=== PATIENT | male | born 1945 | race African-American/Black ===

== ENCOUNTER 2017-10-29 17:54 | Emergency (ER) | payer MEDICARE, OTHER, SELFPAY ==
[2017-10-29 18:04] VITALS: BP 147/81; PULSE 61; RESP 20; TEMP 36.9; O2SAT 100; BMI 32.7
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
--- NOTE | 2017-10-29 18:13 | PC.NURSE ---
Pt off backboard at 181
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
[2017-10-29 18:30] VITALS: BP 127/68; PULSE 73; RESP 14; O2SAT 99
--- NOTE | 2017-10-29 18:40 | PC.NURSE ---
PER PROVIDER KARISSA TORADOL GIVEN IM INJECTION. VERBAL ORDER FROM PROVIDER FOR BLOOD DRAW NOT IV.
[2017-10-29] MEDS: KETOROLAC 60 MG/2 ML VIAL 30 MG IM (18:46)
[2017-10-29 19:12] LABS: Add Manual Diff / Slide Review NO; Basophils Percent Auto 0.6 % (0-2); Eosinophils Percent Auto 3.2 % (2-4); Hemoglobin 11.5 g/dL (13.5-17.5); Mean Corpuscular HGB Conc 32.9 % (30-36); Mean Corpuscular Hemoglobin 31.2 PG (26-34); Mean Corpuscular Volume 94.6 fL (80-100); Neutrophils Absolute Auto 2500 /uL (3000-5900); Neutrophils Percent Auto 54.2 % (50-75); Platelet Count 124 X10^3/uL (150-400); Red Cell Distribution Width 14.2 % (11.6-14.8); White Blood Cell Count 4.6 X10^3/uL (4.5-11.0)
[2017-10-29 19:19] LABS: INR 1.3 (0.9-1.3); Prothrombin Time 14.5 SECONDS (10.1-12.7)
[2017-10-29 19:22] LABS: PTT Partial Thromboplastin Tim 28 SECONDS (26.4-36.2)
[2017-10-29 19:27] LABS: Alanine Aminotransferase 38 IU/L (21-72); Albumin 4.1 g/dL (3.5-5.0); Albumin Globulin Ratio 1.5 (1.0-2.8); Alkaline Phosphatase 42 U/L (38-126); Aspartate Aminotransferase 41 IU/L (17-59); BUN Creatinine Ratio 17.7 (6-22); Bilirubin Total 0.6 mg/dL (0.2-1.3); Calcium 9.4 mg/dL (8.4-10.2); Creatine Kinase 354 U/L (55-170); Ethanol (ETOH) < 10 mg/dL; Globulin 2.7 g/dL (1.7-4.1); Glucose 100 mg/dL (80-110); HEMOLYSIS < 15 (0-50); Lipase 104 U/L (23-300); Potassium 4.2 mmol/L (3.4-5.1); Sodium 140 mmol/L (137-145); Total Protein 6.8 g/dL (6.3-8.2)
[2017-10-29 19:30] VITALS: BP 158/81; PULSE 72; RESP 14; O2SAT 99
--- NOTE | 2017-10-29 19:30 | PC.NURSE ---
patient refused IV
[2017-10-29 19:42] LABS: CKMB % Relative Index 0.7 % (1.5-5.0); Creatine Kinase MB 2.36 ng/mL (<2.37)
[2017-10-29 19:43] LABS: Troponin I < 0.012 ng/mL (0.01-0.034)
== END 2017-10-29 19:50 | disposition home or self-care (01) ==
PROVIDERS: Emergency Provider Emergency Medicine; Family Provider Internal Medicine; PCP Internal Medicine
DX: S13.4XXA Sprain of ligaments of cervical spine, initial encounter (principal); V49.9XXA Car occupant (driver) (passenger) injured in unspecified traffic accident, initial encounter
CPT/HCPCS: 36415; 71046; 80053; 80320; 82550; 82553; 83690; 84484; 85025; 85610; 85730; 93005; 96372; 99283; 99285; J1885

== ENCOUNTER 2018-02-10 10:27 | Emergency (ER) | payer MEDICARE, OTHER, SELFPAY ==
[2018-02-10 10:37] VITALS: BP 123/78; PULSE 70; RESP 18; TEMP 37.4; O2SAT 98
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
[2018-02-10 11:26] LABS: Add Manual Diff / Slide Review NO; Basophils Percent Auto 0.5 % (0-2); Eosinophils Percent Auto 3.7 % (2-4); Hematocrit 33.3 % (41-53); Hemoglobin 11.1 g/dL (13.5-17.5); Lymphocytes Percent Auto 16.9 % (25-40); Mean Corpuscular HGB Conc 33.3 % (30-36); Mean Corpuscular Hemoglobin 31.3 PG (26-34); Mean Corpuscular Volume 93.9 fL (80-100); Monocytes Percent Auto 10.7 % (3-14); Neutrophils Absolute Auto 4000 /uL (3000-5900); Neutrophils Percent Auto 68.2 % (50-75); Platelet Count 157 X10^3/uL (150-400); Red Blood Cell Count 3.54 X10^6/uL (4.5-5.9); Red Cell Distribution Width 14.4 % (11.6-14.8); White Blood Cell Count 5.8 X10^3/uL (4.5-11.0)
[2018-02-10 11:33] LABS: Alanine Aminotransferase 32 IU/L (21-72); Albumin 3.9 g/dL (3.5-5.0); Albumin Globulin Ratio 1.5 (1.0-2.8); Alkaline Phosphatase 53 U/L (38-126); Aspartate Aminotransferase 54 IU/L (17-59); BUN Creatinine Ratio 14.2 (6-22); Bilirubin Total 0.4 mg/dL (0.2-1.3); Blood Urea Nitrogen 17 mg/dL (9-20); Calcium 8.9 mg/dL (8.4-10.2); Carbon Dioxide 34 mmol/L (22-32); Chloride 104 mmol/L (98-107); Creatine Kinase 127 U/L (55-170); Estimated Glomerular Filt Rate 59.2 mL/min (>60); Globulin 2.6 g/dL (1.7-4.1); Glucose 106 mg/dL (80-110); Potassium 4.1 mmol/L (3.4-5.1); Sodium 144 mmol/L (137-145); Total Protein 6.5 g/dL (6.3-8.2)
[2018-02-10 11:47] LABS: Troponin I < 0.012 ng/mL (0.01-0.034)
[2018-02-10 11:49] LABS: CKMB % Relative Index 0.6 % (1.5-5.0); Creatine Kinase MB 0.77 ng/mL (<2.37); HEMOLYSIS 21 (0-50)
[2018-02-10 12:02] VITALS: BP 143/74; PULSE 62; RESP 16; O2SAT 100
[2018-02-10 13:23] VITALS: BP 129/76; PULSE 59; RESP 18; TEMP 37.1; O2SAT 98
== END 2018-02-10 13:24 | disposition home or self-care (01) ==
PROVIDERS: Emergency Provider Emergency Medicine; PCP Internal Medicine
DX: B34.9 Viral infection, unspecified (principal); R53.1 Weakness
CPT/HCPCS: 36591; 71045; 80053; 82550; 82553; 84484; 85025; 93005; 93010; 99282; 99285

== ENCOUNTER 2018-02-22 11:55 | Emergency (ER) | payer MEDICARE, OTHER, SELFPAY ==
[2018-02-22 12:01] VITALS: BP 151/79; PULSE 65; RESP 14; TEMP 37.2; O2SAT 98; BMI 31.1
--- NOTE | 2018-02-22 12:12 | DI.RAD.S_ITS ---
PROCEDURE: XR CHEST 1V INDICATIONS: chest pain TECHNIQUE: One view of the chest was acquired. COMPARISON: [facility], CR, XR CHEST 1V, 02/10/2018, 11:26. [facility], CR, XR CHEST 2V, 10/29/2017, 17:53. [facility], CR, CHEST 1 VIEW, 08/10/2017, 10:09. FINDINGS: Surgical changes and devices: Pacemaking device and dual chamber leads stable over time Lungs and pleura: No pleural effusions or pneumothorax. Lungs are clear. Mediastinum: Mediastinal contours appear normal. Heart size is normal. Bones and chest wall: No suspicious bony lesions. Overlying soft tissues appear unremarkable. IMPRESSION: Pacemaker appears normal, source of new chest is not found. Dictated by: Carlos Kay M.D. on 02/22/2018 at 12:51 Approved by: Carlos Kay M.D. on 02/22/2018 at 12:51
--- NOTE | 2018-02-22 12:26 | ED.WEAKNESS ---
HPI - Weakness <Sarah Holly, ACCOUNTANT MANAGER-BC - Last Filed: 02/22/18 15:15> General Chief complaint: Weakness Stated complaint: headaches, states pain everywhere Time Seen by Provider: 02/22/18 12:26 Source: patient, RN notes reviewed and old records reviewed Mode of arrival: ambulatory Limitations: no limitations History of Present Illness HPI Narrative: Patient presents with chief complaint of illness for 3 weeks. States he has been seen in this emergency department once as well as his primary care. He was seen by his primary care physician on 02/17/2018. He has seen in the emergency department 02/02/2018. He complains of various symptoms including headache, sore and inflamed abdomen. He denies any sore throat, ear pain, objective fevers but does complain of slight chills. He states he has had diarrhea on and off since this started including prior to when he saw his primary care provider. He is frustrated that he is not improving at a quick enough rate. He states he feels weak, denies dizziness and lightheadedness. He states he used to have some cough and congestion, but those have improved. He states he occasionally coughs up mucus. Today he states that he has headache, and then belly aches but neither at the same time. He is requesting testing for hepatitis as he is concerned about that. Related Data Home Medications Medication Instructions Recorded Confirmed CA PANTOTHENATE/FOLIC ACID/VIT 1 tab PO QDAY #0 02/13/12 02/17/18 (MULTIVITAMIN) ASPIRIN (#ASPIRIN) 81 mg PO Q DAY #0 07/23/12 02/17/18 colchicine [Mitigare] 1 cap PO BID #0 02/23/16 02/17/18 gabapentin [Neurontin] 300 mg PO BID #0 02/23/16 02/17/18 nabumetone 500 mg PO QDAY #0 tab 02/23/16 02/17/18 alprazolam 0.25 mg PO TIDP PRN #0 11/22/16 02/17/18 diclofenac sodium [Voltaren] 1 john TOPICAL QID #0 11/22/16 02/17/18 fluticasone [Flonase Allergy 1 spray INTRANASAL QDAY #0 11/22/16 02/17/18 Relief] amitriptyline 25 mg PO HS #0 08/10/17 02/17/18 tramadol 50 mg PO QDAY #0 08/10/17 02/17/18 Previous Rx's Medication Instructions Recorded sertraline 50 mg PO QDAY #30 tab 12/16/16 sucralfate 1 gm PO ACHS #360 tab 02/24/17 diclofenac sodium 75 mg PO BIDP PRN #60 ect 03/14/17 tamsulosin [Flomax] 0.4 mg PO QDAY #30 cap 03/14/17 sertraline 50 mg PO QDAY #90 tab 04/07/17 levothyroxine [Synthroid] 50 mcg PO QDAY #90 tab 08/12/17 lisinopril 5 mg PO Q DAY #90 tab 08/12/17 tadalafil [Cialis] 20 mg PO QDAY #30 tab 08/19/17 sildenafil [Viagra] 100 mg PO PRN PRN #30 tab 10/23/17 oxycodone 5 mg tablet 5 mg PO Q4-6H PRN #20 tab 11/13/17 pantoprazole 40 mg PO BID #180 tab 12/09/17 clorazepate dipotassium 3.75 mg 3.75 mg PO BID #180 tab 02/03/18 tablet ibuprofen 600 mg PO QID PRN #20 tab 02/22/18 Allergies Allergy/AdvReac Type Severity Reaction Status Date / Time codeine Allergy Mild HIVES Verified 02/22/18 12:04 Review of Systems <JOO Serna - Last Filed: 02/22/18 15:15> Review of Systems GENERAL: See HPI HEENT: Denies sinus pain, ear pain, sore throat, difficulty swallowing, dizziness. RESPIRATORY: See HPI CARDIOVASCULAR: See HPI GASTROINTESTINAL: See HPI : Denies dysuria, frequency, incontinence, hematuria, urinary retention. MUSCULOSKELETAL: denies weakness, joint pain, or bony pain SKIN: Denies rash, skin lesions, or other NEUROLOGIC: Denies weakness, headache, numbness, change in speech, confusion, seizures, incoordination. PSYCHIATRIC: No concerning psychosocial issues. 12 point review of systems is negative except for those stated above Exam <JOO Serna - Last Filed: 02/22/18 15:15> Narrative Exam Narrative: GENERAL: Obese male lying on stretcher. Patient is eyes closed respirations even and appears to be sleep when I began my evaluation. HEAD: Atraumatic. Normocephalic. No temporal or scalp tenderness. EYES: Pupils equal round and reactive. Extraocular motions intact. No scleral icterus. No injection or drainage. ENT: Nose without bleeding, purulent drainage or septal hematoma. Throat without erythema, tonsillar hypertrophy or exudate. Uvula midline. Airway patent. TMs pearly prieto bilaterally with no swelling or erythema in the canal spinning. NECK: Trachea midline. No JVD or anterior or posterior lymphadenopathy. Supple, nontender, no meningeal signs. Full range of motion neck. CARDIOVASCULAR: Regular rate and rhythm without murmurs, gallops, or rubs. RESPIRATORY: Clear to auscultation. Breath sounds equal bilaterally. No wheezes, rales, or rhonchi. No cough on exam. GASTROINTESTINAL: Abdomen soft, non-tender, nondistended. No hepato-splenomegaly, or palpable masses. No guarding. Active bowel sounds all 4 quadrants. No pulsatile mass. No pain at McBurney's point. Negative Loera sign. EXTREMITIES: No clubbing, cyanosis, or edema. No joint tenderness, effusion, or edema noted. BACK: Nontender without deformity or crepitance. No flank tenderness. NEURO: AOx3. SKIN: No rash or erythema. Initial Vital Signs Initial Vital Signs: Vital Signs Temperature 98.9 F 02/22/18 12:01 Pulse Rate 65 02/22/18 12:01 Respiratory Rate 14 02/22/18 12:01 Blood Pressure 151/79 H 02/22/18 12:01 Pulse Oximetry 98 02/22/18 12:01 <Seamus Gant DO - Last Filed: 02/22/18 16:10> Initial Vital Signs Initial Vital Signs: Vital Signs Temperature 98.9 F 02/22/18 12:01 Pulse Rate 65 02/22/18 12:01 Respiratory Rate 14 02/22/18 12:01 Blood Pressure 151/79 H 02/22/18 12:01 Pulse Oximetry 98 02/22/18 12:01 Course <STACY Serna-BC - Last Filed: 02/22/18 15:15> Course Narrative: I spoke with the patient several times had a stay regarding his test results coming back, x-ray results etc. Orders Ordered: ED Orders 02/22/18 12:12 XR chest 1V Stat EKG-12 Lead Stat 02/22/18 13:30 Amylase Stat Complete Blood Count AUTO DIFF Stat Comprehensive Metabolic Panel Stat Lipase Stat Partial Thromboplastin Time Stat Prothrombin Time INR Stat Troponin & CK Cardiac Panel Stat Discontinued Medications Ibuprofen (Advil) 800 mg PO NOW ONE Stop: 02/22/18 14:39 Last Admin: 02/22/18 14:45 Dose: 800 mg Vital Signs - 8 hr 02/22/18 12:01 02/22/18 13:15 02/22/18 14:50 Temperature 98.9 F Pulse Rate 65 64 56 L Respiratory Rate 14 17 14 Blood Pressure 151/79 H Blood Pressure [Left Arm] 134/71 156/89 H Pulse Oximetry 98 95 98 <Seamus Gant DO - Last Filed: 02/22/18 16:10> Orders Ordered: ED Orders 02/22/18 12:12 XR chest 1V Stat EKG-12 Lead Stat 02/22/18 13:30 Amylase Stat Complete Blood Count AUTO DIFF Stat Comprehensive Metabolic Panel Stat Lipase Stat Partial Thromboplastin Time Stat Prothrombin Time INR Stat Troponin & CK Cardiac Panel Stat Discontinued Medications Ibuprofen (Advil) 800 mg PO NOW ONE Stop: 02/22/18 14:39 Last Admin: 02/22/18 14:45 Dose: 800 mg Vital Signs - 8 hr 02/22/18 12:01 02/22/18 13:15 02/22/18 14:50 Temperature 98.9 F Pulse Rate 65 64 56 L Respiratory Rate 14 17 14 Blood Pressure 151/79 H Blood Pressure [Left Arm] 134/71 156/89 H Pulse Oximetry 98 95 98 MDM - Weakness <KARISSA Serna - Last Filed: 02/22/18 15:15> Lab Data Result diagrams: 02/22/18 13:30 02/22/18 13:30 Lab Results 02/22/18 02/22/18 02/22/18 Range/Units 13:30 13:30 13:30 WBC 5.2 (4.5-11.0) X10^3/uL RBC 3.51 L (4.5-5.9) X10^6/uL Hgb 11.0 L (13.5-17.5) g/dL Hct 33.1 L (41-53) % MCV 94.4 (80-100) fL MCH 31.2 (26-34) PG MCHC 33.1 (30-36) % RDW 13.9 (11.6-14.8) % Plt Count 274 (150-400) X10^3/uL Neut % (Auto) 62.9 (50-75) % Lymph % (Auto) 27.6 (25-40) % [place] % (Auto) 6.7 (3-14) % Eos % (Auto) 1.7 L (2-4) % Baso % (Auto) 1.1 (0-2) % Neut # (Auto) 3300 (9064-6158) /uL PT 17.7 H (10.1-12.7) SECONDS INR 1.6 H (0.9-1.3) APTT 27 (26.4-36.2) SECONDS Sodium 143 (137-145) mmol/L Potassium 4.2 (3.4-5.1) mmol/L Chloride 101 (98-107) mmol/L Carbon Dioxide 37 H (22-32) mmol/L BUN 15 (9-20) mg/dL Creatinine 1.10 (0.66-1.25) mg/dL Estimated GFR > 60.0 (>60) mL/min BUN/Creatinine Ratio 13.6 (6-22) Glucose 98 (80-110) mg/dL Calcium 9.5 (8.4-10.2) mg/dL Total Bilirubin 0.5 (0.2-1.3) mg/dL AST 31 (17-59) IU/L ALT 28 (21-72) IU/L Alkaline Phosphatase 55 (38-126) U/L Total Creatine Kinase 181 H (55-170) U/L CK-MB (CK-2) 0.55 (<2.37) ng/mL CK-MB (CK-2) Rel Index 0.3 L (1.5-5.0) % Troponin I < 0.012 (0.01-0.034) ng/mL Total Protein 7.3 (6.3-8.2) g/dL Albumin 4.1 (3.5-5.0) g/dL Globulin 3.2 (1.7-4.1) g/dL Albumin/Globulin Ratio 1.3 (1.0-2.8) Amylase 82 (30-110) U/L Lipase 51 (23-300) U/L Urine Dip Bedside Urine Glucose Negative Bedside Urine Bilirubin - Negative Bedside Urine Ketone - Negative Urine Specific Ernest 1.015 Bedside Urine Occult Blood - Negative Bedside Urine pH 6.0 Bedside Urine Protein - Negative Bedside Urine Urobilinogen - Negative Bedside Urine Nitrite - Negative Bedside Urine Leukocytes - Negative Esterase Imaging Data Chest x-ray: Radiologist's impression: [address] [address] XRay Report Signed Patient: Jorje Garay MR#: [id number] : 1945 Acct:[id number] Age/Sex: 72 / M Date of Service: 02/22/18 Loc: ED Accession Number: [id number] Procedure: XR chest 1V Ordering Provider: Sarah Holly-JAROD PROCEDURE: XR CHEST 1V INDICATIONS: chest pain TECHNIQUE: One view of the chest was acquired. COMPARISON: [facility], CR, XR CHEST 1V, 02/10/2018, 11:26. [facility], CR, XR CHEST 2V, 10/29/2017, 17:53. [facility], CR, CHEST 1 VIEW, 08/10/2017, 10:09. FINDINGS: Surgical changes and devices: Pacemaking device and dual chamber leads stable over time Lungs and pleura: No pleural effusions or pneumothorax. Lungs are clear. Mediastinum: Mediastinal contours appear normal. Heart size is normal. Bones and chest wall: No suspicious bony lesions. Overlying soft tissues appear unremarkable. IMPRESSION: Pacemaker appears normal, source of new chest is not found. Dictated by: Carlos Kay M.D. on 02/22/2018 at 12:51 Approved by: Carlos Kay M.D. on 02/22/2018 at 12:51 ECG Data Attestation: I personally reviewed and interpreted this ECG as follows: Interpretation: Sinus arrhythmia. Ventricular rate 65. No ST elevation or depression.FL 225 MDM Narrative Medical decision making narrative: Patient presented with chief complaint of fatigue and weakness. He states this has been going on since his previous emergency department visit at the end of January. He saw his primary care 5 days ago. He presents requesting testing for ?all the other viruses including hepatitis, HIV, etc. Given his history, we did an EKG, CMP, CBC lipase amylase as well as a troponin level. All of his lab work came back grossly normal for the patient, with his hemoglobin hematocrit at his own baseline. A chest x-ray was obtained per nursing protocol. I did give him a prescription of ibuprofen upon discharge per his request with instructions to not take with other NSAIDs. The patient has no questions or concerns upon discharge in state to follow up with primary care provider tomorrow. I discussed return precautions to the emergency department including chest pain, stroke symptoms, etc. <Seamus Gant DO - Last Filed: 02/22/18 16:10> Lab Data Lab Results 02/22/18 02/22/18 02/22/18 Range/Units 13:30 13:30 13:30 WBC 5.2 (4.5-11.0) X10^3/uL RBC 3.51 L (4.5-5.9) X10^6/uL Hgb 11.0 L (13.5-17.5) g/dL Hct 33.1 L (41-53) % MCV 94.4 (80-100) fL MCH 31.2 (26-34) PG MCHC 33.1 (30-36) % RDW 13.9 (11.6-14.8) % Plt Count 274 (150-400) X10^3/uL Neut % (Auto) 62.9 (50-75) % Lymph % (Auto) 27.6 (25-40) % Prairie % (Auto) 6.7 (3-14) % Eos % (Auto) 1.7 L (2-4) % Baso % (Auto) 1.1 (0-2) % Neut # (Auto) 3300 (4737-9779) /uL PT 17.7 H (10.1-12.7) SECONDS INR 1.6 H (0.9-1.3) APTT 27 (26.4-36.2) SECONDS Sodium 143 (137-145) mmol/L Potassium 4.2 (3.4-5.1) mmol/L Chloride 101 (98-107) mmol/L Carbon Dioxide 37 H (22-32) mmol/L BUN 15 (9-20) mg/dL Creatinine 1.10 (0.66-1.25) mg/dL Estimated GFR > 60.0 (>60) mL/min BUN/Creatinine Ratio 13.6 (6-22) Glucose 98 (80-110) mg/dL Calcium 9.5 (8.4-10.2) mg/dL Total Bilirubin 0.5 (0.2-1.3) mg/dL AST 31 (17-59) IU/L ALT 28 (21-72) IU/L Alkaline Phosphatase 55 (38-126) U/L Total Creatine Kinase 181 H (55-170) U/L CK-MB (CK-2) 0.55 (<2.37) ng/mL CK-MB (CK-2) Rel Index 0.3 L (1.5-5.0) % Troponin I < 0.012 (0.01-0.034) ng/mL Total Protein 7.3 (6.3-8.2) g/dL Albumin 4.1 (3.5-5.0) g/dL Globulin 3.2 (1.7-4.1) g/dL Albumin/Globulin Ratio 1.3 (1.0-2.8) Amylase 82 (30-110) U/L Lipase 51 (23-300) U/L Urine Dip Bedside Urine Glucose Negative Bedside Urine Bilirubin - Negative Bedside Urine Ketone - Negative Urine Specific Ernest 1.015 Bedside Urine Occult Blood - Negative Bedside Urine pH 6.0 Bedside Urine Protein - Negative Bedside Urine Urobilinogen - Negative Bedside Urine Nitrite - Negative Bedside Urine Leukocytes - Negative Esterase Discharge Plan Departure Patient Disposition: Home Clinical Impression: Fatigue, Weakness Discharge Date/Time: 02/22/18 15:25 Interventions: ED Discharge Assessment Last Done: 02/22/18 15:15 Instructions: DI for Fatigue Activity Restrictions/Additional Instructions: Today we did an EKG, chest x-ray, and a bunch of lab work. Everything came back in her normal range from her previous lab work. Your x-ray shows no signs of pneumonia. Your vital signs have been stable throughout your stay. Please follow-up with your primary care provider regarding the other testing he requested for hepatitis, etc Prescriptions: New ibuprofen 600 mg tablet 600 mg PO QID PRN (Reason: pain) Qty: 20 RF: 0 No Action CA PANTOTHENATE/FOLIC ACID/VIT (MULTIVITAMIN) 1 tab PO QDAY Qty: 0 RF: 0 ASPIRIN (#ASPIRIN) 81 mg PO Q DAY Qty: 0 RF: 0 gabapentin [Neurontin] 300 MG capsule 300 mg PO BID Qty: 0 RF: 0 nabumetone 500 MG tablet 500 mg PO QDAY Qty: 0 RF: 0 colchicine [Mitigare] 0.6 MG capsule 1 cap PO BID Qty: 0 RF: 0 alprazolam 0.25 MG tablet 0.25 mg PO TIDP PRNQty: 0 RF: 0 diclofenac sodium [Voltaren] 1 % gel 1 john Topical QID Qty: 0 RF: 0 fluticasone [Flonase Allergy Relief] 9.9 ML spray,suspension 1 spray Intranasal QDAY Qty: 0 RF: 0 sertraline 50 MG tablet 50 mg PO QDAY Qty: 30 RF: 3 sucralfate 1 GM tablet 1 gm PO ACHS Qty: 360 RF: 3 tamsulosin [Flomax] 0.4 MG capsule,extended release 24hr 0.4 mg PO QDAY Qty: 30 RF: 0 diclofenac sodium 75 MG tablet,delayed release (DR/EC) 75 mg PO BIDP PRNQty: 60 RF: 6 sertraline 50 MG tablet 50 mg PO QDAY Qty: 90 RF: 3 tramadol 50 MG tablet 50 mg PO QDAY Qty: 0 RF: 0 amitriptyline 25 MG tablet 25 mg PO HS Qty: 0 RF: 0 levothyroxine [Synthroid] 50 MCG tablet 50 mcg PO QDAY Qty: 90 RF: 2 lisinopril 5 MG tablet 5 mg PO Q DAY Qty: 90 RF: 2 tadalafil [Cialis] 20 MG tablet 20 mg PO QDAY Qty: 30 RF: 10 sildenafil [Viagra] 100 mg tablet 100 mg PO PRN PRNQty: 30 RF: 10 pantoprazole 40 mg tablet,delayed release (DR/EC) 40 mg PO BID Qty: 180 RF: 3 clorazepate dipotassium 3.75 mg tablet 3.75 mg PO BID Qty: 180 RF: 1 oxycodone 5 mg tablet 5 mg PO Q4-6H PRN (Reason: pain in chest) Qty: 20 RF: 0 Referrals: Brayan Blackwell MD [Primary Care Provider] - <Seamus Gant DO - Last Filed: 02/22/18 16:10> Cosign ED Attending Cosignature Attestation: I was available for consultation during this patient's emergency department encounter
[2018-02-22 13:15] VITALS: BP 134/71; PULSE 64; RESP 17; O2SAT 95
--- NOTE | 2018-02-22 13:34 | ED_ITS ---
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 States he has been seen in this emergency department once as well as his primary care. He was seen by his primary care physician on 02/17/2018. He has seen in the emergency department 02/02/2018. He complains of various symptoms including headache, sore and inflamed abdomen. He denies any sore throat, ear pain, objective fevers but does complain of slight chills. He states he has had diarrhea on and off since this started including prior to when he saw his primary care provider. He is frustrated that he is not improving at a quick enough rate. He states he feels weak, denies dizziness and lightheadedness. He states he used to have some cough and congestion, but those have improved. He states he occasionally coughs up mucus. Today he states that he has headache , and then belly aches but neither at the same time. He is requesting testing for hepatitis as he is concerned about that. Related Data Home Medications Medication Instructions Recorded Confirmed CA PANTOTHENATE/FOLIC ACID/VIT 1 tab PO QDAY #0 02/13/12 02/17/18 (MULTIVITAMIN) ASPIRIN (#ASPIRIN) 81 mg PO Q DAY #0 07/23/12 02/17/18 colchicine [Mitigare] 1 cap PO BID #0 02/23/16 02/17/18 gabapentin [Neurontin] 300 mg PO BID #0 02/23/16 02/17/18 nabumetone 500 mg PO QDAY #0 tab 02/23/16 02/17/18 alprazolam 0.25 mg PO TIDP PRN #0 11/22/16 02/17/18 diclofenac sodium [Voltaren] 1 john TOPICAL QID #0 11/22/16 02/17/18 fluticasone [Flonase Allergy 1 spray INTRANASAL QDAY #0 11/22/16 02/17/18 Relief] amitriptyline 25 mg PO HS #0 08/10/17 02/17/18 tramadol 50 mg PO QDAY #0 08/10/17 02/17/18 Previous Rx's Medication Instructions Recorded sertraline 50 mg PO QDAY #30 tab 12/16/16 sucralfate 1 gm PO ACHS #360 tab 02/24/17 diclofenac sodium 75 mg PO BIDP PRN #60 ect 03/14/17 tamsulosin [Flomax] 0.4 mg PO QDAY #30 cap 03/14/17 sertraline 50 mg PO QDAY #90 tab 04/07/17 levothyroxine [Synthroid] 50 mcg PO QDAY #90 tab 08/12/17 lisinopril 5 mg PO Q DAY #90 tab 08/12/17 tadalafil [Cialis] 20 mg PO QDAY #30 tab 08/19/17 sildenafil [Viagra] 100 mg PO PRN PRN #30 tab 10/23/17 oxycodone 5 mg tablet 5 mg PO Q4-6H PRN #20 tab 11/13/17 pantoprazole 40 mg PO BID #180 tab 12/09/17 clorazepate dipotassium 3.75 mg 3.75 mg PO BID #180 tab 02/03/18 tablet ibuprofen 600 mg PO QID PRN #20 tab 02/22/18 Allergies Allergy/AdvReac Type Severity Reaction Status Date / Time codeine Allergy Mild HIVES Verified 02/22/18 12:04 Review of Systems <JOO Serna - Last Filed: 02/22/18 15:15> Review of Systems GENERAL: See HPI HEENT: Denies sinus pain, ear pain, sore throat, difficulty swallowing, dizziness. RESPIRATORY: See HPI CARDIOVASCULAR: See HPI GASTROINTESTINAL: See HPI : Denies dysuria, frequency, incontinence, hematuria, urinary retention. MUSCULOSKELETAL: denies weakness, joint pain, or bony pain SKIN: Denies rash, skin lesions, or other NEUROLOGIC: Denies weakness, headache, numbness, change in speech, confusion, seizures, incoordination. PSYCHIATRIC: No concerning psychosocial issues. 12 point review of systems is negative except for those stated above Exam <JOO Serna - Last Filed: 02/22/18 15:15> Narrative Exam Narrative: GENERAL: Obese male lying on stretcher. Patient is eyes closed respirations even and appears to be sleep when I began my evaluation. HEAD: Atraumatic. Normocephalic. No temporal or scalp tenderness. EYES: Pupils equal round and reactive. Extraocular motions intact. No scleral icterus. No injection or drainage. ENT: Nose without bleeding, purulent drainage or septal hematoma. Throat without erythema, tonsillar hypertrophy or exudate. Uvula midline. Airway patent. TMs pearly prieto bilaterally with no swelling or erythema in the canal spinning. NECK: Trachea midline. No JVD or anterior or posterior lymphadenopathy. Supple, nontender, no meningeal signs. Full range of motion neck. CARDIOVASCULAR: Regular rate and rhythm without murmurs, gallops, or rubs. RESPIRATORY: Clear to auscultation. Breath sounds equal bilaterally. No wheezes , rales, or rhonchi. No cough on exam. GASTROINTESTINAL: Abdomen soft, non-tender, nondistended. No hepato-splenomegaly , or palpable masses. No guarding. Active bowel sounds all 4 quadrants. No pulsatile mass. No pain at McBurney's point. Negative Loera sign. EXTREMITIES: No clubbing, cyanosis, or edema. No joint tenderness, effusion, or edema noted. BACK: Nontender without deformity or crepitance. No flank tenderness. NEURO: AOx3. SKIN: No rash or erythema. Initial Vital Signs Initial Vital Signs: Vital Signs Temperature 98.9 F 02/22/18 12:01 Pulse Rate 65 02/22/18 12:01 Respiratory Rate 14 02/22/18 12:01 Blood Pressure 151/79 H 02/22/18 12:01 Pulse Oximetry 98 02/22/18 12:01 <Seamus Gant DO - Last Filed: 02/22/18 16:10> Initial Vital Signs Initial Vital Signs: Vital Signs Temperature 98.9 F 02/22/18 12:01 Pulse Rate 65 02/22/18 12:01 Respiratory Rate 14 02/22/18 12:01 Blood Pressure 151/79 H 02/22/18 12:01 Pulse Oximetry 98 02/22/18 12:01 Course <STACY Serna-BC - Last Filed: 02/22/18 15:15> Course Narrative: I spoke with the patient several times had a stay regarding his test results coming back, x-ray results etc. Orders Ordered: ED Orders 02/22/18 12:12 XR chest 1V Stat EKG-12 Lead Stat 02/22/18 13:30 Amylase Stat Complete Blood Count AUTO DIFF Stat Comprehensive Metabolic Panel Stat Lipase Stat Partial Thromboplastin Time Stat Prothrombin Time INR Stat Troponin & CK Cardiac Panel Stat Discontinued Medications Ibuprofen (Advil) 800 mg PO NOW ONE Stop: 02/22/18 14:39 Last Admin: 02/22/18 14:45 Dose: 800 mg Vital Signs - 8 hr 02/22/18 12:01 02/22/18 13:15 02/22/18 14:50 Temperature 98.9 F Pulse Rate 65 64 56 L Respiratory Rate 14 17 14 Blood Pressure 151/79 H Blood Pressure [Left Arm] 134/71 156/89 H Pulse Oximetry 98 95 98 <Seamus Gant DO - Last Filed: 02/22/18 16:10> Orders Ordered: ED Orders 02/22/18 12:12 XR chest 1V Stat EKG-12 Lead Stat 02/22/18 13:30 Amylase Stat Complete Blood Count AUTO DIFF Stat Comprehensive Metabolic Panel Stat Lipase Stat Partial Thromboplastin Time Stat Prothrombin Time INR Stat Troponin & CK Cardiac Panel Stat Discontinued Medications Ibuprofen (Advil) 800 mg PO NOW ONE Stop: 02/22/18 14:39 Last Admin: 02/22/18 14:45 Dose: 800 mg Vital Signs - 8 hr 02/22/18 12:01 02/22/18 13:15 02/22/18 14:50 Temperature 98.9 F Pulse Rate 65 64 56 L Respiratory Rate 14 17 14 Blood Pressure 151/79 H Blood Pressure [Left Arm] 134/71 156/89 H Pulse Oximetry 98 95 98 MDM - Weakness <KARISSA Serna - Last Filed: 02/22/18 15:15> Lab Data Result diagrams: 02/22/18 13:30 02/22/18 13:30 Lab Results 02/22/18 02/22/18 02/22/18 Range/Units 13:30 13:30 13:30 WBC 5.2 (4.5-11.0) X10^3/uL RBC 3.51 L (4.5-5.9) X10^6/uL Hgb 11.0 L (13.5-17.5) g/dL Hct 33.1 L (41-53) % MCV 94.4 (80-100) fL MCH 31.2 (26-34) PG MCHC 33.1 (30-36) % RDW 13.9 (11.6-14.8) % Plt Count 274 (150-400) X10^3/uL Neut % (Auto) 62.9 (50-75) % Lymph % (Auto) 27.6 (25-40) % Polk % (Auto) 6.7 (3-14) % Eos % (Auto) 1.7 L (2-4) % Baso % (Auto) 1.1 (0-2) % Neut # (Auto) 3300 (9258-1180) /uL PT 17.7 H (10.1-12.7) SECONDS INR 1.6 H (0.9-1.3) APTT 27 (26.4-36.2) SECONDS Sodium 143 (137-145) mmol/L Potassium 4.2 (3.4-5.1) mmol/L Chloride 101 (98-107) mmol/L Carbon Dioxide 37 H (22-32) mmol/L BUN 15 (9-20) mg/dL Creatinine 1.10 (0.66-1.25) mg/dL Estimated GFR > 60.0 (>60) mL/min BUN/Creatinine Ratio 13.6 (6-22) Glucose 98 (80-110) mg/dL Calcium 9.5 (8.4-10.2) mg/dL Total Bilirubin 0.5 (0.2-1.3) mg/dL AST 31 (17-59) IU/L ALT 28 (21-72) IU/L Alkaline Phosphatase 55 (38-126) U/L Total Creatine Kinase 181 H (55-170) U/L CK-MB (CK-2) 0.55 (<2.37) ng/mL CK-MB (CK-2) Rel Index 0.3 L (1.5-5.0) % Troponin I < 0.012 (0.01-0.034) ng/mL Total Protein 7.3 (6.3-8.2) g/dL Albumin 4.1 (3.5-5.0) g/dL Globulin 3.2 (1.7-4.1) g/dL Albumin/Globulin Ratio 1.3 (1.0-2.8) Amylase 82 (30-110) U/L Lipase 51 (23-300) U/L Urine Dip Bedside Urine Glucose Negative Bedside Urine Bilirubin - Negative Bedside Urine Ketone - Negative Urine Specific Byron 1.015 Bedside Urine Occult Blood - Negative Bedside Urine pH 6.0 Bedside Urine Protein - Negative Bedside Urine Urobilinogen - Negative Bedside Urine Nitrite - Negative Bedside Urine Leukocytes - Negative Esterase Imaging Data Chest x-ray: Radiologist's impression: [address] [address] XRay Report Signed Patient: Jorje Garay MR#: [id number] : 1945 Acct:[id number] Age/Sex: 72 / M Date of Service: 02/22/18 Loc: ED Accession Number: [id number] Procedure: XR chest 1V Ordering Provider: Sarah Holly-JAROD PROCEDURE: XR CHEST 1V INDICATIONS: chest pain TECHNIQUE: One view of the chest was acquired. COMPARISON: Merged With [facility], CR, XR CHEST 1V, 02/10/2018, 11:26. Merged With [facility], CR, XR CHEST 2V, 10/29/2017, 17:53. Merged With [facility], CR, CHEST 1 VIEW, 08/10/2017, 10: 09. FINDINGS: Surgical changes and devices: Pacemaking device and dual chamber leads stable over time Lungs and pleura: No pleural effusions or pneumothorax. Lungs are clear. Mediastinum: Mediastinal contours appear normal. Heart size is normal. Bones and chest wall: No suspicious bony lesions. Overlying soft tissues appear unremarkable. IMPRESSION: Pacemaker appears normal, source of new chest is not found. Dictated by: Carlos Kay M.D. on 02/22/2018 at 12:51 Approved by: Carlos Kay M.D. on 02/22/2018 at 12:51 ECG Data Attestation: I personally reviewed and interpreted this ECG as follows: Interpretation: Sinus arrhythmia. Ventricular rate 65. No ST elevation or depression.UT 225 MDM Narrative Medical decision making narrative: Patient presented with chief complaint of fatigue and weakness. He states this has been going on since his previous emergency department visit at the end of January. He saw his primary care 5 days ago. He presents requesting testing for ?all the other viruses including hepatitis, HIV, etc. Given his history, we did an EKG, CMP, CBC lipase amylase as well as a troponin level. All of his lab work came back grossly normal for the patient, with his hemoglobin hematocrit at his own baseline. A chest x-ray was obtained per nursing protocol. I did give him a prescription of ibuprofen upon discharge per his request with instructions to not take with other NSAIDs. The patient has no questions or concerns upon discharge in state to follow up with primary care provider tomorrow. I discussed return precautions to the emergency department including chest pain, stroke symptoms, etc. <Seamus Gant DO - Last Filed: 02/22/18 16:10> Lab Data Lab Results 02/22/18 02/22/18 02/22/18 Range/Units 13:30 13:30 13:30 WBC 5.2 (4.5-11.0) X10^3/uL RBC 3.51 L (4.5-5.9) X10^6/uL Hgb 11.0 L (13.5-17.5) g/dL Hct 33.1 L (41-53) % MCV 94.4 (80-100) fL MCH 31.2 (26-34) PG MCHC 33.1 (30-36) % RDW 13.9 (11.6-14.8) % Plt Count 274 (150-400) X10^3/uL Neut % (Auto) 62.9 (50-75) % Lymph % (Auto) 27.6 (25-40) % Polk % (Auto) 6.7 (3-14) % Eos % (Auto) 1.7 L (2-4) % Baso % (Auto) 1.1 (0-2) % Neut # (Auto) 3300 (1946-5973) /uL PT 17.7 H (10.1-12.7) SECONDS INR 1.6 H (0.9-1.3) APTT 27 (26.4-36.2) SECONDS Sodium 143 (137-145) mmol/L Potassium 4.2 (3.4-5.1) mmol/L Chloride 101 (98-107) mmol/L Carbon Dioxide 37 H (22-32) mmol/L BUN 15 (9-20) mg/dL Creatinine 1.10 (0.66-1.25) mg/dL Estimated GFR > 60.0 (>60) mL/min BUN/Creatinine Ratio 13.6 (6-22) Glucose 98 (80-110) mg/dL Calcium 9.5 (8.4-10.2) mg/dL Total Bilirubin 0.5 (0.2-1.3) mg/dL AST 31 (17-59) IU/L ALT 28 (21-72) IU/L Alkaline Phosphatase 55 (38-126) U/L Total Creatine Kinase 181 H (55-170) U/L CK-MB (CK-2) 0.55 (<2.37) ng/mL CK-MB (CK-2) Rel Index 0.3 L (1.5-5.0) % Troponin I < 0.012 (0.01-0.034) ng/mL Total Protein 7.3 (6.3-8.2) g/dL Albumin 4.1 (3.5-5.0) g/dL Globulin 3.2 (1.7-4.1) g/dL Albumin/Globulin Ratio 1.3 (1.0-2.8) Amylase 82 (30-110) U/L Lipase 51 (23-300) U/L Urine Dip Bedside Urine Glucose Negative Bedside Urine Bilirubin - Negative Bedside Urine Ketone - Negative Urine Specific Byron 1.015 Bedside Urine Occult Blood - Negative Bedside Urine pH 6.0 Bedside Urine Protein - Negative Bedside Urine Urobilinogen - Negative Bedside Urine Nitrite - Negative Bedside Urine Leukocytes - Negative Esterase Discharge Plan Departure Patient Disposition: Home Clinical Impression: Fatigue, Weakness Discharge Date/Time: 02/22/18 15:25 Interventions: ED Discharge Assessment Last Done: 02/22/18 15:15 Instructions: DI for Fatigue Activity Restrictions/Additional Instructions: Today we did an EKG, chest x-ray, and a bunch of lab work. Everything came back in her normal range from her previous lab work. Your x-ray shows no signs of pneumonia. Your vital signs have been stable throughout your stay. Please follow-up with your primary care provider regarding the other testing he requested for hepatitis, etc Prescriptions: New ibuprofen 600 mg tablet 600 mg PO QID PRN (Reason: pain) Qty: 20 RF: 0 No Action CA PANTOTHENATE/FOLIC ACID/VIT (MULTIVITAMIN) 1 tab PO QDAY Qty: 0 RF: 0 ASPIRIN (#ASPIRIN) 81 mg PO Q DAY Qty: 0 RF: 0 gabapentin [Neurontin] 300 MG capsule 300 mg PO BID Qty: 0 RF: 0 nabumetone 500 MG tablet 500 mg PO QDAY Qty: 0 RF: 0 colchicine [Mitigare] 0.6 MG capsule 1 cap PO BID Qty: 0 RF: 0 alprazolam 0.25 MG tablet 0.25 mg PO TIDP PRNQty: 0 RF: 0 diclofenac sodium [Voltaren] 1 % gel 1 john Topical QID Qty: 0 RF: 0 fluticasone [Flonase Allergy Relief] 9.9 ML spray,suspension 1 spray Intranasal QDAY Qty: 0 RF: 0 sertraline 50 MG tablet 50 mg PO QDAY Qty: 30 RF: 3 sucralfate 1 GM tablet 1 gm PO ACHS Qty: 360 RF: 3 tamsulosin [Flomax] 0.4 MG capsule,extended release 24hr 0.4 mg PO QDAY Qty: 30 RF: 0 diclofenac sodium 75 MG tablet,delayed release (DR/EC) 75 mg PO BIDP PRNQty: 60 RF: 6 sertraline 50 MG tablet 50 mg PO QDAY Qty: 90 RF: 3 tramadol 50 MG tablet 50 mg PO QDAY Qty: 0 RF: 0 amitriptyline 25 MG tablet 25 mg PO HS Qty: 0 RF: 0 levothyroxine [Synthroid] 50 MCG tablet 50 mcg PO QDAY Qty: 90 RF: 2 lisinopril 5 MG tablet 5 mg PO Q DAY Qty: 90 RF: 2 tadalafil [Cialis] 20 MG tablet 20 mg PO QDAY Qty: 30 RF: 10 sildenafil [Viagra] 100 mg tablet 100 mg PO PRN PRNQty: 30 RF: 10 pantoprazole 40 mg tablet,delayed release (DR/EC) 40 mg PO BID Qty: 180 RF: 3 clorazepate dipotassium 3.75 mg tablet 3.75 mg PO BID Qty: 180 RF: 1 oxycodone 5 mg tablet 5 mg PO Q4-6H PRN (Reason: pain in chest) Qty: 20 RF: 0 Referrals: Brayan Blackwell MD [Primary Care Provider] - <Seamus Gant DO - Last Filed: 02/22/18 16:10> Cosign ED Attending Cosignature Attestation: I was available for consultation during this patient's emergency department encounter
[2018-02-22 13:38] LABS: Add Manual Diff / Slide Review NO; Basophils Percent Auto 1.1 % (0-2); Eosinophils Percent Auto 1.7 % (2-4); Hematocrit 33.1 % (41-53); Lymphocytes Percent Auto 27.6 % (25-40); Mean Corpuscular HGB Conc 33.1 % (30-36); Mean Corpuscular Hemoglobin 31.2 PG (26-34); Mean Corpuscular Volume 94.4 fL (80-100); Monocytes Percent Auto 6.7 % (3-14); Neutrophils Absolute Auto 3300 /uL (3000-5900); Neutrophils Percent Auto 62.9 % (50-75); Platelet Count 274 X10^3/uL (150-400); Red Blood Cell Count 3.51 X10^6/uL (4.5-5.9); Red Cell Distribution Width 13.9 % (11.6-14.8); White Blood Cell Count 5.2 X10^3/uL (4.5-11.0)
[2018-02-22 13:50] LABS: INR 1.6 (0.9-1.3); Prothrombin Time 17.7 SECONDS (10.1-12.7)
[2018-02-22 13:53] LABS: Alanine Aminotransferase 28 IU/L (21-72); Albumin 4.1 g/dL (3.5-5.0); Albumin Globulin Ratio 1.3 (1.0-2.8); Alkaline Phosphatase 55 U/L (38-126); Amylase 82 U/L (30-110); Aspartate Aminotransferase 31 IU/L (17-59); BUN Creatinine Ratio 13.6 (6-22); Bilirubin Total 0.5 mg/dL (0.2-1.3); Blood Urea Nitrogen 15 mg/dL (9-20); Calcium 9.5 mg/dL (8.4-10.2); Carbon Dioxide 37 mmol/L (22-32); Chloride 101 mmol/L (98-107); Creatine Kinase 181 U/L (55-170); Estimated Glomerular Filt Rate > 60.0 mL/min (>60); Globulin 3.2 g/dL (1.7-4.1); Glucose 98 mg/dL (80-110); HEMOLYSIS < 15 (0-50); Lipase 51 U/L (23-300); PTT Partial Thromboplastin Tim 27 SECONDS (26.4-36.2); Potassium 4.2 mmol/L (3.4-5.1); Sodium 143 mmol/L (137-145); Total Protein 7.3 g/dL (6.3-8.2)
[2018-02-22 14:06] LABS: Troponin I < 0.012 ng/mL (0.01-0.034)
[2018-02-22 14:09] LABS: CKMB % Relative Index 0.3 % (1.5-5.0); Creatine Kinase MB 0.55 ng/mL (<2.37)
[2018-02-22] MEDS: IBUPROFEN 400 MG TABLET 800 MG PO (14:45)
[2018-02-22 14:50] VITALS: BP 156/89; PULSE 56; RESP 14; O2SAT 98
== END 2018-02-22 15:25 | disposition home or self-care (01) ==
PROVIDERS: Emergency Provider Nurse Practitioner Family; Family Provider Internal Medicine; PCP Internal Medicine
DX: R53.83 Other fatigue (principal); R53.1 Weakness; R51 Headache
CPT/HCPCS: 36591; 71045; 80053; 81003; 82150; 82550; 82553; 83690; 84484; 85025; 85610; 85730; 93005; 93010; 99282; 99285

== ENCOUNTER → 2018-02-23 15:21 | Outpatient (CLI) | payer MEDICARE, OTHER, SELFPAY ==
[2018-02-23 17:08] LABS: Bilirubin Total 0.4 mg/dL (0.2-1.3)
[2018-02-23 17:40] LABS: Thyroid Stimulating Hormone 0.99 uIU/mL (0.47-4.68)
[2018-02-23 17:41] LABS: Prostate Specific Antigen 0.639 ng/mL (0.10-4.00)
[2018-02-23 17:57] LABS: HIV 1 and 2 Antibody NEGATIVE (NEGATIVE)
[2018-02-23 18:15] LABS: Folate > 20.0 ng/mL (2.76-20.0)
== END ==
PROVIDERS: PCP Internal Medicine; Visit Provider Internal Medicine
DX: R53.81 Other malaise (principal); R53.83 Other fatigue
CPT/HCPCS: 36415; 82247; 82746; 84153; 84443; 86703

== ENCOUNTER → 2018-03-20 11:50 | Outpatient (CLI) | payer MEDICARE, OTHER, SELFPAY ==
[2018-03-20 12:10] LABS: Add Manual Diff / Slide Review NO; Basophils Percent Auto 0.5 % (0-2); Eosinophils Percent Auto 3.6 % (2-4); Hematocrit 33.9 % (41-53); Lymphocytes Percent Auto 28.5 % (25-40); Mean Corpuscular HGB Conc 32.3 % (30-36); Mean Corpuscular Hemoglobin 30.6 PG (26-34); Mean Corpuscular Volume 94.7 fL (80-100); Neutrophils Absolute Auto 2600 /uL (3000-5900); Neutrophils Percent Auto 57.4 % (50-75); Platelet Count 128 X10^3/uL (150-400); Red Blood Cell Count 3.58 X10^6/uL (4.5-5.9); White Blood Cell Count 4.5 X10^3/uL (4.5-11.0)
[2018-03-20 12:24] LABS: Alanine Aminotransferase 27 IU/L (21-72); Albumin 4.2 g/dL (3.5-5.0); Albumin Globulin Ratio 1.6 (1.0-2.8); Alkaline Phosphatase 46 U/L (38-126); Amylase 103 U/L (30-110); Aspartate Aminotransferase 31 IU/L (17-59); BUN Creatinine Ratio 21.5 (6-22); Bilirubin Total 0.4 mg/dL (0.2-1.3); Blood Urea Nitrogen 28 mg/dL (9-20); Calcium 9.4 mg/dL (8.4-10.2); Carbon Dioxide 31 mmol/L (22-32); Chloride 103 mmol/L (98-107); Estimated Glomerular Filt Rate 53.8 mL/min (>60); Globulin 2.6 g/dL (1.7-4.1); Glucose 93 mg/dL (80-110); HEMOLYSIS < 15 (0-50); Lipase 130 U/L (23-300); Potassium 4.3 mmol/L (3.4-5.1); Sodium 144 mmol/L (137-145); Total Protein 6.8 g/dL (6.3-8.2)
[2018-03-20 12:25] LABS: C-Reactive Protein Quant < 0.5 mg/dL (<1.0)
[2018-03-20 12:46] LABS: Erythrocyte Sedimentation Rate 10 MM/HR (0-15)
== END ==
PROVIDERS: PCP Internal Medicine; Visit Provider Internal Medicine
DX: R10.9 Unspecified abdominal pain (principal); R53.81 Other malaise; R53.83 Other fatigue
CPT/HCPCS: 36415; 80053; 82150; 83690; 85025; 85651; 86140

== ENCOUNTER → 2018-03-23 14:50 | Outpatient (CLI) | payer MEDICARE, OTHER, SELFPAY ==
--- NOTE | 2018-03-23 14:52 | DI.RAD.S_ITS ---
PROCEDURE: XR ACUTE ABDOMEN SERIES INDICATIONS: abdominal pain TECHNIQUE: One view chest and two views of the abdomen were acquired. COMPARISON: None. FINDINGS: Surgical changes and devices: Cardiac pacemaking device with dual chamber leads stable over time Chest: Lungs are clear. Heart size is normal. No pleural effusions. No pneumoperitoneum. Abdomen: Bowel gas pattern is normal. No suspicious calcifications. Visualized solid organ contours appear normal. Bones: No suspicious bony lesions. IMPRESSION: Nonspecific bowel gas pattern. No sign of intestinal obstruction or perforation found. Dual-chamber cardiac pacemaking device and leads appear normal. Dictated by: Carlos Kay M.D. on 03/23/2018 at 15:29 Approved by: Carlos Kay M.D. on 03/23/2018 at 15:29
== END ==
PROVIDERS: Family Provider Internal Medicine; PCP Internal Medicine; Visit Provider Internal Medicine
DX: R10.9 Unspecified abdominal pain (principal); Z95.0 Presence of cardiac pacemaker
CPT/HCPCS: 74022

== ENCOUNTER → 2018-05-04 10:41 | Outpatient (CLI) | payer MEDICARE, OTHER, SELFPAY ==
[2018-05-04 19:11] LABS: Prostate Specific Antigen 0.554 ng/mL (0.10-4.00)
== END ==
PROVIDERS: Family Provider Internal Medicine; PCP Internal Medicine; Visit Provider Urology
DX: Z85.46 Personal history of malignant neoplasm of prostate (principal)
CPT/HCPCS: 36415; 84153

== ENCOUNTER → 2018-07-30 15:01 | Outpatient (CLI) | payer MEDICARE, OTHER, SELFPAY ==
[2018-07-31 17:28] LABS: Adenovirus F 40/41 Not Detected (Not Detect); Campylobacter Not Detected (Not Detect); Clostridium difficile toxin AB Not Detected (Not Detect); Cryptosporidium Not Detected (Not Detect); Cyclospora cayetanensis Not Detected (Not Detect); Entamoeba histolytica Not Detected (Not Detect); Enteroaggregative E.coli Not Detected (Not Detect); Enteropathogenic E.coli Not Detected (Not Detect); Enterotoxigenic E.coli It/st Not Detected (Not Detect); Giardia lamblia Not Detected (Not Detect); Plesiomonsa shigelloides Not Detected (Not Detect); Salmonella Not Detected (Not Detect); Shiga-like toxin-prod E.coli Not Detected (Not Detect); Shigella/Enteroinvasive E.coli Not Detected (Not Detect); Vibrio Not Detected (Not Detect); Vibrio cholerae Not Detected (Not Detect); Yersinia enterocolitica Not Detected (Not Detect)
[2018-07-31 17:29] LABS: Astrovirus Not Detected (Not Detect); Norovirus GI/GII Not Detected (Not Detect); Rotavirus A Not Detected (Not Detect); Sapovirus Not Detected (Not Detect)
== END ==
PROVIDERS: Family Provider Internal Medicine; PCP Internal Medicine; Visit Provider Internal Medicine
DX: R10.9 Unspecified abdominal pain (principal); R19.7 Diarrhea, unspecified
CPT/HCPCS: 87507

== ENCOUNTER → 2018-07-30 15:12 | Outpatient (CLI) | payer MEDICARE, OTHER, SELFPAY ==
[2018-07-30 15:27] LABS: Add Manual Diff / Slide Review NO; Basophils Absolute Auto 0 /uL (0-100); Basophils Percent Auto 0.9 % (0-2); Eosinophils Absolute Auto 100 /uL (0-450); Eosinophils Percent Auto 3.7 % (2-4); Hematocrit 34.8 % (41-53); Hemoglobin 11.2 g/dL (13.5-17.5); Lymphocytes Absolute Auto 1400 /uL (1100-4500); Lymphocytes Percent Auto 37.4 % (25-40); Mean Corpuscular HGB Conc 32.3 % (30-36); Mean Corpuscular Hemoglobin 30.6 PG (26-34); Mean Corpuscular Volume 94.9 fL (80-100); Monocytes Absolute Auto 400 /uL (0-900); Monocytes Percent Auto 10.1 % (3-14); Neutrophils Absolute Auto 1800 /uL (1500-7000); Neutrophils Percent Auto 47.9 % (50-75); Platelet Count 159 X10^3/uL (150-400); Red Blood Cell Count 3.67 X10^6/uL (4.5-5.9); Red Cell Distribution Width 13.4 % (11.6-14.8); White Blood Cell Count 3.8 X10^3/uL (4.5-11.0)
[2018-07-30 15:44] LABS: Alanine Aminotransferase 29 IU/L (21-72); Albumin 4.4 g/dL (3.5-5.0); Albumin Globulin Ratio 1.4 (1.0-2.8); Alkaline Phosphatase 51 U/L (38-126); Amylase 105 U/L (30-110); Aspartate Aminotransferase 33 IU/L (17-59); BUN Creatinine Ratio 14.3 (6-22); Bilirubin Total 0.3 mg/dL (0.2-1.3); Blood Urea Nitrogen 20 mg/dL (9-20); C-Reactive Protein Quant < 0.5 mg/dL (<1.0); Calcium 9.5 mg/dL (8.4-10.2); Carbon Dioxide 30 mmol/L (22-32); Chloride 100 mmol/L (98-107); Estimated Glomerular Filt Rate 49.4 mL/min (>60); Globulin 3.1 g/dL (1.7-4.1); Glucose 109 mg/dL (80-110); HEMOLYSIS < 15 (0-50); Potassium 4.6 mmol/L (3.4-5.1); Sodium 138 mmol/L (137-145); Total Protein 7.5 g/dL (6.3-8.2)
[2018-07-30 16:00] LABS: Erythrocyte Sedimentation Rate 8 MM/HR (0-15)
== END ==
PROVIDERS: Family Provider Internal Medicine; PCP Internal Medicine; Visit Provider Internal Medicine
DX: R10.9 Unspecified abdominal pain (principal); R19.7 Diarrhea, unspecified
CPT/HCPCS: 36415; 80053; 82150; 85025; 85651; 86140; 87507

== ENCOUNTER → 2018-07-31 | Outpatient (CLI) | payer MEDICARE, OTHER, SELFPAY | PROVIDERS: Family Provider Internal Medicine; PCP Internal Medicine; Visit Provider Internal Medicine ==

== ENCOUNTER → 2018-09-21 15:48 | Outpatient (CLI) | payer MEDICARE, OTHER, SELFPAY ==
[2018-09-21 15:59] LABS: RBC Urine None Seen (0-5/HPF)
[2018-09-21 16:25] LABS: Appearance Urine UA CLEAR; Bilirubin Urine UA NEGATIVE (NEGATIVE); Color Urine UA YELLOW; Glucose Urine UA NEGATIVE (Negative); Ketones Urine UA TRACE (NEGATIVE); Leukocyte Esterase Urine UA TRACE (NEGATIVE); Nitrite Urine UA NEGATIVE (Negative); Occult Blood Urine UA NEGATIVE (Negative); Protein Urine UA NEGATIVE (Negative); Specific Gravity Urine UA >=1.030 (1.000-1.035); Urobilinogen Urine UA 0.2 E.U./dL (0.2)
[2018-09-21 16:49] LABS: Amorphous Sediment Urine 1+; Bacteria Urine Few (2-10); Culture Indicated Urine Specimen Cultured; Mucus Urine 1+ (Negative); Squamous Epithelial Cell Urine 1-5 /HPF (0-5/HPF); WBC Urine 5-10/HPF (0-5/HPF)
[2018-09-21 17:30] LABS: Prostate Specific Antigen 0.573 ng/mL (0.10-4.00)
== END ==
PROVIDERS: Family Provider Internal Medicine; PCP Internal Medicine; Visit Provider Urology
DX: N39.0 Urinary tract infection, site not specified (principal); Z85.46 Personal history of malignant neoplasm of prostate
CPT/HCPCS: 36415; 81001; 84153; 87086

== ENCOUNTER → 2018-09-22 12:11 | Outpatient (CLI) | payer MEDICARE, OTHER, SELFPAY ==
--- NOTE | 2018-09-22 | DI.US.S_ITS ---
PROCEDURE: US SCROTUM INDICATIONS: SCROTAL PAIN TECHNIQUE: Real-time scanning was performed of the scrotum and testicles, with image documentation. Color and pulse Doppler interrogation was performed of both testicles. COMPARISON: [facility], US, US TESTICULAR SCROTUM + DOPPLER, 02/27/2018, 14:48. FINDINGS: Right: Testicle is normal in size at 1.8 x 2.8 x 3.4 cm, and mildly heterogeneous in echotexture. Epididymis is normal in overall size and morphology. No hydrocele or varicoceles. Overlying scrotal skin is normal in thickness. Left: Testicle is normal in size at 1.9 x 2.8 x 2.7 cm, and mildly heterogeneous in echotexture. Epididymis is normal in overall size and morphology. There is a small left hydrocele and no varicoceles. Overlying scrotal skin is normal in thickness. Doppler: Color and pulse Doppler demonstrate normal and symmetric arterial flow in both testicles. IMPRESSION: Incidental is made of a small left hydrocele, generally an asymptomatic finding. No testicular mass is found, no sign of recent or ongoing testicular torsion. Source of pain is not found. Dictated by: Carlos Kay M.D. on 09/22/2018 at 14:05 Approved by: Carlos Kay M.D. on 09/22/2018 at 14:07
== END ==
PROVIDERS: PCP Internal Medicine; Visit Provider Urology
DX: N50.82 Scrotal pain (principal); N43.3 Hydrocele, unspecified
CPT/HCPCS: 76870

== ENCOUNTER 2018-10-03 17:17 | Emergency (ER) | payer MEDICARE, OTHER, SELFPAY ==
[2018-10-03 17:26] VITALS: BP 157/82; PULSE 66; RESP 18; TEMP 36.8; O2SAT 99; BMI 33.1
--- NOTE | 2018-10-03 17:34 | DI.RAD.S_ITS ---
PROCEDURE: XR CHEST 1V INDICATIONS: chest pain TECHNIQUE: One view of the chest was acquired. COMPARISON: 02/22/18, 02/10/18, 10/29/17, and 08/10/17. FINDINGS: Surgical changes and devices: Left cardiac pacer device remains unchanged in position.. Lungs and pleura: Lungs are clear. No pleural effusions or pneumothorax. Mediastinum: Mediastinal contours appear normal. Heart size is normal. Bones and chest wall: No suspicious bony lesions. Overlying soft tissues appear unremarkable. IMPRESSION: Stable evaluation of the chest without acute cardiopulmonary abnormalities. Dictated by: Reginaldo Martell M.D. on 10/03/2018 at 18:06 Approved by: Reginaldo Martell M.D. on 10/03/2018 at 18:08
[2018-10-03 17:48] LABS: Add Manual Diff / Slide Review NO; Basophils Absolute Auto 100 /uL (0-100); Basophils Percent Auto 1.5 % (0-2); Eosinophils Absolute Auto 200 /uL (0-450); Eosinophils Percent Auto 3.3 % (2-4); Lymphocytes Absolute Auto 1600 /uL (1100-4500); Lymphocytes Percent Auto 34.8 % (25-40); Mean Corpuscular HGB Conc 32.4 % (30-36); Mean Corpuscular Hemoglobin 31.1 PG (26-34); Monocytes Absolute Auto 500 /uL (0-900); Monocytes Percent Auto 10.9 % (3-14); Neutrophils Absolute Auto 2300 /uL (1500-7000); Neutrophils Percent Auto 49.5 % (50-75); Platelet Count 193 X10^3/uL (150-400); Red Blood Cell Count 3.54 X10^6/uL (4.5-5.9); White Blood Cell Count 4.7 X10^3/uL (4.5-11.0)
[2018-10-03 17:55] LABS: INR 1.2 (0.9-1.3); Prothrombin Time 13.6 SECONDS (10.1-12.7)
[2018-10-03 17:58] LABS: PTT Partial Thromboplastin Tim 30 SECONDS (26.4-36.2)
[2018-10-03 17:59] LABS: Alanine Aminotransferase 31 IU/L (21-72); Albumin Globulin Ratio 1.5 (1.0-2.8); Alkaline Phosphatase 47 U/L (38-126); Aspartate Aminotransferase 26 IU/L (17-59); BUN Creatinine Ratio 13.8 (6-22); Bilirubin Total 0.3 mg/dL (0.2-1.3); Blood Urea Nitrogen 18 mg/dL (9-20); Calcium 9.1 mg/dL (8.4-10.2); Carbon Dioxide 28 mmol/L (22-32); Chloride 103 mmol/L (98-107); Creatine Kinase 175 U/L (55-170); Estimated Glomerular Filt Rate 53.8 mL/min (>60); Globulin 2.7 g/dL (1.7-4.1); Glucose 109 mg/dL (80-110); HEMOLYSIS < 15 (0-50); Lipase 130 U/L (23-300); Potassium 3.8 mmol/L (3.4-5.1); Sodium 139 mmol/L (137-145); Total Protein 6.7 g/dL (6.3-8.2)
[2018-10-03 18:11] LABS: Troponin I < 0.012 ng/mL (0.01-0.034)
[2018-10-03 18:15] LABS: CKMB % Relative Index 0.5 % (1.5-5.0); Creatine Kinase MB 0.85 ng/mL (<2.37)
--- NOTE | 2018-10-03 18:53 | ED.CHESTPAIN ---
HPI - Chest Pain General Chief Complaint: Chest Pain Stated Complaint: Chest Pain & SOB Time Seen by Provider: 10/03/18 18:53 Source: patient Mode of arrival: ambulatory Limitations: no limitations History of Present Illness HPI narrative: Patient is a 73-year-old male. He states that he has ?cardiovascular disease ?however does not remember having any stents placed. He does have a defibrillator in place secondary to an arrhythmia. He states he has not felt his defibrillator go off. He states that over the past couple days he has had vague left-sided chest discomfort. He stated that it came back again this morning shortly after he woke up and has been consistent since then. He states that he took some ibuprofen and then a short while later started having some burning in his chest. No shortness of breath. Has recently had some travel. Never had a blood clot before. Has not done anything for symptoms prior to arrival Related Data Home Medications Medication Instructions Recorded Confirmed CA PANTOTHENATE/FOLIC ACID/VIT 1 tab PO QDAY #0 02/13/12 07/30/18 (MULTIVITAMIN) ASPIRIN (#ASPIRIN) 81 mg PO Q DAY #0 07/23/12 07/30/18 colchicine [Mitigare] 1 cap PO BID #0 02/23/16 07/30/18 gabapentin [Neurontin] 300 mg PO BID #0 02/23/16 07/30/18 nabumetone 500 mg PO QDAY #0 tab 02/23/16 07/30/18 alprazolam 0.25 mg PO TIDP PRN #0 11/22/16 07/30/18 diclofenac sodium [Voltaren] 1 john TOPICAL QID #0 11/22/16 07/30/18 fluticasone propionate [Flonase 1 spray INTRANASAL QDAY #0 11/22/16 07/30/18 Allergy Relief] amitriptyline 25 mg PO HS #0 08/10/17 07/30/18 tramadol 50 mg PO QDAY #0 08/10/17 07/30/18 Previous Rx's Medication Instructions Recorded sertraline 50 mg PO QDAY #30 tab 12/16/16 sucralfate 1 gm PO ACHS #360 tab 02/24/17 tamsulosin [Flomax] 0.4 mg PO QDAY #30 cap 03/14/17 tadalafil [Cialis] 20 mg PO QDAY #30 tab 08/19/17 sildenafil [Viagra] 100 mg PO PRN PRN #30 tab 10/23/17 oxycodone 5 mg tablet 5 mg PO Q4-6H PRN #20 tab 11/13/17 pantoprazole 40 mg PO BID #180 tab 12/09/17 clorazepate dipotassium 3.75 mg 3.75 mg PO BID #180 tab 02/03/18 tablet ibuprofen 600 mg PO QID PRN #20 tab 02/22/18 diclofenac sodium 75 mg PO BIDP PRN #60 ect 04/17/18 levothyroxine [Synthroid] 50 mcg PO QDAY #90 tab 04/17/18 lisinopril 5 mg PO Q DAY #90 tab 04/17/18 sertraline 50 mg PO QDAY #90 tab 09/14/18 Allergies Allergy/AdvReac Type Severity Reaction Status Date / Time codeine Allergy Mild HIVES Verified 07/30/18 14:33 Review of Systems Constitutional Denies fever(s) Cardiovascular Reports chest pain, Denies diaphoresis, Denies rapid heart rate, Denies pedal edema, Denies edema, Denies lightheadedness, Denies palpitations, Denies dyspnea and Reports dyspnea on exertion Respiratory Denies dyspnea and Reports dyspnea on exertion Gastrointestinal Gastrointestinal: Denies melena, Denies change in bowel habits, Denies nausea and Denies vomiting Musculoskeletal Denies myalgias and Denies arthralgias Integumentary/Breasts Denies rash Neurologic Denies behavioral changes Psychiatric Denies behavioral changes Endocrine Denies palpitations Hematologic/Lymphatic Denies easy bleeding and Denies easy bruising [facility] Medical History Type 2 diabetes mellitus without complication (Chronic 10/29/11) Cardiomyopathy (Chronic 07/24/15) Chest pain (Chronic) Palpitations (Chronic) Malignant neoplasm of prostate (Chronic 07/11/14) Gastroesophageal reflux disease without esophagitis (Chronic 01/23/11) Mixed hyperlipidemia (Chronic 01/23/11) Anxiety (Chronic 10/25/13) Ventricular tachycardia (Inactive 01/10/14) Chronic renal failure, stage 2 (mild) (Chronic 07/24/15) Chronic anemia (Chronic 04/16/16) Leukopenia (Chronic 04/16/16) History of hematuria (Inactive) Family History Brother Family history of diabetes mellitus (DM) Father No problems noted. Sister No problems noted. Social History Smoking Status: Former smoker Exam Initial Vital Signs Initial Vital Signs: Vital Signs Temperature 98.3 F 10/03/18 17:26 Pulse Rate 66 10/03/18 17:26 Respiratory Rate 18 10/03/18 17:26 Blood Pressure 157/82 H 10/03/18 17:26 Pulse Oximetry 99 10/03/18 17:26 Const General: cooperative, comfortable, well developed, well groomed and No acute distress Orientation: alert, awake and oriented x3 HENMT Head: normal to inspection and normocephalic Resp Effort & Inspection: normal respiratory effort Auscultation: clear to auscultation bilaterally Cardio Rate: regular rate Rhythm: regular rhythm Pulses: radial pulses present GI Inspection: non-distended Palpation: soft, No firm and No tender Skin Lesions: no lesions Rashes: no rashes Neuro General: alert, awake and oriented x3 Cognition: normal cognition Speech: speech normal Motor: muscle tone normal throughout Extrem General: normal to inspection and capillary refill normal Psych Appearance: grossly normal and well kempt Scores HEART Score Heart Score history: Slightly Suspicious Heart Score EKG: Normal Heart Score Age: > or = 65 years old Heart Score risk factors: 1-2 risk factors Heart Score troponin: < or = to normal limit Heart Score Total: 3 Course Orders Ordered: ED Orders 10/03/18 17:21 EKG-12 Lead Stat 10/03/18 17:34 XR chest 1V Stat 10/03/18 17:40 Complete Blood Count AUTO DIFF Stat Comprehensive Metabolic Panel Stat D Dimer Stat Lipase Stat Partial Thromboplastin Time Stat Prothrombin Time INR Stat Troponin & CK Cardiac Panel Stat 10/03/18 19:23 CT angio chest PE protocol Stat 10/03/18 20:45 Troponin I Stat Discontinued Medications Al Hydrox/Mg Hydrox/Simethicone 20 ml/ Lidocaine HCl 15 ml 0 ml PO NOW ONE Stop: 10/03/18 19:25 Last Admin: 10/03/18 19:56 Dose: 35 ml Sodium Chloride (Normal Saline 0.9%) 1,000 mls @ 1,000 mls/hr IV BOLUS ONE Stop: 10/03/18 20:21 Last Infusion: 10/03/18 21:25 Dose: 0 mls/hr Admin: 10/03/18 19:56 Dose: 1,000 mls/hr Vital Signs - 8 hr 10/03/18 22:16 Pulse Rate 59 L Respiratory Rate 15 Blood Pressure 137/78 Pulse Oximetry 98 MDM - Chest Pain Lab Data Attestation: I reviewed the patient's lab results. Result diagrams: 10/03/18 17:40 10/03/18 17:40 Lab Results 10/03/18 10/03/18 10/03/18 Range/Units 17:40 17:40 17:40 WBC 4.7 (4.5-11.0) X10^3/uL RBC 3.54 L (4.5-5.9) X10^6/uL Hgb 11.0 L (13.5-17.5) g/dL Hct 34.0 L (41-53) % MCV 96.0 (80-100) fL MCH 31.1 (26-34) PG MCHC 32.4 (30-36) % RDW 15.0 H (11.6-14.8) % Plt Count 193 (150-400) X10^3/uL Neut % (Auto) 49.5 L (50-75) % Lymph % (Auto) 34.8 (25-40) % Finney % (Auto) 10.9 (3-14) % Eos % (Auto) 3.3 (2-4) % Baso % (Auto) 1.5 (0-2) % Neut # (Auto) 2300 (7697-4240) /uL Lymph # (Auto) 1600 (2424-4137) /uL Finney # (Auto) 500 (0-900) /uL Eos # (Auto) 200 (0-450) /uL Baso # (Auto) 100 (0-100) /uL PT 13.6 H (10.1-12.7) SECONDS INR 1.2 (0.9-1.3) APTT 30 D (26.4-36.2) SECONDS D-Dimer (<230) ng/mL Sodium 139 (137-145) mmol/L Potassium 3.8 (3.4-5.1) mmol/L Chloride 103 (98-107) mmol/L Carbon Dioxide 28 (22-32) mmol/L BUN 18 (9-20) mg/dL Creatinine 1.30 H (0.66-1.25) mg/dL Estimated GFR 53.8 L (>60) mL/min BUN/Creatinine Ratio 13.8 (6-22) Glucose 109 (80-110) mg/dL Calcium 9.1 (8.4-10.2) mg/dL Total Bilirubin 0.3 (0.2-1.3) mg/dL AST 26 (17-59) IU/L ALT 31 (21-72) IU/L Alkaline Phosphatase 47 (38-126) U/L Total Creatine Kinase 175 H (55-170) U/L CK-MB (CK-2) 0.85 (<2.37) ng/mL CK-MB (CK-2) Rel Index 0.5 L (1.5-5.0) % Troponin I < 0.012 (0.01-0.034) ng/mL Total Protein 6.7 (6.3-8.2) g/dL Albumin 4.0 (3.5-5.0) g/dL Globulin 2.7 (1.7-4.1) g/dL Albumin/Globulin Ratio 1.5 (1.0-2.8) Lipase 130 (23-300) U/L 10/03/18 10/03/18 Range/Units 17:40 20:45 WBC (4.5-11.0) X10^3/uL RBC (4.5-5.9) X10^6/uL Hgb (13.5-17.5) g/dL Hct (41-53) % MCV (80-100) fL MCH (26-34) PG MCHC (30-36) % RDW (11.6-14.8) % Plt Count (150-400) X10^3/uL Neut % (Auto) (50-75) % Lymph % (Auto) (25-40) % Finney % (Auto) (3-14) % Eos % (Auto) (2-4) % Baso % (Auto) (0-2) % Neut # (Auto) (0283-6599) /uL Lymph # (Auto) (5811-8271) /uL Finney # (Auto) (0-900) /uL Eos # (Auto) (0-450) /uL Baso # (Auto) (0-100) /uL PT (10.1-12.7) SECONDS INR (0.9-1.3) APTT (26.4-36.2) SECONDS D-Dimer 997 H (<230) ng/mL Sodium (137-145) mmol/L Potassium (3.4-5.1) mmol/L Chloride (98-107) mmol/L Carbon Dioxide (22-32) mmol/L BUN (9-20) mg/dL Creatinine (0.66-1.25) mg/dL Estimated GFR (>60) mL/min BUN/Creatinine Ratio (6-22) Glucose (80-110) mg/dL Calcium (8.4-10.2) mg/dL Total Bilirubin (0.2-1.3) mg/dL AST (17-59) IU/L ALT (21-72) IU/L Alkaline Phosphatase (38-126) U/L Total Creatine Kinase (55-170) U/L CK-MB (CK-2) (<2.37) ng/mL CK-MB (CK-2) Rel Index (1.5-5.0) % Troponin I < 0.012 (0.01-0.034) ng/mL Total Protein (6.3-8.2) g/dL Albumin (3.5-5.0) g/dL Globulin (1.7-4.1) g/dL Albumin/Globulin Ratio (1.0-2.8) Lipase (23-300) U/L Imaging Data Chest x-ray: Radiologist's impression: [address] [address] XRay Report Signed Patient: Jorje Garay [facility]#: [id number] : 3Acct:[id number] Age/Sex: 73 / MDate of Service: 10/03/18 Loc: ED Accession Number: [id number] Procedure: XR chest 1V Ordering Provider: Sarah Padgett D.O. PROCEDURE: XR CHEST 1V INDICATIONS: chest pain TECHNIQUE: One view of the chest was acquired. COMPARISON: 02/22/18, 02/10/18, 10/29/17, and 08/10/17. FINDINGS: Surgical changes and devices: Left cardiac pacer device remains unchanged in position.. Lungs and pleura: Lungs are clear. No pleural effusions or pneumothorax. Mediastinum: Mediastinal contours appear normal. Heart size is normal. Bones and chest wall: No suspicious bony lesions. Overlying soft tissues appear unremarkable. IMPRESSION: Stable evaluation of the chest without acute cardiopulmonary abnormalities. Dictated by: Reginaldo Martell M.D. on 10/03/2018 at 18:06 Approved by: Reginaldo Martell M.D. on 10/03/2018 at 18:08 CT scan - chest: Radiologist's impression: CT Scan Report Signed Patient: Jorje Garay#: [id number] : 3Acct:[id number] Age/Sex: 73 / MDate of Service: 10/03/18 Loc: ED Accession Number: [id number] Procedure: CT angio chest PE protocol Ordering Provider: Seamus Gant D.O. PROCEDURE: CT ANGIO CHEST PE PROTOCOL INDICATIONS: Chest pain, shortness of breath, tachycardia TECHNIQUE: After the administration of intravenous contrast, 2 mm thick sections acquired from the pulmonary apices to the posterior costophrenic angles. 3-dimensional maximum intensity projection (MIP) coronal and sagittal reformats were then acquired through the thorax. For radiation dose reduction, the following was used: automated exposure control, adjustment of mA and/or kV according to patient size. COMPARISON: None. FINDINGS: Image quality: Excellent. Pulmonary arteries: Pulmonary arteries are normal in size, and demonstrate no intraluminal filling defects to suggest central pulmonary embolism. Lungs and pleura: Lungs are clear. No pleural effusions or pneumothorax. Central and peripheral airways are patent. Mediastinum: Heart size is normal, without pericardial effusion. No mediastinal or hilar adenopathy. Thoracic aorta is normal in caliber and enhancement. Esophagus is normal in caliber, without hiatal hernia. Bones and chest wall: No suspicious bony lesions. Ribs and thoracic spine appear intact throughout. Thyroid gland is unremarkable.. No axillary or supraclavicular adenopathy. Left-sided cardiac pacer device is in place. Abdomen: Visualized upper abdominal solid organs appear normal in the early arterial phase of enhancement. Status post cholecystectomy. IMPRESSION: No acute pulmonary emboli or acute cardiopulmonary abnormalities. Dictated by: Reginaldo Martell M.D. on 10/03/2018 at 20:25 Approved by: Reginaldo Martell M.D. on 10/03/2018 at 20:30 ECG Data Attestation: I personally reviewed and interpreted this ECG as follows: Prior ECG tracings: not available for review Interpretation: Sinus bradycardia Ventricular rate of 58 First degree AV block P.r.n. oval 222 milliseconds Normal axis Normal QRS Normal QTC No ST T wave changes MDM Narrative Medical decision making narrative: Patient has had constant symptoms since shortly after waking up this morning. He has had 2-troponins here in the emergency department. His chest x-ray is unremarkable. CT scans negative for pulmonary embolism. He has no ST changes on his EKG. Upon further questioning of bleeding that his ?cardiovascular disease ?is what he calls his arrhythmia needing the defibrillator. Has a heart score 3. He reported his significant improvement of his symptoms after the GI cocktail. I do suspect that he was having some reflux issues after taking the Motrin. He does have reflux medications at home. Informed him that he needed to contact his primary doctor for a follow-up and to discuss stress testing. He was given return precautions and follow-up instructions. Patient expressed understanding and agreement with plan. Discharge Plan Departure Patient Disposition: Home Clinical Impression: Atypical chest pain Discharge Date/Time: 10/03/18 22:19 Interventions: ED Discharge Assessment Last Done: 10/03/18 22:16 Instructions: DI for Atypical Chest Pain Activity Restrictions/Additional Instructions: Be sure you take your heartburn medication as directed. Return to the emergency department for any new or worsening symptoms. Contact your primary care doctor for follow-up to discuss further testing to include a stress test. Prescriptions: No Action CA PANTOTHENATE/FOLIC ACID/VIT (MULTIVITAMIN) 1 tab PO QDAY Qty: 0 RF: 0 ASPIRIN (#ASPIRIN) 81 mg PO Q DAY Qty: 0 RF: 0 gabapentin [Neurontin] 300 MG capsule 300 mg PO BID Qty: 0 RF: 0 nabumetone 500 MG tablet 500 mg PO QDAY Qty: 0 RF: 0 colchicine [Mitigare] 0.6 MG capsule 1 cap PO BID Qty: 0 RF: 0 alprazolam 0.25 MG tablet 0.25 mg PO TIDP PRNQty: 0 RF: 0 diclofenac sodium [Voltaren] 1 % gel 1 john Topical QID Qty: 0 RF: 0 fluticasone propionate [Flonase Allergy Relief] 9.9 ML spray,suspension 1 spray Intranasal QDAY Qty: 0 RF: 0 sertraline 50 MG tablet 50 mg PO QDAY Qty: 30 RF: 3 sucralfate 1 GM tablet 1 gm PO ACHS Qty: 360 RF: 3 tamsulosin [Flomax] 0.4 MG capsule,extended release 24hr 0.4 mg PO QDAY Qty: 30 RF: 0 tramadol 50 MG tablet 50 mg PO QDAY Qty: 0 RF: 0 amitriptyline 25 MG tablet 25 mg PO HS Qty: 0 RF: 0 tadalafil [Cialis] 20 MG tablet 20 mg PO QDAY Qty: 30 RF: 10 sildenafil [Viagra] 100 mg tablet 100 mg PO PRN PRNQty: 30 RF: 10 pantoprazole 40 mg tablet,delayed release (DR/EC) 40 mg PO BID Qty: 180 RF: 3 clorazepate dipotassium 3.75 mg tablet 3.75 mg PO BID Qty: 180 RF: 1 lisinopril 5 mg tablet 5 mg PO Q DAY Qty: 90 RF: 2 levothyroxine [Synthroid] 50 mcg tablet 50 mcg PO QDAY Qty: 90 RF: 2 diclofenac sodium 75 mg tablet,delayed release (DR/EC) 75 mg PO BIDP PRNQty: 60 RF: 6 sertraline 50 mg tablet 50 mg PO QDAY Qty: 90 RF: 4 oxycodone 5 mg tablet 5 mg PO Q4-6H PRN (Reason: pain in chest) Qty: 20 RF: 0 ibuprofen 600 mg tablet 600 mg PO QID PRN (Reason: pain) Qty: 20 RF: 0 Referrals: Brayan Blackwell MD [Primary Care Provider] -
[2018-10-03 19:14] LABS: D Dimer 997 ng/mL (<230)
--- NOTE | 2018-10-03 19:23 | DI.CT.S_ITS ---
PROCEDURE: CT ANGIO CHEST PE PROTOCOL INDICATIONS: Chest pain, shortness of breath, tachycardia TECHNIQUE: After the administration of intravenous contrast, 2 mm thick sections acquired from the pulmonary apices to the posterior costophrenic angles. 3-dimensional maximum intensity projection (MIP) coronal and sagittal reformats were then acquired through the thorax. For radiation dose reduction, the following was used: automated exposure control, adjustment of mA and/or kV according to patient size. COMPARISON: None. FINDINGS: Image quality: Excellent. Pulmonary arteries: Pulmonary arteries are normal in size, and demonstrate no intraluminal filling defects to suggest central pulmonary embolism. Lungs and pleura: Lungs are clear. No pleural effusions or pneumothorax. Central and peripheral airways are patent. Mediastinum: Heart size is normal, without pericardial effusion. No mediastinal or hilar adenopathy. Thoracic aorta is normal in caliber and enhancement. Esophagus is normal in caliber, without hiatal hernia. Bones and chest wall: No suspicious bony lesions. Ribs and thoracic spine appear intact throughout. Thyroid gland is unremarkable.. No axillary or supraclavicular adenopathy. Left-sided cardiac pacer device is in place. Abdomen: Visualized upper abdominal solid organs appear normal in the early arterial phase of enhancement. Status post cholecystectomy. IMPRESSION: No acute pulmonary emboli or acute cardiopulmonary abnormalities. Dictated by: Reginaldo Martell M.D. on 10/03/2018 at 20:25 Approved by: Reginaldo Martell M.D. on 10/03/2018 at 20:30
--- NOTE | 2018-10-03 19:24 | PC.NURSE ---
pt continually complaining about not liking needles/ yelling out with puncture and was on phone before, while IV placement and post placement.
[2018-10-03] MEDS: SODIUM CHLORIDE 0.9% 1,000 ML 1000 ML IV (19:56)
[2018-10-03] MEDS: MAG HYDROX/ALUMINUM/SIMETH SUS 20 ML, LIDOCAINE VISCOUS 2% 15 ML PO (19:56)
--- NOTE | 2018-10-03 20:19 | PC.NURSE ---
Pt reports feeling poor since a recent trip to [place]. a couple weeks ago. Yesterday chest discomfort was resolved by taking an alprazolam he is prescribed for anxiety. This morning he woke with same symptoms and came in ER for evaluation. Pt has a pace maker and reports it has not fired for some time. He stats this feels like upper respiratory pain, it a respiratory thing. Pt reports some change in the quality of his discomfort from the GI cocktail but it is still there.
--- NOTE | 2018-10-03 21:06 | PC.NURSE ---
drawn by lab
[2018-10-03 21:31] LABS: Troponin I < 0.012 ng/mL (0.01-0.034)
[2018-10-03 22:16] VITALS: BP 137/78; PULSE 59; RESP 15; O2SAT 98
== END 2018-10-03 22:19 | disposition home or self-care (01) ==
PROVIDERS: Emergency Medicine; Emergency Provider Emergency Medicine; PCP Internal Medicine
DX: R07.89 Other chest pain (principal); Z95.810 Presence of automatic (implantable) cardiac defibrillator
CPT/HCPCS: 36415; 71045; 71275; 80053; 82550; 82553; 83690; 84484; 85025; 85379; 85610; 85730; 93005; 93010; 96360; 99283; 99285; Q9967

== ENCOUNTER 2018-10-07 08:12 | Emergency (ER) | payer MEDICARE, OTHER, SELFPAY ==
[2018-10-07] VITALS (26 sets, daily range): BP systolic 82–164; BP diastolic 54–98; PULSE 48–71; RESP 10–20; TEMP 36.9; O2SAT 97–100; BMI 30.8
--- NOTE | 2018-10-07 08:24 | DI.RAD.S_ITS ---
PROCEDURE: XR CHEST 1V INDICATIONS: Chest pain TECHNIQUE: One view of the chest was acquired. COMPARISON: [facility], CR, XR CHEST 2V, 10/29/2017, 17:53. [facility], CR, XR CHEST 1V, 02/10/2018, 11:26. [facility], CR, XR CHEST 1V, 02/22/2018, 12:18. [facility], CT, CT ANGIO CHEST PE PROTOCOL, 10/03/2018, 19:48. [facility], CR, XR CHEST 1V, 10/03/2018, 17:58. FINDINGS: Surgical changes and devices: An AICD is seen. Cholecystectomy clips are seen. Lungs and pleura: Lungs are clear. No pleural effusions or pneumothorax. Mediastinum: The cardiac contours are within normal limits. The aorta demonstrates calcification and tortuosity. Bones and chest wall: Age-appropriate bony degenerative changes are seen. No suspicious bony lesions. Overlying soft tissues appear unremarkable. IMPRESSION: Stable examination demonstrating clear lungs and postoperative and degenerative changes. Dictated by: Lior Pierson M.D. on 10/07/2018 at 8:16 Approved by: Lior Pierson M.D. on 10/07/2018 at 8:18
--- NOTE | 2018-10-07 08:37 | ED.CHESTPAIN ---
HPI - Chest Pain General Chief Complaint: Chest Pain Stated Complaint: BODY IS INFLAMED,LEFT SIDE NUMB/TINGLING,DIZZY Time Seen by Provider: 10/07/18 08:16 Source: patient Mode of arrival: ambulatory Limitations: no limitations History of Present Illness HPI narrative: Patient is 73-year-old male presents with chest heaviness. He has had chest pain and heaviness and passed fact he was seen here 10/04/2018 the same. He had a negative workup. He says he woke up with worsening pain today he feels like his left hand is numb. He denies any radiation of his chest heaviness no shortness of breath with exertion. Actually does not have any known cardiac disease but does have a defibrillator for a tachycardia. He apparently has had multiple cardiac caths in the past all which have been negative. MD complaint: chest pain Duration: constant Quality: heaviness Pain radiation: none Relieving factors: nothing Related Data Home Medications Medication Instructions Recorded Confirmed multivitamin 1 tab PO DAILY #0 02/13/12 10/07/18 aspirin 81 mg PO DAILY #0 07/23/12 10/07/18 gabapentin [Neurontin] 300 mg PO BID #0 02/23/16 10/07/18 nabumetone 500 mg PO QDAY #0 tab 02/23/16 10/07/18 alprazolam 0.25 mg PO TIDP PRN #0 11/22/16 10/07/18 diclofenac sodium [Voltaren] 1 john TOPICAL QID PRN #0 11/22/16 10/07/18 amitriptyline 25 mg PO BEDTIME #0 08/10/17 10/07/18 tramadol 50 mg PO PRN PRN #0 08/10/17 10/07/18 colchicine 0.3 mg PO BID 10/07/18 10/07/18 diclofenac sodium 75 mg PO BIDP PRN 10/07/18 10/07/18 fluoride (sodium) [SF 5000 Plus] 1 applic DENTAL DIRECTED 10/07/18 10/07/18 hydroxychloroquine 200 mg PO BID 10/07/18 10/07/18 levothyroxine [Synthroid] 50 mcg PO DAILY 10/07/18 10/07/18 lisinopril 5 mg PO DAILY 10/07/18 10/07/18 sertraline 50 mg PO DAILY 10/07/18 10/07/18 sildenafil [Viagra] 100 mg PO PRN PRN 10/07/18 10/07/18 tadalafil [Cialis] 20 mg PO PRN PRN 10/07/18 10/07/18 tamsulosin [Flomax] 0.8 mg PO DAILY 10/07/18 10/07/18 Previous Rx's Medication Instructions Recorded sucralfate 1 gm PO ACHS #360 tab 02/24/17 oxycodone 5 mg tablet 5 mg PO Q4-6H PRN #20 tab 11/13/17 pantoprazole 40 mg PO BID #180 tab 12/09/17 clorazepate dipotassium 3.75 mg 3.75 mg PO BID #180 tab 02/03/18 tablet ibuprofen 600 mg PO QID PRN #20 tab 02/22/18 Allergies Allergy/AdvReac Type Severity Reaction Status Date / Time codeine Allergy Mild HIVES Verified 10/07/18 08:19 Review of Systems Review of Systems GENERAL: Denies chills, fatigue, malaise, fever, sweats, travel HEENT: Denies sinus pain, ear pain, sore throat, difficulty swallowing, neck pain RESPIRATORY: Denies dyspnea, cough, wheezing, hemoptysis, sputum. CARDIOVASCULAR: See HPI GASTROINTESTINAL: Denies nausea, vomiting, abdominal pain, diarrhea, constipation, melena. : Denies dysuria, frequency, incontinence, hematuria, urinary retention, flank pain. MUSCULOSKELETAL: Denies weakness, joint pain, or bony pain SKIN: No rash, no erythema, no pruritus NEUROLOGIC: Denies weakness, dizziness, headache, numbness, change in speech, confusion PSYCHIATRIC: No concerning psychosocial issues. 12 point review of systems is negative except for those stated above and HPI [facility] Medical History Type 2 diabetes mellitus without complication (Chronic 10/29/11) Cardiomyopathy (Chronic 07/24/15) Chest pain (Chronic) Palpitations (Chronic) Malignant neoplasm of prostate (Chronic 07/11/14) Gastroesophageal reflux disease without esophagitis (Chronic 01/23/11) Mixed hyperlipidemia (Chronic 01/23/11) Anxiety (Chronic 10/25/13) Ventricular tachycardia (Inactive 01/10/14) Chronic renal failure, stage 2 (mild) (Chronic 07/24/15) Chronic anemia (Chronic 04/16/16) Leukopenia (Chronic 04/16/16) History of hematuria (Inactive) Surgical History Anesthesia (Resolved) Implantable cardioverter-defibrillator (ICD) in situ (Inactive) Status post cholecystectomy (Inactive) Family History Brother Family history of diabetes mellitus (DM) Father No problems noted. Sister No problems noted. Social History Smoking Status: Former smoker Family History Brother Family history of diabetes mellitus (DM) Father No problems noted. Sister No problems noted. Social History Smoking Status: Former smoker Exam Initial Vital Signs Initial Vital Signs: Vital Signs Temperature 98.4 F 10/07/18 08:19 Pulse Rate 67 10/07/18 08:19 Respiratory Rate 20 10/07/18 08:19 Blood Pressure 150/75 H 10/07/18 08:19 Pulse Oximetry 97 10/07/18 08:19 GENERAL: Appears in the [place] HEENT: Head atraumatic,EOMI, pupils reactive, face symmetric, CARDIOVASCULAR: Regular rate and rhythm without murmurs, rubs or gallops. RESPIRATORY: Breath sounds equal bilaterally, no wheezes rales or rhonchi. ABDOMEN: Soft, nontender. Normoactive bowel sounds all 4 quadrants. No guarding or rebound. : No CVA tenderness EXTREMITIES: Normal range of motion, no clubbing or edema. Neurovascularly intact NEUROLOGICAL: Alert and oriented x4.Normal gait and speech. Cranial nerves II through XII grossly intact. administrator of home health strength equal bilaterally SKIN: Warm, dry, no laceration, no petechiae, no rashes or lesions. Course Orders Ordered: ED Orders 10/07/18 08:17 EKG-12 Lead Stat 10/07/18 08:24 XR chest 1V Stat 10/07/18 08:30 Complete Blood Count AUTO DIFF Stat Comprehensive Metabolic Panel Stat Lipase Stat Troponin & CK Cardiac Panel Stat 10/07/18 09:14 CT angio chest abdomen pelvis Stat 10/07/18 11:30 Troponin I Stat 10/07/18 11:49 Urine Culture Stat Urine Microscopic Stat 10/07/18 12:55 EKG-12 Lead Stat Discontinued Medications Aspirin (Aspirin Chew) 324 mg PO NOW ONE Stop: 10/07/18 08:25 Last Admin: 10/07/18 08:47 Dose: 243 mg Sodium Chloride (Normal Saline 0.9%) 1,000 mls @ 150 mls/hr IV CONT MADHURI Last Infusion: 10/07/18 10:43 Dose: 0 mls/hr Infusion: 10/07/18 09:09 Dose: 999 mls/hr Admin: 10/07/18 08:46 Dose: 150 mls/hr Nitroglycerin (Nitrostat) 0.4 mg SL NOW ONE Stop: 10/07/18 08:51 Last Admin: 10/07/18 08:51 Dose: 0.4 mg Ondansetron HCl (Zofran) 4 mg IV NOW ONE Stop: 10/07/18 09:05 Last Admin: 10/07/18 09:04 Dose: 4 mg Pantoprazole Sodium (Protonix) 40 mg IV NOW ONE Stop: 10/07/18 09:07 Last Admin: 10/07/18 09:09 Dose: 40 mg Vital Signs - 8 hr 10/07/18 08:19 10/07/18 08:30 10/07/18 08:51 Temperature 98.4 F Pulse Rate 67 63 63 Respiratory Rate 20 12 Blood Pressure 150/75 H 137/66 Blood Pressure [Left Arm] 137/66 Pulse Oximetry 97 97 10/07/18 08:59 10/07/18 09:00 10/07/18 09:07 Temperature Pulse Rate 62 71 61 Respiratory Rate 12 13 12 Blood Pressure 82/61 L Blood Pressure [Left Arm] 113/59 L 100/54 L 134/78 Pulse Oximetry 98 100 100 10/07/18 09:11 10/07/18 09:15 10/07/18 09:30 Temperature Pulse Rate 58 L 64 61 Respiratory Rate 11 L 13 13 Blood Pressure Blood Pressure [Left Arm] 111/66 111/66 134/78 Pulse Oximetry 100 100 99 10/07/18 09:44 10/07/18 09:45 10/07/18 10:00 Temperature Pulse Rate 60 53 L 54 L Respiratory Rate 13 12 13 Blood Pressure Blood Pressure [Left Arm] 126/72 121/62 139/62 Pulse Oximetry 100 99 99 10/07/18 10:15 10/07/18 10:35 10/07/18 10:45 Temperature Pulse Rate 53 L 53 L 53 L Respiratory Rate 11 L 10 L 10 L Blood Pressure Blood Pressure [Left Arm] 116/68 135/80 135/63 Pulse Oximetry 100 99 100 10/07/18 11:00 10/07/18 11:10 10/07/18 11:15 Temperature Pulse Rate 51 L 48 L 50 L Respiratory Rate 10 L 10 L 11 L Blood Pressure Blood Pressure [Left Arm] 126/61 122/68 129/64 Pulse Oximetry 100 100 100 10/07/18 11:21 10/07/18 11:30 10/07/18 11:45 Temperature Pulse Rate 59 L 52 L 55 L Respiratory Rate 12 12 14 Blood Pressure Blood Pressure [Left Arm] 138/80 154/80 H Pulse Oximetry 100 100 10/07/18 12:00 10/07/18 12:15 10/07/18 12:30 Temperature Pulse Rate 51 L 55 L 55 L Respiratory Rate 13 13 14 Blood Pressure Blood Pressure [Left Arm] 148/91 H 153/86 H 164/87 H Pulse Oximetry 100 100 100 10/07/18 12:45 10/07/18 13:15 Temperature Pulse Rate 63 58 L Respiratory Rate 15 13 Blood Pressure Blood Pressure [Left Arm] 149/98 H 137/81 Pulse Oximetry 100 100 MDM - Chest Pain Lab Data Attestation: I reviewed the patient's lab results. Result diagrams: 10/07/18 08:30 10/07/18 08:30 Lab Results 10/07/18 10/07/18 10/07/18 Range/Units 08:30 08:30 11:30 WBC 3.9 L (4.5-11.0) X10^3/uL RBC 3.69 L (4.5-5.9) X10^6/uL Hgb 11.5 L (13.5-17.5) g/dL Hct 34.9 L (41-53) % MCV 94.6 (80-100) fL MCH 31.2 (26-34) PG MCHC 33.0 (30-36) % RDW 14.7 (11.6-14.8) % Plt Count 221 (150-400) X10^3/uL Neut % (Auto) 58.8 (50-75) % Lymph % (Auto) 27.7 (25-40) % [place] % (Auto) 9.7 (3-14) % Eos % (Auto) 3.1 (2-4) % Baso % (Auto) 0.7 (0-2) % Neut # (Auto) 2300 (7142-6895) /uL Lymph # (Auto) 1100 (7660-5561) /uL [place] # (Auto) 400 (0-900) /uL Eos # (Auto) 100 (0-450) /uL Baso # (Auto) 0 (0-100) /uL Sodium 137 (137-145) mmol/L Potassium 3.9 (3.4-5.1) mmol/L Chloride 98 (98-107) mmol/L Carbon Dioxide 32 (22-32) mmol/L BUN 21 H (9-20) mg/dL Creatinine 1.30 H (0.66-1.25) mg/dL Estimated GFR 53.8 L (>60) mL/min BUN/Creatinine Ratio 16.2 (6-22) Glucose 166 H (80-110) mg/dL Calcium 9.3 (8.4-10.2) mg/dL Total Bilirubin 0.4 (0.2-1.3) mg/dL AST 24 (17-59) IU/L ALT 26 (21-72) IU/L Alkaline Phosphatase 46 (38-126) U/L Total Creatine Kinase 99 (55-170) U/L CK-MB (CK-2) TNP CK-MB (CK-2) Rel Index TNP Troponin I < 0.012 < 0.012 (0.01-0.034) ng/mL Total Protein 6.8 (6.3-8.2) g/dL Albumin 4.2 (3.5-5.0) g/dL Globulin 2.6 (1.7-4.1) g/dL Albumin/Globulin Ratio 1.6 (1.0-2.8) Lipase 78 (23-300) U/L Urine RBC (0-5/HPF) Urine WBC (0-5/HPF) Ur Squamous Epith Cells (0-5/HPF) Urine Bacteria (None) Ur Culture Indicated? 04/24/19 Range/Units 11:49 WBC (4.5-11.0) X10^3/uL RBC (4.5-5.9) X10^6/uL Hgb (13.5-17.5) g/dL Hct (41-53) % MCV (80-100) fL MCH (26-34) PG MCHC (30-36) % RDW (11.6-14.8) % Plt Count (150-400) X10^3/uL Neut % (Auto) (50-75) % Lymph % (Auto) (25-40) % [place] % (Auto) (3-14) % Eos % (Auto) (2-4) % Baso % (Auto) (0-2) % Neut # (Auto) (0487-4697) /uL Lymph # (Auto) (4473-7321) /uL [place] # (Auto) (0-900) /uL Eos # (Auto) (0-450) /uL Baso # (Auto) (0-100) /uL Sodium (137-145) mmol/L Potassium (3.4-5.1) mmol/L Chloride (98-107) mmol/L Carbon Dioxide (22-32) mmol/L BUN (9-20) mg/dL Creatinine (0.66-1.25) mg/dL Estimated GFR (>60) mL/min BUN/Creatinine Ratio (6-22) Glucose (80-110) mg/dL Calcium (8.4-10.2) mg/dL Total Bilirubin (0.2-1.3) mg/dL AST (17-59) IU/L ALT (21-72) IU/L Alkaline Phosphatase (38-126) U/L Total Creatine Kinase (55-170) U/L CK-MB (CK-2) CK-MB (CK-2) Rel Index Troponin I (0.01-0.034) ng/mL Total Protein (6.3-8.2) g/dL Albumin (3.5-5.0) g/dL Globulin (1.7-4.1) g/dL Albumin/Globulin Ratio (1.0-2.8) Lipase (23-300) U/L Urine RBC 0-1/hpf (0-5/HPF) Urine WBC 1-5/hpf (0-5/HPF) Ur Squamous Epith Cells 1-5 /hpf (0-5/HPF) Urine Bacteria Few (2-10) H (None) Ur Culture Indicated? Specimen cultured Urine Dip Bedside Urine Glucose Negative Bedside Urine Bilirubin - Negative Bedside Urine Ketone - Negative Urine Specific [place] 1.010 Bedside Urine Occult Blood - Negative Bedside Urine pH 6 Bedside Urine Protein +/- 15 Bedside Urine Urobilinogen - Negative Bedside Urine Nitrite - Negative Bedside Urine Leukocytes +/- 15 Esterase Imaging Data Chest x-ray: Radiologist's impression: PROCEDURE: XR CHEST 1V INDICATIONS: Chest pain TECHNIQUE: One view of the chest was acquired. COMPARISON: [facility], CR, XR CHEST 2V, 10/29/2017, 17:53. [facility], CR, XR CHEST 1V, 02/10/2018, 11:26. [facility], CR, XR CHEST 1V, 02/22/2018, 12:18. [facility], CT, CT ANGIO CHEST PE PROTOCOL, 10/03/2018, 19:48. [facility], CR, XR CHEST 1V, 10/03/2018, 17:58. FINDINGS: Surgical changes and devices: An AICD is seen. Cholecystectomy clips are seen. Lungs and pleura: Lungs are clear. No pleural effusions or pneumothorax. Mediastinum: The cardiac contours are within normal limits. The aorta demonstrates calcification and tortuosity. Bones and chest wall: Age-appropriate bony degenerative changes are seen. No suspicious bony lesions. Overlying soft tissues appear unremarkable. IMPRESSION: Stable examination demonstrating clear lungs and postoperative and degenerative changes. Dictated by: Lior Pierson M.D. on 10/07/2018 at 8:16 CT angio chest/ab/pelvis: Radiologist's impression: PROCEDURE: CT ANGIO CHEST ABDOMEN PELVIS INDICATIONS: chest pain moving to abdomen TECHNIQUE: Precontrast 5 mm thick sections acquired from the lung apices to the iliac crests. After the administration of intravenous contrast, 2.5 mm thick sections again acquired from the lung apices to the iliac crests. Maximum intensity projection (MIP) oblique sagittal and coronal reformats were then acquired. For radiation dose reduction, the following was used: automated exposure control. COMPARISON: [facility], CT, CT ANGIO CHEST PE PROTOCOL, 10/03/2018, 19:48. FINDINGS: Image quality: Excellent. AORTA: Ascending thoracic aorta measures up to 3.8 cm in largest AP diameter. Descending thoracic aorta measures up to 3.1 cm in largest AP diameter. Abdominal aorta measures up to 3 cm in largest AP diameter. There is no aortic aneurysm. No aortic dissection. No periaortic or intramural hematoma. Pulmonary arteries are well-opacified with no evidence of central pulmonary emboli. Appendix is visualized and is within normal limits Mild atherosclerotic calcifications are noted scattered in thoracic and abdominal aorta. Coronary artery calcifications also seen. CHEST: Lungs and pleura: No acute airspace opacities. No pleural effusions or pneumothorax. Central and peripheral airways are patent and normal in caliber. Mediastinum: Heart size is normal. No pericardial effusion. No mediastinal or hilar adenopathy by size criteria. Central pulmonary arteries are normal in size. Esophagus is normal in caliber. No hiatal hernias. Bones and chest wall: Left chest wall pacemaker leads are seen in the region of right atrium and right ventricle. No axillary adenopathy by size criteria. Thyroid gland is within normal limits. No suspicious bony lesions. No vertebral body compression fractures. ABDOMEN: Vasculature: Celiac trunk and mesenteric arteries are patent. Renal arteries are also patent. Solid organs: Liver is normal in size and enhancement. Gallbladder is surgically absent.. Biliary system is non dilated. Pancreas enhances normally. Spleen is normal in size and enhancement. No adrenal nodules. Both kidneys are normal in size and enhancement, without hydronephrosis. Peritoneum and bowel: No free fluid or air. Bowel loops are normal in caliber and wall thickness. Nodes and vessels: No retroperitoneal or mesenteric adenopathy by size criteria. Inferior vena cava is normal in morphology. Miscellaneous: No ventral hernias. PELVIS: Genitourinary: Mild diffuse bladder wall thickening is seen in partially distended urinary bladder. Enlarged prostate gland with mild mass effect of floor of urinary bladder is seen. Miscellaneous: No inguinal hernias or adenopathy. No ventral hernias. Bones: No suspicious bony lesions. No vertebral body compression fractures. IMPRESSION: 1. No aortic aneurysm or dissection. No gross pulmonary emboli. Mild atherosclerotic disease scattered in aorta and coronary arteries. Left chest wall pacemaker in place. 2. Bilateral lungs are clear. 3. No acute inflammatory process is seen in abdomen or pelvis. Dictated by: Guevara Molina M.D. on 10/07/2018 at 9:33 ECG Data Attestation: I personally reviewed and interpreted this ECG as follows: Prior ECG tracings: available for review Interpretation: EKG 1. Normal sinus rhythm rate [address] changes appear interval 188 no T-wave inversion EKG 2. Rate 50 p.r. interval 225 - He actually has had previous EKGs with appear interval of the same. No ST changes MDM Narrative Medical decision making narrative: Patient was given 1 nitroglycerin for his chest heaviness which was getting worse. His pressure dropped to 88. He is started having pain from his chest down to his abdomen. Seemed quite uncomfortable. Decision for CT angio. CT angio is negative. Patient had 2-troponins pain may actually be GI related rather than cardiac. I called and spoke with patient's PCP on-call Dr. Mcadams the regular PCP was out. This time agrees with outpatient follow-up Discharge Plan Departure Patient Disposition: Home Clinical Impression: Chest pain Qualifiers: Chest pain type: unspecified Qualified Code(s): R07.9 - Chest pain, unspecified Discharge Date/Time: 10/07/18 13:26 Interventions: ED Discharge Assessment Last Done: 10/07/18 13:26 Instructions: DI for Arrhythmias Activity Restrictions/Additional Instructions: *You have been diagnosed with chest pain *What to do: You probably need further cardiac workup. Please discuss this with her PCP and/or manager merchandise. *Continue to take medications as directed *Follow up with your primary care provider in 2-3 days --today actually should call today to schedule an appointment *Return to ER if you should have worsening chest pain dizziness lightheadedness or any new, worsening or concerning symptoms Prescriptions: No Action multivitamin Tablet 1 tab PO DAILY Qty: 0 RF: 0 aspirin 81 mg Tablet,Delayed Release (Dr/Ec) 81 mg PO DAILY Qty: 0 RF: 0 gabapentin [Neurontin] 300 MG capsule 300 mg PO BID Qty: 0 RF: 0 nabumetone 500 MG tablet 500 mg PO QDAY Qty: 0 RF: 0 alprazolam 0.25 MG tablet 0.25 mg PO TIDP PRN (Reason: Anxiety) Qty: 0 RF: 0 diclofenac sodium [Voltaren] 1 % gel 1 john Topical QID PRN (Reason: pain) Qty: 0 RF: 0 sucralfate 1 GM tablet 1 gm PO ACHS Qty: 360 RF: 3 tramadol 50 MG tablet 50 mg PO PRN PRN (Reason: pain) Qty: 0 RF: 0 amitriptyline 25 MG tablet 25 mg PO BEDTIME Qty: 0 RF: 0 pantoprazole 40 mg tablet,delayed release (DR/EC) 40 mg PO BID Qty: 180 RF: 3 clorazepate dipotassium 3.75 mg tablet 3.75 mg PO BID Qty: 180 RF: 1 oxycodone 5 mg tablet 5 mg PO Q4-6H PRN (Reason: pain in chest) Qty: 20 RF: 0 ibuprofen 600 mg tablet 600 mg PO QID PRN (Reason: pain) Qty: 20 RF: 0 hydroxychloroquine 200 mg tablet 200 mg PO BID RF: 0 SF 5000 Plus 1.1 % cream 1 applic Dental DIRECTED RF: 0 colchicine 0.6 mg capsule 0.3 mg PO BID RF: 0 sildenafil [Viagra] 100 mg tablet 100 mg PO PRN PRN (Reason: Erectile Dysfunction) RF: 0 tamsulosin [Flomax] 0.4 MG capsule 0.8 mg PO DAILY RF: 0 levothyroxine [Synthroid] 50 mcg tablet 50 mcg PO DAILY RF: 0 lisinopril 5 mg tablet 5 mg PO DAILY RF: 0 sertraline 50 MG tablet 50 mg PO DAILY RF: 0 diclofenac sodium 75 mg tablet,delayed release (DR/EC) 75 mg PO BIDP PRN (Reason: pain) RF: 0 tadalafil [Cialis] 20 MG tablet 20 mg PO PRN PRN (Reason: Erectile Dysfunction) RF: 0 Referrals: Brayan Blackwell MD [Primary Care Provider] -
[2018-10-07 08:43] LABS: Add Manual Diff / Slide Review NO; Basophils Absolute Auto 0 /uL (0-100); Basophils Percent Auto 0.7 % (0-2); Eosinophils Absolute Auto 100 /uL (0-450); Eosinophils Percent Auto 3.1 % (2-4); Hematocrit 34.9 % (41-53); Hemoglobin 11.5 g/dL (13.5-17.5); Lymphocytes Absolute Auto 1100 /uL (1100-4500); Lymphocytes Percent Auto 27.7 % (25-40); Mean Corpuscular Hemoglobin 31.2 PG (26-34); Mean Corpuscular Volume 94.6 fL (80-100); Monocytes Absolute Auto 400 /uL (0-900); Monocytes Percent Auto 9.7 % (3-14); Neutrophils Absolute Auto 2300 /uL (1500-7000); Neutrophils Percent Auto 58.8 % (50-75); Platelet Count 221 X10^3/uL (150-400); Red Blood Cell Count 3.69 X10^6/uL (4.5-5.9); Red Cell Distribution Width 14.7 % (11.6-14.8); White Blood Cell Count 3.9 X10^3/uL (4.5-11.0)
--- NOTE | 2018-10-07 08:44 | PC.NURSE ---
pt reports, dizziness, chest heaviness, sxs for couple of weeks. skin warm dry pink
[2018-10-07] MEDS: SODIUM CHLORIDE 0.9% 1,000 ML 150 ML IV (08:46)
[2018-10-07] MEDS: ASPIRIN 81 MG TAB 324 MG PO (08:47)
[2018-10-07 08:51] LABS: Alanine Aminotransferase 26 IU/L (21-72); Albumin 4.2 g/dL (3.5-5.0); Albumin Globulin Ratio 1.6 (1.0-2.8); Alkaline Phosphatase 46 U/L (38-126); Aspartate Aminotransferase 24 IU/L (17-59); BUN Creatinine Ratio 16.2 (6-22); Bilirubin Total 0.4 mg/dL (0.2-1.3); Blood Urea Nitrogen 21 mg/dL (9-20); Calcium 9.3 mg/dL (8.4-10.2); Carbon Dioxide 32 mmol/L (22-32); Chloride 98 mmol/L (98-107); Creatine Kinase 99 U/L (55-170); Estimated Glomerular Filt Rate 53.8 mL/min (>60); Globulin 2.6 g/dL (1.7-4.1); Glucose 166 mg/dL (80-110); HEMOLYSIS < 15 (0-50); Lipase 78 U/L (23-300); Potassium 3.9 mmol/L (3.4-5.1); Sodium 137 mmol/L (137-145); Total Protein 6.8 g/dL (6.3-8.2)
[2018-10-07] MEDS: NITROGLYCERIN 0.4 MG SL TAB SL (08:51)
[2018-10-07 09:03] LABS: Troponin I < 0.012 ng/mL (0.01-0.034)
[2018-10-07] MEDS: ONDANSETRON 4 MG/2 ML INJ IV (09:04)
--- NOTE | 2018-10-07 09:05 | PC.NURSE ---
restless, c/o stomach pain, nausea. dr romeo at [facility] oxygen 2lpm via nc applied. cool wash cloth, zofran given.
[2018-10-07] MEDS: PANTOPRAZOLE 40 MG VIAL IV (09:09)
--- NOTE | 2018-10-07 09:14 | DI.CT.S_ITS ---
PROCEDURE: CT ANGIO CHEST ABDOMEN PELVIS INDICATIONS: chest pain moving to abdomen TECHNIQUE: Precontrast 5 mm thick sections acquired from the lung apices to the iliac crests. After the administration of intravenous contrast, 2.5 mm thick sections again acquired from the lung apices to the iliac crests. Maximum intensity projection (MIP) oblique sagittal and coronal reformats were then acquired. For radiation dose reduction, the following was used: automated exposure control. COMPARISON: [facility], CT, CT ANGIO CHEST PE PROTOCOL, 10/03/2018, 19:48. FINDINGS: Image quality: Excellent. AORTA: Ascending thoracic aorta measures up to 3.8 cm in largest AP diameter. Descending thoracic aorta measures up to 3.1 cm in largest AP diameter. Abdominal aorta measures up to 3 cm in largest AP diameter. There is no aortic aneurysm. No aortic dissection. No periaortic or intramural hematoma. Pulmonary arteries are well-opacified with no evidence of central pulmonary emboli. Appendix is visualized and is within normal limits Mild atherosclerotic calcifications are noted scattered in thoracic and abdominal aorta. Coronary artery calcifications also seen. CHEST: Lungs and pleura: No acute airspace opacities. No pleural effusions or pneumothorax. Central and peripheral airways are patent and normal in caliber. Mediastinum: Heart size is normal. No pericardial effusion. No mediastinal or hilar adenopathy by size criteria. Central pulmonary arteries are normal in size. Esophagus is normal in caliber. No hiatal hernias. Bones and chest wall: Left chest wall pacemaker leads are seen in the region of right atrium and right ventricle. No axillary adenopathy by size criteria. Thyroid gland is within normal limits. No suspicious bony lesions. No vertebral body compression fractures. ABDOMEN: Vasculature: Celiac trunk and mesenteric arteries are patent. Renal arteries are also patent. Solid organs: Liver is normal in size and enhancement. Gallbladder is surgically absent.. Biliary system is non dilated. Pancreas enhances normally. Spleen is normal in size and enhancement. No adrenal nodules. Both kidneys are normal in size and enhancement, without hydronephrosis. Peritoneum and bowel: No free fluid or air. Bowel loops are normal in caliber and wall thickness. Nodes and vessels: No retroperitoneal or mesenteric adenopathy by size criteria. Inferior vena cava is normal in morphology. Miscellaneous: No ventral hernias. PELVIS: Genitourinary: Mild diffuse bladder wall thickening is seen in partially distended urinary bladder. Enlarged prostate gland with mild mass effect of floor of urinary bladder is seen. Miscellaneous: No inguinal hernias or adenopathy. No ventral hernias. Bones: No suspicious bony lesions. No vertebral body compression fractures. IMPRESSION: 1. No aortic aneurysm or dissection. No gross pulmonary emboli. Mild atherosclerotic disease scattered in aorta and coronary arteries. Left chest wall pacemaker in place. 2. Bilateral lungs are clear. 3. No acute inflammatory process is seen in abdomen or pelvis. Dictated by: Guevara Molina M.D. on 10/07/2018 at 9:33 Approved by: Guevara Molina M.D. on 10/07/2018 at 9:42
--- NOTE | 2018-10-07 09:44 | PC.NURSE ---
states, feeling better at this time
[2018-10-07 12:00] LABS: Troponin I < 0.012 ng/mL (0.01-0.034)
[2018-10-07 12:48] LABS: Bacteria Urine Few (2-10); Culture Indicated Urine Specimen Cultured; RBC Urine 0-1/HPF (0-5/HPF); Squamous Epithelial Cell Urine 1-5 /HPF (0-5/HPF); WBC Urine 1-5/HPF (0-5/HPF)
== END 2018-10-07 13:26 | disposition home or self-care (01) ==
PROVIDERS: Emergency Provider Emergency Medicine; PCP Internal Medicine
DX: R07.9 Chest pain, unspecified (principal); R10.9 Unspecified abdominal pain; R42 Dizziness and giddiness; R20.0 Anesthesia of skin; R11.0 Nausea; Z79.82 Long term (current) use of aspirin; Z95.810 Presence of automatic (implantable) cardiac defibrillator
CPT/HCPCS: 36415; 36591; 71045; 71275; 74174; 80053; 81003; 81015; 82550; 83690; 84484; 85025; 87086; 93005; 93041; 96361; 96374; 96375; 99285; C9113; J2405; Q9967

== ENCOUNTER 2018-10-13 16:36 | Emergency (ER) | payer MEDICARE, OTHER, SELFPAY ==
--- NOTE | 2018-10-13 16:44 | DI.RAD.S_ITS ---
PROCEDURE: XR CHEST 1V INDICATIONS: chest pain TECHNIQUE: One view of the chest was acquired. COMPARISON: [facility], CR, XR CHEST 1V, 10/03/2018, 17:58. [facility], CT, CT ANGIO CHEST PE PROTOCOL, 10/03/2018, 19:48. [facility], CT, CT ANGIO CHEST ABDOMEN PELVIS, 10/07/2018, 9:09. [facility], CR, XR CHEST 1V, 10/07/2018, 8:53. FINDINGS: Surgical changes and devices: An AICD is seen. The leads are seen in stable positions. Lungs and pleura: Lungs are clear. No pleural effusions or pneumothorax. Lungs are hyperexpanded. Mediastinum: The cardiac contours are within normal limits. The aorta demonstrates calcification and tortuosity. Bones and chest wall: No suspicious bony lesions. Age-appropriate bony degenerative changes are seen. Overlying soft tissues appear unremarkable. IMPRESSION: Portable chest within normal limits. Dictated by: Lior Pierson M.D. on 10/13/2018 at 15:57 Approved by: Lior Pierson M.D. on 10/13/2018 at 16:01
[2018-10-13 16:45] VITALS: BP 151/79; PULSE 66; RESP 18; TEMP 36.7; O2SAT 97
[2018-10-13 16:58] VITALS: BP 168/70; PULSE 69; RESP 18; O2SAT 97
--- NOTE | 2018-10-13 17:01 | PC.NURSE ---
Pt w/ multiple work ups at multiple facilities. States that pain is from groin to chest. States he feels faint and dizzy when he has pain and is very upset 'nobody knows whats going on'. Currently very anxious regarding lost cell phone. Verbalized understanding that I could not given him any pain medication until provider saw him. Easy work of breathing. Moving all extremities easily and w/o difficulty.
[2018-10-13 17:07] LABS: Add Manual Diff / Slide Review NO; Basophils Absolute Auto 0 /uL (0-100); Basophils Percent Auto 0.9 % (0-2); Eosinophils Absolute Auto 100 /uL (0-450); Eosinophils Percent Auto 2.7 % (2-4); Hematocrit 37.1 % (41-53); Hemoglobin 11.7 g/dL (13.5-17.5); Lymphocytes Absolute Auto 1500 /uL (1100-4500); Lymphocytes Percent Auto 31.6 % (25-40); Mean Corpuscular HGB Conc 31.5 % (30-36); Mean Corpuscular Hemoglobin 30.1 PG (26-34); Mean Corpuscular Volume 95.4 fL (80-100); Monocytes Absolute Auto 500 /uL (0-900); Monocytes Percent Auto 11.1 % (3-14); Neutrophils Absolute Auto 2600 /uL (1500-7000); Neutrophils Percent Auto 53.7 % (50-75); Platelet Count 212 X10^3/uL (150-400); Red Blood Cell Count 3.89 X10^6/uL (4.5-5.9); Red Cell Distribution Width 14.9 % (11.6-14.8); White Blood Cell Count 4.9 X10^3/uL (4.5-11.0)
[2018-10-13 17:11] LABS: INR 1.3 (0.9-1.3); Prothrombin Time 14.8 SECONDS (10.1-12.7)
[2018-10-13 17:14] LABS: PTT Partial Thromboplastin Tim 28 SECONDS (26.4-36.2)
[2018-10-13 17:15] VITALS: BP 130/72; PULSE 68; RESP 15; O2SAT 97
[2018-10-13 17:15] LABS: Alanine Aminotransferase 35 IU/L (21-72); Albumin 4.3 g/dL (3.5-5.0); Albumin Globulin Ratio 1.4 (1.0-2.8); Alkaline Phosphatase 47 U/L (38-126); Aspartate Aminotransferase 30 IU/L (17-59); BUN Creatinine Ratio 14.7 (6-22); Bilirubin Total 0.5 mg/dL (0.2-1.3); Blood Urea Nitrogen 22 mg/dL (9-20); Calcium 9.2 mg/dL (8.4-10.2); Carbon Dioxide 32 mmol/L (22-32); Chloride 100 mmol/L (98-107); Creatine Kinase 141 U/L (55-170); Estimated Glomerular Filt Rate 45.6 mL/min (>60); Globulin 3.1 g/dL (1.7-4.1); Glucose 103 mg/dL (80-110); HEMOLYSIS 17 (0-50); Lipase 115 U/L (23-300); Potassium 4.1 mmol/L (3.4-5.1); Sodium 139 mmol/L (137-145); Total Protein 7.4 g/dL (6.3-8.2)
[2018-10-13 17:27] LABS: Troponin I < 0.012 ng/mL (0.01-0.034)
[2018-10-13 17:30] VITALS: BP 133/73; PULSE 66; RESP 16; O2SAT 100
[2018-10-13 17:31] LABS: CKMB % Relative Index 0.5 % (1.5-5.0); Creatine Kinase MB 0.65 ng/mL (<2.37)
[2018-10-13 19:00] VITALS: BP 140/80; PULSE 66; RESP 15; O2SAT 100
--- NOTE | 2018-10-13 19:07 | ED_ITS ---
HPI - Chest Pain General Chief Complaint: Chest Pain Stated Complaint: CHEST PAIN DIZZY Time Seen by Provider: 10/13/18 17:17 Source: patient Mode of arrival: ambulatory Limitations: no limitations History of Present Illness HPI narrative: Patient is a 73-year-old male here for evaluation of what he states is left-sided chest pain/epigastric pain. I evaluated him here in this emergency department within the past week for the same symptoms. he had a heart score 3 at that time and 2-troponins. He was discharged home with instructions to follow up with his primary doctor. He has since been seen in this emergency department again for the same symptoms where he had a CTA of his chest which was unremarkable. He also states he has been seen at [facility] and also [facility] for the same symptoms and discharged both times. He has also been followed up by his primary doctor since then. Review of that note shows that his primary doctor was concerned that this was a anxiety issue. He was started on bupropion. He states that this is not helping him. He states that his pain today is the same symptoms that he has been seen for multiple times in the past. Related Data Home Medications Medication Instructions Recorded Confirmed multivitamin 1 tab PO DAILY #0 02/13/12 10/08/18 aspirin 81 mg PO DAILY #0 07/23/12 10/08/18 gabapentin [Neurontin] 300 mg PO BID #0 02/23/16 10/08/18 nabumetone 500 mg PO QDAY #0 tab 02/23/16 10/08/18 alprazolam 0.25 mg PO TIDP PRN #0 11/22/16 10/08/18 diclofenac sodium [Voltaren] 1 john TOPICAL QID PRN #0 11/22/16 10/08/18 amitriptyline 25 mg PO BEDTIME #0 08/10/17 10/08/18 tramadol 50 mg PO PRN PRN #0 08/10/17 10/08/18 colchicine 0.3 mg PO BID 10/07/18 10/08/18 diclofenac sodium 75 mg PO BIDP PRN 10/07/18 10/08/18 fluoride (sodium) [SF 5000 Plus] 1 applic DENTAL DIRECTED 10/07/18 10/08/18 hydroxychloroquine 200 mg PO BID 10/07/18 10/08/18 levothyroxine [Synthroid] 50 mcg PO DAILY 10/07/18 10/08/18 lisinopril 5 mg PO DAILY 10/07/18 10/08/18 sertraline 50 mg PO DAILY 10/07/18 10/08/18 sildenafil [Viagra] 100 mg PO PRN PRN 10/07/18 10/08/18 tadalafil [Cialis] 20 mg PO PRN PRN 10/07/18 10/08/18 tamsulosin [Flomax] 0.8 mg PO DAILY 10/07/18 10/08/18 Previous Rx's Medication Instructions Recorded sucralfate 1 gm PO ACHS #360 tab 02/24/17 oxycodone 5 mg tablet 5 mg PO Q4-6H PRN #20 tab 11/13/17 pantoprazole 40 mg PO BID #180 tab 12/09/17 clorazepate dipotassium 3.75 mg 3.75 mg PO BID #180 tab 02/03/18 tablet ibuprofen 600 mg PO QID PRN #20 tab 02/22/18 bupropion HCl XL 150 mg 24 hr 150 mg PO QAM #30 tab 10/08/18 tablet, extended release Allergies Allergy/AdvReac Type Severity Reaction Status Date / Time codeine Allergy Mild HIVES Verified 10/08/18 15:50 Review of Systems Constitutional Denies fatigue and Denies headache(s) ENT Ears, Nose, Mouth, and Throat: Denies vertigo and Denies headache(s) Cardiovascular Reports chest pain, Denies edema, Denies irregular heart rhythm, Denies palpitations, Denies dyspnea and Denies dyspnea on exertion Respiratory Denies dyspnea and Denies dyspnea on exertion Gastrointestinal Gastrointestinal: Reports abdominal pain (Epigastric pain), Denies change in stool character, Denies nausea and Denies vomiting Musculoskeletal Denies back pain and Denies arthralgias Integumentary/Breasts Denies rash Neurologic Denies vertigo and Denies headache(s) Endocrine Denies fatigue and Denies palpitations Hematologic/Lymphatic Denies easy bleeding and Denies easy bruising Allergic/Immunologic Denies urticaria [facility] Medical History Type 2 diabetes mellitus without complication (Chronic 10/29/11) Cardiomyopathy (Chronic 02/08/16) Chest pain (Chronic) Palpitations (Chronic) Malignant neoplasm of prostate (Chronic 07/11/14) Gastroesophageal reflux disease without esophagitis (Chronic 01/23/11) Mixed hyperlipidemia (Chronic 01/23/11) Anxiety (Chronic 10/25/13) Ventricular tachycardia (Inactive 01/10/14) Chronic renal failure, stage 2 (mild) (Chronic 07/24/15) Chronic anemia (Chronic 04/16/16) Leukopenia (Chronic 04/16/16) History of hematuria (Inactive) Social History Smoking Status: Former smoker Exam Initial Vital Signs Initial Vital Signs: Vital Signs Temperature 98.1 F 10/13/18 16:45 Pulse Rate 66 10/13/18 16:45 Respiratory Rate 18 10/13/18 16:45 Blood Pressure 151/79 H 10/13/18 16:45 Pulse Oximetry 97 10/13/18 16:45 Const General: cooperative, comfortable, well developed, well groomed and No acute distress Orientation: alert, awake and oriented x3 HENMT Head: normal to inspection and normocephalic Chest Chest: No tenderness Resp Effort & Inspection: normal respiratory effort Auscultation: clear to auscultation bilaterally Cardio Rate: regular rate Rhythm: regular rhythm Pulses: radial pulses present GI Inspection: non-distended Palpation: soft, No firm and No tender Skin Lesions: no lesions Rashes: no rashes Neuro General: alert, awake and oriented x3 Cognition: normal cognition Speech: speech normal Gait: normal gait Extrem General: normal to inspection and capillary refill normal Psych Appearance: grossly normal and well kempt Course Orders Ordered: Discontinued Medications Heparin Sodium (Porcine) (Heparin) 8,300 unit 80 unit/kg (8300 unit) IV NOW ONE Stop: 10/13/18 18:02 Last Admin: 10/13/18 18:16 Dose: Not Given Heparin Sodium/Dextrose (Heparin Drip) 25,000 unit in 500 mls @ 37.557 mls/hr IV CONT MADHURI; Protocol Last Admin: 10/13/18 18:16 Dose: Not Given Vital Signs - 8 hr 10/13/18 20:01 Pulse Rate 62 Respiratory Rate 16 Blood Pressure [Left Arm] 131/74 Pulse Oximetry 100 MDM - Chest Pain Lab Data Attestation: I reviewed the patient's lab results. Result diagrams: 10/13/18 16:56 10/13/18 16:56 Lab Results 10/13/18 10/13/18 10/13/18 Range/Units 16:56 16:56 16:56 WBC 4.9 (4.5-11.0) X10^3/uL RBC 3.89 L (4.5-5.9) X10^6/uL Hgb 11.7 L (13.5-17.5) g/dL Hct 37.1 L (41-53) % MCV 95.4 (80-100) fL MCH 30.1 (26-34) PG MCHC 31.5 (30-36) % RDW 14.9 H (11.6-14.8) % Plt Count 212 (150-400) X10^3/uL Neut % (Auto) 53.7 (50-75) % Lymph % (Auto) 31.6 (25-40) % Cecil % (Auto) 11.1 (3-14) % Eos % (Auto) 2.7 (2-4) % Baso % (Auto) 0.9 (0-2) % Neut # (Auto) 2600 (4931-2958) /uL Lymph # (Auto) 1500 (7740-9510) /uL Cecil # (Auto) 500 (0-900) /uL Eos # (Auto) 100 (0-450) /uL Baso # (Auto) 0 (0-100) /uL PT 14.8 H (10.1-12.7) SECONDS INR 1.3 (0.9-1.3) APTT 28 D (26.4-36.2) SECONDS Sodium 139 (137-145) mmol/L Potassium 4.1 (3.4-5.1) mmol/L Chloride 100 (98-107) mmol/L Carbon Dioxide 32 (22-32) mmol/L BUN 22 H (9-20) mg/dL Creatinine 1.50 H (0.66-1.25) mg/dL Estimated GFR 45.6 L (>60) mL/min BUN/Creatinine Ratio 14.7 (6-22) Glucose 103 (80-110) mg/dL Calcium 9.2 (8.4-10.2) mg/dL Total Bilirubin 0.5 (0.2-1.3) mg/dL AST 30 (17-59) IU/L ALT 35 (21-72) IU/L Alkaline Phosphatase 47 (38-126) U/L Total Creatine Kinase 141 (55-170) U/L CK-MB (CK-2) 0.65 (<2.37) ng/mL CK-MB (CK-2) Rel Index 0.5 L (1.5-5.0) % Troponin I < 0.012 (0.01-0.034) ng/mL Total Protein 7.4 (6.3-8.2) g/dL Albumin 4.3 (3.5-5.0) g/dL Globulin 3.1 (1.7-4.1) g/dL Albumin/Globulin Ratio 1.4 (1.0-2.8) Lipase 115 (23-300) U/L Imaging Data Chest x-ray: Radiologist's impression: [address] [address] XRay Report Signed Patient: Jorje Garay [facility]#: [id number] : 3Acct:[id number] Age/Sex: 73 / MDate of Service: 10/13/18 Loc: ED Accession Number: [id number] Procedure: XR chest 1V Ordering Provider: Cora Lau MD PROCEDURE: XR CHEST 1V INDICATIONS: chest pain TECHNIQUE: One view of the chest was acquired. COMPARISON: [facility], CR, XR CHEST 1V, 10/03/2018, 17:58. [facility], CT, CT ANGIO CHEST PE PROTOCOL, 10/03/2018, 19:48. [facility], CT, CT ANGIO CHEST ABDOMEN PELVIS, 10/07/2018, 9:09. [facility], CR, XR CHEST 1V, 10/07/2018, 8:53. FINDINGS: Surgical changes and devices: An AICD is seen. The leads are seen in stable positions. Lungs and pleura: Lungs are clear. No pleural effusions or pneumothorax. Lungs are hyperexpanded. Mediastinum: The cardiac contours are within normal limits. The aorta demonstrates calcification and tortuosity. Bones and chest wall: No suspicious bony lesions. Age-appropriate bony degenerative changes are seen. Overlying soft tissues appear unremarkable. IMPRESSION: Portable chest within normal limits. Dictated by: Lior Pierson M.D. on 10/13/2018 at 15:57 Approved by: Lior Pierson M.D. on 10/13/2018 at 16:01 ECG Data Attestation: I personally reviewed and interpreted this ECG as follows: Interpretation: Sinus rhythm Ventricular rate is 67 Normal axis Normal QRS Normal QTC No ST T wave changes MDM Narrative Medical decision making narrative: Patient has been seen multiple times in the past for the same condition that he presents with today. His EKG, chest x-ray a nd troponin again negative. He has had symptoms consistently for the past couple days. He has had a CTA in the past which was unremarkable. He is not in heart failure. Patient has only been on the be appropriate for couple days. Informed him that it does take several days for this medication to potentially work. I have low suspicion for ACS however given 5 visits in the past week for chest pain is not unreasonable for him to obtain a stress test to put him in these about his chest pain. He is on pantoprazole for reflux disease. He was instructed to continue this medication. I tried to provide reassurance to the patient informed him that he needs to contact his primary doctor to discuss the indications for stress testing and potentially a referral to see Gastroenterology. I did pass the information on to who is on-call for the patient's primary doctor. Patient was given follow-up instructions and return precautions. He expressed understanding and agreement with plan. Discharge Plan Departure Patient Disposition: Home Clinical Impression: Atypical chest pain Discharge Date/Time: 10/13/18 20:26 Interventions: ED Discharge Assessment Last Done: 10/13/18 20:25 Instructions: DI for Atypical Chest Pain Activity Restrictions/Additional Instructions: I recommend you continue all of your medications as directed. Tomorrow please contact your primary doctor's office for follow-up and to discuss the indications for a stress test and for an upper endoscopy. You can return to the emergency department for any new symptoms. Prescriptions: No Action multivitamin Tablet 1 tab PO DAILY Qty: 0 RF: 0 aspirin 81 mg Tablet,Delayed Release (Dr/Ec) 81 mg PO DAILY Qty: 0 RF: 0 gabapentin [Neurontin] 300 MG capsule 300 mg PO BID Qty: 0 RF: 0 nabumetone 500 MG tablet 500 mg PO QDAY Qty: 0 RF: 0 alprazolam 0.25 MG tablet 0.25 mg PO TIDP PRN (Reason: Anxiety) Qty: 0 RF: 0 diclofenac sodium [Voltaren] 1 % gel 1 john Topical QID PRN (Reason: pain) Qty: 0 RF: 0 sucralfate 1 GM tablet 1 gm PO ACHS Qty: 360 RF: 3 tramadol 50 MG tablet 50 mg PO PRN PRN (Reason: pain) Qty: 0 RF: 0 amitriptyline 25 MG tablet 25 mg PO BEDTIME Qty: 0 RF: 0 pantoprazole 40 mg tablet,delayed release (DR/EC) 40 mg PO BID Qty: 180 RF: 3 clorazepate dipotassium 3.75 mg tablet 3.75 mg PO BID Qty: 180 RF: 1 bupropion HCl 150 mg tablet extended release 24 hr 150 mg PO QAM Qty: 30 RF: 3 oxycodone 5 mg tablet 5 mg PO Q4-6H PRN (Reason: pain in chest) Qty: 20 RF: 0 ibuprofen 600 mg tablet 600 mg PO QID PRN (Reason: pain) Qty: 20 RF: 0 hydroxychloroquine 200 mg tablet 200 mg PO BID RF: 0 SF 5000 Plus 1.1 % cream 1 applic Dental DIRECTED RF: 0 colchicine 0.6 mg capsule 0.3 mg PO BID RF: 0 sildenafil [Viagra] 100 mg tablet 100 mg PO PRN PRN (Reason: Erectile Dysfunction) RF: 0 tamsulosin [Flomax] 0.4 MG capsule 0.8 mg PO DAILY RF: 0 levothyroxine [Synthroid] 50 mcg tablet 50 mcg PO DAILY RF: 0 lisinopril 5 mg tablet 5 mg PO DAILY RF: 0 sertraline 50 MG tablet 50 mg PO DAILY RF: 0 diclofenac sodium 75 mg tablet,delayed release (DR/EC) 75 mg PO BIDP PRN (Reason: pain) RF: 0 tadalafil [Cialis] 20 MG tablet 20 mg PO PRN PRN (Reason: Erectile Dysfunction) RF: 0 Referrals: Brayan Blackwell MD [Primary Care Provider] -
[2018-10-13 20:01] VITALS: BP 131/74; PULSE 62; RESP 16; O2SAT 100
== END 2018-10-13 20:26 | disposition home or self-care (01) ==
PROVIDERS: Emergency Medicine; Emergency Provider Emergency Medicine; PCP Internal Medicine
DX: R07.89 Other chest pain (principal); R42 Dizziness and giddiness; Z79.82 Long term (current) use of aspirin; Z95.810 Presence of automatic (implantable) cardiac defibrillator
CPT/HCPCS: 36591; 71045; 80053; 82550; 82553; 83690; 84484; 85025; 85610; 85730; 93005; 99283; 99285

== ENCOUNTER 2019-01-04 02:54 | Emergency (ER) | payer MEDICARE, OTHER, SELFPAY ==
[2019-01-04 02:57] VITALS: BP 157/82; PULSE 70; RESP 16; TEMP 36.8; O2SAT 99; BMI 30.8
--- NOTE | 2019-01-04 03:03 | DI.CT.S_ITS ---
PROCEDURE: CT KIDNEY URETER BLADDER (KUB) INDICATIONS: hematuria bilateral flank pain TECHNIQUE: Noncontrast 5 mm thick sections acquired from the diaphragms to the symphysis. 5 mm thick coronal and sagittal reformats were then performed. For radiation dose reduction, the following was used: automated exposure control, adjustment of mA and/or kV according to patient size. COMPARISON: [facility], CT, KIDNEY/ URETER/BLADDER, 04/04/2015, 12:09. [facility], CT, KIDNEY/ URETER/BLADDER, 04/09/2014, 16:52. FINDINGS: Image quality: Excellent. Lung bases: Lung bases are clear. Heart size is normal. Urinary system: Both kidneys are normal in size. No kidney stones. No hydronephrosis or perinephric fat stranding. Both ureters appear non-dilated throughout their expected courses. Bladder wall thickness is normal; no calcified bladder stones. Other solid organs: Liver is normal in size. Gallbladder has been previously resected. Pancreas is normal in contours. Spleen is normal in size. No adrenal nodules. Peritoneum and bowel: Unenhanced bowel loops demonstrate normal wall thickness and caliber. No free fluid or air. Nodes and vessels: No retroperitoneal or mesenteric adenopathy by size criteria. Aorta and inferior vena cava are normal in caliber. Abdominal wall: No ventral hernias. Pelvis: No free pelvic fluid. No inguinal hernias or adenopathy. Normal appendix right lower quadrant. Prior prostate region small metallic structures consistent with radiation therapy seed implants or surgical clips.. Bones: No suspicious bony lesions. No vertebral body compression fractures. IMPRESSION: No hydronephrosis or nephrolithiasis is found. A definite source of recurrent flank pain is not seen (reported to be bilateral). 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 A definite source of spine pain is not found. Dictated by: Carlos Kay M.D. on 01/04/2019 at 8:51 Approved by: Carlos Kay M.D. on 01/04/2019 at 8:54
[2019-01-04 03:38] LABS: Add Manual Diff / Slide Review NO; Basophils Absolute Auto 0 /uL (0-100); Basophils Percent Auto 0.8 % (0-2); Eosinophils Absolute Auto 100 /uL (0-450); Hematocrit 32.9 % (41-53); Hemoglobin 10.7 g/dL (13.5-17.5); Lymphocytes Absolute Auto 1400 /uL (1100-4500); Lymphocytes Percent Auto 38.4 % (25-40); Mean Corpuscular HGB Conc 32.6 % (30-36); Mean Corpuscular Hemoglobin 30.6 PG (26-34); Mean Corpuscular Volume 93.8 fL (80-100); Monocytes Absolute Auto 500 /uL (0-900); Monocytes Percent Auto 13.2 % (3-14); Neutrophils Absolute Auto 1600 /uL (1500-7000); Neutrophils Percent Auto 44.6 % (50-75); Platelet Count 166 X10^3/uL (150-400); Red Blood Cell Count 3.51 X10^6/uL (4.5-5.9); Red Cell Distribution Width 14.3 % (11.6-14.8); White Blood Cell Count 3.5 X10^3/uL (4.5-11.0)
[2019-01-04 03:40] LABS: INR 1.3 (0.9-1.3); Prothrombin Time 15.4 SECONDS (10.1-12.7)
--- NOTE | 2019-01-04 03:48 | ED_ITS ---
HPI - Male Genitourinary General Chief complaint: Urogenital-Male Stated complaint: states urinating blood, weakness Time Seen by Provider: 01/04/19 03:03 Source: patient Mode of arrival: ambulatory Limitations: no limitations History of Present Illness HPI Narrative: Patient is a 73-year-old male who presents with hematuria. He says he has post took prep for colonoscopy tomorrow night but has not started that yet. He started having some lower abdominal cramping bilateral testicle pain and blood in his urine but mostly when he wiped. He says initially started out pain but now has become grossly bloody. He denies any flank pain, nausea or fevers. He is not on any blood thinners but does take aspirin for cardiac issues. Patient actually states that his testicles have been hurting off and on for sometime today it does not seem to be any worse than normal. MD Complaint: testicle pain Related Data Home Medications Medication Instructions Recorded Confirmed multivitamin 1 tab PO DAILY #0 02/13/12 11/13/18 aspirin 81 mg PO DAILY #0 07/23/12 11/13/18 gabapentin [Neurontin] 300 mg PO BID #0 02/23/16 11/13/18 nabumetone 500 mg PO QDAY #0 tab 02/23/16 11/13/18 alprazolam 0.25 mg PO TIDP PRN #0 11/22/16 11/13/18 diclofenac sodium [Voltaren] 1 john TOPICAL QID PRN #0 11/22/16 11/13/18 amitriptyline 25 mg PO BEDTIME #0 08/10/17 11/13/18 tramadol 50 mg PO PRN PRN #0 08/10/17 11/13/18 colchicine 0.3 mg PO BID 10/07/18 11/13/18 diclofenac sodium 75 mg PO BIDP PRN 10/07/18 11/13/18 fluoride (sodium) [SF 5000 Plus] 1 applic DENTAL DIRECTED 10/07/18 11/13/18 hydroxychloroquine 200 mg PO BID 10/07/18 11/13/18 levothyroxine [Synthroid] 50 mcg PO DAILY 10/07/18 11/13/18 lisinopril 5 mg PO DAILY 10/07/18 11/13/18 sertraline 50 mg PO DAILY 10/07/18 11/13/18 tadalafil [Cialis] 20 mg PO PRN PRN 10/07/18 11/13/18 tamsulosin [Flomax] 0.8 mg PO DAILY 10/07/18 11/13/18 Previous Rx's Medication Instructions Recorded sucralfate 1 gm PO ACHS #360 tab 02/24/17 oxycodone 5 mg tablet 5 mg PO Q4-6H PRN #20 tab 11/13/17 clorazepate dipotassium 3.75 mg 3.75 mg PO BID #180 tab 02/03/18 tablet ibuprofen 600 mg PO QID PRN #20 tab 02/22/18 bupropion HCl XL 150 mg 24 hr 150 mg PO QAM #30 tab 10/08/18 tablet, extended release sildenafil 100 mg tablet See Rx Instructions PO .COMPLEX 11/16/18 PRN #30 tab pantoprazole 40 mg PO BID #180 tab 12/04/18 Allergies Allergy/AdvReac Type Severity Reaction Status Date / Time codeine Allergy Mild HIVES Verified 01/04/19 03:12 Review of Systems Review of Systems GENERAL: Denies chills, fatigue, malaise, fever, sweats, travel HEENT: Denies sinus pain, ear pain, sore throat, difficulty swallowing, neck pain RESPIRATORY: Denies dyspnea, cough, wheezing, hemoptysis, sputum. CARDIOVASCULAR: Denies chest pain, palpitations, orthopnea, edema GASTROINTESTINAL: Denies nausea, vomiting, abdominal pain, diarrhea, constipation, melena. : See HPI MUSCULOSKELETAL: Denies weakness, joint pain, or bony pain SKIN: No rash, no erythema, no pruritus NEUROLOGIC: Denies weakness, dizziness, headache, numbness, change in speech, confusion PSYCHIATRIC: No concerning psychosocial issues. 12 point review of systems is negative except for those stated above and HPI PENDING SALE TO [facility] Medical History Type 2 diabetes mellitus without complication (Chronic 10/29/11) Cardiomyopathy (Chronic 07/24/15) Chest pain (Chronic) Palpitations (Chronic) Malignant neoplasm of prostate (Chronic 07/11/14) Gastroesophageal reflux disease without esophagitis (Chronic 01/23/11) Mixed hyperlipidemia (Chronic 01/23/11) Anxiety (Chronic 10/25/13) Ventricular tachycardia (Inactive 01/10/14) Chronic renal failure, stage 2 (mild) (Chronic 07/24/15) Chronic anemia (Chronic 04/16/16) Leukopenia (Chronic 04/16/16) History of hematuria (Inactive) Surgical History Anesthesia (Resolved) Implantable cardioverter-defibrillator (ICD) in situ (Inactive) Status post cholecystectomy (Inactive) Family History Brother Family history of diabetes mellitus (DM) Father No problems noted. Sister No problems noted. Social History Smoking Status: Former smoker Family History Brother Family history of diabetes mellitus (DM) Father No problems noted. Sister No problems noted. Social History Smoking Status: Former smoker Exam Initial Vital Signs Initial Vital Signs: Vital Signs Temperature 98.2 F 01/04/19 02:57 Pulse Rate 70 01/04/19 02:57 Respiratory Rate 16 01/04/19 02:57 Blood Pressure 157/82 H 01/04/19 02:57 Pulse Oximetry 99 01/04/19 02:57 GENERAL: Alert well-appearing male no acute distress HEENT: Head atraumatic,EOMI, pupils reactive, face symmetric, [moist] mucous membranes CARDIOVASCULAR: Regular rate and rhythm without murmurs, rubs or gallops. RESPIRATORY: Breath sounds equal bilaterally, no wheezes rales or rhonchi. ABDOMEN: Soft, nontender. Normoactive bowel sounds all 4 quadrants. No guarding or rebound : No CVA tenderness-Kenzie nurse at bedside for exam. No significant testicular is no pain to palpation no hernias no erythema. EXTREMITIES: Normal range of motion, no clubbing or edema. Neurovascularly intact NEUROLOGICAL: Alert and oriented x4.Normal gait and speech. SKIN: Warm, dry, no laceration, no petechiae, no rashes or lesions. Course Orders Ordered: ED Orders 01/04/19 03:03 CT kidney ureter bladder (KUB) Stat 01/04/19 03:31 Complete Blood Count AUTO DIFF Stat Prothrombin Time INR Stat 01/04/19 03:49 Basic Metabolic Panel Stat 01/04/19 04:04 Urinalysis and Microscopic Stat Vital Signs - 8 hr 01/04/19 02:57 01/04/19 04:59 Temperature 98.2 F 97.7 F Pulse Rate 70 59 L Respiratory Rate 16 16 Blood Pressure 157/82 H Blood Pressure [Left Arm] 143/81 H Pulse Oximetry 99 96 MDM - Male Genitourinary Lab Data Attestation: I reviewed the patient's lab results. Result diagrams: 01/04/19 03:31 01/04/19 03:49 Lab Results 01/04/19 01/04/19 01/04/19 Range/Units 03:31 03:31 03:49 WBC 3.5 L (4.5-11.0) X10^3/uL RBC 3.51 L (4.5-5.9) X10^6/uL Hgb 10.7 L (13.5-17.5) g/dL Hct 32.9 L (41-53) % MCV 93.8 (80-100) fL MCH 30.6 (26-34) PG MCHC 32.6 (30-36) % RDW 14.3 (11.6-14.8) % Plt Count 166 (150-400) X10^3/uL Neut % (Auto) 44.6 L (50-75) % Lymph % (Auto) 38.4 (25-40) % [place] % (Auto) 13.2 (3-14) % Eos % (Auto) 3.0 (2-4) % Baso % (Auto) 0.8 (0-2) % Neut # (Auto) 1600 (0638-9725) /uL Lymph # (Auto) 1400 (0052-1708) /uL [place] # (Auto) 500 (0-900) /uL Eos # (Auto) 100 (0-450) /uL Baso # (Auto) 0 (0-100) /uL PT 15.4 H (10.1-12.7) SECONDS INR 1.3 (0.9-1.3) Sodium 137 (137-145) mmol/L Potassium 3.7 (3.4-5.1) mmol/L Chloride 97 L (98-107) mmol/L Carbon Dioxide 33 H (22-32) mmol/L BUN 21 H (9-20) mg/dL Creatinine 1.40 H (0.66-1.25) mg/dL Estimated GFR 49.4 L (>60) mL/min BUN/Creatinine Ratio 15.0 (6-22) Glucose 108 (80-110) mg/dL Calcium 9.2 (8.4-10.2) mg/dL Urine Color Urine Appearance Urine pH (4.5-8.0) Ur Specific [place] (1.000-1.035) Urine Protein (Negative) Urine Glucose (UA) (Negative) g/dL Urine Ketones (NEGATIVE) Urine Occult Blood (Negative) Urine Nitrate (Negative) Urine Bilirubin (NEGATIVE) Urine Urobilinogen (0.2) E.U./dL Ur Leukocyte Esterase (NEGATIVE) Urine RBC (0-5/HPF) Urine WBC (0-5/HPF) Urine Bacteria (None) Ur Culture Indicated? 01/04/19 Range/Units 04:04 WBC (4.5-11.0) X10^3/uL RBC (4.5-5.9) X10^6/uL Hgb (13.5-17.5) g/dL Hct (41-53) % MCV (80-100) fL MCH (26-34) PG MCHC (30-36) % RDW (11.6-14.8) % Plt Count (150-400) X10^3/uL Neut % (Auto) (50-75) % Lymph % (Auto) (25-40) % [place] % (Auto) (3-14) % Eos % (Auto) (2-4) % Baso % (Auto) (0-2) % Neut # (Auto) (0623-8943) /uL Lymph # (Auto) (4990-3812) /uL [place] # (Auto) (0-900) /uL Eos # (Auto) (0-450) /uL Baso # (Auto) (0-100) /uL PT (10.1-12.7) SECONDS INR (0.9-1.3) Sodium (137-145) mmol/L Potassium (3.4-5.1) mmol/L Chloride (98-107) mmol/L Carbon Dioxide (22-32) mmol/L BUN (9-20) mg/dL Creatinine (0.66-1.25) mg/dL Estimated GFR (>60) mL/min BUN/Creatinine Ratio (6-22) Glucose (80-110) mg/dL Calcium (8.4-10.2) mg/dL Urine Color Yellow Urine Appearance Slightly cloudy Urine pH 7.0 (4.5-8.0) Ur Specific [place] 1.015 (1.000-1.035) Urine Protein Negative (Negative) Urine Glucose (UA) Negative (Negative) g/dL Urine Ketones Negative (NEGATIVE) Urine Occult Blood 3+ H (Negative) Urine Nitrate Negative (Negative) Urine Bilirubin Negative (NEGATIVE) Urine Urobilinogen 0.2 (0.2) E.U./dL Ur Leukocyte Esterase Negative (NEGATIVE) Urine RBC 30-100/hpf H (0-5/HPF) Urine WBC None seen (0-5/HPF) Urine Bacteria None seen (None) Ur Culture Indicated? Cult not indicated Imaging Data CT scan - abdomen: Radiologist's impression: third shift lieutenant report: No renal or ureteral stones. No hydronephrosis MDM Narrative Medical decision making narrative: I looked at patient's urine myself there is no gross hematuria. He has microscopic hematuria. No sign of infection no kidney stones. At this time patient can follow up out patient for his microscopic hematuria He has had chronic ongoing bilateral testicular pain no significant pain to palpation no obvious abnormality I do not suspect torsion. He has had pain ongoing for a number of months. Is not any worse today. Discharge Plan Departure Patient Disposition: Home Clinical Impression: Hematuria Qualifiers: Hematuria type: other microscopic Qualified Code(s): R31.29 - Other microscopic hematuria Discharge Date/Time: 01/04/19 05:04 Interventions: ED Discharge Assessment Last Done: 01/04/19 05:04 Instructions: DI for Hematuria Activity Restrictions/Additional Instructions: *You have been diagnosed with hematuria *What to do: At this time CT scan is negative for kidney stones, there is no infection. I recommend she follow up with her PCP in regards to this. *Continue to take medications as directed *Follow up with your primary care provider in 2-3 days *Return to ER if you should have peeing a gross blood, inability to pee, increased abdominal pain or any new, worsening or concerning symptoms Prescriptions: No Action multivitamin Tablet 1 tab PO DAILY Qty: 0 RF: 0 aspirin 81 mg Tablet,Delayed Release (Dr/Ec) 81 mg PO DAILY Qty: 0 RF: 0 gabapentin [Neurontin] 300 MG capsule 300 mg PO BID Qty: 0 RF: 0 nabumetone 500 MG tablet 500 mg PO QDAY Qty: 0 RF: 0 alprazolam 0.25 MG tablet 0.25 mg PO TIDP PRN (Reason: Anxiety) Qty: 0 RF: 0 diclofenac sodium [Voltaren] 1 % gel 1 john Topical QID PRN (Reason: pain) Qty: 0 RF: 0 sucralfate 1 GM tablet 1 gm PO ACHS Qty: 360 RF: 3 tramadol 50 MG tablet 50 mg PO PRN PRN (Reason: pain) Qty: 0 RF: 0 amitriptyline 25 MG tablet 25 mg PO BEDTIME Qty: 0 RF: 0 clorazepate dipotassium 3.75 mg tablet 3.75 mg PO BID Qty: 180 RF: 1 sildenafil [Viagra] 100 mg tablet See Rx Instructions PO .COMPLEX PRN (Reason: erectile dysfunction) Qty: 30 RF: 11 pantoprazole 40 mg tablet,delayed release (DR/EC) 40 mg PO BID Qty: 180 RF: 3 bupropion HCl 150 mg tablet extended release 24 hr 150 mg PO QAM Qty: 30 RF: 3 oxycodone 5 mg tablet 5 mg PO Q4-6H PRN (Reason: pain in chest) Qty: 20 RF: 0 ibuprofen 600 mg tablet 600 mg PO QID PRN (Reason: pain) Qty: 20 RF: 0 hydroxychloroquine 200 mg tablet 200 mg PO BID RF: 0 SF 5000 Plus 1.1 % cream 1 applic Dental DIRECTED RF: 0 colchicine 0.6 mg capsule 0.3 mg PO BID RF: 0 tamsulosin [Flomax] 0.4 MG capsule 0.8 mg PO DAILY RF: 0 levothyroxine [Synthroid] 50 mcg tablet 50 mcg PO DAILY RF: 0 lisinopril 5 mg tablet 5 mg PO DAILY RF: 0 sertraline 50 MG tablet 50 mg PO DAILY RF: 0 diclofenac sodium 75 mg tablet,delayed release (DR/EC) 75 mg PO BIDP PRN (Reason: pain) RF: 0 tadalafil [Cialis] 20 MG tablet 20 mg PO PRN PRN (Reason: Erectile Dysfunction) RF: 0 Referrals: Brayan Blackwell MD [Primary Care Provider] -
[2019-01-04 04:05] LABS: Bacteria Urine None Seen; WBC Urine None Seen (0-5/HPF)
[2019-01-04 04:05] LABS: Blood Urea Nitrogen 21 mg/dL (9-20); Calcium 9.2 mg/dL (8.4-10.2); Carbon Dioxide 33 mmol/L (22-32); Chloride 97 mmol/L (98-107); Estimated Glomerular Filt Rate 49.4 mL/min (>60); Glucose 108 mg/dL (80-110); HEMOLYSIS < 15 (0-50); Potassium 3.7 mmol/L (3.4-5.1); Sodium 137 mmol/L (137-145)
[2019-01-04 04:07] LABS: Bilirubin Urine UA NEGATIVE (NEGATIVE); Color Urine UA YELLOW; Glucose Urine UA NEGATIVE (Negative); Ketones Urine UA NEGATIVE (NEGATIVE); Leukocyte Esterase Urine UA NEGATIVE (NEGATIVE); Nitrite Urine UA NEGATIVE (Negative); Occult Blood Urine UA 3+ (Negative); Protein Urine UA NEGATIVE (Negative); Specific Gravity Urine UA 1.015 (1.000-1.035); Urobilinogen Urine UA 0.2 E.U./dL (0.2)
[2019-01-04 04:09] LABS: Appearance Urine UA Slightly Cloudy
[2019-01-04 04:19] LABS: RBC Urine 30-100/HPF (0-5/HPF)
[2019-01-04 04:20] LABS: Culture Indicated Urine Cult Not Indicated
[2019-01-04 04:59] VITALS: BP 143/81; PULSE 59; RESP 16; TEMP 36.5; O2SAT 96
== END 2019-01-04 05:04 | disposition home or self-care (01) ==
PROVIDERS: Emergency Provider Emergency Medicine; PCP Internal Medicine
DX: R31.29 Other microscopic hematuria (principal); R10.30 Lower abdominal pain, unspecified
CPT/HCPCS: 36415; 36591; 74176; 80048; 81001; 85025; 85610; 99282; 99284

== ENCOUNTER 2019-05-06 08:39 | Emergency (ER) | payer MEDICARE, OTHER, SELFPAY ==
[2019-05-06 08:48] VITALS: BP 133/76; PULSE 74; RESP 16; TEMP 37.1; O2SAT 93; BMI 32.1
--- NOTE | 2019-05-06 08:52 | DI.RAD.S_ITS ---
PROCEDURE: XR CHEST 2V INDICATIONS: flu sxs TECHNIQUE: 2 views of the chest were acquired. COMPARISON: [facility], CR, XR CHEST 1V, 10/13/2018, 16:47. [facility], CR, XR CHEST 1V, 10/07/2018, 8:53. FINDINGS: Surgical changes and devices: Stable over time, pacemaking device and leads Lungs and pleura: Lungs are clear. No pleural effusions or pneumothorax. Mediastinum: Mediastinal contours are normal. Heart size is normal. Bones and chest wall: No suspicious bony abnormalities. Soft tissues appear unremarkable. IMPRESSION: No pneumonia found. Pacemaking device and leads appear normal, stable over time. Dictated by: Carlos Kay M.D. on 05/06/2019 at 9:12 Approved by: Carlos Kay M.D. on 05/06/2019 at 9:12
[2019-05-06 09:02] VITALS: BP 162/77
--- NOTE | 2019-05-06 09:06 | ED_ITS ---
HPI - URI/Sore Throat General Chief Complaint: Upper Respiratory Symptoms Stated Complaint: Flu like symptoms Time Seen by Provider: 05/06/19 09:04 Source: patient Mode of arrival: Ambulatory Limitations: no limitations History of Present Illness HPI Narrative: Patient is alpa who presents with upper respiratory like symptoms ongoing for the last 2 and half days. He has body aches chills sore throat he has a cough. He denies any shortness of breath. No chest discomfort. He has overall just not feeling well. He got his influenza vaccine recently. His he took ibuprofen about an hour and half prior to arrival he is currently afebrile here. He has decreased appetite. No abdominal pain nausea vomiting or any other symptoms. He denies any chest pain. Related Data Home Medications Medication Instructions Recorded Confirmed multivitamin 1 tab PO DAILY #0 02/13/12 04/06/19 aspirin 81 mg PO DAILY #0 07/23/12 04/06/19 gabapentin [Neurontin] 300 mg PO BID #0 02/23/16 04/06/19 nabumetone 500 mg PO QDAY #0 tab 02/23/16 04/06/19 alprazolam 0.25 mg PO TIDP PRN #0 11/22/16 04/06/19 diclofenac sodium [Voltaren] 1 john TOPICAL QID PRN #0 11/22/16 04/06/19 amitriptyline 25 mg PO BEDTIME #0 08/10/17 04/06/19 tramadol 50 mg PO PRN PRN #0 08/10/17 04/06/19 colchicine 0.3 mg PO BID 10/07/18 04/06/19 diclofenac sodium 75 mg PO BIDP PRN 10/07/18 04/06/19 fluoride (sodium) [SF 5000 Plus] 1 applic DENTAL DIRECTED 10/07/18 04/06/19 hydroxychloroquine 200 mg PO BID 10/07/18 04/06/19 sertraline 50 mg PO DAILY 10/07/18 04/06/19 tadalafil [Cialis] 20 mg PO PRN PRN 10/07/18 04/06/19 tamsulosin [Flomax] 0.8 mg PO DAILY 10/07/18 04/06/19 Previous Rx's Medication Instructions Recorded sucralfate 1 gm PO ACHS #360 tab 02/24/17 oxycodone 5 mg tablet 5 mg PO Q4-6H PRN #20 tab 11/13/17 clorazepate dipotassium 3.75 mg 3.75 mg PO BID #180 tab 02/03/18 tablet ibuprofen 600 mg PO QID PRN #20 tab 02/22/18 bupropion HCl 150 mg 24 hr tablet, 150 mg PO QAM #30 tab 10/08/18 extended release sildenafil 100 mg tablet See Rx Instructions PO .COMPLEX 11/16/18 PRN #30 tab pantoprazole 40 mg PO BID #180 tab 12/04/18 levothyroxine 50 mcg tablet 50 mcg PO DAILY #90 tab 01/12/19 lisinopril 5 mg tablet 5 mg PO DAILY #90 tab 01/12/19 quetiapine 25 mg tablet 25 mg PO BEDTIME #60 tab 01/14/19 cephalexin 500 mg capsule 500 mg PO TID #30 cap 02/11/19 guaifenesin 200 mg PO Q4H PRN #120 ml 05/06/19 Allergies Allergy/AdvReac Type Severity Reaction Status Date / Time codeine Allergy Mild HIVES Verified 05/06/19 08:48 Review of Systems Review of Systems Narrative: GENERAL: Denies chills, fatigue, malaise, fever, sweats, travel HEENT: Denies sinus pain, ear pain, sore throat, difficulty swallowing, neck pain RESPIRATORY: Denies dyspnea, cough, wheezing, hemoptysis, sputum. CARDIOVASCULAR: Denies chest pain, palpitations, orthopnea, edema GASTROINTESTINAL: Denies nausea, vomiting, abdominal pain, diarrhea, constipation, melena. : Denies dysuria, frequency, incontinence, hematuria, urinary retention, flank pain. MUSCULOSKELETAL: Denies weakness, joint pain, or bony pain SKIN: No rash, no erythema, no pruritus NEUROLOGIC: Denies weakness, dizziness, headache, numbness, change in speech, confusion PSYCHIATRIC: No concerning psychosocial issues. 12 point review of systems is negative except for those stated above and HPI Patient History Social History Smoking Status: Former smoker alcohol intake frequency: holidays/special occasions only Substance Use Type: does not use Exam Initial Vital Signs Initial Vital Signs: Vital Signs Temperature 98.7 F 05/06/19 08:48 Pulse Rate 74 05/06/19 08:48 Respiratory Rate 16 05/06/19 08:48 Blood Pressure 133/76 05/06/19 08:48 Pulse Oximetry 93 05/06/19 08:48 GENERAL: Well-appearing, well-nourished and in no acute distress. HEENT: Head atraumatic,EOMI, pupils reactive, face symmetric, PHARYNX: Minimal erythema no exudate of tonsils no uvula deviation CARDIOVASCULAR: Regular rate and rhythm without murmurs, rubs or gallops. RESPIRATORY: Breath sounds equal bilaterally, no wheezes rales or rhonchi. ABDOMEN: Soft, nontender. Normoactive bowel sounds all 4 quadrants. No guarding or rebound. EXTREMITIES: Normal range of motion, no clubbing or edema. Neurovascularly intact NEUROLOGICAL: Alert and oriented x4.Normal gait and speech. Cranial nerves II through XII grossly intact. SKIN: Warm, dry, no laceration, no petechiae, no rashes or lesions. Course Orders Ordered: ED Orders 05/06/19 08:52 CXR [XR chest 2V] Stat Vital Signs Vital signs: Vital Signs - 8 hr 05/06/19 08:48 05/06/19 09:02 Temperature 98.7 F Pulse Rate 74 Respiratory Rate 16 Blood Pressure 133/76 Blood Pressure [Left Arm] 162/77 H Pulse Oximetry 93 MDM - URI/Sore Throat Lab Data Labs: Lab Results 05/06/19 Range/Units 08:43 Influenza A & B (PCR) Negative (Negative) Imaging Data Chest x-ray: Radiologist's impression: PROCEDURE: XR CHEST 2V INDICATIONS: flu sxs TECHNIQUE: 2 views of the chest were acquired. COMPARISON: [facility], , XR CHEST 1V, 10/13/2018, 16:47. [facility], , XR CHEST 1V, 10/07/2018, 8:53. FINDINGS: Surgical changes and devices: Stable over time, pacemaking device and leads Lungs and pleura: Lungs are clear. No pleural effusions or pneumothorax. Mediastinum: Mediastinal contours are normal. Heart size is normal. Bones and chest wall: No suspicious bony abnormalities. Soft tissues appear unremarkable. IMPRESSION: No pneumonia found. Pacemaking device and leads appear normal, stable over time. Dictated by: Carlos Kay M.D. on 05/06/2019 at 9:12 Approved by: Carlos Kay M.D. on 05/06/2019 at 9:12 [place] Narrative Medical decision making narrative: Patient overall is not toxic he is afebrile. He appears well. Influenza negative. Chest x-ray negative. He has absolutely no chest pain. At this time is likely a viral syndrome recommend outpatient follow-up and supportive care. Discharge Plan Departure Patient Disposition: Home Clinical Impression: Upper respiratory infection Qualifiers: URI type: unspecified viral URI Qualified Code(s): J06.9 - Acute upper respiratory infection, unspecified Discharge Date/Time: 05/06/19 09:38 Activity Restrictions/Additional Instructions: *You have been diagnosed with upper respiratory viral syndrome *What to do: At this time it is likely that of a viral syndrome you do not need antibiotics at this time. This will run its course over the next 5-7 days *Continue to take medications as directed Guaifenesin 10 mL every 4 hours for cough *Follow up with your primary care provider in 2-3 days *Return to ER if you should have increasing weakness shortness of breath chest pain fever not controlled with Tylenol or ibuprofen or any new, worsening or concerning symptoms Prescriptions: New guaifenesin 100 mg/5 mL liquid 200 mg PO Q4H PRN (Reason: cough) Qty: 120 RF: 0 No Action multivitamin Tablet 1 tab PO DAILY Qty: 0 RF: 0 aspirin 81 mg Tablet,Delayed Release (Dr/Ec) 81 mg PO DAILY Qty: 0 RF: 0 gabapentin [Neurontin] 300 MG capsule 300 mg PO BID Qty: 0 RF: 0 nabumetone 500 MG tablet 500 mg PO QDAY Qty: 0 RF: 0 alprazolam 0.25 MG tablet 0.25 mg PO TIDP PRN (Reason: Anxiety) Qty: 0 RF: 0 diclofenac sodium [Voltaren] 1 % gel 1 john Topical QID PRN (Reason: pain) Qty: 0 RF: 0 sucralfate 1 GM tablet 1 gm PO ACHS Qty: 360 RF: 3 tramadol 50 MG tablet 50 mg PO PRN PRN (Reason: pain) Qty: 0 RF: 0 amitriptyline 25 MG tablet 25 mg PO BEDTIME Qty: 0 RF: 0 clorazepate dipotassium 3.75 mg tablet 3.75 mg PO BID Qty: 180 RF: 1 sildenafil [Viagra] 100 mg tablet See Rx Instructions PO .COMPLEX PRN (Reason: erectile dysfunction) Qty: 30 RF: 11 pantoprazole 40 mg tablet,delayed release (DR/EC) 40 mg PO BID Qty: 180 RF: 3 levothyroxine [Synthroid] 50 mcg tablet 50 mcg PO DAILY Qty: 90 RF: 3 lisinopril 5 mg tablet 5 mg PO DAILY Qty: 90 RF: 3 bupropion HCl 150 mg tablet extended release 24 hr 150 mg PO QAM Qty: 30 RF: 3 Hold Instructions: not sure helping oxycodone 5 mg tablet 5 mg PO Q4-6H PRN (Reason: pain in chest) Qty: 20 RF: 0 quetiapine 25 mg tablet 25 mg PO BEDTIME Qty: 60 RF: 5 cephalexin [Keflex] 500 mg capsule 500 mg PO TID Qty: 30 RF: 3 ibuprofen 600 mg tablet 600 mg PO QID PRN (Reason: pain) Qty: 20 RF: 0 hydroxychloroquine 200 mg tablet 200 mg PO BID RF: 0 SF 5000 Plus 1.1 % cream 1 applic Dental DIRECTED RF: 0 colchicine 0.6 mg capsule 0.3 mg PO BID RF: 0 tamsulosin [Flomax] 0.4 MG capsule 0.8 mg PO DAILY RF: 0 sertraline 50 MG tablet 50 mg PO DAILY RF: 0 diclofenac sodium 75 mg tablet,delayed release (DR/EC) 75 mg PO BIDP PRN (Reason: pain) RF: 0 tadalafil [Cialis] 20 MG tablet 20 mg PO PRN PRN (Reason: Erectile Dysfunction) RF: 0 Referrals: Brayan Blackwell MD [Primary Care Provider] -
[2019-05-06 09:07] LABS: Influenza A and B by PCR Rapid Negative (Negative)
== END 2019-05-06 09:38 | disposition home or self-care (01) ==
PROVIDERS: Emergency Provider Emergency Medicine; PCP Internal Medicine
DX: J06.9 Acute upper respiratory infection, unspecified (principal); R07.9 Chest pain, unspecified
CPT/HCPCS: 71046; 87502; 99282; 99283

== ENCOUNTER 2019-07-19 08:25 | Emergency (ER) | payer MEDICARE, OTHER, SELFPAY ==
--- NOTE | 2019-07-19 08:33 | DI.RAD.S_ITS ---
PROCEDURE: XR CHEST 1V INDICATIONS: chest pain TECHNIQUE: One view of the chest was acquired. COMPARISON: [facility], CT, CT ANGIO CHEST PE PROTOCOL, 10/03/2018, 19:48. [facility], CR, XR CHEST 1V, 10/07/2018, 8:53. [facility], CT, CT KIDNEY URETER BLADDER (KUB), 01/04/2019, 4:08. [facility], CR, XR CHEST 1V, 10/13/2018, 16:47. [facility], CR, XR CHEST 2V, 05/06/2019, 8:50. FINDINGS: Surgical changes and devices: An AICD is seen. Lungs and pleura: Lungs are clear. No pleural effusions or pneumothorax. Mediastinum: The cardiac contours are within normal limits. The aorta demonstrates calcification and tortuosity. Bones and chest wall: Age-appropriate bony degenerative changes are seen. No suspicious bony lesions. Overlying soft tissues appear unremarkable. IMPRESSION: No acute portable chest abnormality is seen. Postoperative and degenerative changes are seen. Dictated by: Lior Pierson M.D. on 07/19/2019 at 9:08 Approved by: Lior Pierson M.D. on 07/19/2019 at 9:09
[2019-07-19 08:40] VITALS: BP 159/97; PULSE 66; RESP 18; TEMP 36.6; O2SAT 96; BMI 32.1
[2019-07-19 09:00] LABS: Add Manual Diff / Slide Review NO; Basophils Absolute Auto 100 /uL (0-100); Basophils Percent Auto 1.3 % (0-2); Eosinophils Absolute Auto 200 /uL (0-450); Eosinophils Percent Auto 4.4 % (2-4); Hematocrit 30.6 % (41-53); Hemoglobin 10.1 g/dL (13.5-17.5); Lymphocytes Absolute Auto 1500 /uL (1100-4500); Mean Corpuscular HGB Conc 32.9 % (30-36); Mean Corpuscular Volume 91.2 fL (80-100); Monocytes Absolute Auto 600 /uL (0-900); Monocytes Percent Auto 12.5 % (3-14); Neutrophils Absolute Auto 2800 /uL (1500-7000); Neutrophils Percent Auto 53.8 % (50-75); Platelet Count 201 X10^3/uL (150-400); Red Blood Cell Count 3.35 X10^6/uL (4.5-5.9); Red Cell Distribution Width 15.1 % (11.6-14.8); White Blood Cell Count 5.2 X10^3/uL (4.5-11.0)
[2019-07-19 09:13] LABS: Alanine Aminotransferase 19 IU/L (<50); Albumin Globulin Ratio 1.2 (1.0-2.8); Alkaline Phosphatase 51 U/L (38-126); Aspartate Aminotransferase 36 IU/L (17-59); BUN Creatinine Ratio 18.3 (6-22); Bilirubin Total 0.4 mg/dL (0.2-1.3); Blood Urea Nitrogen 22 mg/dL (9-20); Calcium 9.1 mg/dL (8.4-10.2); Carbon Dioxide 27 mmol/L (22-32); Chloride 103 mmol/L (98-107); Creatine Kinase 172 U/L (55-170); Estimated Glomerular Filt Rate 58.9 mL/min (>60); Globulin 3.3 g/dL (1.7-4.1); Glucose 105 mg/dL (80-110); HEMOLYSIS 21 (0-50); Lipase 116 U/L (23-300); Potassium 4.1 mmol/L (3.4-5.1); Sodium 139 mmol/L (137-145); Total Protein 7.3 g/dL (6.3-8.2)
--- NOTE | 2019-07-19 09:17 | ED_ITS ---
HPI - Chest Pain General Chief Complaint: Chest Pain Stated Complaint: 3 weeks,chest pains/congestion/coughing Time Seen by Provider: 07/19/19 08:45 Source: patient Mode of arrival: Ambulatory Limitations: no limitations History of Present Illness HPI narrative: 74-year-old male with known coronary artery disease presenting with cough and shortness of breath ongoing for last 3 weeks. He denies any fever sweats or chills. He does have some chest tightness. But it has really been ongoing for the last 3 weeks. He says he is unable to sleep due to the coughing. He just feels like he isn't doing well. He says he does cough up stuff sometimes. Onset (ago): week(s) (3) Quality: tightness Related Data Home Medications Medication Instructions Recorded Confirmed multivitamin 1 tab PO DAILY #0 02/13/12 04/06/19 aspirin 81 mg PO DAILY #0 07/23/12 04/06/19 gabapentin [Neurontin] 300 mg PO BID #0 02/23/16 07/19/19 nabumetone 500 mg PO QDAY #0 tab 02/23/16 04/06/19 alprazolam 0.25 mg PO TIDP PRN #0 11/22/16 04/06/19 diclofenac sodium [Voltaren] 1 john TOPICAL QID PRN #0 11/22/16 04/06/19 amitriptyline 25 mg PO BEDTIME #0 08/10/17 04/06/19 tramadol 50 mg PO PRN PRN #0 08/10/17 04/06/19 colchicine 0.6 mg PO BID 10/07/18 07/19/19 fluoride (sodium) [SF 5000 Plus] 1 applic DENTAL DIRECTED 10/07/18 04/06/19 hydroxychloroquine 200 mg PO BID 10/07/18 07/19/19 sertraline 50 mg PO BEDTIME 10/07/18 07/19/19 tamsulosin [Flomax] 0.8 mg PO DAILY 10/07/18 04/06/19 isosorbide mononitrate 30 mg PO DAILY 07/19/19 07/19/19 Previous Rx's Medication Instructions Recorded sucralfate 1 gm PO ACHS #360 tab 02/24/17 oxycodone 5 mg tablet 5 mg PO Q4-6H PRN #20 tab 11/13/17 clorazepate dipotassium 3.75 mg 3.75 mg PO BID #180 tab 02/03/18 tablet ibuprofen 600 mg PO QID PRN #20 tab 02/22/18 bupropion HCl 150 mg 24 hr tablet, 150 mg PO QAM #30 tab 10/08/18 extended release sildenafil 100 mg tablet See Rx Instructions PO .COMPLEX 11/16/18 PRN #30 tab pantoprazole 40 mg PO BID #180 tab 12/04/18 levothyroxine 50 mcg tablet 50 mcg PO DAILY #90 tab 01/12/19 lisinopril 5 mg tablet 5 mg PO DAILY #90 tab 01/12/19 cephalexin 500 mg capsule 500 mg PO TID #30 cap 02/11/19 guaifenesin 200 mg PO Q4H PRN #120 ml 05/06/19 diclofenac sodium 75 mg 75 mg PO BIDP PRN #180 tab 06/01/19 tablet,delayed release prednisone 20 mg PO DAILY #5 tab 07/19/19 Allergies Allergy/AdvReac Type Severity Reaction Status Date / Time codeine Allergy Mild HIVES Verified 07/19/19 08:40 Review of Systems Review of Systems ROS Unobtainable: All systems reviewed & are unremarkable except as noted in HPI and below Constitutional Constitutional: Denies chills, Denies fever(s), Denies lethargy and Denies weakness Eyes Eyes: Denies change in vision, Denies eye discharge, Denies irritation and Denies loss of vision Cardiovascular Cardiovascular: Reports chest pain, Reports dyspnea and Denies dyspnea on exer tion Respiratory Respiratory: Reports cough, Reports dyspnea, Denies dyspnea on exertion and Denies wheezing Gastrointestinal Gastrointestinal: Denies abdominal pain, Denies change in bowel habits, Denies diarrhea, Denies nausea and Denies vomiting Genitourinary Genitourinary: Denies hematuria, Denies flank pain, Denies urinary incontinence and Denies urinary urgency Integumentary/Breasts Skin/Breast: Denies pruritus, Denies erythema, Denies rash and Denies wounds Neurologic Neurologic: Denies loss of vision and Denies weakness Allergic/Immunologic Allergic/Immunologic: Denies wheezing Patient History Medical History Anxiety (Chronic 05/12/14) Cardiomyopathy (Chronic 07/24/15) Chest pain (Chronic) Chronic anemia (Chronic 04/16/16) Chronic renal failure, stage 2 (mild) (Chronic 07/24/15) Gastroesophageal reflux disease without esophagitis (Chronic 01/23/11) History of hematuria (Inactive) Leukopenia (Chronic 04/16/16) Malignant neoplasm of prostate (Chronic 07/11/14) Mixed hyperlipidemia (Chronic 01/23/11) Palpitations (Chronic) Type 2 diabetes mellitus without complication (Chronic 10/29/11) Ventricular tachycardia (Inactive 01/10/14) Surgical History Anesthesia (Resolved) Implantable cardioverter-defibrillator (ICD) in situ (Inactive) Status post cholecystectomy (Inactive) Family History Brother Family history of diabetes mellitus (DM) Father No problems noted. Sister No problems noted. Social History Smoking Status: Former smoker Smoking Status: Former smoker alcohol intake frequency: holidays/special occasions only Substance Use Type: does not use Exam Initial Vital Signs Initial Vital Signs: Vital Signs Temperature 97.9 F 07/19/19 08:40 Pulse Rate 66 07/19/19 08:40 Respiratory Rate 18 07/19/19 08:40 Blood Pressure 159/97 H 07/19/19 08:40 Pulse Oximetry 96 07/19/19 08:40 GENERAL: Well-appearing, well-nourished and in no acute distress. HEENT: Head atraumatic,EOMI, pupils reactive, face symmetric, moist mucous membranes CARDIOVASCULAR: Regular rate and rhythm without murmurs, rubs or gallops. RESPIRATORY: Breath sounds equal bilaterally, no wheezes rales or rhonchi. ABDOMEN: Soft, nontender. Normoactive bowel sounds all 4 quadrants. No guarding or rebound. EXTREMITIES: Normal range of motion, no clubbing or edema. Neurovascularly intact NEUROLOGICAL: Alert and oriented x4.Normal gait and speech. Cranial nerves II through XII grossly intact. SKIN: Warm, dry, no laceration, no petechiae, no rashes or lesions. Course Orders Ordered: ED Orders 07/19/19 08:33 XR chest 1V Stat EKG-12 Lead Stat 07/19/19 08:45 Complete Blood Count AUTO DIFF Stat Comprehensive Metabolic Panel Stat Lipase Stat Partial Thromboplastin Time Stat Prothrombin Time INR Stat Troponin & CK Cardiac Panel Stat Vital Signs Vital signs: Vital Signs - 8 hr 07/19/19 08:40 07/19/19 10:03 Temperature 97.9 F Pulse Rate 66 59 L Respiratory Rate 18 20 Blood Pressure 159/97 H 159/97 H Pulse Oximetry 96 97 MDM - Chest Pain Lab Data Attestation: I reviewed the patient's lab results. Result diagrams: 07/19/19 08:45 07/19/19 08:45 Labs: Lab Results 07/19/19 07/19/19 07/19/19 Range/Units 08:45 08:45 08:45 WBC 5.2 (4.5-11.0) X10^3/uL RBC 3.35 L (4.5-5.9) X10^6/uL Hgb 10.1 L (13.5-17.5) g/dL Hct 30.6 L (41-53) % MCV 91.2 (80-100) fL MCH 30.0 (26-34) PG MCHC 32.9 (30-36) % RDW 15.1 H (11.6-14.8) % Plt Count 201 (150-400) X10^3/uL Neut % (Auto) 53.8 (50-75) % Lymph % (Auto) 28.0 (25-40) % [place] % (Auto) 12.5 (3-14) % Eos % (Auto) 4.4 H (2-4) % Baso % (Auto) 1.3 (0-2) % Neut # (Auto) 2800 (8142-7657) /uL Lymph # (Auto) 1500 (0229-6416) /uL [place] # (Auto) 600 (0-900) /uL Eos # (Auto) 200 (0-450) /uL Baso # (Auto) 100 (0-100) /uL PT 15.8 H (10.1-12.7) SECONDS INR 1.4 H (0.9-1.3) APTT 30 D (26.4-36.2) SECONDS Sodium 139 (137-145) mmol/L Potassium 4.1 (3.4-5.1) mmol/L Chloride 103 (98-107) mmol/L Carbon Dioxide 27 (22-32) mmol/L BUN 22 H (9-20) mg/dL Creatinine 1.20 (0.66-1.25) mg/dL Estimated GFR 58.9 L (>60) mL/min BUN/Creatinine Ratio 18.3 (6-22) Glucose 105 (80-110) mg/dL Calcium 9.1 (8.4-10.2) mg/dL Total Bilirubin 0.4 (0.2-1.3) mg/dL AST 36 (17-59) IU/L ALT 19 (<50) IU/L Alkaline Phosphatase 51 (38-126) U/L Total Creatine Kinase 172 H (55-170) U/L CK-MB (CK-2) 0.69 (<2.37) ng/mL CK-MB (CK-2) Rel Index 0.4 L (1.5-5.0) % Troponin I < 0.012 (0.01-0.034) ng/mL Total Protein 7.3 (6.3-8.2) g/dL Albumin 4.0 (3.5-5.0) g/dL Globulin 3.3 (1.7-4.1) g/dL Albumin/Globulin Ratio 1.2 (1.0-2.8) Lipase 116 (23-300) U/L Imaging Data Chest x-ray: Radiologist's Impression: PROCEDURE: XR CHEST 1V INDICATIONS: chest pain TECHNIQUE: One view of the chest was acquired. COMPARISON: [facility], CT, CT ANGIO CHEST PE PROTOCOL, 10/03/2018, 19:48. [facility], CR, XR CHEST 1V, 10/07/2018, 8:53. [facility], CT, CT KIDNEY URETER BLADDER (KUB), 01/04/2019, 4:08. [facility], CR, XR CHEST 1V, 10/13/2018, 16:47. [facility], CR, XR CHEST 2V, 05/06/2019, 8:50. FINDINGS: Surgical changes and devices: An AICD is seen. Lungs and pleura: Lungs are clear. No pleural effusions or pneumothorax. Mediastinum: The cardiac contours are within normal limits. The aorta demonstrates calcification and tortuosity. Bones and chest wall: Age-appropriate bony degenerative changes are seen. No suspicious bony lesions. Overlying soft tissues appear unremarkable. IMPRESSION: No acute portable chest abnormality is seen. Postoperative and degenerative changes are seen. Dictated by: Lior Pierson M.D. on 07/19/2019 at 9:08 ECG Data Attestation: I personally reviewed and interpreted this ECG as follows: Prior ECG tracings: available for review Interpretation: Normal sinus rhythm rate 63 p.r. interval 244 QRS [address] elevation depression or T-wave inversions similar to previous EKG MDM Narrative Medical decision making narrative: Patient has been having symptoms ongoing for last 3 weeks unlikely to be cardiac or PE he is not hypoxic. He is upper respi ratory like symptoms with productive. At this time he is not wheezing or in any sort respiratory distress. Will trial a short course of prednisone to see if that helps his symptoms but symptoms are consistent upper respiratory like infection. Discharge Plan Departure Patient Disposition: Home Clinical Impression: Upper respiratory infection Qualifiers: URI type: unspecified viral URI Qualified Code(s): J06.9 - Acute upper respiratory infection, unspecified Discharge Date/Time: 07/19/19 10:03 Instructions: DI for Viral Upper Respiratory Infection -- Adult Activity Restrictions/Additional Instructions: *You have been diagnosed with upper respiratory infection *What to do: At this time you do not have pneumonia all blood work EKG and x- ray are all reassuring. This is likely a virus which is persisting. It will go away on its own. *Continue to take medications as directed Prednisone 20 mg once a day for 5 days *Follow up with your primary care provider in 2-3 days *Return to ER if you should have increasing chest pain shortness of breath fevers or any new, worsening or concerning symptoms Prescriptions: New prednisone 20 mg tablet 20 mg PO DAILY Qty: 5 RF: 0 No Action multivitamin Tablet 1 tab PO DAILY Qty: 0 RF: 0 aspirin 81 mg Tablet,Delayed Release (Dr/Ec) 81 mg PO DAILY Qty: 0 RF: 0 gabapentin [Neurontin] 300 MG capsule 300 mg PO BID Qty: 0 RF: 0 nabumetone 500 MG tablet 500 mg PO QDAY Qty: 0 RF: 0 alprazolam 0.25 MG tablet 0.25 mg PO TIDP PRN (Reason: Anxiety) Qty: 0 RF: 0 diclofenac sodium [Voltaren] 1 % gel 1 john Topical QID PRN (Reason: pain) Qty: 0 RF: 0 sucralfate 1 GM tablet 1 gm PO ACHS Qty: 360 RF: 3 tramadol 50 MG tablet 50 mg PO PRN PRN (Reason: pain) Qty: 0 RF: 0 amitriptyline 25 MG tablet 25 mg PO BEDTIME Qty: 0 RF: 0 clorazepate dipotassium 3.75 mg tablet 3.75 mg PO BID Qty: 180 RF: 1 sildenafil [Viagra] 100 mg tablet See Rx Instructions PO .COMPLEX PRN (Reason: erectile dysfunction) Qty: 30 RF: 11 pantoprazole 40 mg tablet,delayed release (DR/EC) 40 mg PO BID Qty: 180 RF: 3 levothyroxine [Synthroid] 50 mcg tablet 50 mcg PO DAILY Qty: 90 RF: 3 lisinopril 5 mg tablet 5 mg PO DAILY Qty: 90 RF: 3 diclofenac sodium 75 mg tablet,delayed release (DR/EC) 75 mg PO BIDP PRN (Reason: pain) Qty: 180 RF: 1 bupropion HCl 150 mg tablet extended release 24 hr 150 mg PO QAM Qty: 30 RF: 3 Hold Instructions: not sure helping oxycodone 5 mg tablet 5 mg PO Q4-6H PRN (Reason: pain in chest) Qty: 20 RF: 0 cephalexin [Keflex] 500 mg capsule 500 mg PO TID Qty: 30 RF: 3 ibuprofen 600 mg tablet 600 mg PO QID PRN (Reason: pain) Qty: 20 RF: 0 guaifenesin 100 mg/5 mL liquid 200 mg PO Q4H PRN (Reason: cough) Qty: 120 RF: 0 isosorbide mononitrate 30 mg tablet extended release 24 hr 30 mg PO DAILY RF: 0 hydroxychloroquine 200 mg tablet 200 mg PO BID RF: 0 SF 5000 Plus 1.1 % cream 1 applic Dental DIRECTED RF: 0 colchicine 0.6 mg capsule 0.6 mg PO BID RF: 0 tamsulosin [Flomax] 0.4 MG capsule 0.8 mg PO DAILY RF: 0 sertraline 50 MG tablet 50 mg PO BEDTIME RF: 0 Referrals: Brayan Blackwell MD [Primary Care Provider] -
[2019-07-19 09:18] LABS: INR 1.4 (0.9-1.3); Prothrombin Time 15.8 SECONDS (10.1-12.7)
[2019-07-19 09:21] LABS: PTT Partial Thromboplastin Tim 30 SECONDS (26.4-36.2)
[2019-07-19 09:25] LABS: Troponin I < 0.012 ng/mL (0.01-0.034)
[2019-07-19 09:29] LABS: CKMB % Relative Index 0.4 % (1.5-5.0); Creatine Kinase MB 0.69 ng/mL (<2.37)
[2019-07-19 10:03] VITALS: BP 159/97; PULSE 59; RESP 20; O2SAT 97
== END 2019-07-19 10:03 | disposition home or self-care (01) ==
PROVIDERS: Emergency Provider Emergency Medicine; PCP Internal Medicine
DX: J06.9 Acute upper respiratory infection, unspecified (principal); R07.9 Chest pain, unspecified; R05 Cough; R06.00 Dyspnea, unspecified; I25.10 Atherosclerotic heart disease of native coronary artery without angina pectoris
CPT/HCPCS: 36415; 71045; 80053; 82550; 82553; 83690; 84484; 85025; 85610; 85730; 93005; 99284; 99285

== ENCOUNTER 2019-10-11 09:08 | Emergency (ER) | payer MEDICARE, OTHER, SELFPAY ==
[2019-10-11] VITALS (8 sets, daily range): BP systolic 136–195; BP diastolic 69–99; PULSE 52–66; RESP 13–24; TEMP 37.1; O2SAT 98–100; BMI 30.8
--- NOTE | 2019-10-11 09:15 | DI.RAD.S_ITS ---
PROCEDURE: XR CHEST 1V INDICATIONS: chest pain TECHNIQUE: One view of the chest was acquired. COMPARISON: [facility], CR, XR CHEST 1V, 07/19/2019, 8:38. FINDINGS: Surgical changes and devices: Pacemaker. Lungs and pleura: Lungs are clear. No pleural effusions or pneumothorax. Mediastinum: Mediastinal contours appear normal. Heart size is normal. Bones and chest wall: No suspicious bony lesions. Overlying soft tissues appear unremarkable. IMPRESSION: No acute pulmonary process. Dictated by: Zena Martinez M.D. on 10/11/2019 at 9:46 Approved by: Zena Martinez M.D. on 10/11/2019 at 9:46
[2019-10-11 09:39] LABS: INR 1.3 (0.9-1.3); Prothrombin Time 14.7 SECONDS (10.1-12.7)
[2019-10-11 09:42] LABS: PTT Partial Thromboplastin Tim 23 SECONDS (26.4-36.2)
[2019-10-11 09:43] LABS: Alanine Aminotransferase 40 IU/L (<50); Albumin 4.2 g/dL (3.5-5.0); Albumin Globulin Ratio 1.3 (1.0-2.8); Alkaline Phosphatase 40 U/L (38-126); Aspartate Aminotransferase 49 IU/L (17-59); BUN Creatinine Ratio 21.3 (6-22); Bilirubin Total 0.5 mg/dL (0.2-1.3); Blood Urea Nitrogen 30 mg/dL (9-20); Calcium 9.3 mg/dL (8.4-10.2); Carbon Dioxide 32 mmol/L (22-32); Chloride 100 mmol/L (98-107); Creatine Kinase 337 U/L (55-170); Estimated Glomerular Filt Rate 48.9 mL/min (>60); Globulin 3.2 g/dL (1.7-4.1); Glucose 131 mg/dL (80-110); HEMOLYSIS < 15 (0-50); Lipase 116 U/L (23-300); Potassium 3.9 mmol/L (3.4-5.1); Sodium 136 mmol/L (137-145); Total Protein 7.4 g/dL (6.3-8.2)
[2019-10-11 09:47] LABS: Add Manual Diff / Slide Review NO; Basophils Absolute Auto 0 /uL (0-100); Basophils Percent Auto 0.9 % (0-2); Eosinophils Absolute Auto 200 /uL (0-450); Eosinophils Percent Auto 4.2 % (2-4); Hematocrit 34.3 % (41-53); Hemoglobin 11.1 g/dL (13.5-17.5); Lymphocytes Absolute Auto 1700 /uL (1100-4500); Lymphocytes Percent Auto 36.4 % (25-40); Mean Corpuscular HGB Conc 32.3 % (30-36); Mean Corpuscular Hemoglobin 30.5 PG (26-34); Mean Corpuscular Volume 94.6 fL (80-100); Monocytes Absolute Auto 400 /uL (0-900); Monocytes Percent Auto 8.6 % (3-14); Neutrophils Absolute Auto 2300 /uL (1500-7000); Neutrophils Percent Auto 49.9 % (50-75); Platelet Count 135 X10^3/uL (150-400); Red Blood Cell Count 3.63 X10^6/uL (4.5-5.9); Red Cell Distribution Width 16.7 % (11.6-14.8); White Blood Cell Count 4.7 X10^3/uL (4.5-11.0)
[2019-10-11 09:54] LABS: Troponin I < 0.012 ng/mL (0.01-0.034)
[2019-10-11 09:58] LABS: Creatine Kinase MB 3.33 ng/mL (<2.37)
[2019-10-11] MEDS: ASPIRIN 81 MG CHEW TAB 324 MG PO (10:01)
[2019-10-11] MEDS: NITROGLYCERIN 0.4 MG SL TAB SL ×3 (10:03→10:20)
--- NOTE | 2019-10-11 10:29 | PC.NURSE ---
Pt reports 1/10 chest pain s/p NTG X 3.
--- NOTE | 2019-10-11 10:35 | ED.CHESTPAIN ---
HPI - Chest Pain General Chief Complaint: Chest Pain Stated Complaint: 'MY HEART TODAY' Time Seen by Provider: 10/11/19 09:40 Source: patient Mode of arrival: Ambulatory Limitations: no limitations History of Present Illness HPI narrative: 74-year-old gentleman with a history of a V Tach requiring defibrillator but no known specific atherosclerotic disease, hypertension, depression and hypothyroidism presents with chest pain. Is left-sided sharp started at rest this morning describes it as achy and uncomfortable at worst it was a 5/10 by the time he is evaluated in the emergency room it is down to a 3/10. Was not associated with diaphoresis or dyspnea. He notes that over the past few months he has had episodes of similar pain there are fleeting. 4-5 days ago he had an episode while he was mowing the lawn where he actually had similar symptoms significant enough that he had to stop mowing the lawn and rest before symptoms completely resolved. He has never had to do that before. His initial chest pain in the emergency wrist room responded nicely to nitroglycerin. Related Data Home Medications Medication Instructions Recorded Confirmed multivitamin 1 tab PO DAILY #0 02/13/12 09/17/19 aspirin 81 mg PO DAILY #0 07/23/12 09/17/19 gabapentin [Neurontin] 300 mg PO BID #0 02/23/16 09/17/19 nabumetone 500 mg PO QDAY #0 tab 02/23/16 09/17/19 alprazolam 0.25 mg PO TIDP PRN #0 11/22/16 09/17/19 diclofenac sodium [Voltaren] 1 john TOPICAL QID PRN #0 11/22/16 09/17/19 amitriptyline 25 mg PO BEDTIME #0 08/10/17 09/17/19 tramadol 50 mg PO PRN PRN #0 08/10/17 09/17/19 colchicine 0.6 mg PO BID 10/07/18 09/17/19 fluoride (sodium) [SF 5000 Plus] 1 applic DENTAL DIRECTED 10/07/18 09/17/19 hydroxychloroquine 200 mg PO BID 10/07/18 09/17/19 tamsulosin [Flomax] 0.8 mg PO DAILY 10/07/18 09/17/19 isosorbide mononitrate 30 mg PO DAILY 07/19/19 09/17/19 Previous Rx's Medication Instructions Recorded sucralfate 1 gm PO ACHS #360 tab 02/24/17 clorazepate dipotassium 3.75 mg 3.75 mg PO BID #180 tab 02/03/18 tablet ibuprofen 600 mg PO QID PRN #20 tab 02/22/18 bupropion HCl 150 mg 24 hr tablet, 150 mg PO QAM #30 tab 10/08/18 extended release sildenafil 100 mg tablet See Rx Instructions PO .COMPLEX 11/16/18 PRN #30 tab levothyroxine 50 mcg tablet 50 mcg PO DAILY #90 tab 01/12/19 lisinopril 5 mg tablet 5 mg PO DAILY #90 tab 01/12/19 diclofenac sodium 75 mg 75 mg PO BIDP PRN #180 tab 06/01/19 tablet,delayed release sertraline 50 mg tablet 100 mg PO BEDTIME #180 tab 07/23/19 Allergies Allergy/AdvReac Type Severity Reaction Status Date / Time codeine Allergy Mild HIVES Verified 09/17/19 10:58 Review of Systems Review of Systems Narrative: Pertinent positive and negative findings as per HPI Remainder of review of systems is otherwise unremarkable for Constitutional: Fevers, chills, weakness ENT: No sore throat, neck pain, ear pain Respiratory: Cough, wheeze, dyspnea GI: Nausea, vomiting, diarrhea, change in bowel habits, black or bloody stools : Dysuria, hematuria, flank pain MS: Muscle weakness, numbness, joint swelling or warmth Skin: Rashes, nonhealing lesions Neuro: Syncope, dizziness, tingling Psych: Depression, anxiety, suicidal ideation Endocrine: Fatigue, heat or cold intolerance, very dry skin Heme: Easy bruising or bleeding Allergy: Seasonal rhinorrhea, itchy eyes Patient History Social History Smoking Status: Former smoker Smoking Status: Former smoker alcohol intake frequency: holidays/special occasions only Substance Use Type: does not use Exam Narrative Exam Narrative: General: Healthy appearing, in no acute distress. Able to give a complete and coherent history. Well-nourished well-developed HEENT: Moist mucous membranes, normal sclera with reactive pupils, Neck: No JVD, supple Respiratory: Lungs are clear to auscultation, no wheezing no rales no rhonchi. Full and symmetrical air movement Cardiac: Regular rate and rhythm no murmurs no bruits Abdomen: Soft nontender good bowel tones, no flank pain Skin: Warm and dry, no rashes Neurologic: Grossly neurologically intact with no obvious asymmetries or abnormalities Extremities: No trauma, well perfused Psych: Cooperative, appropriate insight and affect Initial Vital Signs Initial Vital Signs: Vital Signs Temperature 98.7 F 10/11/19 09:30 Pulse Rate 61 10/11/19 09:30 Respiratory Rate 14 10/11/19 09:30 Blood Pressure 195/87 H 10/11/19 09:30 Pulse Oximetry 100 10/11/19 09:30 Course Orders Ordered: ED Orders 10/11/19 09:15 XR chest 1V Stat EKG-12 Lead Stat 10/11/19 09:20 Complete Blood Count AUTO DIFF Stat Comprehensive Metabolic Panel Stat Lipase Stat Partial Thromboplastin Time Stat Prothrombin Time INR Stat Troponin & CK Cardiac Panel Stat 10/11/19 12:15 Troponin I Stat Discontinued Medications Aspirin (Aspirin Chew) 324 mg PO NOW ONE Stop: 10/11/19 09:55 Last Admin: 10/11/19 10:01 Dose: 324 mg Documented by: RICH Al Hydrox/Mg Hydrox/Simethicone 20 ml/ Lidocaine HCl 15 ml 0 ml PO NOW ONE Stop: 10/11/19 10:37 Last Admin: 10/11/19 10:40 Dose: 35 ml Documented by: RICH Metoprolol Tartrate (Lopressor) 5 mg IV Q5M MADHURI Stop: 10/11/19 10:11 Last Admin: 10/11/19 12:00 Dose: Not Given Documented by: Admin: 10/11/19 12:00 Dose: Not Given Documented by: Admin: 10/11/19 10:37 Dose: Not Given Documented by: RICH Nitroglycerin (Nitrostat) 0.4 mg SL [id number] PRN PRN Reason: Chest Pain Last Admin: 10/11/19 10:20 Dose: 0.4 mg Documented by: Admin: 10/11/19 10:15 Dose: 0.4 mg Documented by: Admin: 10/11/19 10:03 Dose: 0.4 mg Documented by: RICH Vital Signs Vital signs: Vital Signs - 8 hr 10/11/19 09:30 10/11/19 10:03 10/11/19 10:15 Temperature 98.7 F Pulse Rate 61 61 66 Respiratory Rate 14 Blood Pressure 195/87 H 161/80 H 136/85 Blood Pressure [Left Arm] Pulse Oximetry 100 10/11/19 10:20 10/11/19 11:00 10/11/19 11:20 Temperature Pulse Rate 57 L 55 L 54 L Respiratory Rate 24 19 Blood Pressure 139/83 Blood Pressure [Left Arm] 153/99 H 160/84 H Pulse Oximetry 99 98 10/11/19 13:00 10/11/19 14:32 Temperature Pulse Rate 52 L 58 L Respiratory Rate 13 21 Blood Pressure Blood Pressure [Left Arm] 147/69 H 147/69 H Pulse Oximetry 99 100 MDM - Chest Pain Medical Records Data Attestation: I reviewed the patient's medical records. Lab Data Attestation: I reviewed the patient's lab results. Lab results narrative: Initial troponin is unremarkable Result diagrams: 10/11/19 09:20 10/11/19 09:20 Labs: Lab Results 10/11/19 10/11/19 10/11/19 Range/Units 09:20 09:20 09:20 WBC 4.7 (4.5-11.0) X10^3/uL RBC 3.63 L (4.5-5.9) X10^6/uL Hgb 11.1 L (13.5-17.5) g/dL Hct 34.3 L (41-53) % MCV 94.6 (80-100) fL MCH 30.5 (26-34) PG MCHC 32.3 (30-36) % RDW 16.7 H (11.6-14.8) % Plt Count 135 L (150-400) X10^3/uL Neut % (Auto) 49.9 L (50-75) % Lymph % (Auto) 36.4 (25-40) % Dodge % (Auto) 8.6 (3-14) % Eos % (Auto) 4.2 H (2-4) % Baso % (Auto) 0.9 (0-2) % Neut # (Auto) 2300 (9955-3051) /uL Lymph # (Auto) 1700 (7286-6918) /uL Dodge # (Auto) 400 (0-900) /uL Eos # (Auto) 200 (0-450) /uL Baso # (Auto) 0 (0-100) /uL PT 14.7 H (10.1-12.7) SECONDS INR 1.3 (0.9-1.3) APTT 23 L D (26.4-36.2) SECONDS Sodium 136 L (137-145) mmol/L Potassium 3.9 (3.4-5.1) mmol/L Chloride 100 (98-107) mmol/L Carbon Dioxide 32 (22-32) mmol/L BUN 30 H (9-20) mg/dL Creatinine 1.41 H (0.66-1.25) mg/dL Estimated GFR 48.9 L (>60) mL/min BUN/Creatinine Ratio 21.3 (6-22) Glucose 131 H (80-110) mg/dL Calcium 9.3 (8.4-10.2) mg/dL Total Bilirubin 0.5 (0.2-1.3) mg/dL AST 49 (17-59) IU/L ALT 40 (<50) IU/L Alkaline Phosphatase 40 (38-126) U/L Total Creatine Kinase 337 H (55-170) U/L CK-MB (CK-2) 3.33 H (<2.37) ng/mL CK-MB (CK-2) Rel Index 1.0 L (1.5-5.0) % Troponin I < 0.012 (0.01-0.034) ng/mL Total Protein 7.4 (6.3-8.2) g/dL Albumin 4.2 (3.5-5.0) g/dL Globulin 3.2 (1.7-4.1) g/dL Albumin/Globulin Ratio 1.3 (1.0-2.8) Lipase 116 (23-300) U/L 10/11/19 Range/Units 12:15 WBC (4.5-11.0) X10^3/uL RBC (4.5-5.9) X10^6/uL Hgb (13.5-17.5) g/dL Hct (41-53) % MCV (80-100) fL MCH (26-34) PG MCHC (30-36) % RDW (11.6-14.8) % Plt Count (150-400) X10^3/uL Neut % (Auto) (50-75) % Lymph % (Auto) (25-40) % Dodge % (Auto) (3-14) % Eos % (Auto) (2-4) % Baso % (Auto) (0-2) % Neut # (Auto) (0031-3005) /uL Lymph # (Auto) (9003-5053) /uL Dodge # (Auto) (0-900) /uL Eos # (Auto) (0-450) /uL Baso # (Auto) (0-100) /uL PT (10.1-12.7) SECONDS INR (0.9-1.3) APTT (26.4-36.2) SECONDS Sodium (137-145) mmol/L Potassium (3.4-5.1) mmol/L Chloride (98-107) mmol/L Carbon Dioxide (22-32) mmol/L BUN (9-20) mg/dL Creatinine (0.66-1.25) mg/dL Estimated GFR (>60) mL/min BUN/Creatinine Ratio (6-22) Glucose (80-110) mg/dL Calcium (8.4-10.2) mg/dL Total Bilirubin (0.2-1.3) mg/dL AST (17-59) IU/L ALT (<50) IU/L Alkaline Phosphatase (38-126) U/L Total Creatine Kinase (55-170) U/L CK-MB (CK-2) (<2.37) ng/mL CK-MB (CK-2) Rel Index (1.5-5.0) % Troponin I < 0.012 (0.01-0.034) ng/mL Total Protein (6.3-8.2) g/dL Albumin (3.5-5.0) g/dL Globulin (1.7-4.1) g/dL Albumin/Globulin Ratio (1.0-2.8) Lipase (23-300) U/L Imaging Data Chest x-ray: Radiologist's Impression: IMPRESSION: No acute pulmonary process. Dictated by: Zena Martinez M.D. on 10/11/2019 at 9:46 ECG Data Attestation: I personally reviewed and interpreted this ECG as follows: Interpretation: Sinus rhythm at a rate of [address] T wave changes there are some nonspecific ST T wave abnormalities. EKG is similar to comparison July 19, 2019 [facility] Narrative Medical decision making narrative: Initial 3 nitro brought his pain down to a 1. Still describes it as a heartburn type feeling central chest, minimal. This symptom to has resolved after about an hour. Repeat troponin is equally unremarkable. Patient mentions that he sees Dr. Keen in [place] and he has had EKGs and treadmill test as well as catheterizations there. Will contact this office to see what their recommendations are for early follow-up verses admission currently. Spoke with Dr. Fatimah taveras. Patient has been seen for atypical chest pain multiple times. In 2013 he had a catheterization that showed essentially normal coronaries. Most recent echocardiogram has an ejection fraction at 55%. In 2018 he had a stress test that was essentially negative with a significant amount of artifact. He was seen by the cardiac nurse practitioner about a month ago with atypical chest pain. He saw Dr. Keen in May of 2019 for defibrillator check after his ventricular tachycardia episode. Given the fact that he has had significant assessment thus far no significant lesions have been found, repeat troponins are negative EKGs are not dramatically concerning at this time will allow him to go home today. The cardiology office will contact him to schedule a urgent follow-up within the next few days regarding his atypical chest pain and help decide which cardiac risk stratification studies would be most appropriate for him. He is safe for home discharge at this time. Discharge Plan Departure Patient Disposition: Home Clinical Impression: Chest pain Qualifiers: Chest pain type: unspecified Qualified Code(s): R07.9 - Chest pain, unspecified Instructions: DI for Atypical Chest Pain Activity Restrictions/Additional Instructions: Thank you for coming in today I spoke with the [place] cardiology office. We reviewed many of your recent studies which were quite reassuring. In light of the reassuring EKGs today and a normal blood work today I believe it is safe for you to go home. The cardiology office will be calling you for a follow-up appointment later this week. If you do have recurrent chest pain it would be appropriate to come back to the emergency department Please continue with all medications as currently prescribed I wish you the best Prescriptions: No Action multivitamin Tablet 1 tab PO DAILY Qty: 0 RF: 0 aspirin 81 mg Tablet,Delayed Release (Dr/Ec) 81 mg PO DAILY Qty: 0 RF: 0 gabapentin [Neurontin] 300 MG capsule 300 mg PO BID Qty: 0 RF: 0 nabumetone 500 MG tablet 500 mg PO QDAY Qty: 0 RF: 0 alprazolam 0.25 MG tablet 0.25 mg PO TIDP PRN (Reason: Anxiety) Qty: 0 RF: 0 diclofenac sodium [Voltaren] 1 % gel 1 john Topical QID PRN (Reason: pain) Qty: 0 RF: 0 sucralfate 1 GM tablet 1 gm PO ACHS Qty: 360 RF: 3 tramadol 50 MG tablet 50 mg PO PRN PRN (Reason: pain) Qty: 0 RF: 0 amitriptyline 25 MG tablet 25 mg PO BEDTIME Qty: 0 RF: 0 clorazepate dipotassium 3.75 mg tablet 3.75 mg PO BID Qty: 180 RF: 1 sildenafil [Viagra] 100 mg tablet See Rx Instructions PO .COMPLEX PRN (Reason: erectile dysfunction) Qty: 30 RF: 11 levothyroxine [Synthroid] 50 mcg tablet 50 mcg PO DAILY Qty: 90 RF: 3 lisinopril 5 mg tablet 5 mg PO DAILY Qty: 90 RF: 3 diclofenac sodium 75 mg tablet,delayed release (DR/EC) 75 mg PO BIDP PRN (Reason: pain) Qty: 180 RF: 1 bupropion HCl 150 mg tablet extended release 24 hr 150 mg PO QAM Qty: 30 RF: 3 Hold Instructions: not sure helping sertraline 50 mg tablet 100 mg PO BEDTIME Qty: 180 RF: 4 ibuprofen 600 mg tablet 600 mg PO QID PRN (Reason: pain) Qty: 20 RF: 0 isosorbide mononitrate 30 mg tablet extended release 24 hr 30 mg PO DAILY RF: 0 hydroxychloroquine 200 mg tablet 200 mg PO BID RF: 0 SF 5000 Plus 1.1 % cream 1 applic Dental DIRECTED RF: 0 colchicine 0.6 mg capsule 0.6 mg PO BID RF: 0 tamsulosin [Flomax] 0.4 MG capsule 0.8 mg PO DAILY RF: 0 Referrals: Brayan Blackwell MD [Primary Care Provider] -
[2019-10-11] MEDS: MAG HYDROX/ALUMINUM/SIMETH SUS 20 ML, LIDOCAINE VISCOUS 2% 15 ML PO (10:40)
[2019-10-11 12:46] LABS: Troponin I < 0.012 ng/mL (0.01-0.034)
== END 2019-10-11 14:49 | disposition home or self-care (01) ==
PROVIDERS: Emergency Provider Emergency Medicine; PCP Internal Medicine
DX: R07.9 Chest pain, unspecified (principal); I25.10 Atherosclerotic heart disease of native coronary artery without angina pectoris; I10 Essential (primary) hypertension; F32.9 Major depressive disorder, single episode, unspecified; E03.9 Hypothyroidism, unspecified
CPT/HCPCS: 36415; 71045; 80053; 82550; 82553; 83690; 84484; 85025; 85610; 85730; 93005; 99284

== ENCOUNTER 2020-07-07 08:46 | Emergency (ER) | payer MEDICARE, OTHER, SELFPAY ==
--- NOTE | 2020-07-07 08:53 | ED.GENADULT ---
HPI - General Adult General Chief complaint: Skin/Abscess/Foreign Body Stated complaint: rash on back x2 weeks Time Seen by Provider: 07/07/20 08:47 Source: patient Mode of arrival: Ambulatory Limitations: no limitations History of Present Illness HPI narrative: Patient is a 75-year-old male. Not immunocompromised here for evaluation of 2 weeks of pain in his lower back. He states that just over the past couple days he has noticed a rash appear. He states that is very painful and itching. He is not having any fevers. No known sick contacts. He has not tried anything for symptoms prior to arrival. Related Data Home Medications Medication Instructions Recorded Confirmed multivitamin 1 tab PO DAILY #0 02/13/12 06/23/20 aspirin 81 mg PO DAILY #0 07/23/12 06/23/20 gabapentin [Neurontin] 300 mg PO BID #0 02/23/16 06/23/20 nabumetone 500 mg PO QDAY #0 tab 02/23/16 06/23/20 alprazolam 0.25 mg PO TIDP PRN #0 11/22/16 06/23/20 diclofenac sodium [Voltaren] 1 john TOPICAL QID PRN #0 11/22/16 06/23/20 amitriptyline 25 mg PO BEDTIME #0 08/10/17 06/23/20 tramadol 50 mg PO PRN PRN #0 08/10/17 06/23/20 colchicine 0.6 mg PO BID 10/07/18 06/23/20 fluoride (sodium) [SF 5000 Plus] 1 applic DENTAL DIRECTED 10/07/18 06/23/20 hydroxychloroquine 200 mg PO BID 10/07/18 06/23/20 tamsulosin [Flomax] 0.8 mg PO DAILY 10/07/18 06/23/20 isosorbide mononitrate 30 mg PO DAILY 07/19/19 06/23/20 Previous Rx's Medication Instructions Recorded sucralfate 1 gm PO ACHS #360 tab 02/24/17 clorazepate dipotassium 3.75 mg 3.75 mg PO BID #180 tab 02/03/18 tablet ibuprofen 600 mg PO QID PRN #20 tab 02/22/18 bupropion HCl 150 mg 24 hr tablet, 150 mg PO QAM #30 tab 10/08/18 extended release sertraline 50 mg tablet 100 mg PO BEDTIME #180 tab 07/23/19 pantoprazole 40 mg tablet,delayed 40 mg PO BID #180 tab 12/23/19 release levothyroxine 50 mcg tablet 50 mcg PO DAILY #90 tab 01/07/20 lisinopril 5 mg tablet 5 mg PO DAILY #90 tab 01/07/20 sildenafil 100 mg tablet See Rx Instructions PO .COMPLEX 02/11/20 PRN #30 tab DISABLED PARKING PERMIT #1 each 05/04/20 diclofenac sodium 75 mg 75 mg PO BIDP PRN #180 tab 05/08/20 tablet,delayed release acyclovir 800 mg PO 5XD 10 Days #50 tab 07/07/20 prednisone 20 mg PO DAILY 5 Days #5 tab 07/07/20 Allergies Allergy/AdvReac Type Severity Reaction Status Date / Time codeine Allergy Mild HIVES Verified 06/23/20 11:00 Review of Systems Constitutional Constitutional: Denies fever(s) Cardiovascular Cardiovascular: Denies chest pain and Denies dyspnea Respiratory Respiratory: Denies dyspnea Integumentary/Breasts Comments: Rash on his back Neurologic Comments: Some burning around the rash on his back Hematologic/Lymphatic Hematologic/Lymphatic: Denies easy bleeding and Denies easy bruising Allergic/Immunologic Allergic/Immunologic: Denies urticaria Patient History Medical History Anxiety (10/25/13) Cardiomyopathy (07/24/15) Chest pain Chronic anemia (04/16/16) Chronic renal failure, stage 2 (mild) (07/24/15) Gastroesophageal reflux disease without esophagitis (01/23/11) History of hematuria Leukopenia (04/16/16) Malignant neoplasm of prostate (07/11/14) Mixed hyperlipidemia (01/23/11) Palpitations Type 2 diabetes mellitus without complication (10/29/11) Ventricular tachycardia (01/10/14) Surgical History Anesthesia Implantable cardioverter-defibrillator (ICD) in situ Status post cholecystectomy Family History Brother Family history of diabetes mellitus (DM) Father No problems noted. Sister No problems noted. Social History Smoking Status: Former smoker Smoking Status: Former smoker alcohol intake frequency: holidays/special occasions only Substance Use Type: does not use Exam Initial Vital Signs Initial Vital Signs: Vital Signs Temperature 98.0 F 07/07/20 08:56 Pulse Rate 80 07/07/20 08:56 Respiratory Rate 16 07/07/20 08:56 Blood Pressure 167/80 H 07/07/20 08:56 Pulse Oximetry 97 07/07/20 08:56 Const General: cooperative and healthy appearing Resp Effort & Inspection: normal respiratory effort Cardio Rate: regular rate Skin Other: Patient has a area rash at the T/L junction on the left side that has clusters of vesicles. Has minor surrounding erythema. Does not cross midline. Extrem General: capillary refill normal Psych Appearance: grossly normal and well kempt Course Vital Signs Vital signs: Vital Signs - 8 hr 07/07/20 08:56 Temperature 98.0 F Pulse Rate 80 Respiratory Rate 16 Blood Pressure 167/80 H Pulse Oximetry 97 Medical Decision Making [facility] Narrative Medical decision making narrative: Patient's rash today is very consistent with shingles. He has had some pain in the area for the past couple weeks but has only noticed the rash less than 48 hours from his presentation today. Given the fact that the rash is less than 72 hours old we will start him on antivirals and steroids. I did discuss this with the patient. We did discuss the expected course. Prescriptions were electronically transmitted to the pharmacy of his choice. He is given return precautions. Expressed understanding and agreement. Discharge Plan Departure Patient Disposition: Home Clinical Impression: Shingles Qualifiers: Herpes zoster complications: without complications Qualified Code(s): B02.9 - Zoster without complications Instructions: DI for Shingles Activity Restrictions/Additional Instructions: A prescription for medications was electronically transmitted to [facility] in [place]. Please start taking them today as directed. You can shower like normal. You can use topical anti-itch cream that you can purchase [id number] however this condition can be fairly uncomfortable. Contact your primary provider for a follow-up. Prescriptions: New acyclovir 800 mg tablet 800 mg PO 5XD 10 Days Qty: 50 RF: 0 prednisone 20 mg tablet 20 mg PO DAILY 5 Days Qty: 5 RF: 0 No Action multivitamin Tablet 1 tab PO DAILY Qty: 0 RF: 0 aspirin 81 mg Tablet,Delayed Release (Dr/Ec) 81 mg PO DAILY Qty: 0 RF: 0 gabapentin [Neurontin] 300 MG capsule 300 mg PO BID Qty: 0 RF: 0 nabumetone 500 MG tablet 500 mg PO QDAY Qty: 0 RF: 0 alprazolam 0.25 MG tablet 0.25 mg PO TIDP PRN (Reason: Anxiety) Qty: 0 RF: 0 diclofenac sodium [Voltaren] 1 % gel 1 john Topical QID PRN (Reason: pain) Qty: 0 RF: 0 sucralfate 1 GM tablet 1 gm PO ACHS Qty: 360 RF: 3 tramadol 50 MG tablet 50 mg PO PRN PRN (Reason: pain) Qty: 0 RF: 0 amitriptyline 25 MG tablet 25 mg PO BEDTIME Qty: 0 RF: 0 clorazepate dipotassium 3.75 mg tablet 3.75 mg PO BID Qty: 180 RF: 1 pantoprazole 40 mg tablet,delayed release (DR/EC) 40 mg PO BID Qty: 180 RF: 3 lisinopril 5 mg tablet 5 mg PO DAILY Qty: 90 RF: 3 levothyroxine [Synthroid] 50 mcg tablet 50 mcg PO DAILY Qty: 90 RF: 3 sildenafil [Viagra] 100 mg tablet See Rx Instructions PO .COMPLEX PRN (Reason: erectile dysfunction) Qty: 30 RF: 11 (DME) DISABLED PARKING PERMIT Qty: 1 RF: 0 diclofenac sodium 75 mg tablet,delayed release (DR/EC) 75 mg PO BIDP PRN (Reason: pain) Qty: 180 RF: 1 bupropion HCl 150 mg tablet extended release 24 hr 150 mg PO QAM Qty: 30 RF: 3 Hold Instructions: not sure helping sertraline 50 mg tablet 100 mg PO BEDTIME Qty: 180 RF: 4 ibuprofen 600 mg tablet 600 mg PO QID PRN (Reason: pain) Qty: 20 RF: 0 isosorbide mononitrate 30 mg tablet extended release 24 hr 30 mg PO DAILY RF: 0 hydroxychloroquine 200 mg tablet 200 mg PO BID RF: 0 SF 5000 Plus 1.1 % cream 1 applic Dental DIRECTED RF: 0 colchicine 0.6 mg capsule 0.6 mg PO BID RF: 0 tamsulosin [Flomax] 0.4 MG capsule 0.8 mg PO DAILY RF: 0 Referrals: Brayan Blackwell MD [Primary Care Provider] -
[2020-07-07 08:56] VITALS: BP 167/80; PULSE 80; RESP 16; TEMP 36.7; O2SAT 97; BMI 29.5
== END 2020-07-07 09:14 | disposition home or self-care (01) ==
PROVIDERS: Emergency Provider Emergency Medicine; PCP Internal Medicine
DX: B02.9 Zoster without complications (principal); R21 Rash and other nonspecific skin eruption; E11.9 Type 2 diabetes mellitus without complications; M54.5 Low back pain
CPT/HCPCS: 99281

== ENCOUNTER 2020-08-23 12:30 | Emergency (ER) | payer MEDICARE, OTHER, SELFPAY ==
[2020-08-23] VITALS (32 sets, daily range): BP systolic 134–186; BP diastolic 68–98; PULSE 50–68; RESP 14–52; TEMP 36.8; O2SAT 96–100; BMI 30.8
--- NOTE | 2020-08-23 12:39 | DI.RAD.S_ITS ---
PROCEDURE: XR CHEST 1V INDICATIONS: chest pain TECHNIQUE: One view of the chest was acquired. COMPARISON: [facility], CT, CT ANGIO CHEST ABDOMEN PELVIS, 10/07/2018, 9:09. [facility], CR, XR CHEST 1V, 10/11/2019, 9:33. [facility], CR, XR CHEST 1V, 07/19/2019, 8:38. FINDINGS: Surgical changes and devices: Left pacemaker with right atrial lead and right ventricular AICD lead. Lungs and pleura: Lungs appear clear. No pleural effusions or pneumothorax. Mediastinum: Mediastinal contours are not significantly changed. Heart size is prominent. Bones and chest wall: No suspicious bony lesions. Overlying soft tissues appear unremarkable. IMPRESSION: No acute cardiopulmonary abnormality. Dictated by: Reagan Trammell M.D. on 08/23/2020 at 13:00 Approved by: Reagan Trammell M.D. on 08/23/2020 at 13:02
[2020-08-23 12:50] LABS: Add Manual Diff / Slide Review NO; Basophils Absolute Auto 0 /uL (0-100); Basophils Percent Auto 0.8 % (0-2); Eosinophils Absolute Auto 300 /uL (0-450); Eosinophils Percent Auto 5.6 % (2-4); Lymphocytes Absolute Auto 1700 /uL (1100-4500); Lymphocytes Percent Auto 36.6 % (25-40); Mean Corpuscular HGB Conc 32.3 % (30-36); Mean Corpuscular Hemoglobin 31.5 PG (26-34); Mean Corpuscular Volume 97.5 fL (80-100); Monocytes Absolute Auto 500 /uL (0-900); Monocytes Percent Auto 10.1 % (3-14); Neutrophils Absolute Auto 2200 /uL (1500-7000); Neutrophils Percent Auto 46.9 % (50-75); Platelet Count 161 X10^3/uL (150-400); Red Cell Distribution Width 14.5 % (11.6-14.8); White Blood Cell Count 4.7 X10^3/uL (4.5-11.0)
[2020-08-23 12:56] LABS: INR 1.4 (0.9-1.3); Prothrombin Time 15.3 SECONDS (10.1-12.7)
[2020-08-23 12:58] LABS: PTT Partial Thromboplastin Tim 32 SECONDS (26.4-36.2)
[2020-08-23 13:00] LABS: Alanine Aminotransferase 33 IU/L (<50); Albumin 4.5 g/dL (3.5-5.0); Albumin Globulin Ratio 1.5 (1.0-2.8); Alkaline Phosphatase 54 U/L (38-126); Aspartate Aminotransferase 54 IU/L (17-59); BUN Creatinine Ratio 15.9 (6-22); Bilirubin Total 0.5 mg/dL (0.2-1.3); Blood Urea Nitrogen 25 mg/dL (9-20); Calcium 9.8 mg/dL (8.4-10.2); Carbon Dioxide 32 mmol/L (22-32); Chloride 102 mmol/L (98-107); Creatine Kinase 625 U/L (55-170); Estimated Glomerular Filt Rate 43.1 mL/min (>60); Glucose 96 mg/dL (80-110); HEMOLYSIS < 15 (0-50); Lipase 130 U/L (23-300); Potassium 4.1 mmol/L (3.4-5.1); Sodium 138 mmol/L (137-145); Total Protein 7.5 g/dL (6.3-8.2)
--- NOTE | 2020-08-23 13:00 | ED_ITS ---
HPI - Chest Pain <MIGUEL A Angela - Last Filed: 08/23/20 21:01> General Chief Complaint: Chest Pain Stated Complaint: constant chest pain/defib/a-fib x2days Time Seen by Provider: 08/23/20 12:32 Source: patient Mode of arrival: Ambulatory Limitations: no limitations History of Present Illness HPI narrative: This is a 75-year-old male, former smoker, has past medical history significant for hypertension, hyperlipidemia, cardiomyopathy, afib, V- tach and had a ICD in placed in 2004, anxiety, GERD, RA presents to ED with chief complain of intermittent left-sided aching chest pain for 2 days. Patient reports he mowed the lawn 2 days ago and felt very tired not well, he had taken Xanax to relax and he was able to go to sleep and woke up next morning feeling fine. He decided to finish mowed the lawn and again not feeling well and had to repeat taking Xanax which seems to help his symptoms but still has a remaining 3/10 aching non-reproducible left-sided chest pain without any cardiac related symptoms. Patient denies aggravating factors but states Xanax has been helping. Patient denies fever, chills, nausea, vomiting, recent cough, or exposure to Covid illness. Pain is at times upto 8/10. Patient had taken a baby aspirin this morning and all his routine medications. Patient denies sensation of ICD went off. He reports has not been as active and exercising regularly since the Covid pandemic. PCP Dr. Blackwell. Mail Distribution Clerk Dr. Cheung at [place]. Reports he had cardiac workup done about a year ago and he has appointment with Dr. Cheung in about a month. Patient denies using Viagra products last 24 hr. Related Data Home Medications Medication Instructions Recorded Confirmed multivitamin 1 tab PO DAILY #0 02/13/12 06/23/20 aspirin 81 mg PO DAILY #0 07/23/12 06/23/20 gabapentin [Neurontin] 300 mg PO BID #0 02/23/16 06/23/20 nabumetone 500 mg PO QDAY #0 tab 02/23/16 06/23/20 alprazolam 0.25 mg PO TIDP PRN #0 11/22/16 06/23/20 diclofenac sodium [Voltaren] 1 john TOPICAL QID PRN #0 11/22/16 06/23/20 amitriptyline 25 mg PO BEDTIME #0 08/10/17 06/23/20 tramadol 50 mg PO PRN PRN #0 08/10/17 06/23/20 colchicine 0.6 mg PO BID 10/07/18 06/23/20 fluoride (sodium) [SF 5000 Plus] 1 applic DENTAL DIRECTED 10/07/18 06/23/20 hydroxychloroquine 200 mg PO BID 10/07/18 06/23/20 tamsulosin [Flomax] 0.8 mg PO DAILY 10/07/18 06/23/20 isosorbide mononitrate 30 mg PO DAILY 07/19/19 06/23/20 Previous Rx's Medication Instructions Recorded sucralfate 1 gm PO ACHS #360 tab 02/24/17 clorazepate dipotassium 3.75 mg 3.75 mg PO BID #180 tab 02/03/18 tablet ibuprofen 600 mg PO QID PRN #20 tab 02/22/18 bupropion HCl 150 mg 24 hr tablet, 150 mg PO QAM #30 tab 10/08/18 extended release sertraline 50 mg tablet 100 mg PO BEDTIME #180 tab 07/23/19 pantoprazole 40 mg tablet,delayed 40 mg PO BID #180 tab 12/23/19 release levothyroxine 50 mcg tablet 50 mcg PO DAILY #90 tab 01/07/20 lisinopril 5 mg tablet 5 mg PO DAILY #90 tab 01/07/20 sildenafil 100 mg tablet See Rx Instructions PO .COMPLEX 02/11/20 PRN #30 tab DISABLED PARKING PERMIT #1 each 05/04/20 diclofenac sodium 75 mg 75 mg PO BIDP PRN #180 tab 05/08/20 tablet,delayed release nitroglycerin 0.4 mg SUBLINGUAL Q5-15M PRN #30 08/23/20 tab Allergies Allergy/AdvReac Type Severity Reaction Status Date / Time codeine Allergy Mild HIVES Verified 06/23/20 11:00 Review of Systems <MIGUEL A Angela - Last Filed: 08/23/20 21:01> Review of Systems Narrative: General: Denies fever, chills, fatigue, malaise, sweats. HEENT: Denies sinus pain, ear pain, sore throat, difficulty swallowing, dizziness. Respiratory: Denies dyspnea, cough, wheezing, hemoptysis, sputum. Cardiovascular: See HPI Gastrointestinal: Denies nausea, vomiting, abdominal pain, diarrhea, constipation, melena. : Denies dysuria, frequency, incontinence, hematuria, urinary retention. Musculoskeletal: Denies weakness, joint pain or bony pain. Skin: Denies rash, skin lesions, or other. Neurologic: Denies weakness, headache, numbness, change in speech, confusion, seizures, incoordination. Psychiatric: No concerning psychosocial issues. 12-point review of systems is negative except for those stated above. Patient History <MIGUEL A Angela - Last Filed: 08/23/20 21:01> Medical History (Updated 08/23/20 @ 18:09 by MIGUEL A Angela) Anxiety (10/25/13) Cardiomyopathy (07/24/15) Chest pain Chronic anemia (04/16/16) Chronic renal failure, stage 2 (mild) (07/24/15) Gastroesophageal reflux disease without esophagitis (01/23/11) History of hematuria Leukopenia (04/16/16) Malignant neoplasm of prostate (07/11/14) Mixed hyperlipidemia (01/23/11) Palpitations Type 2 diabetes mellitus without complication (10/29/11) Ventricular tachycardia (01/10/14) Surgical History Anesthesia Implantable cardioverter-defibrillator (ICD) in situ Status post cholecystectomy Family History Brother Family history of diabetes mellitus (DM) Father No problems noted. Sister No problems noted. Social History Smoking Status: Former smoker Smoking Status: Former smoker alcohol intake frequency: 0-2 drinks per day Alcohol type: wine Substance Use Type: does not use Exam <MIGUEL A Angela - Last Filed: 08/23/20 21:01> Narrative Exam Narrative: GEN: Alert, oriented x 3, well appearing and nourished, and in no acute distress. Head: Normal cephalic, atraumatic. No scalp or temporal tenderness, palpable mass or rash. EYES: Pupils are equal, round, and reactive to light and accommodation. Extraocular muscles are intact bilaterally. There is no subconjunctival hemor rhage, exudate and sclera non-icteric. ENT: Hearing grossly intact. Airway patent. Neck: Trachea in midline. No JVD, non-tender without lymphadenopathy. No masses or thyroid megaly. Supple, non-tender and no meningeal signs. CARDIAC: Normal regular rate and rhythm without murmurs, gallops, or rubs. No chest wall tenderness. No peripheral edema, cyanosis or pallor. Capillary refill is less than 2 seconds. RESPIRATORY: Lungs are clear to auscultate bilaterally. No cough, wheezes, rales, or rhonchi. No stridor, respiratory distress, increase work of breathing, or accessary muscle used. ABD: Abdomen soft, nontender and non-distended. No guarding or rebound tenderness to palpate. Bowel sounds are normal in all 4 quadrants. There is no palpable masses or organomegaly. EXT: Full painless ROM of all extremities with no loss of sensation, strength, effusion or edema. SKIN: Warm, dry, normal color for patient. No erythema, lesions or rash over visible areas. BACK: Nontender without deformity or crepitance. No flank tenderness. NEUROLOGICAL: Alert and oriented to place, time and person. Sensation and motor function intact bilaterally. No facial droops, dysphasia. PSYCHIATRIC: Good judgement and reason, without hallucinations, abnormal affect or abnormal behaviors during the examination. Patient is not suicidal. Initial Vital Signs Initial Vital Signs: Vital Signs Temperature 98.3 F 08/23/20 12:37 Pulse Rate 62 08/23/20 12:37 Respiratory Rate 18 08/23/20 12:37 Blood Pressure 177/84 H 08/23/20 12:37 Pulse Oximetry 100 08/23/20 12:37 <Dennis Alejandro DO - Last Filed: 08/24/20 13:16> Initial Vital Signs Initial Vital Signs: Vital Signs Temperature 98.3 F 08/23/20 12:37 Pulse Rate 62 08/23/20 12:37 Respiratory Rate 18 08/23/20 12:37 Blood Pressure 177/84 H 08/23/20 12:37 Pulse Oximetry 100 08/23/20 12:37 Scores <DANIELLE AngelaP - Last Filed: 08/23/20 21:01> GCS Cata coma scale eye opening: Spontaneous Hamilton coma scale verbal response: Orientated Hamilton coma scale motor response: Obey commands Hamilton coma scale total score: 15 HEART Score Heart Score history: Moderately Suspicious Heart Score EKG: Normal Heart Score Age: > or = 65 years old Heart Score risk factors: > 3 risk factors or hx of atherosclerotic disease Heart Score troponin: < or = to normal limit Heart Score Total: 5 Course <DANIELLE AngelaP - Last Filed: 08/23/20 21:01> Orders Ordered: Discontinued Medications Aspirin (Aspirin 81 Mg Chew Tab) 243 mg PO NOW ONE Stop: 08/23/20 12:58 Last Admin: 08/23/20 13:13 Dose: 243 mg Documented by: STEPHANY Sodium Chloride (Normal Saline 0.9%) 1,000 mls @ 125 mls/hr IV CONT MADHURI Last Infusion: 08/23/20 18:28 Dose: 0 mls/hr Documented by: Admin: 08/23/20 13:48 Dose: 125 mls/hr Documented by: NANCY Nitroglycerin (Nitroglycerin 0.4 Mg Sl Tab) 0.4 mg SL [id number] PRN PRN Reason: Chest Pain Last Admin: 08/23/20 13:13 Dose: 0.4 mg Documented by: STEPHANY Nitroglycerin (Nitroglycerin Oint 1 Inch/Gm Oint...G.) 1 inch TOP NOW ONE Stop: 08/23/20 13:32 Last Admin: 08/23/20 13:48 Dose: 1 inch Documented by: NANCY Reevaluation(s) Reevaluation #1: Patient reports after 1 sublingual nitro, left chest achy pain resolved. Held 2 additional nitroglycerin and ordered 1 in nitropaste topical. Initial Troponin negative, <0.012 but elevated CPK of 625 with CK-MB of 2.61 which is mildly elevated with CK-MB relative index lower than WNL of 0.4. Time: 13:34 Reevaluation #2: Patient reports pain free at this time. Informed patient about plan with 2nd cardiac enzyme 3 hour post from the initial one was drawn and planning to consult his trestle builder for a recommendation and he verbalized understanding. Time: 14:30 Reevaluation #3: Patient reports still pain-free at this time and feeling much better. Second cardiac enzyme negative as well. Improved CPK of 490 and CMMB to 1.88 with still low in relative index of 0.4. paging Dr. Cheung. Time: 16:52 Consultations Consultation #1: Dr. Zaragoza called back and recommended to discharge patient to home with nitroglycerin for as needed use and clinic will contact patient for expedited follow-up appointment for re-evaluation at the clinic. In the past patient was seen for atypical chest pain multiple times. He had a cardiac catheterization that showed essentially normal coronaries in 2013. Most recent echocardiogram has ejection fraction at 55%. 2019 he had a stress test that was essentially negative with a significant amount of artifact. Time: 17:49 Vital Signs Vital signs: Vital Signs - 8 hr 08/23/20 13:00 08/23/20 13:13 08/23/20 13:15 Pulse Rate 61 64 63 Respiratory Rate 23 20 Blood Pressure 142/79 H 142/76 H Pulse Oximetry 97 97 08/23/20 13:16 08/23/20 13:30 08/23/20 13:32 Pulse Rate 65 60 59 L Respiratory Rate 15 23 20 Blood Pressure 139/68 141/70 H Pulse Oximetry 99 97 97 08/23/20 13:45 08/23/20 13:48 08/23/20 14:00 Pulse Rate 59 L 60 68 Respiratory Rate 23 52 H Blood Pressure 141/70 H Pulse Oximetry 98 97 08/23/20 14:15 08/23/20 14:30 08/23/20 14:45 Pulse Rate 60 60 Respiratory Rate 20 20 19 Blood Pressure 144/76 H 139/77 134/74 Pulse Oximetry 97 97 98 08/23/20 15:00 08/23/20 15:01 08/23/20 15:15 Pulse Rate 56 L 54 L 57 L Respiratory Rate 17 16 24 Blood Pressure 157/72 H 149/77 H Pulse Oximetry 97 97 96 08/23/20 15:30 08/23/20 15:45 08/23/20 15:46 Pulse Rate 56 L Respiratory Rate 16 16 18 Blood Pressure 155/84 H 167/87 H Pulse Oximetry 97 98 96 08/23/20 16:00 08/23/20 16:15 08/23/20 16:30 Pulse Rate 55 L Respiratory Rate 23 20 Blood Pressure 156/88 H 159/84 H 150/90 H Pulse Oximetry 97 08/23/20 16:45 08/23/20 17:00 08/23/20 17:15 Pulse Rate 52 L 53 L 55 L Respiratory Rate 21 14 18 Blood Pressure 175/95 H 159/80 H 172/92 H Pulse Oximetry 100 98 98 08/23/20 17:30 08/23/20 17:45 08/23/20 17:46 Pulse Rate 58 L 50 L 53 L Respiratory Rate 25 H 22 27 H Blood Pressure 170/98 H 186/88 H Pulse Oximetry 98 99 98 08/23/20 18:26 Pulse Rate 51 L Respiratory Rate 16 Blood Pressure 180/94 H Pulse Oximetry 100 <Dennis Alejandro DO - Last Filed: 08/24/20 13:16> Orders Ordered: Discontinued Medications Aspirin (Aspirin 81 Mg Chew Tab) 243 mg PO NOW ONE Stop: 08/23/20 12:58 Last Admin: 08/23/20 13:13 Dose: 243 mg Documented by: STEPHANY Sodium Chloride (Normal Saline 0.9%) 1,000 mls @ 125 mls/hr IV CONT MADHURI Last Infusion: 08/23/20 18:28 Dose: 0 mls/hr Documented by: Admin: 08/23/20 13:48 Dose: 125 mls/hr Documented by: NANCY Nitroglycerin (Nitroglycerin 0.4 Mg Sl Tab) 0.4 mg SL [id number] PRN PRN Reason: Chest Pain Last Admin: 08/23/20 13:13 Dose: 0.4 mg Documented by: STEPHANY Nitroglycerin (Nitroglycerin Oint 1 Inch/Gm Oint...G.) 1 inch TOP NOW ONE Stop: 08/23/20 13:32 Last Admin: 08/23/20 13:48 Dose: 1 inch Documented by: NANCY Vital Signs Vital signs: Vital Signs - 8 hr 08/23/20 13:00 08/23/20 13:13 08/23/20 13:15 Pulse Rate 61 64 63 Respiratory Rate 23 20 Blood Pressure 142/79 H 142/76 H Pulse Oximetry 97 97 08/23/20 13:16 08/23/20 13:30 08/23/20 13:32 Pulse Rate 65 60 59 L Respiratory Rate 15 23 20 Blood Pressure 139/68 141/70 H Pulse Oximetry 99 97 97 08/23/20 13:45 08/23/20 13:48 08/23/20 14:00 Pulse Rate 59 L 60 68 Respiratory Rate 23 52 H Blood Pressure 141/70 H Pulse Oximetry 98 97 08/23/20 14:15 08/23/20 14:30 08/23/20 14:45 Pulse Rate 60 60 Respiratory Rate 20 20 19 Blood Pressure 144/76 H 139/77 134/74 Pulse Oximetry 97 97 98 08/23/20 15:00 08/23/20 15:01 08/23/20 15:15 Pulse Rate 56 L 54 L 57 L Respiratory Rate 17 16 24 Blood Pressure 157/72 H 149/77 H Pulse Oximetry 97 97 96 08/23/20 15:30 08/23/20 15:45 08/23/20 15:46 Pulse Rate 56 L Respiratory Rate 16 16 18 Blood Pressure 155/84 H 167/87 H Pulse Oximetry 97 98 96 08/23/20 16:00 08/23/20 16:15 08/23/20 16:30 Pulse Rate 55 L Respiratory Rate 23 20 Blood Pressure 156/88 H 159/84 H 150/90 H Pulse Oximetry 97 08/23/20 16:45 08/23/20 17:00 08/23/20 17:15 Pulse Rate 52 L 53 L 55 L Respiratory Rate 21 14 18 Blood Pressure 175/95 H 159/80 H 172/92 H Pulse Oximetry 100 98 98 08/23/20 17:30 08/23/20 17:45 08/23/20 17:46 Pulse Rate 58 L 50 L 53 L Respiratory Rate 25 H 22 27 H Blood Pressure 170/98 H 186/88 H Pulse Oximetry 98 99 98 08/23/20 18:26 Pulse Rate 51 L Respiratory Rate 16 Blood Pressure 180/94 H Pulse Oximetry 100 MDM - Chest Pain <MIGUEL A Angela - Last Filed: 08/23/20 21:01> Differential Diagnosis Differential diagnosis: Likely stable angina, unstable angina pectoris, costochondritis and other (GERD, ACS) Medical Records Data Attestation: I reviewed the patient's medical records. Lab Data Attestation: I reviewed the patient's lab results. Result diagrams: 08/23/20 12:40 08/23/20 12:40 Labs: Lab Results 08/23/20 08/23/20 08/23/20 Range/Units 12:40 12:40 12:40 WBC 4.7 (4.5-11.0) X10^3/uL RBC 3.80 L (4.5-5.9) X10^6/uL Hgb 12.0 L (13.5-17.5) g/dL Hct 37.0 L (41-53) % MCV 97.5 (80-100) fL MCH 31.5 (26-34) PG MCHC 32.3 (30-36) % RDW 14.5 (11.6-14.8) % Plt Count 161 (150-400) X10^3/uL Neut % (Auto) 46.9 L (50-75) % Lymph % (Auto) 36.6 (25-40) % [place] % (Auto) 10.1 (3-14) % Eos % (Auto) 5.6 H (2-4) % Baso % (Auto) 0.8 (0-2) % Neut # (Auto) 2200 (1214-4961) /uL Lymph # (Auto) 1700 (3745-3363) /uL [place] # (Auto) 500 (0-900) /uL Eos # (Auto) 300 (0-450) /uL Baso # (Auto) 0 (0-100) /uL PT 15.3 H (10.1-12.7) SECONDS INR 1.4 H (0.9-1.3) APTT 32 D (26.4-36.2) SECONDS Sodium 138 (137-145) mmol/L Potassium 4.1 (3.4-5.1) mmol/L Chloride 102 (98-107) mmol/L Carbon Dioxide 32 (22-32) mmol/L BUN 25 H (9-20) mg/dL Creatinine 1.57 H (0.66-1.25) mg/dL Estimated GFR 43.1 L (>60) mL/min BUN/Creatinine Ratio 15.9 (6-22) Glucose 96 (80-110) mg/dL Calcium 9.8 (8.4-10.2) mg/dL Total Bilirubin 0.5 (0.2-1.3) mg/dL AST 54 (17-59) IU/L ALT 33 (<50) IU/L Alkaline Phosphatase 54 (38-126) U/L Total Creatine Kinase 625 H (55-170) U/L CK-MB (CK-2) 2.61 H (<2.37) ng/mL CK-MB (CK-2) Rel Index 0.4 L (1.5-5.0) % Troponin I < 0.012 (0.01-0.034) ng/mL NT-Pro-B Natriuret Pep (<450) pg/mL Total Protein 7.5 (6.3-8.2) g/dL Albumin 4.5 (3.5-5.0) g/dL Globulin 3.0 (1.7-4.1) g/dL Albumin/Globulin Ratio 1.5 (1.0-2.8) Lipase 130 (23-300) U/L 08/23/20 08/23/20 Range/Units 12:40 15:42 WBC (4.5-11.0) X10^3/uL RBC (4.5-5.9) X10^6/uL Hgb (13.5-17.5) g/dL Hct (41-53) % MCV (80-100) fL MCH (26-34) PG MCHC (30-36) % RDW (11.6-14.8) % Plt Count (150-400) X10^3/uL Neut % (Auto) (50-75) % Lymph % (Auto) (25-40) % [place] % (Auto) (3-14) % Eos % (Auto) (2-4) % Baso % (Auto) (0-2) % Neut # (Auto) (6024-7364) /uL Lymph # (Auto) (2860-4300) /uL [place] # (Auto) (0-900) /uL Eos # (Auto) (0-450) /uL Baso # (Auto) (0-100) /uL PT (10.1-12.7) SECONDS INR (0.9-1.3) APTT (26.4-36.2) SECONDS Sodium (137-145) mmol/L Potassium (3.4-5.1) mmol/L Chloride (98-107) mmol/L Carbon Dioxide (22-32) mmol/L BUN (9-20) mg/dL Creatinine (0.66-1.25) mg/dL Estimated GFR (>60) mL/min BUN/Creatinine Ratio (6-22) Glucose (80-110) mg/dL Calcium (8.4-10.2) mg/dL Total Bilirubin (0.2-1.3) mg/dL AST (17-59) IU/L ALT (<50) IU/L Alkaline Phosphatase (38-126) U/L Total Creatine Kinase 490 H (55-170) U/L CK-MB (CK-2) 1.88 (<2.37) ng/mL CK-MB (CK-2) Rel Index 0.4 L (1.5-5.0) % Troponin I < 0.012 (0.01-0.034) ng/mL NT-Pro-B Natriuret Pep 137 (<450) pg/mL Total Protein (6.3-8.2) g/dL Albumin (3.5-5.0) g/dL Globulin (1.7-4.1) g/dL Albumin/Globulin Ratio (1.0-2.8) Lipase (23-300) U/L Imaging Data Chest x-ray: Radiologist's Impression: [address] [id number] ReportSigned Patient: Jorje Garay [facility]#: [id number]: 02/15cct:[id number]/Sex: 75 / MDate of Service: 08/23/20Loc: EDAccession Number: [id number] Procedure: XR chest 1V Ordering Provider: Dennis Alejandro D.O. PROCEDURE: XR CHEST 1V INDICATIONS: chest pain TECHNIQUE: One view of the chest was acquired. COMPARISON: [facility], CT, CT ANGIO CHEST ABDOMEN PELVIS, 10/07/2018, 9:09. [facility], CR, XR CHEST 1V, 10/11/2019, 9:33. [facility], CR, XR CHEST 1V, 07/19/2019, 8:38. FINDINGS: Surgical changes and devices: Left pacemaker with right atrial lead and right ventricular AICD lead. Lungs and pleura: Lungs appear clear. No pleural effusions or pneumothorax. Mediastinum: Mediastinal contours are not significantly changed. Heart size is prominent. Bones and chest wall: No suspicious bony lesions. Overlying soft tissues appear unremarkable. IMPRESSION: No acute cardiopulmonary abnormality. Dictated by: Reagan Trammell M.D. on 08/23/2020 at 13:00 Approved by: Reagan Trammell M.D. on 08/23/2020 at 13:02 ECG Data Attestation: I personally reviewed and interpreted this ECG as follows: Prior ECG tracings: available for review Interpretation: #1-Normal sinus rhythm rate at 61. Normal [place]. AR interval 192, QRS duration 98, QT/QTC 376/[address] changes. #2 Sinus bradycardia with first-degree AV block rate at 51 Normal [place] AR interval 237, QRS duration 97, QT/QTC 409/385 Nonspecific T-waves abnormality in lateral leads and and inferior leads. Similar to 10/10/2020 EKG MDM Narrative Medical decision making narrative: This is a 75-year-old male who has complicated cardiac medical history presents to ED with chief complain of intermittent left-sided chest pain without associated other cardiac symptoms after mowing the lawn. Patient denies recent cough. Patient reports improving discomfort after taking Xanax but when he woke up this morning patient still had chest pain and concerned and presents to ED for an evaluation. EKG shows normal sinus rhythm rate at [address] changes. First cardiac enzyme troponin was negative but with elevated CPK of 625 and CK-MB of 2.61 with low relative index of MB low as 0.4. CBC was unremarkable. Chemistry test shows slightly decreased kidney function with BUN of 25, creatinine of 1.57, estimated GFR of 43.1 which is near patient's baseline. Patient was medicated with 1 nitroglycerin sublingual dose and aspirin 283 mg and patient reports his symptoms resolved. Patient placed on 1 in nitroglycerin paste since then and had 2nd cardiac enzyme drawn 3 hour post with repeat EKG. Second Troponin was negative with improved CPK of 490, CK-MB of 1.88 and again lower than normal limits of CK-MB relative index after received gentle controlled IV hydration. EKG shows first-degree AV block with sinus Leonid rate at 51 at rest and nonspecific T-wave abnormality. Unremarkable proBNP. Portable chest x-ray without acute findings. Patient has been pain free since the NTG use. Dr. Zaragoza consulted with EKG, lab, patient's physical findings and she recommended to discharge patient home with nitroglycerin and insure that clinic will contact patient for expedite follow-up appointment. We discussed nitroglycerin precautions during discharge instructions along return precautions and he verbalized understanding in agreement with the treatment plan. <Dennis Alejandro, DO - Last Filed: 08/24/20 13:16> Lab Data Labs: Lab Results 08/23/20 08/23/20 08/23/20 Range/Units 12:40 12:40 12:40 WBC 4.7 (4.5-11.0) X10^3/uL RBC 3.80 L (4.5-5.9) X10^6/uL Hgb 12.0 L (13.5-17.5) g/dL Hct 37.0 L (41-53) % MCV 97.5 (80-100) fL MCH 31.5 (26-34) PG MCHC 32.3 (30-36) % RDW 14.5 (11.6-14.8) % Plt Count 161 (150-400) X10^3/uL Neut % (Auto) 46.9 L (50-75) % Lymph % (Auto) 36.6 (25-40) % [place] % (Auto) 10.1 (3-14) % Eos % (Auto) 5.6 H (2-4) % Baso % (Auto) 0.8 (0-2) % Neut # (Auto) 2200 (9683-8764) /uL Lymph # (Auto) 1700 (0831-4884) /uL [place] # (Auto) 500 (0-900) /uL Eos # (Auto) 300 (0-450) /uL Baso # (Auto) 0 (0-100) /uL PT 15.3 H (10.1-12.7) SECONDS INR 1.4 H (0.9-1.3) APTT 32 D (26.4-36.2) SECONDS Sodium 138 (137-145) mmol/L Potassium 4.1 (3.4-5.1) mmol/L Chloride 102 (98-107) mmol/L Carbon Dioxide 32 (22-32) mmol/L BUN 25 H (9-20) mg/dL Creatinine 1.57 H (0.66-1.25) mg/dL Estimated GFR 43.1 L (>60) mL/min BUN/Creatinine Ratio 15.9 (6-22) Glucose 96 (80-110) mg/dL Calcium 9.8 (8.4-10.2) mg/dL Total Bilirubin 0.5 (0.2-1.3) mg/dL AST 54 (17-59) IU/L ALT 33 (<50) IU/L Alkaline Phosphatase 54 (38-126) U/L Total Creatine Kinase 625 H (55-170) U/L CK-MB (CK-2) 2.61 H (<2.37) ng/mL CK-MB (CK-2) Rel Index 0.4 L (1.5-5.0) % Troponin I < 0.012 (0.01-0.034) ng/mL NT-Pro-B Natriuret Pep (<450) pg/mL Total Protein 7.5 (6.3-8.2) g/dL Albumin 4.5 (3.5-5.0) g/dL Globulin 3.0 (1.7-4.1) g/dL Albumin/Globulin Ratio 1.5 (1.0-2.8) Lipase 130 (23-300) U/L 08/23/20 08/23/20 Range/Units 12:40 15:42 WBC (4.5-11.0) X10^3/uL RBC (4.5-5.9) X10^6/uL Hgb (13.5-17.5) g/dL Hct (41-53) % MCV (80-100) fL MCH (26-34) PG MCHC (30-36) % RDW (11.6-14.8) % Plt Count (150-400) X10^3/uL Neut % (Auto) (50-75) % Lymph % (Auto) (25-40) % [place] % (Auto) (3-14) % Eos % (Auto) (2-4) % Baso % (Auto) (0-2) % Neut # (Auto) (9297-0307) /uL Lymph # (Auto) (2730-4850) /uL [place] # (Auto) (0-900) /uL Eos # (Auto) (0-450) /uL Baso # (Auto) (0-100) /uL PT (10.1-12.7) SECONDS INR (0.9-1.3) APTT (26.4-36.2) SECONDS Sodium (137-145) mmol/L Potassium (3.4-5.1) mmol/L Chloride (98-107) mmol/L Carbon Dioxide (22-32) mmol/L BUN (9-20) mg/dL Creatinine (0.66-1.25) mg/dL Estimated GFR (>60) mL/min BUN/Creatinine Ratio (6-22) Glucose (80-110) mg/dL Calcium (8.4-10.2) mg/dL Total Bilirubin (0.2-1.3) mg/dL AST (17-59) IU/L ALT (<50) IU/L Alkaline Phosphatase (38-126) U/L Total Creatine Kinase 490 H (55-170) U/L CK-MB (CK-2) 1.88 (<2.37) ng/mL CK-MB (CK-2) Rel Index 0.4 L (1.5-5.0) % Troponin I < 0.012 (0.01-0.034) ng/mL NT-Pro-B Natriuret Pep 137 (<450) pg/mL Total Protein (6.3-8.2) g/dL Albumin (3.5-5.0) g/dL Globulin (1.7-4.1) g/dL Albumin/Globulin Ratio (1.0-2.8) Lipase (23-300) U/L Discharge Plan Departure Patient Disposition: Home Clinical Impression: Chest pain Qualifiers: Chest pain type: unspecified Qualified Code(s): R07.9 - Chest pain, unspecified Instructions: DI for Chest Pain, Nitroglycerin Sublingual Activity Restrictions/Additional Instructions: You have been diagnosed with [ chest pain. Two sets of cardiac enzymes and EKGs were normal.]. What to do: *Take your medications as directed. Please take nitroglycerin sublingual medication as needed for chest. One tab under the tongue every 5 minutes as needed and repeat up to 3 times. If there is no improvement after 3 medication, you should be evaluated in emergency room. Usually it while your taking this medications. Please do not use Viagra products until you are seen by trestle builder since this could interact with nitroglycerin. Medication has been transmitted to [facility] in [place]. *Follow up with your primary care provider in 2-3 days, call for an appointment. Let them know you were seen in the ED and that we asked you to be seen in follow up. *Return to ED if you have any new, worsening, or concerning symptoms, such as [worsening pain, breathing difficulty, lightheadedness, cold sweats, nausea or vomiting, fever or any acute concerns. [facility]iology clinic at [place] will contact you to make an expedite follow-up appointment.]. Prescriptions: New nitroglycerin 0.4 mg tablet, sublingual 0.4 mg sublingual Q5-15M PRN (Reason: chest pain) Qty: 30 RF: 0 No Action multivitamin Tablet 1 tab PO DAILY Qty: 0 RF: 0 aspirin 81 mg Tablet,Delayed Release (Dr/Ec) 81 mg PO DAILY Qty: 0 RF: 0 gabapentin [Neurontin] 300 MG capsule 300 mg PO BID Qty: 0 RF: 0 nabumetone 500 MG tablet 500 mg PO QDAY Qty: 0 RF: 0 alprazolam 0.25 MG tablet 0.25 mg PO TIDP PRN (Reason: Anxiety) Qty: 0 RF: 0 diclofenac sodium [Voltaren] 1 % gel 1 john Topical QID PRN (Reason: pain) Qty: 0 RF: 0 sucralfate 1 GM tablet 1 gm PO ACHS Qty: 360 RF: 3 tramadol 50 MG tablet 50 mg PO PRN PRN (Reason: pain) Qty: 0 RF: 0 amitriptyline 25 MG tablet 25 mg PO BEDTIME Qty: 0 RF: 0 clorazepate dipotassium 3.75 mg tablet 3.75 mg PO BID Qty: 180 RF: 1 pantoprazole 40 mg tablet,delayed release (DR/EC) 40 mg PO BID Qty: 180 RF: 3 lisinopril 5 mg tablet 5 mg PO DAILY Qty: 90 RF: 3 levothyroxine [Synthroid] 50 mcg tablet 50 mcg PO DAILY Qty: 90 RF: 3 sildenafil [Viagra] 100 mg tablet See Rx Instructions PO .COMPLEX PRN (Reason: erectile dysfunction) Qty: 30 RF: 11 (DME) DISABLED PARKING [place]MIT Qty: 1 RF: 0 diclofenac sodium 75 mg tablet,delayed release (DR/EC) 75 mg PO BIDP PRN (Reason: pain) Qty: 180 RF: 1 bupropion HCl 150 mg tablet extended release 24 hr 150 mg PO QAM Qty: 30 RF: 3 Hold Instructions: not sure helping sertraline 50 mg tablet 100 mg PO BEDTIME Qty: 180 RF: 4 ibuprofen 600 mg tablet 600 mg PO QID PRN (Reason: pain) Qty: 20 RF: 0 isosorbide mononitrate 30 mg tablet extended release 24 hr 30 mg PO DAILY RF: 0 hydroxychloroquine 200 mg tablet 200 mg PO BID RF: 0 SF 5000 Plus 1.1 % cream 1 applic Dental DIRECTED RF: 0 colchicine 0.6 mg capsule 0.6 mg PO BID RF: 0 tamsulosin [Flomax] 0.4 MG capsule 0.8 mg PO DAILY RF: 0 Referrals: Brayan Cheung MD [Non-Staff] - Brayan Blackwell MD [Primary Care Provider] - <Dennis Alejandro DO - Last Filed: 08/24/20 13:16> Cosign ED Attending Cosignature Attestation: I was immediately available in the department for consultation. This documentation has been reviewed and I agree with assessment and plan. Supervised by Dennis Alejandro DO
[2020-08-23 13:12] LABS: Troponin I < 0.012 ng/mL (0.01-0.034)
[2020-08-23] MEDS: NITROGLYCERIN 0.4 MG SL TAB SL (13:13)
[2020-08-23] MEDS: ASPIRIN 81 MG CHEW TAB 243 MG PO (13:13)
[2020-08-23 13:15] LABS: CKMB % Relative Index 0.4 % (1.5-5.0); Creatine Kinase MB 2.61 ng/mL (<2.37)
[2020-08-23 13:24] LABS: NT-proBNP (BNP-Adult 18+) 137 pg/mL (<450)
[2020-08-23] MEDS: SODIUM CHLORIDE 0.9% 1,000 ML 125 ML IV (13:48)
[2020-08-23] MEDS: NITROGLYCERIN OINT 1 INCH/GM OINT...G. TOP (13:48)
[2020-08-23 15:58] LABS: Creatine Kinase 490 U/L (55-170)
[2020-08-23 16:11] LABS: Troponin I < 0.012 ng/mL (0.01-0.034)
[2020-08-23 16:13] LABS: CKMB % Relative Index 0.4 % (1.5-5.0); Creatine Kinase MB 1.88 ng/mL (<2.37)
== END 2020-08-23 18:30 | disposition home or self-care (01) ==
PROVIDERS: Emergency Medicine; Emergency Provider Nurse Practitioner Family; PCP Internal Medicine
DX: R07.9 Chest pain, unspecified (principal)
CPT/HCPCS: 36415; 71045; 80053; 82550; 82553; 83690; 83880; 84484; 85025; 85610; 85730; 93005; 96360; 96361; 99284

== ENCOUNTER → 2021-03-30 15:42 | Outpatient (CLI) | payer MEDICARE, OTHER, SELFPAY ==
--- NOTE | 2021-03-30 15:44 | DI.RAD.S_ITS ---
PROCEDURE: XR CHEST 2V INDICATIONS: COVID pneumonia TECHNIQUE: 2 views of the chest were acquired. COMPARISON: [facility], CR, XR CHEST 1V, 08/23/2020, 12:42. FINDINGS: Surgical changes and devices: Redemonstrated left cardiac device. Lungs and pleura: Coarsened interstitial markings. Upper lung zone lucency, suggesting emphysematous change. No consolidation, pleural effusions or pneumothorax. Mediastinum: Mediastinal contours are normal. Heart size is normal. Bones and chest wall: No suspicious bony abnormalities. Soft tissues appear unremarkable. IMPRESSION: No acute cardiopulmonary abnormality. Dictated by: Christopher Trevino M.D. on 03/30/2021 at 16:06 Approved by: Christopher Trevino M.D. on 03/30/2021 at 16:08
== END ==
PROVIDERS: PCP Internal Medicine; Referring Provider Internal Medicine; Visit Provider Internal Medicine
DX: J12.82 Pneumonia due to coronavirus disease 2019; U07.1 COVID-19; I26.94 Multiple subsegmental thrombotic pulmonary emboli without acute cor pulmonale
CPT/HCPCS: 71046

== ENCOUNTER → 2021-04-05 14:04 | Outpatient (CLI) | payer MEDICARE, OTHER, SELFPAY ==
[2021-04-06 10:48] LABS: COVID19 Sendout Not Detected (Not Detect)
--- NOTE | 2021-04-12 09:18 | PM.PFT.1 ---
Pulmonary Function Test Referral & Results Date Patient Seen: 04/06/21 Requesting provider: Brayan Blackwell Indication: Post COVID Results: The spirometry demonstrates an FVC of 3.03 L which is 70% of predicted. The FEV1 was measured at 2.41 L which is 75% of predicted. The FEV1/FVC ratio was 80 which is 106% of predicted. Following the administration of bronchodilator there was a 33% improvement in FEF 25-75%. Lung volumes show an SVC of 3.75 L which is 74% of predicted. The diffusing capacity was measured at 15.87 which is 42% of predicted. No hemoglobin value was provided, so no correction for potential anemia could be made, if appropriate. The maximum voluntary ventilation was reduced slightly Interpretation: This study demonstrates minimal reduction FEV1 as well as SVC suggesting mild restrictive lung disease is present. There is some evidence of minimal benefit in small airway flow post bronchodilator There is a more notable reduction diffusing capacity suggesting more significant disease at the capillary alveolar level Clinical correlation suggested
== END ==
PROVIDERS: PCP Internal Medicine; Referring Provider Internal Medicine; Visit Provider Internal Medicine
DX: Z20.822 Contact with and (suspected) exposure to COVID-19 (principal)
CPT/HCPCS: 87635; C9803

== ENCOUNTER → 2021-04-06 09:00 | Outpatient (CLI) | payer MEDICARE, OTHER, SELFPAY | PROVIDERS: PCP Internal Medicine; Referring Provider Internal Medicine; Visit Provider Internal Medicine | DX: U07.1 COVID-19 (principal); J12.82 Pneumonia due to coronavirus disease 2019 | CPT/HCPCS: 94060; 94726; 94729 ==

== ENCOUNTER 2021-07-19 06:26 | Emergency (ER) | payer MEDICARE, OTHER, SELFPAY ==
[2021-07-19 06:30] VITALS: BP 185/98; PULSE 72; RESP 18; TEMP 36.2; O2SAT 100
--- NOTE | 2021-07-19 06:40 | DI.RAD.S_ITS ---
PROCEDURE: XR ACUTE ABDOMEN SERIES INDICATIONS: abdominal pain TECHNIQUE: One view chest and two views of the abdomen were acquired. COMPARISON: [facility], CT, CT ABDOMEN PELVIS W CON, 07/19/2021, 7:45. [facility], CR, XR CHEST 2V, 03/30/2021, 15:41. [facility], CR, XR ACUTE ABDOMEN SERIES, 03/23/2018, 14:27. FINDINGS: Surgical changes and devices: There is a cardiac pacemaker in expected position. Cholecystectomy clips are noted. Chest: Lungs are clear. Heart size is normal. No pleural effusions. No pneumoperitoneum. Abdomen: Moderate amount of stool in colon. Bowel gas pattern is nonobstructive. No suspicious calcifications. Visualized solid organ contours appear normal. Bones: No suspicious bony lesions. IMPRESSION: Moderate amount of stool in colon. Nonobstructive bowel gas pattern. No significant discrepancy with the material handler 1st shift radiology preliminary report. Dictated by: Ab Lofton M.D. on 07/19/2021 at 8:11 Approved by: Ab Lofton M.D. on 07/19/2021 at 8:12
--- NOTE | 2021-07-19 06:47 | ED.ABDPAIN ---
HPI - Abdominal Pain <Dennis Alejandro DO - Last Filed: 07/25/21 13:41> General Chief Complaint: Abdominal Pain Stated Complaint: acute stomach pains Time Seen by Provider: 07/19/21 06:35 Source: patient Mode of arrival: Ambulatory History of Present Illness HPI narrative: 76-year-old male former smoker with history of COVID, ischemic cardiomyopathy, prostate cancer, GERD, V-tach, pulmonary embolism, ICD and renal failure presents with a chief complaint of a few weeks of increasingly uncomfortable abdominal pain. He states that it is generalized in nature and seems to occasionally wax and wane on its own without obvious provocation but is probably worse in the left lower quadrant. He denies any change in diet or medications. Food, recent travel or recent antibiotics. He does state that his stools are largely rather loose, not quite diarrhea but certainly not formed. He has a slight improvement symptoms after a bowel movement. He thinks his last colonoscopy was in the last 10 years or so. He has had no fever chills. Denies chest pain or shortness of breath. Denies vomiting but has been nauseated on occasion. Related Data Home Medications Medication Instructions Recorded Confirmed multivitamin 1 tab PO DAILY #0 02/13/12 06/25/21 aspirin 81 mg tablet,delayed 81 mg PO DAILY #0 07/23/12 06/25/21 release gabapentin 300 mg capsule 300 mg PO BID #0 02/23/16 06/25/21 (Neurontin) nabumetone 500 mg tablet 500 mg PO QDAY #0 tab 02/23/16 06/25/21 alprazolam 0.25 mg tablet 0.25 mg PO TIDP PRN #0 11/22/16 06/25/21 diclofenac sodium 1 % topical gel 1 john TOPICAL QID PRN #0 11/22/16 06/25/21 (Voltaren) amitriptyline 25 mg tablet 25 mg PO BEDTIME #0 08/10/17 06/25/21 tramadol 50 mg tablet 50 mg PO PRN PRN #0 08/10/17 06/25/21 colchicine 0.6 mg capsule 0.6 mg PO BID 10/07/18 06/25/21 fluoride (sodium) 1.1 % dental 1 applic DENTAL DIRECTED 10/07/18 06/25/21 cream hydroxychloroquine 200 mg tablet 200 mg PO BID 10/07/18 06/25/21 tamsulosin 0.4 mg capsule (Flomax) 0.8 mg PO DAILY 10/07/18 06/25/21 isosorbide mononitrate 30 mg 30 mg PO DAILY 07/19/19 06/25/21 tablet,extended release 24 hr Previous Rx's Medication Instructions Recorded sucralfate 1 gram tablet 1 gm PO ACHS #360 tab 02/24/17 clorazepate dipotassium 3.75 mg 3.75 mg PO BID #180 tab 02/03/18 tablet ibuprofen 600 mg tablet 600 mg PO QID PRN #20 tab 02/22/18 bupropion HCl 150 mg 24 hr tablet, 150 mg PO QAM #30 tab 10/08/18 extended release DISABLED PARKING PERMIT #1 each 05/04/20 nitroglycerin 0.4 mg sublingual 0.4 mg SUBLINGUAL Q5-15M PRN #30 08/23/20 tablet tab pantoprazole 40 mg tablet,delayed 40 mg PO BID #180 tab 10/10/20 release sertraline 50 mg tablet 100 mg PO BEDTIME #180 tab 10/16/20 lisinopril 5 mg tablet 5 mg PO DAILY #90 tab 01/01/21 levothyroxine 50 mcg tablet 50 mcg PO DAILY #90 tab 01/02/21 (Synthroid) diclofenac sodium 75 mg 75 mg PO BIDP PRN #180 tab 04/16/21 tablet,delayed release sildenafil 100 mg tablet (Viagra) See Rx Instructions PO .COMPLEX 05/08/21 PRN #30 tab apixaban 5 mg tablet (Eliquis) 5 mg PO BID #14 tab 07/13/21 apixaban 5 mg tablet (Eliquis) 5 mg PO BID #180 tab 07/13/21 tramadol 50 mg tablet 50 mg PO Q8H PRN #10 tab 07/19/21 Allergies Allergy/AdvReac Type Severity Reaction Status Date / Time codeine Allergy Mild HIVES Verified 06/25/21 14:22 Review of Systems <Dennis Alejandro DO - Last Filed: 07/25/21 13:41> Review of Systems Narrative: GENERAL: Denies chills, fatigue, malaise, fever, sweats. HEENT: Denies sinus pain, ear pain, sore throat, difficulty swallowing, dizziness. RESPIRATORY: Denies dyspnea, cough, wheezing, hemoptysis, sputum. CARDIOVASCULAR: Denies chest pain, palpitations, orthopnea, edema, GASTROINTESTINAL: See HPI : Denies dysuria, frequency, incontinence, hematuria, urinary retention. MUSCULOSKELETAL: denies weakness, joint pain, or bony pain SKIN: Denies rash, skin lesions, or other NEUROLOGIC: Denies weakness, headache, numbness, change in speech, confusion, seizures, incoordination. PSYCHIATRIC: No concerning psychosocial issues. 12 point review of systems is negative except for those stated above Patient History <Dennis Alejandro DO - Last Filed: 07/25/21 13:41> Medical History Anxiety (10/25/13) Cardiomyopathy (07/24/15) Chest pain Chronic anemia (04/16/16) Chronic renal failure, stage 2 (mild) (07/24/15) Gastroesophageal reflux disease without esophagitis (01/23/11) History of hematuria Leukopenia (04/16/16) Malignant neoplasm of prostate (07/11/14) Mixed hyperlipidemia (01/23/11) Palpitations Pneumonia due to COVID-19 virus Pulmonary embolism Ventricular tachycardia (01/10/14) Surgical History Anesthesia Implantable cardioverter-defibrillator (ICD) in situ Status post cholecystectomy Family History Brother Family history of diabetes mellitus (DM) Father No problems noted. Sister No problems noted. Social History Smoking Status: Former smoker Smoking Status: Former smoker alcohol intake frequency: 0-2 drinks per day Alcohol type: wine Substance Use Type: does not use Exam <Dennis Alejandro DO - Last Filed: 07/25/21 13:41> Narrative Exam Narrative: GENERAL: [[place] year old patient appears stated age. Well-developed patient, in mild distress. HEAD: Atraumatic. Normocephalic. EYES: Pupils equal round and reactive. Extraocular motions intact. No scleral icterus. No injection or drainage. ENT: Nose without bleeding, purulent drainage. Throat without erythema, tonsillar hypertrophy or exudate. Airway patent. NECK: Trachea midline. Non tender CARDIOVASCULAR: Regular rate and rhythm without murmurs, gallops, or rubs. RESPIRATORY: Clear to auscultation. Breath sounds equal bilaterally. No wheezes, rales, or rhonchi. GASTROINTESTINAL: Abdomen soft, mildly distended, tender in the left lower quadrant, no peritoneal signs EXTREMITIES: No edema or joint tenderness. BACK: Nontender without deformity or crepitance. No flank tenderness. NEURO: AOx3. SKIN: No rash or erythema of visible areas Initial Vital Signs Initial Vital Signs: Vital Signs Temperature 97.1 F L 07/19/21 06:30 Pulse Rate 72 07/19/21 06:30 Respiratory Rate 18 07/19/21 06:30 Blood Pressure 185/98 H 07/19/21 06:30 Pulse Oximetry 100 07/19/21 06:30 <Seamus Gant DO - Last Filed: 07/19/21 08:46> Initial Vital Signs Initial Vital Signs: Vital Signs Temperature 97.1 F L 07/19/21 06:30 Pulse Rate 72 07/19/21 06:30 Respiratory Rate 18 07/19/21 06:30 Blood Pressure 185/98 H 07/19/21 06:30 Pulse Oximetry 100 07/19/21 06:30 Course <DO Rudi Posada Last Filed: 07/25/21 13:41> Orders Ordered: Discontinued Medications Sodium Chloride (Normal Saline 0.9%) 1,000 mls @ 150 mls/hr IV CONT MADHURI Last Infusion: 07/19/21 08:51 Dose: 0 mls/hr Documented by: Admin: 07/19/21 06:50 Dose: 150 mls/hr Documented by: JAN Morphine Sulfate (Morphine 4 Mg/Ml Inj) 4 mg IV NOW ONE Stop: 07/19/21 07:36 Last Admin: 07/19/21 07:42 Dose: 4 mg Documented by: SUZANNE Pantoprazole Sodium (Pantoprazole 40 Mg Vial) 40 mg IV NOW ONE Stop: 07/19/21 06:41 Last Admin: 07/19/21 06:50 Dose: 40 mg Documented by: JAN Vital Signs Vital signs: Vital Signs - 8 hr 07/19/21 06:30 07/19/21 07:29 Temperature 97.1 F L Pulse Rate 72 61 Respiratory Rate 18 23 Blood Pressure 185/98 H 164/80 H Pulse Oximetry 100 98 <Seamus Gant DO - Last Filed: 07/19/21 08:46> Orders Ordered: Discontinued Medications Sodium Chloride (Normal Saline 0.9%) 1,000 mls @ 150 mls/hr IV CONT MADHURI Last Infusion: 07/19/21 08:51 Dose: 0 mls/hr Documented by: Admin: 07/19/21 06:50 Dose: 150 mls/hr Documented by: JAN Morphine Sulfate (Morphine 4 Mg/Ml Inj) 4 mg IV NOW ONE Stop: 07/19/21 07:36 Last Admin: 07/19/21 07:42 Dose: 4 mg Documented by: SUZANNE Pantoprazole Sodium (Pantoprazole 40 Mg Vial) 40 mg IV NOW ONE Stop: 07/19/21 06:41 Last Admin: 07/19/21 06:50 Dose: 40 mg Documented by: JAN Vital Signs Vital signs: Vital Signs - 8 hr 07/19/21 06:30 07/19/21 07:29 Temperature 97.1 F L Pulse Rate 72 61 Respiratory Rate 18 23 Blood Pressure 185/98 H 164/80 H Pulse Oximetry 100 98 MDM - Abdominal Pain <Dennis Alejandro DO - Last Filed: 07/25/21 13:41> Lab Data Result diagrams: 07/19/21 06:45 07/19/21 06:45 Labs: Lab Results 07/19/21 07/19/21 Range/Units 06:45 06:45 WBC 5.6 (4.5-11.0) X10^3/uL RBC 3.71 L (4.5-5.9) X10^6/uL Hgb 11.3 L (13.5-17.5) g/dL Hct 34.9 L (41-53) % MCV 94.2 (80-100) fL MCH 30.4 (26-34) PG MCHC 32.2 (30-36) % RDW 14.8 (11.6-14.8) % Plt Count 156 (150-400) X10^3/uL Neut % (Auto) 37.5 L (50-75) % Lymph % (Auto) 44.5 H (25-40) % Ro[place] % (Auto) 11.7 (3-14) % Eos % (Auto) 4.9 H (2-4) % Baso % (Auto) 1.4 (0-2) % Neut # (Auto) 2100 (7103-6613) /uL Lymph # (Auto) 2500 (4291-8746) /uL Ro[place] # (Auto) 700 (0-900) /uL Eos # (Auto) 300 (0-450) /uL Baso # (Auto) 100 (0-100) /uL Sodium 139 (137-145) mmol/L Potassium 5.2 H (3.4-5.1) mmol/L Chloride 104 (98-107) mmol/L Carbon Dioxide 31 (22-32) mmol/L BUN 21 H (9-20) mg/dL Creatinine 1.57 H (0.66-1.25) mg/dL Estimated GFR 42.9 L (>60) mL/min BUN/Creatinine Ratio 13.4 (6-22) Glucose 100 (80-110) mg/dL Calcium 9.6 (8.4-10.2) mg/dL Total Bilirubin 0.9 (0.2-1.3) mg/dL AST 45 (17-59) IU/L ALT 28 (<50) IU/L Alkaline Phosphatase 47 (38-126) U/L Total Protein 7.6 (6.3-8.2) g/dL Albumin 4.4 (3.5-5.0) g/dL Globulin 3.2 (1.7-4.1) g/dL Albumin/Globulin Ratio 1.4 (1.0-2.8) Lipase 115 (23-300) U/L Point of care testing: Urine Dip Bedside Urine Glucose Negative Bedside Urine Bilirubin - Negative Bedside Urine Ketone - Negative Urine Specific [place] 1.025 Bedside Urine Occult Blood - Negative Bedside Urine pH 6.0 Bedside Urine Protein +/- 15 Bedside Urine Urobilinogen +/- 1mg Bedside Urine Nitrite - Negative Bedside Urine Leukocytes - Negative Esterase <Seamus Gant DO - Last Filed: 07/19/21 08:46> Lab Data Attestation: I reviewed the patient's lab results. Labs: Lab Results 07/19/21 07/19/21 Range/Units 06:45 06:45 WBC 5.6 (4.5-11.0) X10^3/uL RBC 3.71 L (4.5-5.9) X10^6/uL Hgb 11.3 L (13.5-17.5) g/dL Hct 34.9 L (41-53) % MCV 94.2 (80-100) fL MCH 30.4 (26-34) PG MCHC 32.2 (30-36) % RDW 14.8 (11.6-14.8) % Plt Count 156 (150-400) X10^3/uL Neut % (Auto) 37.5 L (50-75) % Lymph % (Auto) 44.5 H (25-40) % Ro[place] % (Auto) 11.7 (3-14) % Eos % (Auto) 4.9 H (2-4) % Baso % (Auto) 1.4 (0-2) % Neut # (Auto) 2100 (9772-0888) /uL Lymph # (Auto) 2500 (9951-4207) /uL Roane # (Auto) 700 (0-900) /uL Eos # (Auto) 300 (0-450) /uL Baso # (Auto) 100 (0-100) /uL Sodium 139 (137-145) mmol/L Potassium 5.2 H (3.4-5.1) mmol/L Chloride 104 (98-107) mmol/L Carbon Dioxide 31 (22-32) mmol/L BUN 21 H (9-20) mg/dL Creatinine 1.57 H (0.66-1.25) mg/dL Estimated GFR 42.9 L (>60) mL/min BUN/Creatinine Ratio 13.4 (6-22) Glucose 100 (80-110) mg/dL Calcium 9.6 (8.4-10.2) mg/dL Total Bilirubin 0.9 (0.2-1.3) mg/dL AST 45 (17-59) IU/L ALT 28 (<50) IU/L Alkaline Phosphatase 47 (38-126) U/L Total Protein 7.6 (6.3-8.2) g/dL Albumin 4.4 (3.5-5.0) g/dL Globulin 3.2 (1.7-4.1) g/dL Albumin/Globulin Ratio 1.4 (1.0-2.8) Lipase 115 (23-300) U/L Point of care testing: Urine Dip Bedside Urine Glucose Negative Bedside Urine Bilirubin - Negative Bedside Urine Ketone - Negative Urine Specific [place] 1.025 Bedside Urine Occult Blood - Negative Bedside Urine pH 6.0 Bedside Urine Protein +/- 15 Bedside Urine Urobilinogen +/- 1mg Bedside Urine Nitrite - Negative Bedside Urine Leukocytes - Negative Esterase Imaging Data Abdominal x-ray: Radiologist's Impression: [address] [id number] XRay Report Signed Patient: Jorje Garay MR#: [id number] : 1945 Acct:[id number] Age/Sex: 76 / M Date of Service: 07/19/21 Loc: ED Accession Number: [id number] ?? Procedure: XR acute abdomen series Ordering Provider: Dennis Alejandro D.O. PROCEDURE:? XR ACUTE ABDOMEN SERIES ? INDICATIONS:? abdominal pain ? TECHNIQUE:? One view chest and two views of the abdomen were acquired.? ? COMPARISON:? [facility], CT, CT ABDOMEN PELVIS W CON, 07/19/2021, 7:45.? [facility], CR, XR CHEST 2V, 03/30/2021, 15:41.? [facility], CR, XR ACUTE ABDOMEN SERIES, 03/23/2018, 14:27. ? FINDINGS:? ? Surgical changes and devices:? There is a cardiac pacemaker in expected position.? Cholecystectomy clips are noted. ? Chest:? Lungs are clear.? Heart size is normal.? No pleural effusions.? No pneumoperitoneum.? ? Abdomen:? Moderate amount of stool in colon.? Bowel gas pattern is nonobstructive.? No suspicious calcifications.? Visualized solid organ contours appear normal.? ? Bones:? No suspicious bony lesions.? ? IMPRESSION:? Moderate amount of stool in colon.? Nonobstructive bowel gas pattern. ? ? ? No significant discrepancy with the cage shift manager radiology preliminary report. ? ? Dictated by: Ab Lofton M.D. on 07/19/2021 at 8:11 ? ? Approved by: Ab Lofton M.D. on 07/19/2021 at 8:12?? CT scan - abdomen/pelvis: Radiologist's Impression: [address] [address] [address] Scan Report Signed Patient: Jorje Garay MR#: [id number] : 1945 Acct:[id number] Age/Sex: 76 / M Date of Service: 07/19/21 Loc: ED Accession Number: [id number] ?? Procedure: CT abdomen pelvis w con Ordering Provider: Seamus Gant D.O. PROCEDURE:? CT ABDOMEN PELVIS W CON ? INDICATIONS:? generalized abd pain ? TECHNIQUE:? After the administration of IV contrast, axial sections were acquired from the lung bases to the pubic symphysis.? Coronal and sagittal reformats were performed.? For radiation dose reduction, the following was used:? automated exposure control, adjustment of mA and/or kV according to patient size. ? COMPARISON:? [facility], CT, ABDOMEN/PELVIS WITH CONTRAST, 05/29/2010, 8:51.? [facility], CT, ABDOMEN/PELVIS WITH CONTRAST, 05/26/2008, 11:27.? [facility], CT, CT ANGIO CHEST ABDOMEN PELVIS, 10/07/2018, 9:09.? [facility], CT, CT KIDNEY URETER BLADDER (KUB), 01/04/2019, 4:08.? [facility], CR, XR ACUTE ABDOMEN SERIES, 07/19/2021, 6:33.? [facility], CR, XR CHEST 2V, 03/30/2021, 15:41. ? FINDINGS:? Image quality:? Excellent.? ? Lung bases:? No focal infiltrate or pleural effusion.? Small hiatal hernia. Heart:? Heart size is normal.? There is a cardiac pacemaker. ? ? ABDOMEN: Liver:? Unremarkable.? ? Gallbladder:? Surgically resected.? ? Biliary ducts:? Unremarkable.? ? Pancreas:? Unremarkable.? ? Spleen:? Unremarkable.? ? Adrenal Glands:? Unremarkable.? ? Kidneys and Ureters:? Normal size.? Small knee indeterminate cortical nodules are seen bilaterally.? No renal stone or hydronephrosis.? ? ? Stomach and Bowel:? Stomach, small bowel loops, and colon are normal in caliber.? Normal appendix. Peritoneum:? No abnormal intraperitoneal fluid.? No free air.? ? Ventral Wall: ? No hernia.? Abdominal Nodes:? No retroperitoneal or mesenteric adenopathy by size criteria.? Vessels:? Aorta and inferior vena cava are normal in size.? ? PELVIS: Pelvic Organs:? Unremarkable.? ? Bladder:? Bladder wall is mildly thickened.? ? Pelvic Nodes: No enlarged lymph nodes.? Miscellaneous: No inguinal hernias are seen. ? ? ? Bones:? Degenerative disc and facet disease in lumbar spine. ? ? IMPRESSION:? ? 1. Mild bladder wall thickening suggesting cystitis.? Recommend clinical correlation. 2. Small indeterminate cortical nodules are seen in kidneys bilaterally.? Statistically, these are most likely small renal cysts. 3. Cholecystectomy.? ? ? Dictated by: Ab Lofton M.D. on 07/19/2021 at 8:13 ? ? Approved by: Ab Lofton M.D. on 07/19/2021 at 8:23? MDM Narrative Medical decision making narrative: Dr gant: Received turned over. Reviewed patient's history and physical exam. The patient's labs and radiologic studies performed up to this point. Performed my own independent exam. CT scan ordered for further evaluation his abdominal discomfort. His labs are unremarkable. No signs of pancreatitis. He has had his gallbladder removed in his physical exam is not consistent with hepatobiliary pathology. His urine shows no signs of infection and he has no urinary symptoms so despite the findings that may be consistent with cystitis on the CT scan clinically he does not have a urinary tract infection. No signs of any other infectious nor surgical etiology noted on the CT scan. He has no skin changes. I did have discussion with the patient regarding his symptoms. He was informed that I did not have a specific etiology. He expressed understanding of this. Will provide symptom treatment for now. He was given strict return precautions follow-up instructions. He expressed understanding and agreement. Discharge Plan Departure Patient Disposition: Home Clinical Impression: Abdominal pain Instructions: DI for Abdominal Pain-Adult Activity Restrictions/Additional Instructions: I do recommend that you continue to take all of your medications as directed. Keep all of your scheduled medical appointments and return to the emergency department for any new or worsening symptoms. Prescriptions: New tramadol 50 mg tablet 50 mg PO Q8H PRN (Reason: pain) Qty: 10 0RF No Action multivitamin Tablet 1 tab PO DAILY Qty: 0 0RF aspirin 81 mg Tablet,Delayed Release (Dr/Ec) 81 mg PO DAILY Qty: 0 0RF gabapentin [Neurontin] 300 MG capsule 300 mg PO BID Qty: 0 0RF nabumetone 500 MG tablet 500 mg PO QDAY Qty: 0 0RF alprazolam 0.25 MG tablet 0.25 mg PO TIDP PRN (Reason: Anxiety) Qty: 0 0RF diclofenac sodium [Voltaren] 1 % gel 1 john Topical QID PRN (Reason: pain) Qty: 0 0RF sucralfate 1 GM tablet 1 gm PO ACHS Qty: 360 3RF tramadol 50 MG tablet 50 mg PO PRN PRN (Reason: pain) Qty: 0 0RF amitriptyline 25 MG tablet 25 mg PO BEDTIME Qty: 0 0RF clorazepate dipotassium 3.75 mg tablet 3.75 mg PO BID Qty: 180 1RF (DME) DISABLED PARKING PERMIT Qty: 1 0RF Rx Instructions: I FIND THIS PATIENT TO BE MEDICALLY DISABLED AND QUALIFIED FOR DISABLE PARKING INDICATED, AND SIGNED ON THE ACCOMPANYING [employer] APPLICATION FOR INDIVIDUALS pantoprazole 40 mg tablet,delayed release (DR/EC) 40 mg PO BID Qty: 180 3RF sertraline 50 mg tablet 100 mg PO BEDTIME Qty: 180 3RF lisinopril 5 mg tablet 5 mg PO DAILY Qty: 90 3RF levothyroxine [Synthroid] 50 mcg tablet 50 mcg PO DAILY Qty: 90 3RF diclofenac sodium 75 mg tablet,delayed release (DR/EC) 75 mg PO BIDP PRN (Reason: pain) Qty: 180 1RF sildenafil [Viagra] 100 mg tablet See Rx Instructions PO .COMPLEX PRN (Reason: erectile dysfunction) Qty: 30 11RF Dose Instruction: 1/2 to 1 tab PO 1 hr prior to sexual activity PRN; Rx Instructions: 1/2 to 1 tab PO 1 hr prior to sexual activity PRN; Eliquis 5 mg tablet 5 mg PO BID Qty: 180 1RF Eliquis 5 mg tablet 5 mg PO BID Qty: 14 0RF Rx Instructions: Short supply bupropion HCl 150 mg tablet extended release 24 hr 150 mg PO QAM Qty: 30 3RF Hold Instructions: not sure helping ibuprofen 600 mg tablet 600 mg PO QID PRN (Reason: pain) Qty: 20 0RF Rx Instructions: do not take with other NSAIDs isosorbide mononitrate 30 mg tablet extended release 24 hr 30 mg PO DAILY 0RF hydroxychloroquine 200 mg tablet 200 mg PO BID 0RF SF 5000 Plus 1.1 % cream 1 applic Dental DIRECTED 0RF Label Comments: BRUSH ON TEETH ONCE A DAY SPIT OUT DO NOT RINSE colchicine 0.6 mg capsule 0.6 mg PO BID 0RF tamsulosin [Flomax] 0.4 MG capsule 0.8 mg PO DAILY 0RF nitroglycerin 0.4 mg tablet, sublingual 0.4 mg sublingual Q5-15M PRN (Reason: chest pain) Qty: 30 0RF Rx Instructions: do not exceed 3 doses per episode Referrals: Brayan Blackwell MD [Primary Care Provider] -
[2021-07-19] MEDS: SODIUM CHLORIDE 0.9% 1,000 ML 150 ML IV (06:50)
[2021-07-19] MEDS: PANTOPRAZOLE 40 MG VIAL IV (06:50)
[2021-07-19 07:03] LABS: Add Manual Diff / Slide Review NO; Basophils Absolute Auto 100 /uL (0-100); Basophils Percent Auto 1.4 % (0-2); Eosinophils Absolute Auto 300 /uL (0-450); Eosinophils Percent Auto 4.9 % (2-4); Hematocrit 34.9 % (41-53); Hemoglobin 11.3 g/dL (13.5-17.5); Lymphocytes Absolute Auto 2500 /uL (1100-4500); Lymphocytes Percent Auto 44.5 % (25-40); Mean Corpuscular HGB Conc 32.2 % (30-36); Mean Corpuscular Hemoglobin 30.4 PG (26-34); Mean Corpuscular Volume 94.2 fL (80-100); Monocytes Absolute Auto 700 /uL (0-900); Monocytes Percent Auto 11.7 % (3-14); Neutrophils Absolute Auto 2100 /uL (1500-7000); Neutrophils Percent Auto 37.5 % (50-75); Platelet Count 156 X10^3/uL (150-400); Red Blood Cell Count 3.71 X10^6/uL (4.5-5.9); Red Cell Distribution Width 14.8 % (11.6-14.8); White Blood Cell Count 5.6 X10^3/uL (4.5-11.0)
[2021-07-19 07:20] LABS: Alanine Aminotransferase 28 IU/L (<50); Albumin 4.4 g/dL (3.5-5.0); Albumin Globulin Ratio 1.4 (1.0-2.8); Alkaline Phosphatase 47 U/L (38-126); Aspartate Aminotransferase 45 IU/L (17-59); BUN Creatinine Ratio 13.4 (6-22); Bilirubin Total 0.9 mg/dL (0.2-1.3); Blood Urea Nitrogen 21 mg/dL (9-20); Calcium 9.6 mg/dL (8.4-10.2); Carbon Dioxide 31 mmol/L (22-32); Chloride 104 mmol/L (98-107); Estimated Glomerular Filt Rate 42.9 mL/min (>60); Globulin 3.2 g/dL (1.7-4.1); Glucose 100 mg/dL (80-110); HEMOLYSIS 112 (0-50); Lipase 115 U/L (23-300); Potassium 5.2 mmol/L (3.4-5.1); Sodium 139 mmol/L (137-145); Total Protein 7.6 g/dL (6.3-8.2)
[2021-07-19 07:29] VITALS: BP 164/80; PULSE 61; RESP 23; O2SAT 98
[2021-07-19 07:30] VITALS: PULSE 61; O2SAT 99
[2021-07-19 07:31] VITALS: BP 164/80; PULSE 60; O2SAT 98
[2021-07-19] MEDS: MORPHINE 4 MG/ML INJ IV (07:42)
--- NOTE | 2021-07-19 07:43 | DI.CT.S_ITS ---
PROCEDURE: CT ABDOMEN PELVIS W CON INDICATIONS: generalized abd pain TECHNIQUE: After the administration of IV contrast, axial sections were acquired from the lung bases to the pubic symphysis. Coronal and sagittal reformats were performed. For radiation dose reduction, the following was used: automated exposure control, adjustment of mA and/or kV according to patient size. COMPARISON: [facility], CT, ABDOMEN/PELVIS WITH CONTRAST, 05/29/2010, 8:51. [facility], CT, ABDOMEN/PELVIS WITH CONTRAST, 05/26/2008, 11:27. [facility], CT, CT ANGIO CHEST ABDOMEN PELVIS, 10/07/2018, 9:09. [facility], CT, CT KIDNEY URETER BLADDER (KUB), 01/04/2019, 4:08. [facility], CR, XR ACUTE ABDOMEN SERIES, 07/19/2021, 6:33. [facility], CR, XR CHEST 2V, 03/30/2021, 15:41. FINDINGS: Image quality: Excellent. Lung bases: No focal infiltrate or pleural effusion. Small hiatal hernia. Heart: Heart size is normal. There is a cardiac pacemaker. ABDOMEN: Liver: Unremarkable. Gallbladder: Surgically resected. Biliary ducts: Unremarkable. Pancreas: Unremarkable. Spleen: Unremarkable. Adrenal Glands: Unremarkable. Kidneys and Ureters: Normal size. Small knee indeterminate cortical nodules are seen bilaterally. No renal stone or hydronephrosis. Stomach and Bowel: Stomach, small bowel loops, and colon are normal in caliber. Normal appendix. Peritoneum: No abnormal intraperitoneal fluid. No free air. Ventral Wall: No hernia. Abdominal Nodes: No retroperitoneal or mesenteric adenopathy by size criteria. Vessels: Aorta and inferior vena cava are normal in size. PELVIS: Pelvic Organs: Unremarkable. Bladder: Bladder wall is mildly thickened. Pelvic Nodes: No enlarged lymph nodes. Miscellaneous: No inguinal hernias are seen. Bones: Degenerative disc and facet disease in lumbar spine. IMPRESSION: 1. Mild bladder wall thickening suggesting cystitis. Recommend clinical correlation. 2. Small indeterminate cortical nodules are seen in kidneys bilaterally. Statistically, these are most likely small renal cysts. 3. Cholecystectomy. Dictated by: Ab Lofton M.D. on 07/19/2021 at 8:13 Approved by: Ab Lofton M.D. on 07/19/2021 at 8:23
[2021-07-19 07:45] VITALS: PULSE 63; RESP 21
[2021-07-19 08:06] VITALS: BP 183/93
== END 2021-07-19 09:04 | disposition home or self-care (01) ==
PROVIDERS: Emergency Medicine; Emergency Provider Emergency Medicine; PCP Internal Medicine
DX: R10.32 Left lower quadrant pain (principal); Z87.891 Personal history of nicotine dependence; Z88.5 Allergy status to narcotic agent
CPT/HCPCS: 36415; 74022; 74177; 80053; 81003; 83690; 85025; 96361; 96374; 96375; 99284; C9113; J2270; Q9967

== ENCOUNTER → 2021-09-12 08:57 | Outpatient (CLI) | payer MEDICARE, OTHER, SELFPAY ==
[2021-09-12 09:31] LABS: COVID19 -Nasal RAPID Negative (Negative)
== END ==
PROVIDERS: PCP Internal Medicine; Referring Provider Internal Medicine; Visit Provider Internal Medicine
DX: Z20.822 Contact with and (suspected) exposure to COVID-19 (principal)
CPT/HCPCS: 87635; C9803

== ENCOUNTER → 2021-09-13 10:40 | Outpatient (CLI) | payer MEDICARE, OTHER, SELFPAY ==
--- NOTE | 2021-09-19 10:11 | PM.PFT.1 ---
Pulmonary Function Test Referral & Results Date Patient Seen: 09/13/21 Requesting provider: Brayan Blackwell Indication: Post COVID Results: The spirometry demonstrates an FVC of 3.05 L which is 70% of predicted. The FEV1 was measured at 2.52 L which is 78% of predicted. The FEV1/FVC ratio was 83 which is 110% of predicted. Following the administration of bronchodilator there was a 10% improvement in FEV1 and a 61% improvement in FEF 25-75%. Lung volumes show an SVC of 3.26 L which is 65% of predicted. The diffusing capacity was measured at 18.64 which is 49% of predicted. No hemoglobin value was provided, so no correction for potential anemia could be made, if appropriate. The maximum voluntary ventilation was reduced Interpretation: This study demonstrates mild obstructive lung disease based on reduction FEV1 although FEV1/FVC ratio is preserved there is evidence of benefit following bronchodilator as above particularly small airway flow There is evidence of moderate restrictive lung disease based on reduction SVC. This may explain the abnormality in FEV1 above There is also a moderately severe reduction in diffusing capacity suggesting significant disease at the capillary alveolar level Compared to PFTs performed in March 2021, current study is essentially unchanged
== END ==
PROVIDERS: PCP Internal Medicine; Referring Provider Internal Medicine; Visit Provider Internal Medicine
DX: R06.02 Shortness of breath (principal)
CPT/HCPCS: 94060; 94070; 94726; 94729

== ENCOUNTER 2021-11-30 20:59 | Emergency (ER) | payer MEDICARE, OTHER, SELFPAY ==
[2021-11-30] VITALS (8 sets, daily range): BP systolic 129–148; BP diastolic 73–94; PULSE 60–67; RESP 17–36; TEMP 36.3; O2SAT 95–100; BMI 30.2
--- NOTE | 2021-11-30 21:31 | DI.RAD.S_ITS ---
PROCEDURE: XR CHEST 1V INDICATIONS: chest pain TECHNIQUE: One view of the chest was acquired. COMPARISON: [facility], CR, XR CHEST 2V, 03/30/2021, 15:41. FINDINGS: Surgical changes and devices: Left chest wall AICD demonstrated with leads projecting over the right atrium and right ventricle, including a new right atrial lead. Lungs and pleura: Lungs are clear. No pleural effusions or pneumothorax. Mediastinum: Mediastinal contours are unchanged. Heart size is enlarged. Bones and chest wall: No suspicious bony lesions. Overlying soft tissues appear unremarkable. IMPRESSION: 1. No definite acute cardiopulmonary disease. Dictated by: kO Ribeiro M.D. on 11/30/2021 at 23:04 Approved by: Ok Ribeiro M.D. on 11/30/2021 at 23:06
[2021-11-30 21:56] LABS: COVID19 -Nasal RAPID Negative (Negative)
[2021-11-30 22:44] LABS: Add Manual Diff / Slide Review NO; Basophils Absolute Auto 0 /uL (0-100); Basophils Percent Auto 0.7 % (0-2); Eosinophils Absolute Auto 200 /uL (0-450); Eosinophils Percent Auto 4.1 % (2-4); Hemoglobin 11.4 g/dL (13.5-17.5); Lymphocytes Absolute Auto 1700 /uL (1100-4500); Lymphocytes Percent Auto 36.4 % (25-40); Mean Corpuscular HGB Conc 33.4 % (30-36); Mean Corpuscular Volume 92.8 fL (80-100); Monocytes Absolute Auto 600 /uL (0-900); Monocytes Percent Auto 13.7 % (3-14); Neutrophils Absolute Auto 2100 /uL (1500-7000); Neutrophils Percent Auto 45.1 % (50-75); Platelet Count 177 X10^3/uL (150-400); Red Blood Cell Count 3.67 X10^6/uL (4.5-5.9); Red Cell Distribution Width 13.7 % (11.6-14.8); White Blood Cell Count 4.7 X10^3/uL (4.5-11.0)
--- NOTE | 2021-11-30 22:53 | ED.CHESTPAIN ---
HPI - Chest Pain General Chief Complaint: Chest Pain Stated Complaint: Body aches Time Seen by Provider: 11/30/21 22:21 Source: patient Mode of arrival: Ambulatory Limitations: no limitations History of Present Illness HPI narrative: 68-year-old male who is here for evaluation of general is a C and some lightheadedness and not feeling very well. He states that earlier this week he started to have flu-like symptoms but earlier today things seemed to get worse. He denied chest pain, no shortness of breath, no abdominal pain, no urinary symptoms no headaches no sore throat. He states that after arrival here to the emergency department he does feel somewhat better. Has not tried anything for symptoms prior to arrival. Related Data Home Medications Medication Instructions Recorded Confirmed multivitamin 1 tab PO DAILY ##0 02/13/12 10/19/21 aspirin 81 mg tablet,delayed 81 mg PO DAILY ##0 07/23/12 10/19/21 release gabapentin 300 mg capsule 300 mg PO BID ##0 02/23/16 10/19/21 (Neurontin) nabumetone 500 mg tablet 500 mg PO QDAY #0 tabs 02/23/16 10/19/21 alprazolam 0.25 mg tablet 0.25 mg PO TIDP PRN Anxiety ##0 11/22/16 10/19/21 diclofenac sodium 1 % topical gel 1 john topical QID PRN pain ##0 11/22/16 10/19/21 (Voltaren) amitriptyline 25 mg tablet 25 mg PO BEDTIME ##0 08/10/17 10/19/21 tramadol 50 mg tablet 50 mg PO PRN PRN pain ##0 08/10/17 10/19/21 colchicine 0.6 mg capsule 0.6 mg PO BID 10/07/18 10/19/21 fluoride (sodium) 1.1 % dental 1 applic dental DIRECTED 10/07/18 10/19/21 cream hydroxychloroquine 200 mg tablet 200 mg PO BID 10/07/18 10/19/21 tamsulosin 0.4 mg capsule (Flomax) 0.8 mg PO DAILY 10/07/18 10/19/21 isosorbide mononitrate 30 mg 30 mg PO DAILY 07/19/19 10/19/21 tablet,extended release 24 hr Previous Rx's Medication Instructions Recorded sucralfate 1 gram tablet 1 gm PO ACHS #360 tabs 02/24/17 clorazepate dipotassium 3.75 mg 3.75 mg PO BID #180 tabs 02/03/18 tablet ibuprofen 600 mg tablet 600 mg PO QID PRN pain #20 tabs 02/22/18 bupropion HCl 150 mg 24 hr tablet, 150 mg PO QAM #30 tabs 10/08/18 extended release DISABLED PARKING PERMIT #1 ea 05/04/20 nitroglycerin 0.4 mg sublingual 0.4 mg sublingual Q5-15M PRN chest 08/23/20 tablet pain #30 tabs pantoprazole 40 mg tablet,delayed 40 mg PO BID #180 tabs 10/10/20 release lisinopril 5 mg tablet 5 mg PO DAILY #90 tabs 01/01/21 levothyroxine 50 mcg tablet 50 mcg PO DAILY #90 tabs 01/02/21 (Synthroid) sildenafil 100 mg tablet (Viagra) See Rx Instructions PO .COMPLEX 05/08/21 PRN erectile dysfunction #30 tabs apixaban 5 mg tablet (Eliquis) 5 mg PO BID #180 tabs 07/13/21 tramadol 50 mg tablet 50 mg PO Q8H PRN pain #10 tabs 07/19/21 diclofenac sodium 75 mg 75 mg PO BIDP PRN pain #180 tabs 10/15/21 tablet,delayed release sertraline 50 mg tablet 100 mg PO BEDTIME #180 tabs 10/15/21 Allergies Allergy/AdvReac Type Severity Reaction Status Date / Time codeine Allergy Mild HIVES Verified 10/19/21 11:09 Review of Systems Constitutional Constitutional: Reports body ache(s), Reports chills, Reports fatigue and Denies headache(s) Eyes Eyes: Reports system reviewed and no additional complaints, except as documented ENT Ears, Nose, Mouth, and Throat: Denies vertigo, Denies headache(s), Denies disequilibrium and Denies sore throat Cardiovascular Cardiovascular: Denies chest pain, Denies rapid heart rate and Denies dyspnea Respiratory Respiratory: Denies cough and Denies dyspnea Gastrointestinal Gastrointestinal: Denies abdominal pain, Denies change in bowel habits, Denies constipation, Denies nausea and Denies vomiting Genitourinary Genitourinary: Denies dysuria Musculoskeletal Musculoskeletal: Denies back pain and Reports myalgias Integumentary/Breasts Skin/Breast: Denies rash Neurologic Neurologic: Denies confusion, Denies vertigo, Denies headache(s) and Denies disequilibrium Psychiatric Psychiatric: Denies confusion Endocrine Endocrine: Reports fatigue Hematologic/Lymphatic On Anticoagulants: Yes Allergic/Immunologic Allergic/Immunologic: Reports system reviewed and no additional complaints, except as documented Patient History Medical History Anxiety (10/25/13) Cardiomyopathy (07/24/15) Chest pain Chronic anemia (04/16/16) Chronic renal failure, stage 2 (mild) (07/24/15) COVID-19 Gastroesophageal reflux disease without esophagitis (01/23/11) History of hematuria Leukopenia (04/16/16) Malignant neoplasm of prostate (07/11/14) Mixed hyperlipidemia (01/23/11) Palpitations Pneumonia due to COVID-19 virus Pulmonary embolism Ventricular tachycardia (01/10/14) Surgical History (Updated 08/16/21 @ 16:41 by Brayan Blackwell MD) Anesthesia Implantable cardioverter-defibrillator (ICD) in situ Status post cholecystectomy Family History Brother Family history of diabetes mellitus (DM) Father No problems noted. Sister No problems noted. Social History Smoking Status: Former smoker Smoking Status: Former smoker alcohol intake frequency: 0-2 drinks per day Alcohol type: wine Substance Use Type: does not use Exam Initial Vital Signs Initial Vital Signs: Vital Signs Temperature 97.3 F L 11/30/21 21:22 Pulse Rate 67 11/30/21 21:22 Respiratory Rate 17 11/30/21 21:22 Blood Pressure 129/73 11/30/21 21:22 Pulse Oximetry 97 11/30/21 21:22 Oxygen Delivery Method 11/30/21 21:22 Const General: cooperative and comfortable HENMT Head: normal to inspection and normocephalic Resp Effort & Inspection: normal respiratory effort Auscultation: clear to auscultation bilaterally Cardio Rate: regular rate Rhythm: regular rhythm GI Palpation: soft and No tender Percussion: normal to percussion Skin General: no rashes or lesions noted Neuro General: patient alert, patient awake, patient oriented x3 and moves all extremities Extrem General: normal to inspection and capillary refill normal Psych Appearance: grossly normal and well kempt Course Orders Ordered: ED Orders 11/30/21 21:31 XR chest 1V Stat 11/30/21 21:35 COVID19 -Nasal RAPID/Pre-Proc Stat 11/30/21 21:37 EKG-12 Lead Stat 11/30/21 22:26 Complete Blood Count AUTO DIFF Stat Comprehensive Metabolic Panel Stat Lipase Stat Magnesium Stat Troponin & CK Cardiac Panel Stat Vital Signs Vital signs: Vital Signs - 8 hr 11/30/21 21:22 11/30/21 22:10 11/30/21 22:11 Temperature 97.3 F L Pulse Rate 67 60 Respiratory Rate 17 24 Blood Pressure 129/73 148/81 H Pulse Oximetry 97 100 Oxygen Delivery Method Room Air 11/30/21 22:30 11/30/21 22:31 11/30/21 22:31 Temperature Pulse Rate 60 60 Respiratory Rate 35 H 36 H Blood Pressure 147/94 H Pulse Oximetry 98 97 Oxygen Delivery Method 11/30/21 23:00 11/30/21 23:00 11/30/21 23:30 Temperature Pulse Rate 60 60 Respiratory Rate 22 22 Blood Pressure 147/81 H Pulse Oximetry 95 97 Oxygen Delivery Method 11/30/21 23:31 11/30/21 23:31 12/01/21 00:00 Temperature Pulse Rate 60 Respiratory Rate 29 H Blood Pressure 138/86 138/86 Pulse Oximetry 97 Oxygen Delivery Method 12/01/21 00:00 12/01/21 00:30 12/01/21 00:31 Temperature Pulse Rate 61 60 60 Respiratory Rate 29 H 34 H 20 Blood Pressure Pulse Oximetry 96 99 98 Oxygen Delivery Method 12/01/21 00:31 Temperature Pulse Rate Respiratory Rate Blood Pressure 151/71 H Pulse Oximetry Oxygen Delivery Method MDM - Chest Pain Lab Data Attestation: I reviewed the patient's lab results. Result diagrams: 11/30/21 22:26 11/30/21 22:26 Labs: Lab Results 11/30/21 11/30/21 11/30/21 Range/Units 21:35 22:26 22:26 WBC 4.7 (4.5-11.0) X10^3/uL RBC 3.67 L (4.5-5.9) X10^6/uL Hgb 11.4 L (13.5-17.5) g/dL Hct 34.0 L (41-53) % MCV 92.8 (80-100) fL MCH 31.0 (26-34) PG MCHC 33.4 (30-36) % RDW 13.7 (11.6-14.8) % Plt Count 177 (150-400) X10^3/uL Neut % (Auto) 45.1 L (50-75) % Lymph % (Auto) 36.4 (25-40) % [place] % (Auto) 13.7 (3-14) % Eos % (Auto) 4.1 H (2-4) % Baso % (Auto) 0.7 (0-2) % Neut # (Auto) 2100 (2233-5176) /uL Lymph # (Auto) 1700 (7241-6082) /uL [place] # (Auto) 600 (0-900) /uL Eos # (Auto) 200 (0-450) /uL Baso # (Auto) 0 (0-100) /uL Sodium 136 L (137-145) mmol/L Potassium 3.9 (3.4-5.1) mmol/L Chloride 100 (98-107) mmol/L Carbon Dioxide 29 (22-32) mmol/L BUN 27 H (9-20) mg/dL Creatinine 2.12 H (0.66-1.25) mg/dL Estimated GFR 31 L (>60) mL/min BUN/Creatinine Ratio 12.7 (6-22) Glucose 91 (80-110) mg/dL Calcium 9.0 (8.4-10.2) mg/dL Magnesium 2.0 (1.6-2.3) mg/dL Total Bilirubin 0.7 (0.2-1.3) mg/dL AST 36 (17-59) IU/L ALT 25 (<50) IU/L Alkaline Phosphatase 71 (38-126) U/L Total Creatine Kinase 182 H (55-170) U/L CK-MB (CK-2) 0.28 (<2.37) ng/mL CK-MB (CK-2) Rel Index 0.2 L (1.5-5.0) % Troponin I < 0.012 (0.01-0.034) ng/mL Total Protein 7.5 (6.3-8.2) g/dL Albumin 4.3 (3.5-5.0) g/dL Globulin 3.2 (1.7-4.1) g/dL Albumin/Globulin Ratio 1.3 (1.0-2.8) Lipase 119 (23-300) U/L SARS-CoV-2 (PCR) Negative (Negative) Imaging Data Chest x-ray: Radiologist's Impression: [address] [address] XRay Report Signed Patient: Jorje Garay MR#: [id number] : 1945 Acct:[id number] Age/Sex: 76 / M Date of Service: 11/30/21 Loc: ED Accession Number: [id number] ?? Procedure: XR chest 1V Ordering Provider: Seamus Gant D.O. PROCEDURE:? XR CHEST 1V ? INDICATIONS:? chest pain ? TECHNIQUE:? One view of the chest was acquired.? ? COMPARISON:? [facility], SUSAN, XR CHEST 2V, 03/30/2021, 15:41. ? FINDINGS:? ? Surgical changes and devices:? Left chest wall AICD demonstrated with leads projecting over the right atrium and right ventricle, including a new right atrial lead. ? Lungs and pleura:? Lungs are clear.? No pleural effusions or pneumothorax.? ? Mediastinum:? Mediastinal contours are unchanged.? Heart size is enlarged. ? Bones and chest wall:? No suspicious bony lesions.? Overlying soft tissues appear unremarkable.? ? IMPRESSION:? ? 1. No definite acute cardiopulmonary disease.? ? ? Dictated by: Ok Ribeiro M.D. on 11/30/2021 at 23:04 ? ? Approved by: Ok Ribeiro M.D. on 11/30/2021 at 23:06?? ECG Data Attestation: I personally reviewed and interpreted this ECG as follows: Interpretation: Atrially paced Ventricular rate is [address] T wave changes MDM Narrative Medical decision making narrative: Vital signs are unremarkable, labs unremarkable, EKG is unremarkable, nonfocal exam. Afebrile. No indication to start any antibiotics based off his exam today. Patient is not dehydrated. No chest pain. No shortness of breath. No abdominal pain. We will hold on further workup for now. Patient was given return precautions. He expressed understanding and agreement. Discharge Plan Departure Patient Disposition: Home Clinical Impression: Malaise and fatigue Activity Restrictions/Additional Instructions: I do recommend that you contact your primary doctor for a follow-up. Continue to take all of your medications as directed. Return to the emergency department for any new or worsening symptoms. Prescriptions: No Action multivitamin Tablet 1 tab PO DAILY Qty: 0 aspirin 81 mg Tablet,Delayed Release (Dr/Ec) 81 mg PO DAILY Qty: 0 gabapentin [Neurontin] 300 MG capsule 300 mg PO BID Qty: 0 nabumetone 500 MG tablet 500 mg PO QDAY Qty: 0 alprazolam 0.25 MG tablet 0.25 mg PO TIDP PRN (Reason: Anxiety) Qty: 0 diclofenac sodium [Voltaren] 1 % gel 1 john Topical QID PRN (Reason: pain) Qty: 0 sucralfate 1 GM tablet 1 gm PO ACHS Qty: 360 3RF tramadol 50 MG tablet 50 mg PO PRN PRN (Reason: pain) Qty: 0 amitriptyline 25 MG tablet 25 mg PO BEDTIME Qty: 0 clorazepate dipotassium 3.75 mg tablet 3.75 mg PO BID Qty: 180 1RF (DME) DISABLED PARKING PERMIT Qty: 1 0RF Rx Instructions: I FIND THIS PATIENT TO BE MEDICALLY DISABLED AND QUALIFIED FOR DISABLE PARKING INDICATED, AND SIGNED ON THE ACCOMPANYING [employer]ARK APPLICATION FOR INDIVIDUALS pantoprazole 40 mg tablet,delayed release (DR/EC) 40 mg PO BID Qty: 180 3RF lisinopril 5 mg tablet 5 mg PO DAILY Qty: 90 3RF levothyroxine [Synthroid] 50 mcg tablet 50 mcg PO DAILY Qty: 90 3RF sildenafil [Viagra] 100 mg tablet See Rx Instructions PO .COMPLEX PRN (Reason: erectile dysfunction) Qty: 30 11RF Dose Instruction: 1/2 to 1 tab PO 1 hr prior to sexual activity PRN; Rx Instructions: 1/2 to 1 tab PO 1 hr prior to sexual activity PRN; Eliquis 5 mg tablet 5 mg PO BID Qty: 180 1RF diclofenac sodium 75 mg tablet,delayed release (DR/EC) 75 mg PO BIDP PRN (Reason: pain) Qty: 180 1RF sertraline 50 mg tablet 100 mg PO BEDTIME Qty: 180 3RF bupropion HCl 150 mg tablet extended release 24 hr 150 mg PO QAM Qty: 30 3RF Hold Instructions: not sure helping ibuprofen 600 mg tablet 600 mg PO QID PRN (Reason: pain) Qty: 20 0RF Rx Instructions: do not take with other NSAIDs isosorbide mononitrate 30 mg tablet extended release 24 hr 30 mg PO DAILY hydroxychloroquine 200 mg tablet 200 mg PO BID SF 5000 Plus 1.1 % cream 1 applic Dental DIRECTED Label Comments: BRUSH ON TEETH ONCE A DAY SPIT OUT DO NOT RINSE colchicine 0.6 mg capsule 0.6 mg PO BID tamsulosin [Flomax] 0.4 MG capsule 0.8 mg PO DAILY nitroglycerin 0.4 mg tablet, sublingual 0.4 mg sublingual Q5-15M PRN (Reason: chest pain) Qty: 30 0RF Rx Instructions: do not exceed 3 doses per episode tramadol 50 mg tablet 50 mg PO Q8H PRN (Reason: pain) Qty: 10 0RF Referrals: Brayan Blackwell MD [Primary Care Provider] - Visit Report Forms: Patient Portal/API
[2021-11-30 22:58] LABS: HEMOLYSIS < 15 (0-50); Troponin I < 0.012 ng/mL (0.01-0.034)
[2021-12-01] VITALS: BP 138/86; PULSE 61; RESP 29; O2SAT 96
[2021-12-01 00:22] LABS: Alanine Aminotransferase 25 IU/L (<50); Albumin 4.3 g/dL (3.5-5.0); Albumin Globulin Ratio 1.3 (1.0-2.8); Alkaline Phosphatase 71 U/L (38-126); Aspartate Aminotransferase 36 IU/L (17-59); BUN Creatinine Ratio 12.7 (6-22); Bilirubin Total 0.7 mg/dL (0.2-1.3); Blood Urea Nitrogen 27 mg/dL (9-20); Carbon Dioxide 29 mmol/L (22-32); Chloride 100 mmol/L (98-107); Creatine Kinase 182 U/L (55-170); Estimated Glomerular Filt Rate 31 mL/min (>60); Globulin 3.2 g/dL (1.7-4.1); Glucose 91 mg/dL (80-110); Lipase 119 U/L (23-300); Potassium 3.9 mmol/L (3.4-5.1); Sodium 136 mmol/L (137-145); Total Protein 7.5 g/dL (6.3-8.2)
[2021-12-01 00:30] VITALS: PULSE 60; RESP 34; O2SAT 99
[2021-12-01 00:31] VITALS: BP 151/71; PULSE 60; RESP 20; O2SAT 98
[2021-12-01 00:38] LABS: CKMB % Relative Index 0.2 % (1.5-5.0); Creatine Kinase MB 0.28 ng/mL (<2.37)
== END 2021-12-01 00:41 | disposition home or self-care (01) ==
PROVIDERS: Emergency Provider Emergency Medicine; PCP Internal Medicine
DX: R53.83 Other fatigue (principal); R53.81 Other malaise; R07.9 Chest pain, unspecified; Z20.822 Contact with and (suspected) exposure to COVID-19
CPT/HCPCS: 36415; 71045; 80053; 82550; 82553; 83690; 83735; 84484; 85025; 87635; 93005; 93010; 99284; C9803

== ENCOUNTER → 2021-12-04 10:00 | Outpatient (CLI) | payer MEDICARE, OTHER, SELFPAY ==
[2021-12-04 10:49] LABS: Add Manual Diff / Slide Review NO; Basophils Absolute Auto 0 /uL (0-100); Basophils Percent Auto 0.7 % (0-2); Eosinophils Absolute Auto 200 /uL (0-450); Eosinophils Percent Auto 4.1 % (2-4); Hematocrit 31.6 % (41-53); Hemoglobin 10.4 g/dL (13.5-17.5); Lymphocytes Absolute Auto 1400 /uL (1100-4500); Lymphocytes Percent Auto 30.5 % (25-40); Mean Corpuscular HGB Conc 32.9 % (30-36); Mean Corpuscular Volume 94.3 fL (80-100); Monocytes Absolute Auto 500 /uL (0-900); Monocytes Percent Auto 10.7 % (3-14); Neutrophils Absolute Auto 2400 /uL (1500-7000); Platelet Count 178 X10^3/uL (150-400); Red Blood Cell Count 3.35 X10^6/uL (4.5-5.9); Red Cell Distribution Width 13.8 % (11.6-14.8); White Blood Cell Count 4.5 X10^3/uL (4.5-11.0)
[2021-12-04 11:38] LABS: Erythrocyte Sedimentation Rate 17 MM/HR (0-15)
[2021-12-04 12:31] LABS: TSH w/ Reflex to FT4 0.92 uIU/mL (0.47-4.68)
[2021-12-04 12:45] LABS: Alanine Aminotransferase 21 IU/L (<50); Albumin 4.3 g/dL (3.5-5.0); Albumin Globulin Ratio 1.5 (1.0-2.8); Alkaline Phosphatase 64 U/L (38-126); Aspartate Aminotransferase 32 IU/L (17-59); BUN Creatinine Ratio 15.7 (6-22); Bilirubin Total 0.4 mg/dL (0.2-1.3); Blood Urea Nitrogen 44 mg/dL (9-20); C-Reactive Protein Quant < 0.5 mg/dL (<1.0); Carbon Dioxide 27 mmol/L (22-32); Chloride 103 mmol/L (98-107); Creatine Kinase 182 U/L (55-170); Estimated Glomerular Filt Rate 22 mL/min (>60); Globulin 2.8 g/dL (1.7-4.1); Glucose 102 mg/dL (80-110); HEMOLYSIS < 15 (0-50); Potassium 4.2 mmol/L (3.4-5.1); Sodium 139 mmol/L (137-145); Total Protein 7.1 g/dL (6.3-8.2)
== END ==
PROVIDERS: PCP Internal Medicine; Referring Provider Internal Medicine; Visit Provider Internal Medicine
DX: E78.2 Mixed hyperlipidemia (principal); I42.9 Cardiomyopathy, unspecified; M05.79 Rheumatoid arthritis with rheumatoid factor of multiple sites without organ or systems involvement; R00.2 Palpitations; R53.81 Other malaise; R53.83 Other fatigue
CPT/HCPCS: 36415; 80053; 82550; 84443; 85025; 85651; 86140

== ENCOUNTER → 2021-12-05 15:38 | Outpatient (CLI) | payer MEDICARE, OTHER, SELFPAY ==
--- NOTE | 2021-12-05 15:41 | DI.US.S_ITS ---
PROCEDURE: US RENAL COMPLETE INDICATIONS: Abnormal Kidney function lab results TECHNIQUE: Real-time scanning was performed of the kidneys and bladder, with image documentation. COMPARISON: [facility], CT, CT ABDOMEN PELVIS W CON, 07/19/2021, 7:45. FINDINGS: Kidneys: Kidneys small and somewhat echogenic consistent with chronic medical renal disease. Right kidney measures 8.7 cm long; left kidney measures 9.5 cm long. Renal cortical thickness not measured, within normal limits, however. No hydronephrosis or nephrolithiasis. There is a possible cyst with debris versus solid exophytic mass off the upper pole of the right kidney measuring 1.3 x 1.5 x 1.8 cm. There is a probable solid lesion of the middle pole of the right kidney measuring 1.4 x 1.3 x 1.3 cm. No left renal masses. Bladder: Pre-void bladder volume is 83.9 mL. Post-void residual is 31.2 mL. Pre-void images demonstrate no intraluminal masses or stones. On pre-void images, no ureteral jets are noted with color Doppler interrogation. (Of note, ureteral jets may not be detectable in up to 25% of cases due to insufficient differences in specific gravity between ureteral and bladder urine). Miscellaneous: No free pelvic fluid. IMPRESSION: 1. There appear to be 1 or 2 solid masses involving the right kidney, both of which are under 2 cm. 2. Somewhat small echogenic kidneys consistent with chronic medical renal disease. Comment: Consider multiphase renal MRI versus multiphase renal CT for further characterization of the 1 or 2 possible small right renal masses. Dictated by: Peter Rincon M.D. on 12/06/2021 at 17:18 Approved by: Peter Rincon M.D. on 12/06/2021 at 17:23
== END ==
PROVIDERS: PCP Internal Medicine; Referring Provider Internal Medicine; Visit Provider Internal Medicine
DX: N17.9 Acute kidney failure, unspecified (principal); N28.9 Disorder of kidney and ureter, unspecified
CPT/HCPCS: 76770

== ENCOUNTER → 2022-01-18 10:42 | Outpatient (CLI) | payer MEDICARE, OTHER, SELFPAY ==
[2022-01-18 12:01] LABS: BUN Creatinine Ratio 20.5 (6-22); Blood Urea Nitrogen 42 mg/dL (9-20); Calcium 9.4 mg/dL (8.4-10.2); Carbon Dioxide 28 mmol/L (22-32); Chloride 108 mmol/L (98-107); Estimated Glomerular Filt Rate 33 mL/min (>60); Glucose 107 mg/dL (80-110); HEMOLYSIS < 15 (0-50); Potassium 4.6 mmol/L (3.4-5.1); Sodium 140 mmol/L (137-145)
== END ==
PROVIDERS: PCP Internal Medicine; Referring Provider Internal Medicine; Visit Provider Internal Medicine
DX: N18.31 Chronic kidney disease, stage 3a (principal)
CPT/HCPCS: 36415; 80048

== ENCOUNTER → 2022-01-25 11:50 | Outpatient (CLI) | payer MEDICARE, OTHER, SELFPAY ==
--- NOTE | 2022-01-25 11:52 | DI.CT.S_ITS ---
PROCEDURE: CT ABDOMEN RENAL PROTOCOL INDICATIONS: renal mass, right TECHNIQUE: Optional 5 mm thick noncontrast images acquired from the diaphragm to the iliac crests. After the administration of intravenous contrast, 5 mm thick images again acquired from the diaphragm to the iliac crests in the arterial and urographic phases. 5 mm thick coronal and sagittal reformats were then acquired. For radiation dose reduction, the following was used: automated exposure control, adjustment of mA and/or kV according to patient size. COMPARISON: , CT, CT ANGIO CHEST ABDOMEN PELVIS, 10/07/2018, 9:09. , CT, CT KIDNEY URETER BLADDER (KUB), 01/04/2019, 4:08. , US, US RENAL COMPLETE, 12/05/2021, 15:48. FINDINGS: Image quality: Excellent. Lung bases: Clear lung bases. Cardiac pacemaker leads seen. Very small hiatal hernia. Genitourinary: Kidneys are normal and symmetric in size and enhancement. There is a partially exophytic arterially enhancing mass arising from the posterior right upper pole measuring 1.4 cm. There is a partially exophytic mass arising from the lateral lower pole of the right kidney measuring 1.3 cm. There are scattered subcentimeter cortical and partially exophytic hypoenhancing cysts throughout the rest of the right kidney. There is an indeterminate, but enhancing lesion too small to characterize, measuring 1.0 cm maximally arising from the posterolateral lower pole of the left kidney. The collecting systems are normal caliber and there are no calcifications. Proximal ureters are also normal. Other solid organs: Liver is normal in size and enhancement. Gallbladder is surgically absent . Biliary system is non dilated. Pancreas enhances normally. Spleen is normal in size and enhancement. No adrenal nodules. Peritoneum and bowel: Unenhanced bowel loops are normal in wall thickness and caliber. Normal appendix. No free fluid or air. Nodes and vessels: No retroperitoneal or mesenteric adenopathy by size criteria. Aorta and inferior vena cava are normal in caliber. Bones: No suspicious bony lesions. Severe disc degeneration in L1-2 and to lesser extent T12-L1. No vertebral body compression fractures. Miscellaneous: No ventral hernias. IMPRESSION: 1. Two solid-appearing masses in the right kidney and one in the left kidney. There has been interval growth in the right upper pole mass and minimal growth in the left renal mass since the study dated 10/07/18. The mass in the lower pole on the right is new. Urology consult is recommended. 2. No evidence of urinary calcification or obstruction in the visible portion of the urinary tract. 3. No retroperitoneal adenopathy. Dictated by: Conchis Perez M.D. on 01/25/2022 at 17:53 Approved by: Conchis Perez M.D. on 01/25/2022 at 18:11
== END ==
PROVIDERS: PCP Internal Medicine; Referring Provider Internal Medicine; Visit Provider Internal Medicine
DX: N28.89 Other specified disorders of kidney and ureter (principal)
CPT/HCPCS: 74170; Q9967

== ENCOUNTER 2022-02-23 11:11 | Emergency (ER) | payer MEDICARE, OTHER, SELFPAY ==
--- NOTE | 2022-02-23 11:26 | DI.RAD.S_ITS ---
PROCEDURE: XR WRIST LT MIN 3V INDICATIONS: fall TECHNIQUE: For views of the wrist were acquired. COMPARISON: None. FINDINGS: Bones: There is a mildly impacted fracture of the distal radius with probable comminution and intra-articular extension. No suspicious bony lesions. Mild background degenerative changes. Scaphoid view: Intact scaphoid. Soft tissues: No suspicious soft tissue calcifications. IMPRESSION: Mildly impacted fracture of the distal radius, possibly with comminution and intra-articular extension. Dictated by: Cooper Jarrett M.D. on 02/23/2022 at 10:39 Approved by: Cooper Jarrett M.D. on 02/23/2022 at 10:42
[2022-02-23 11:27] VITALS: BP 117/60; PULSE 62; RESP 17; TEMP 36.4; O2SAT 97; BMI 29.5
--- NOTE | 2022-02-23 11:29 | PC.NURSE ---
Pain and swelling to left wrist
--- NOTE | 2022-02-23 14:18 | ED.UPPEXIN ---
HPI - Extremity Injury (Upper) General Chief Complaint: Extremity Injury, Upper Stated Complaint: poss broken wrist Time Seen by Provider: 02/23/22 14:08 Source: patient Mode of arrival: Ambulatory Limitations: no limitations History of Present Illness HPI narrative: This is a 76-year-old male with known coronary artery disease, CKD, prior pulmonary emboli, rheumatoid with ICD placed and recently diagnosed kidney cancer patient states he is still going through the workup and plan of care has not been decided who states that he had a fall a week to a month ago. He told myself approximately a month he told nursing approximately a week. Patient states he was on a platform helping his girlfriend move when he fell off down a hill with his arm outstretched. He states he had immediate pain it has been persistent. He states that he realized it was probably broken particularly as it never improved. He continues to have pain and presents today as it has not resolved. Has not been taking much for pain she states he is on a lot of medications. He denies any new numbness or tingling. Movement at the wrist he states is painful. Patient states former tobacco use, occasional alcohol, denies illicit or recreational drugs. Related Data Home Medications Medication Instructions Recorded Confirmed multivitamin 1 tab PO DAILY ##0 02/13/12 01/18/22 aspirin 81 mg tablet,delayed 81 mg PO DAILY ##0 07/23/12 01/18/22 release gabapentin 300 mg capsule 300 mg PO BID ##0 02/23/16 01/18/22 (Neurontin) nabumetone 500 mg tablet 500 mg PO QDAY #0 tabs 02/23/16 01/18/22 alprazolam 0.25 mg tablet 0.25 mg PO TIDP PRN Anxiety ##0 11/22/16 01/18/22 diclofenac sodium 1 % topical gel 1 john topical QID PRN pain ##0 11/22/16 01/18/22 (Voltaren) amitriptyline 25 mg tablet 25 mg PO BEDTIME ##0 08/10/17 01/18/22 tramadol 50 mg tablet 50 mg PO PRN PRN pain ##0 08/10/17 01/18/22 colchicine 0.6 mg capsule 0.6 mg PO BID 10/07/18 01/18/22 fluoride (sodium) 1.1 % dental 1 applic dental DIRECTED 10/07/18 01/18/22 cream hydroxychloroquine 200 mg tablet 200 mg PO BID 10/07/18 01/18/22 tamsulosin 0.4 mg capsule (Flomax) 0.8 mg PO DAILY 10/07/18 01/18/22 isosorbide mononitrate 60 mg 60 mg PO DAILY 01/18/22 01/18/22 tablet,extended release 24 hr Previous Rx's Medication Instructions Recorded sucralfate 1 gram tablet 1 gm PO ACHS #360 tabs 02/24/17 clorazepate dipotassium 3.75 mg 3.75 mg PO BID #180 tabs 02/03/18 tablet ibuprofen 600 mg tablet 600 mg PO QID PRN pain #20 tabs 02/22/18 bupropion HCl 150 mg 24 hr tablet, 150 mg PO QAM #30 tabs 10/08/18 extended release DISABLED PARKING PERMIT #1 ea 05/04/20 nitroglycerin 0.4 mg sublingual 0.4 mg sublingual Q5-15M PRN chest 08/23/20 tablet pain #30 tabs sildenafil 100 mg tablet (Viagra) See Rx Instructions PO .COMPLEX 05/08/21 PRN erectile dysfunction #30 tabs tramadol 50 mg tablet 50 mg PO Q8H PRN pain #10 tabs 07/19/21 diclofenac sodium 75 mg 75 mg PO BIDP PRN pain #180 tabs 10/15/21 tablet,delayed release sertraline 50 mg tablet 100 mg PO BEDTIME #180 tabs 10/15/21 levothyroxine 50 mcg tablet 50 mcg PO DAILY #90 tabs 12/27/21 (Synthroid) lisinopril 5 mg tablet 5 mg PO DAILY #90 tabs 12/27/21 apixaban 5 mg tablet (Eliquis) 5 mg PO BID #180 tabs 02/06/22 pantoprazole 40 mg tablet,delayed 40 mg PO BID #180 tabs 02/06/22 release Allergies Allergy/AdvReac Type Severity Reaction Status Date / Time codeine Allergy Mild HIVES Verified 01/18/22 10:37 Review of Systems Review of Systems ROS Unobtainable: All systems reviewed & are unremarkable except as noted in HPI and below Patient History Medical History Anxiety (10/25/13) Cardiomyopathy (07/24/15) Chest pain Chronic anemia (04/16/16) Chronic renal failure, stage 2 (mild) (07/24/15) Chronic renal failure, stage 3a COVID-19 Gastroesophageal reflux disease without esophagitis (01/23/11) History of hematuria Leukopenia (04/16/16) Malignant neoplasm of prostate (07/11/14) Mixed hyperlipidemia (01/23/11) Palpitations Pneumonia due to COVID-19 virus Pulmonary embolism Ventricular tachycardia (01/10/14) Surgical History Anesthesia Implantable cardioverter-defibrillator (ICD) in situ Status post cholecystectomy Family History Brother Family history of diabetes mellitus (DM) Father No problems noted. Sister No problems noted. Social History Smoking Status: Former smoker Smoking Status: Former smoker alcohol intake frequency: 0-2 drinks per day Alcohol type: wine Substance Use Type: does not use Exam Narrative Exam Narrative: GENERAL: Alert and oriented x three, well-nourished male in mild distress HEENT: Head normocephalic, atraumatic, EOMI, pupils reactive, face symmetric, moist mucous membranes NECK: Supple, full range of motion CARDIOVASCULAR: Regular rate and rhythm without murmurs, rubs or gallops. RESPIRATORY: Breath sounds equal bilaterally, no wheezes rales or rhonchi. ABDOMEN: Soft, nontender. Normoactive bowel sounds all 4 quadrants. No guarding or rebound, rigidity, no mass : No CVA tenderness EXTREMITIES: Normal range of motion, no clubbing or edema. Neurovascularly intact. Patient has mild deformity. Patient has almost full range of motion of all 5 fingers with normal adduction and abduction, normal flexion and extension, patient has 2+ radial pulse. Normal sensation throughout. Mild discomfort with palpation of the wrist. No other bony tenderness. NEUROLOGICAL: Cranial nerves II through XII grossly intact. Moving all extremities SKIN: Warm, dry, no petechiae, no rashes or lesions. Initial Vital Signs Initial Vital Signs: Vital Signs Temperature 97.6 F 02/23/22 11:27 Pulse Rate 62 09/10/22 11:27 Respiratory Rate 17 02/23/22 11:27 Blood Pressure 117/60 02/23/22 11:27 Pulse Oximetry 97 02/23/22 11:27 Oxygen Delivery Method 02/23/22 11:27 Course Orders Ordered: ED Orders 02/23/22 11:26 XR wrist LT min 3V Stat 02/23/22 14:24 Ct Wrist left without con Stat Consultations Consultation #1: aidee Villar: Orthopedic surgery images reviewed possible intra-articular fracture that has been present for 1-4 weeks depending on history. Patient she request for CT of wrist, splinted follow-up outpatient with office. Vital Signs Vital signs: Vital Signs - 8 hr 02/23/22 11:27 02/23/22 15:39 Temperature 97.6 F Pulse Rate 62 60 Respiratory Rate 17 18 Blood Pressure 117/60 136/81 Pulse Oximetry 97 100 Oxygen Delivery Method Room Air Room Air MDM - Extremity Injury (Upper) Imaging Data Extremity x-ray #1: Radiologist's Impression: Close Wrist CT (Signed) Cooper Jarrett - 02/23/22 Wrist X-Ray (Signed) Cooper Jarrett - 02/23/[address] (Signed) Conchis Perez - 01/25/22 Renal Ultrasound (Signed) Peter Rincon - 12/05/21 Chest X-Ray (Signed) Ok Ribeiro - 11/30/21 DI Result CC 11/22/21 PFT Result 09/13/21 Abdomen/Pelvis CT (Signed) Josiah Lofton - 07/19/21 Chest/Abdomen X-ray (Signed) Josiah Lofton - 07/19/21 PFT Result 04/06/21 Chest X-Ray (Signed) Christopher Trevino - 03/30/21 DI Result CC 11/09/20 EKG Rpt. 08/23/20 Chest X-Ray (Signed) Reagan Trammell - 08/23/20 Chest X-Ray (Signed) Zena Martinez - 10/11/19 Chest X-Ray (Signed) Lior Pierson - 07/19/19 Chest X-Ray (Signed) Carlos Kay - 05/06/19 DI Result CC 04/19/19 Abdomen/Pelvis CT (Signed) Carlos Kay - 01/04/19 DI Result CC 12/17/18 DI Result CC 12/17/18 Chest X-Ray (Signed) Lior Pierson - 10/13/18 DI Result CC 10/11/18 Chest/Abdomen/Pelvis CTA (Signed) Guevara Molina - 10/07/18 Chest X-Ray (Signed) Lior Pierson - 10/07/18 Telemetry Strips 10/07/18 Chest CTA (Signed) Reginaldo Martell - 10/03/18 Chest X-Ray (Signed) Reginaldo Martell - 10/03/18 Scrotum Ultrasound (Signed) Carlos Kay - 09/22/18 DI Result CC 07/15/18 Launch?[place] [address] XRay Report Signed Patient: Jorje Garay MR#: [id number] : 1945 Acct:[id number] Age/Sex: 76 / M Date of Service: 02/23/22 Loc: ED Accession Number: [id number] ?? Procedure: XR wrist LT min 3V Ordering Provider: Sarah Padgett D.O. PROCEDURE:? XR WRIST LT MIN 3V ? INDICATIONS: fall ? TECHNIQUE:? For views of the wrist were acquired.? ? COMPARISON:? None. ? FINDINGS:? ? Bones:? There is a mildly impacted fracture of the distal radius with probable comminution and intra-articular extension.? No suspicious bony lesions.? Mild background degenerative changes. ? Scaphoid view:? Intact scaphoid. ? Soft tissues:? No suspicious soft tissue calcifications.? ? IMPRESSION:? Mildly impacted fracture of the distal radius, possibly with comminution and intra-articular extension. ? ? Dictated by: Cooper Jarrett M.D. on 02/23/2022 at 10:39 ? ? Approved by: Cooper Jarrett M.D. on 02/23/2022 at 10:42?? CT wrist: Radiologist's Impression: Jorje Garay??76??M??1945 ? Allergy/Adv: codeine Close Wrist CT (Signed) Cooper Jarrett - 02/23/22 Wrist X-Ray (Signed) Cooper Jarrett - 02/23/[address] (Signed) Conchis Perez - 01/25/22 Renal Ultrasound (Signed) SergeyPeter - 12/05/21 Chest X-Ray (Signed) Ok Ribeiro - 11/30/21 DI Result CC 11/22/21 PFT Result 09/13/21 Abdomen/Pelvis CT (Signed) KirstyMarisela reaagnyannick - 07/19/21 Chest/Abdomen X-ray (Signed) KirstyJosiah - 07/19/21 PFT Result 04/06/21 Chest X-Ray (Signed) Christopher Trevino - 03/30/21 DI Result CC 11/09/20 EKG Rpt. 08/23/20 Chest X-Ray (Signed) Reagan Trammell - 08/23/20 Chest X-Ray (Signed) Zena Martinez - 10/11/19 Chest X-Ray (Signed) Lior Pierson - 07/19/19 Chest X-Ray (Signed) Carlos Kay - 05/06/19 DI Result CC 04/19/19 Abdomen/Pelvis CT (Signed) Carlos Kay - 01/04/19 DI Result CC 12/17/18 DI Result CC 12/17/18 Chest X-Ray (Signed) Lior Pierson - 10/13/18 DI Result CC 10/11/18 Chest/Abdomen/Pelvis CTA (Signed) Guevara Molina - 10/07/18 Chest X-Ray (Signed) Lior Pierson - 10/07/18 Telemetry Strips 10/07/18 Chest CTA (Signed) Reginaldo Martell - 10/03/18 Chest X-Ray (Signed) Reginaldo Martell - 10/03/18 Scrotum Ultrasound (Signed) Carlos Kay - 09/22/18 DI Result CC 07/15/18 Launch?[address] [address] [address] Scan Report Signed Patient: Jorje Garay MR#: [id number] : 1945 Acct:[id number] Age/Sex: 76 / M Date of Service: 02/23/22 Loc: ED Accession Number: [id number] ?? Procedure: Ct Wrist left without con Ordering Provider: Sarah Padgett D.O. PROCEDURE:? CT WRIST LEFT WITHOUT CON ? INDICATIONS:? left wrist fx. requested by Dr. Villar ? TECHNIQUE:? Noncontrast 1 mm axial sections acquired through the carpal bones, with coronal and sagittal reformats. ? ? COMPARISON:? None. ? FINDINGS:? Image quality:? Excellent.? ? Bones:? There is a comminuted intra-articular fracture of the distal radius.? The fracture is mildly impacted with mild loss of normal volar angulation.? No significant step-off is seen along the fracture line at the distal radial articular surface.? The fracture also extends into the distal radioulnar joint.? Questionable tiny nondisplaced fracture at the tip of the ulnar styloid tip.? The scapholunate interval appears mildly widened when compared to the remaining visualized carpal bones. ? Soft tissues:? Calcified debris and joint effusions are seen throughout the wrist.? The articular cartilages, ligaments, and tendons are not well evaluated with standard CT.? No definite tendon entrapment is seen.? The intrinsic hand and forearm musculature is normal in bulk. ? IMPRESSION:? 1. Comminuted, mildly impacted intra-articular fracture of the distal radius.? No significant step-off at the distal radial articular surface. 2. Questionable nondisplaced ulnar styloid tip fracture. 3. Slight widening of the scapholunate interval that could possibly indicate underlying scapholunate ligament injury. 4. Joint effusions and nonspecific calcific debris throughout the wrist. ? ? Dictated by: Cooper Jarrett M.D. on 02/23/2022 at 14:03 ? ? Approved by: Cooper Jarrett M.D. on 02/23/2022 at 14:10?? [facility] Narrative Medical decision making narrative: This is a 76-year-old male with fall either 1-4 weeks ago was on an outstretched hand, patient has had pain that has been persistent shows fracture on x-ray, discussed with Orthopedic surgery who asked for CT source possible intra-articular involvement. Patient is agreeable to wait have this done, have splint placed and plan for follow-up. Patient is sure defers anything stronger than Tylenol for pain management. Denies any other injuries. No other concerns today. Patient is neurovascularly intact. Discharge Plan Departure Patient Disposition: Home Clinical Impression: Fracture of left wrist Instructions: DI for Wrist Fracture Activity Restrictions/Additional Instructions: Please follow-up with Dr. Villar with Orthopedic surgery. Call Friday morning to set up follow-up appointment time. Referral is included below. You did have a CT performed today for additional information and planning purposes for Dr. Villar. You can take Tylenol up to a 1000 mg every 6 hours as needed for pain as needed. Splint Care: Keep splint clean and dry. Elevated affected body part to decrease swelling. OK to use ice pack on the affected body part. Use for 15-20 minutes each time, for 5-6x per day. If you develop worsening pain, numbness, tingling, discoloration of the affected body part, loosen the splint by loosening the MIGDALIA wrap, and either see your doctor for an urgent re-assessment, or return to the Emergency Department. Return to the Emergency Department for any new or worsening symptoms. Prescriptions: No Action multivitamin Tablet 1 tab PO DAILY Qty: 0 aspirin 81 mg Tablet,Delayed Release (Dr/Ec) 81 mg PO DAILY Qty: 0 gabapentin [Neurontin] 300 MG capsule 300 mg PO BID Qty: 0 nabumetone 500 MG tablet 500 mg PO QDAY Qty: 0 alprazolam 0.25 MG tablet 0.25 mg PO TIDP PRN (Reason: Anxiety) Qty: 0 diclofenac sodium [Voltaren] 1 % gel 1 john Topical QID PRN (Reason: pain) Qty: 0 sucralfate 1 GM tablet 1 gm PO ACHS Qty: 360 3RF tramadol 50 MG tablet 50 mg PO PRN PRN (Reason: pain) Qty: 0 amitriptyline 25 MG tablet 25 mg PO BEDTIME Qty: 0 clorazepate dipotassium 3.75 mg tablet 3.75 mg PO BID Qty: 180 1RF (DME) DISABLED PARKING PERMIT Qty: 1 0RF Rx Instructions: I FIND THIS PATIENT TO BE MEDICALLY DISABLED AND QUALIFIED FOR DISABLE PARKING INDICATED, AND SIGNED ON THE ACCOMPANYING [employer] PARK APPLICATION FOR INDIVIDUALS sildenafil [Viagra] 100 mg tablet See Rx Instructions PO .COMPLEX PRN (Reason: erectile dysfunction) Qty: 30 11RF Dose Instruction: 1/2 to 1 tab PO 1 hr prior to sexual activity PRN; Rx Instructions: 1/2 to 1 tab PO 1 hr prior to sexual activity PRN; diclofenac sodium 75 mg tablet,delayed release (DR/EC) 75 mg PO BIDP PRN (Reason: pain) Qty: 180 1RF sertraline 50 mg tablet 100 mg PO BEDTIME Qty: 180 3RF levothyroxine [Synthroid] 50 mcg tablet 50 mcg PO DAILY Qty: 90 3RF lisinopril 5 mg tablet 5 mg PO DAILY Qty: 90 3RF pantoprazole 40 mg tablet,delayed release (DR/EC) 40 mg PO BID Qty: 180 3RF Eliquis 5 mg tablet 5 mg PO BID Qty: 180 1RF bupropion HCl 150 mg tablet extended release 24 hr 150 mg PO QAM Qty: 30 3RF Hold Instructions: not sure helping isosorbide mononitrate 60 mg tablet extended release 24 hr 60 mg PO DAILY ibuprofen 600 mg tablet 600 mg PO QID PRN (Reason: pain) Qty: 20 0RF Rx Instructions: do not take with other NSAIDs hydroxychloroquine 200 mg tablet 200 mg PO BID SF 5000 Plus 1.1 % cream 1 applic Dental DIRECTED Label Comments: BRUSH ON TEETH ONCE A DAY SPIT OUT DO NOT RINSE colchicine 0.6 mg capsule 0.6 mg PO BID tamsulosin [Flomax] 0.4 MG capsule 0.8 mg PO DAILY nitroglycerin 0.4 mg tablet, sublingual 0.4 mg sublingual Q5-15M PRN (Reason: chest pain) Qty: 30 0RF Rx Instructions: do not exceed 3 doses per episode tramadol 50 mg tablet 50 mg PO Q8H PRN (Reason: pain) Qty: 10 0RF Referrals: Brayan Blackwell MD [Primary Care Provider] - Aidee Villar MD [Physician] - Visit Report Forms: Patient Portal/API
--- NOTE | 2022-02-23 14:24 | DI.CT.S_ITS ---
PROCEDURE: CT WRIST LEFT WITHOUT CON INDICATIONS: left wrist fx. requested by Dr. Villar TECHNIQUE: Noncontrast 1 mm axial sections acquired through the carpal bones, with coronal and sagittal reformats. COMPARISON: None. FINDINGS: Image quality: Excellent. Bones: There is a comminuted intra-articular fracture of the distal radius. The fracture is mildly impacted with mild loss of normal volar angulation. No significant step-off is seen along the fracture line at the distal radial articular surface. The fracture also extends into the distal radioulnar joint. Questionable tiny nondisplaced fracture at the tip of the ulnar styloid tip. The scapholunate interval appears mildly widened when compared to the remaining visualized carpal bones. Soft tissues: Calcified debris and joint effusions are seen throughout the wrist. The articular cartilages, ligaments, and tendons are not well evaluated with standard CT. No definite tendon entrapment is seen. The intrinsic hand and forearm musculature is normal in bulk. IMPRESSION: 1. Comminuted, mildly impacted intra-articular fracture of the distal radius. No significant step-off at the distal radial articular surface. 2. Questionable nondisplaced ulnar styloid tip fracture. 3. Slight widening of the scapholunate interval that could possibly indicate underlying scapholunate ligament injury. 4. Joint effusions and nonspecific calcific debris throughout the wrist. Dictated by: Cooper Jarrett M.D. on 02/23/2022 at 14:03 Approved by: Cooper Jarrett M.D. on 02/23/2022 at 14:10
[2022-02-23 15:39] VITALS: BP 136/81; PULSE 60; RESP 18; O2SAT 100
== END 2022-02-23 15:40 | disposition home or self-care (01) ==
PROVIDERS: Emergency Provider Emergency Medicine; PCP Internal Medicine
DX: S52.502A Unspecified fracture of the lower end of left radius, initial encounter for closed fracture (principal); W19.XXXA Unspecified fall, initial encounter
CPT/HCPCS: 73110; 73200; 99284

== ENCOUNTER → 2022-02-27 10:46 | Outpatient (CLI) | payer MEDICARE, OTHER, SELFPAY | PROVIDERS: PCP Internal Medicine; Visit Provider Specialist | DX: N18.31 Chronic kidney disease, stage 3a (principal) | CPT/HCPCS: 87086 ==

== ENCOUNTER → 2022-03-15 08:13 | Outpatient (CLI) | payer MEDICARE, OTHER, SELFPAY ==
--- NOTE | 2022-03-15 08:16 | DI.US.S_ITS ---
PROCEDURE: US RENAL COMPLETE INDICATIONS: Renal Neoplasm TECHNIQUE: Real-time scanning was performed of the kidneys and bladder, with image documentation. COMPARISON: [facility], , US RENAL COMPLETE, 12/05/2021, 15:48. FINDINGS: Kidneys: The right kidney measures 10.4 cm in diameter. No stones. No hydronephrosis. The right cortex measures 1.5 cm in diameter. Solid masses are redemonstrated within the right kidney including a superior pole mass which measures 1.7 x 1.3 x 1.3 cm (previously measured 1.3 x 1.5 x 1.8 cm on the study dated December 05, 2021), and an inferior 1.0 x 1.0 x 1.0 cm mass (previously measured 1.4 x 1.3 x 1.3 cm). There is a simple right renal cyst which measures 1.3 cm in diameter. The left kidney measures 9.4 cm in length and the cortex measures 1.4 cm in diameter. No hydronephrosis or nephrolithiasis. There is a 0.8 x 0.7 x 0.4 cm cyst which is too small to fully characterize as simple. Bladder: Pre-void bladder volume is 153 mL. Post-void residual is 25 mL. Pre-void images demonstrate no intraluminal masses or stones. On pre-void images, neither ureteral jets are noted with color Doppler interrogation. (Of note, ureteral jets may not be detectable in up to 25% of cases due to insufficient differences in specific gravity between ureteral and bladder urine). Miscellaneous: No free pelvic fluid. IMPRESSION: 1. Stable appearance of the right renal solid mass lesions. 2. Small postvoid residual. Dictated by: Lacey Cabezas M.D. on 03/15/2022 at 11:03 Approved by: Lacey Cabezas M.D. on 03/15/2022 at 11:09
--- NOTE | 2022-03-15 08:16 | DI.NM.S_ITS ---
PROCEDURE: NM BONE SCAN WHOLE BODY RADIOPHARMACEUTICAL: 20.8 mCi Tc-99m MDP IV. INDICATIONS: Renal Neoplasm TECHNIQUE: Delayed whole-body scintigrams were obtained approximately 3-4 hours after intravenous injection of radiotracer. Anterior and posterior views were acquired from vertex to feet. Additional left and right oblique views of the pelvis were obtained. COMPARISON: [facility], CT, CT ANGIO CHEST ABDOMEN PELVIS, 10/07/2018, 9:09. [facility], CT, CT KIDNEY URETER BLADDER (KUB), 01/04/2019, 4:08. [facility], CT, CT ABDOMEN PELVIS W CON, 07/19/2021, 7:45. [facility], CT, CT WRIST LEFT WITHOUT CON, 02/23/2022, 14:48. [facility], CR, XR CHEST 1V, 11/30/2021, 21:34. [facility], CT, CT ABDOMEN RENAL PROTOCOL, 01/25/2022, 12:17. FINDINGS: Physiologic uptake is noted within the kidneys and bladder. There is increased uptake within the T8 vertebral body. Most recent prior exam including this region the field of views in 2019 and does not demonstrate abnormal appearance. Uptake is noted within the small bones of the feet and wrist as well as knee joints bilaterally. There is marked increased uptake within the region of the distal radius corresponding to recent fracture as well as ulna styloid tip fracture. Punctate increased focus is noted overlying the right clavicle. Most recent prior exam of chest x-ray on 11/30/2021 demonstrates no clavicular abnormality. IMPRESSION: Areas of uptake suggestive of degenerative change and/or history of recent trauma. Focus of uptake within the spine as well as right clavicle are indeterminate as recent exams do not suggest focal lesion consistent with metastatic disease. However, interval attention to this region is recommended on follow-up imaging. Dictated by: Zena Martinez M.D. on 03/15/2022 at 14:16 Approved by: Zena Martinez M.D. on 03/15/2022 at 14:21
== END ==
PROVIDERS: PCP Internal Medicine; Referring Provider Specialist; Visit Provider Specialist
DX: C61 Malignant neoplasm of prostate (principal); N18.31 Chronic kidney disease, stage 3a; N28.89 Other specified disorders of kidney and ureter
CPT/HCPCS: 76770; 78306; A9503

== ENCOUNTER → 2022-04-23 09:37 | Outpatient (CLI) | payer MEDICARE, OTHER, SELFPAY ==
--- NOTE | 2022-04-23 09:41 | DI.RAD.S_ITS ---
PROCEDURE: XR LUMBAR SPINE MIN 4V INDICATIONS: Low Back Pain TECHNIQUE: 5 views of the lumbar spine were acquired, including bilateral oblique views. COMPARISON: None. FINDINGS: Bones: 5 nonrib-bearing vertebrae are present. There is roughly 7 mm of anterolisthesis of L4 on L5. Pars interarticularis are not well seen. Multilevel disc space narrowing and endplate osteophyte formation. Facet hypertrophy throughout the mid and lower lumbar spine. No vertebral body compression fractures. No suspicious bony lesions. Soft tissues: Overlying bowel gas pattern is normal. No suspicious soft tissue calcifications. IMPRESSION: 1. Multilevel degenerative disc and facet disease. 2. No acute fracture. No osseous lesion. If symptoms and/or clinical suspicion for pathology persist, further assessment with repeat, or advanced imaging (e.g., CT, MRI, or bone scan) may be helpful for further assessment. Dictated by: Ya Gaona M.D. on 04/23/2022 at 11:49 Transcribed by: NOAH on 04/23/2022 at 11:50 Approved by: Ya Gaona M.D. on 04/23/2022 at 15:43
== END ==
PROVIDERS: PCP Internal Medicine; Referring Provider Anesthesiology; Visit Provider Anesthesiology
DX: M53.3 Sacrococcygeal disorders, not elsewhere classified (principal); M51.16 Intervertebral disc disorders with radiculopathy, lumbar region
CPT/HCPCS: 72110; 99214

== ENCOUNTER 2022-06-26 17:30 | Observation (INO) | payer MEDICARE, OTHER, SELFPAY ==
[2022-06-26] VITALS (11 sets, daily range): BP systolic 134–177; BP diastolic 75–92; PULSE 59–73; RESP 13–22; TEMP 36.2–36.5; O2SAT 97–100; BMI 30.8
--- NOTE | 2022-06-26 17:43 | DI.RAD.S_ITS ---
PROCEDURE: XR CHEST 1V INDICATIONS: chest pain TECHNIQUE: One view of the chest was acquired. COMPARISON: [facility], CR, XR CHEST 1V, 11/30/2021, 21:34. FINDINGS: Surgical changes and devices: Left-sided pacer. Lungs and pleura: Lungs are clear. No pleural effusions or pneumothorax. Mediastinum: Mediastinal contours appear normal. Heart size is normal. Bones and chest wall: No suspicious bony lesions. Overlying soft tissues appear unremarkable. IMPRESSION: No acute process. Dictated by: Ya Gaona M.D. on 06/26/2022 at 17:59 Approved by: Ya Gaona M.D. on 06/26/2022 at 17:59
[2022-06-26 18:01] LABS: Add Manual Diff / Slide Review NO; Basophils Absolute Auto 100 /uL (0-100); Basophils Percent Auto 1.3 % (0-2); Eosinophils Absolute Auto 200 /uL (0-450); Hematocrit 31.8 % (41-53); Hemoglobin 10.4 g/dL (13.5-17.5); Lymphocytes Absolute Auto 1500 /uL (1100-4500); Lymphocytes Percent Auto 36.9 % (25-40); Mean Corpuscular HGB Conc 32.8 % (30-36); Mean Corpuscular Hemoglobin 31.1 PG (26-34); Mean Corpuscular Volume 94.9 fL (80-100); Monocytes Absolute Auto 500 /uL (0-900); Monocytes Percent Auto 11.1 % (3-14); Neutrophils Absolute Auto 1900 /uL (1500-7000); Neutrophils Percent Auto 45.7 % (50-75); Platelet Count 141 X10^3/uL (150-400); Red Blood Cell Count 3.36 X10^6/uL (4.5-5.9); Red Cell Distribution Width 14.8 % (11.6-14.8); White Blood Cell Count 4.2 X10^3/uL (4.5-11.0)
[2022-06-26 18:07] LABS: INR 1.8 (0.9-1.3); Prothrombin Time 20.9 SECONDS (10.1-12.7)
[2022-06-26 18:09] LABS: PTT Partial Thromboplastin Tim 31 SECONDS (26-36)
[2022-06-26 18:14] LABS: Alanine Aminotransferase 25 IU/L (<50); Albumin 4.1 g/dL (3.5-5.0); Albumin Globulin Ratio 1.4 (1.0-2.8); Alkaline Phosphatase 76 U/L (38-126); Aspartate Aminotransferase 35 IU/L (17-59); BUN Creatinine Ratio 18.3 (6-22); Bilirubin Total 0.5 mg/dL (0.2-1.3); Blood Urea Nitrogen 34 mg/dL (9-20); Calcium 9.2 mg/dL (8.4-10.2); Carbon Dioxide 26 mmol/L (22-32); Chloride 104 mmol/L (98-107); Creatine Kinase 261 U/L (55-170); Estimated Glomerular Filt Rate 36 mL/min (>60); Glucose 99 mg/dL (80-110); HEMOLYSIS < 15 (0-50); Lipase 113 U/L (23-300); Magnesium 2.1 mg/dL (1.6-2.3); Potassium 4.6 mmol/L (3.4-5.1); Sodium 139 mmol/L (137-145); Total Protein 7.1 g/dL (6.3-8.2)
[2022-06-26 18:26] LABS: Troponin I < 0.012 ng/mL (0.01-0.034)
[2022-06-26 18:29] LABS: CKMB % Relative Index 0.6 % (1.5-5.0); Creatine Kinase MB 1.47 ng/mL (<2.37)
--- NOTE | 2022-06-26 18:37 | ED_ITS ---
HPI - Chest Pain General Chief Complaint: Chest Pain Stated Complaint: chest pain x3 hours Time Seen by Provider: 06/26/22 18:24 Source: patient, family, RN notes reviewed and old records reviewed Mode of arrival: Family Vehicle Limitations: no limitations Limitations: no limitations History of Present Illness HPI narrative: Patient here with rosie. Complains off and on dyspnea for the past 2 weeks with fatigue and tiredness. However has been more consistent in the last week. Today he experienced left-sided chest discomfort a few times that did not radiate. No nausea or sweating. He took home nitroglycerin and did relieve his chest discomfort. Currently chest pain-free no complaints. Patient does not recall history of pulmonary embolism. However is on Eliquis, medical chart does show history of pulmonary embolism. Patient also has history of V-tach with defibrillator that was replaced the last year. He sees Dr. Keen cardiology at [facility]. His primary care is Dr. Brayan Blackwell. Denies any recent illness. No cough cold congestion fever chills. No history of cardiac stent or bypass surgery. Related Data Home Medications Medication Instructions Recorded Confirmed multivitamin 1 tab PO DAILY ##0 02/13/12 06/26/22 aspirin 81 mg tablet,delayed 81 mg PO DAILY ##0 07/23/12 06/26/22 release gabapentin 300 mg capsule 300 mg PO BID ##0 02/23/16 06/26/22 (Neurontin) nabumetone 500 mg tablet 500 mg PO QDAY #0 tabs 02/23/16 06/26/22 alprazolam 0.25 mg tablet 0.25 mg PO TIDP PRN Anxiety ##0 11/22/16 06/26/22 diclofenac sodium 1 % topical gel 1 john topical QID PRN pain ##0 11/22/16 04/23/22 (Voltaren) amitriptyline 25 mg tablet 25 mg PO BEDTIME ##0 08/10/17 06/26/22 colchicine 0.6 mg capsule 0.6 mg PO BID 10/07/18 06/26/22 fluoride (sodium) 1.1 % dental 1 applic dental DIRECTED 10/07/18 06/26/22 cream hydroxychloroquine 200 mg tablet 200 mg PO BID 10/07/18 06/26/22 tamsulosin 0.4 mg capsule (Flomax) 0.8 mg PO DAILY 10/07/18 06/26/22 isosorbide mononitrate 60 mg 60 mg PO DAILY 01/18/22 06/26/22 tablet,extended release 24 hr Previous Rx's Medication Instructions Recorded sucralfate 1 gram tablet 1 gm PO ACHS #360 tabs 02/24/17 clorazepate dipotassium 3.75 mg 3.75 mg PO BID #180 tabs 02/03/18 tablet ibuprofen 600 mg tablet 600 mg PO QID PRN pain #20 tabs 02/22/18 bupropion HCl 150 mg 24 hr tablet, 150 mg PO QAM #30 tabs 10/08/18 extended release DISABLED PARKING PERMIT #1 ea 05/04/20 nitroglycerin 0.4 mg sublingual 0.4 mg sublingual Q5-15M PRN chest 08/23/20 tablet pain #30 tabs sildenafil 100 mg tablet (Viagra) See Rx Instructions PO .COMPLEX 05/08/21 PRN erectile dysfunction #30 tabs tramadol 50 mg tablet 50 mg PO Q8H PRN pain #10 tabs 07/19/21 sertraline 50 mg tablet 100 mg PO BEDTIME #180 tabs 10/15/21 levothyroxine 50 mcg tablet 50 mcg PO DAILY #90 tabs 12/27/21 (Synthroid) lisinopril 5 mg tablet 5 mg PO DAILY #90 tabs 12/27/21 apixaban 5 mg tablet (Eliquis) 5 mg PO BID #180 tabs 02/06/22 pantoprazole 40 mg tablet,delayed 40 mg PO BID #180 tabs 02/06/22 release diclofenac sodium 75 mg 75 mg PO BIDP PRN pain #180 tabs 04/19/22 tablet,delayed release dexamethasone 2 mg tablet 2 mg PO TID #12 tabs 04/22/22 Allergies Allergy/AdvReac Type Severity Reaction Status Date / Time codeine Allergy Mild HIVES Verified 04/23/22 10:32 Review of Systems Review of Systems Narrative: GENERAL: negative chills, positive fatigue, malaise, negative fever, sweats. HEENT: negative sinus pain, ear pain, sore throat RESPIRATORY: negative dyspnea, cough CARDIOVASCULAR: Positive chest pain, negative palpitations GASTROINTESTINAL: negative nausea, vomiting, abdominal pain : negative dysuria, frequency, hematuria MUSCULOSKELETAL: negative muscle or bony pain SKIN: negative rash, skin lesions NEUROLOGIC: negative weakness, numbness ROS Unobtainable: All systems reviewed & are unremarkable except as noted in HPI and below Patient History Medical History Anxiety (10/25/13) Cancer Cardiomyopathy (07/24/15) Chest pain Chronic anemia (04/16/16) Chronic renal failure, stage 2 (mild) (07/24/15) Chronic renal failure, stage 3a COVID-19 Gastroesophageal reflux disease without esophagitis (01/23/11) History of hematuria Leukopenia (04/16/16) Lumbar radiculopathy Malignant neoplasm of prostate (07/11/14) Mixed hyperlipidemia (01/23/11) Palpitations Pneumonia due to COVID-19 virus Pulmonary embolism Ventricular tachycardia (01/10/14) Surgical History Anesthesia Implantable cardioverter-defibrillator (ICD) in situ Status post cholecystectomy Family History Brother Family history of diabetes mellitus (DM) Father Hypertension Sister No problems noted. Social History marital status: number of children: 6 household members: significant other and other Smoking Status: Never smoker Type(s) of exercise: other frequency: 3-4 times per week Smoking Status: Former smoker alcohol intake frequency: 0-2 drinks per day Alcohol type: wine Substance Use Type: does not use Exam Narrative Exam Narrative: GENERAL: in no distress, not toxic not dyspneic HEAD: Normocephalic. EYES: Pupils equal round No scleral icterus. ENT: Mucous membranes moist. NECK: Trachea midline. CARDIOVASCULAR: Regular rate and rhythm without murmurs RESPIRATORY: Clear to auscultation. Breath sounds equal bilaterally. No wheezes, rales, or rhonchi. GASTROINTESTINAL: Abdomen soft, non-tender EXTREMITIES: No gross deformities. BACK: No flank tenderness. NEURO: AOx4. SKIN: Warm and dry PSYCH: Not anxious, is cooperative Initial Vital Signs Initial Vital Signs: Vital Signs Temperature 97.2 F L 06/26/22 17:37 Pulse Rate 73 06/26/22 17:37 Respiratory Rate 16 06/26/22 17:37 Blood Pressure 168/85 H 06/26/22 17:37 Pulse Oximetry 100 06/26/22 17:37 Oxygen Delivery Method 06/26/22 17:37 Course Course Course Narrative: No new issues during course of stay Orders Ordered: ED Orders 06/26/22 17:42 Complete Blood Count AUTO DIFF Stat Comprehensive Metabolic Panel Stat Lipase Stat Magnesium Stat Partial Thromboplastin Time Stat Prothrombin Time INR Stat Troponin & CK Cardiac Panel Stat 06/26/22 17:43 XR chest 1V Stat 06/26/22 17:46 EKG-12 Lead Stat Nitroglycerin (Nitroglycerin 0.4 Mg Sl Tab) 0.4 mg SL [id number] PRN PRN Reason: Chest Pain Discontinued Medications Aspirin (Aspirin Ec 81 Mg Tablet) 243 mg PO NOW ONE Stop: 06/26/22 19:00 Last Admin: 06/26/22 19:14 Dose: 81 mg Documented By: DEIRDRE Vital Signs Vital signs: Vital Signs - 8 hr 06/26/22 17:37 06/26/22 18:01 06/26/22 18:01 Temperature 97.2 F L Pulse Rate 73 64 Respiratory Rate 16 Blood Pressure 168/85 H 134/75 Pulse Oximetry 100 99 Oxygen Delivery Method Room Air 06/26/22 18:30 Temperature Pulse Rate 60 Respiratory Rate 20 Blood Pressure Pulse Oximetry 99 Oxygen Delivery Method Room Air MDM - Chest Pain Differential Diagnosis Differential diagnosis: Likely pneumothorax, stable angina, unstable angina pectoris, atypical chest pain, st elevation myocardial infarction and chest pain Lab Data Result diagrams: 06/26/22 17:42 06/26/22 17:42 Labs: Lab Results 06/26/22 06/26/22 06/26/22 Range/Units 17:42 17:42 17:42 WBC 4.2 L (4.5-11.0) X10^3/uL RBC 3.36 L (4.5-5.9) X10^6/uL Hgb 10.4 L (13.5-17.5) g/dL Hct 31.8 L (41-53) % MCV 94.9 (80-100) fL MCH 31.1 (26-34) PG MCHC 32.8 (30-36) % RDW 14.8 (11.6-14.8) % Plt Count 141 L (150-400) X10^3/uL Neut % (Auto) 45.7 L (50-75) % Lymph % (Auto) 36.9 (25-40) % [place] % (Auto) 11.1 (3-14) % Eos % (Auto) 5.0 H (2-4) % Baso % (Auto) 1.3 (0-2) % Neut # (Auto) 1900 (0961-7759) /uL Lymph # (Auto) 1500 (3916-2406) /uL [place] # (Auto) 500 (0-900) /uL Eos # (Auto) 200 (0-450) /uL Baso # (Auto) 100 (0-100) /uL PT 20.9 H (10.1-12.7) SECONDS INR 1.8 H (0.9-1.3) APTT 31 (26-36) SECONDS Sodium 139 (137-145) mmol/L Potassium 4.6 (3.4-5.1) mmol/L Chloride 104 (98-107) mmol/L Carbon Dioxide 26 (22-32) mmol/L BUN 34 H (9-20) mg/dL Creatinine 1.86 H (0.66-1.25) mg/dL Estimated GFR 36 L (>60) mL/min BUN/Creatinine Ratio 18.3 (6-22) Glucose 99 (80-110) mg/dL Calcium 9.2 (8.4-10.2) mg/dL Magnesium 2.1 (1.6-2.3) mg/dL Total Bilirubin 0.5 (0.2-1.3) mg/dL AST 35 (17-59) IU/L ALT 25 (<50) IU/L Alkaline Phosphatase 76 (38-126) U/L Total Creatine Kinase 261 H (55-170) U/L CK-MB (CK-2) 1.47 (<2.37) ng/mL CK-MB (CK-2) Rel Index 0.6 L (1.5-5.0) % Troponin I < 0.012 (0.01-0.034) ng/mL Total Protein 7.1 (6.3-8.2) g/dL Albumin 4.1 (3.5-5.0) g/dL Globulin 3.0 (1.7-4.1) g/dL Albumin/Globulin Ratio 1.4 (1.0-2.8) Lipase 113 (23-300) U/L Imaging Data Chest x-ray: Radiologist's Impression: [address] [address] XRay Report Signed Patient: Jorje Garay MR#: [id number] : 1945 Acct:[id number] Age/Sex: 77 / M Date of Service: 06/26/22 Loc: ED Accession Number: [id number] ?? Procedure: XR chest 1V Ordering Provider: Seamus Gant D.O. PROCEDURE:? XR CHEST 1V ? INDICATIONS:? chest pain ? TECHNIQUE:? One view of the chest was acquired.? ? COMPARISON:? [facility], CR, XR CHEST 1V, 11/30/2021, 21:34. ? FINDINGS:? ? Surgical changes and devices:? Left-sided pacer. ? Lungs and pleura:? Lungs are clear.? No pleural effusions or pneumothorax.? ? Mediastinum:? Mediastinal contours appear normal.? Heart size is normal.? ? Bones and chest wall:? No suspicious bony lesions.? Overlying soft tissues appear unremarkable.? ? IMPRESSION:? No acute process. ? ? Dictated by: Ya Gaona M.D. on 06/26/2022 at 17:59 ? ? Approved by: Ya Gaona M.D. on 06/26/2022 at 17:59 ? ECG Data Interpretation: EKG is sinus rhythm, P waves are noted. Not atrial fibrillation. Rate [address] elevation or depression. Treatment and disposition Social Determinants of Health that impact treatment or disposition: No social i ssues Code Status and discussions:: Full code Shared decision making:: Spoke with patient and rosie OLIVIA Narrative Medical decision making narrative: Patient here with rosie. Complains off and on dyspnea for the past 2 weeks with fatigue and tiredness. However has been more consistent in the last week. Today he experienced left-sided chest discomfort a few times that did not radiat e. No nausea or sweating. He took home nitroglycerin and did relieve his chest discomfort. Currently chest pain-free no complaints. Patient does not recall history of pulmonary embolism. However is on Eliquis, medical chart does show history of pulmonary embolism. Patient also has history of V-tach with defibrillator that was replaced the last year. He sees Dr. Keen cardiology at [facility]. His primary care is Dr. Brayan Blackewll. Denies any recent illness. No cough cold congestion fever chills. No history of cardiac stent or bypass surgery. After history, EKG CBC CMP troponin chest x-ray were ordered. Differential diagnosis as above but not limited to chest pain atypical chest pain unstable angina unstable angina ST elevation non-STEMI. 6:30 p.m.. I have reviewed chest x-ray as well CBC CMP and troponin. EKG was reviewed as well. I did speak with on-call primary care, Dr. Milind Baxter, who will admit patient for chest pain rule out. Patient is chest pain-free. Has taken baby aspirin at home. I will give 243 mg aspirin in addition. At this time clinically not pulmonary embolism. No chest CT indicated at this time. I did speak with patient and fiancee they do agree for admit Appropriate for admission, at this time laboratory studies and imaging are reassuring as well as EKG, however patient would have high risk of decompensating deconditioning worsening symptoms if discharged home. Will need echocardiogram and stress test. Discharge Plan Departure Patient Disposition: Admitted as Observation Clinical Impression: Chest pain Admit Date/Time: 06/26/22 18:46 Admit Provider: Milind Baxter
[2022-06-26] MEDS: ASPIRIN EC 81 MG TABLET 243 MG PO (19:14)
[2022-06-26 20:47] LABS: COVID19 -Nasal RAPID Negative (Negative)
[2022-06-27 00:50] VITALS: BP 120/57; PULSE 60; RESP 16; TEMP 36.6; O2SAT 96
[2022-06-27 02:15] LABS: Troponin I < 0.012 ng/mL (0.01-0.034)
[2022-06-27 06:00] VITALS: BP 148/78; PULSE 61; RESP 17; TEMP 36.3; O2SAT 98
--- NOTE | 2022-06-27 07:15 | PM.HP.1 ---
History of Present Illness History of Present Illness Date Patient Seen: 06/27/22 Time Patient Seen: 07:17 Chief complaint: chest pain x3 hours Narrative: 77-year-old male, well known to me, admitted via emergency department with chest pain Patient has been feeling somewhat tired and fatigued with on and off dyspnea for the last couple weeks. On day of admission he experience some left-sided chest discomfort without radiation or other associated symptoms. Took some nitroglycerin which did relieve his symptoms. He had no recurrence of symptoms following that ER workup was completely unremarkable including ECG and troponin x2 Patient does have a known cardiac history with an idiopathic cardiomyopathy and multiple cardiac catheterizations which have never demonstrated any obstructive coronary disease at all. Patient with history of ventricular tachycardia status post placement of an internal cardiac defibrillator in 2004 replaced in 2013. Patient also with high level of anxiety and has chest pain off and on often times relieved by nitroglycerin and in the settings has undergone multiple cardiac catheterizations and evaluations both locally and with his appliance repair technician who is from [facility]. Again no evidence of obstructive coronary disease has ever been found in this individual Patient History Medical History Anxiety (10/25/13) Cancer Cardiomyopathy (07/24/15) Chest pain Chronic anemia (04/16/16) Chronic renal failure, stage 2 (mild) (07/24/15) Chronic renal failure, stage 3a COVID-19 Gastroesophageal reflux disease without esophagitis (01/23/11) History of hematuria Leukopenia (04/16/16) Lumbar radiculopathy Malignant neoplasm of prostate (07/11/14) Mixed hyperlipidemia (01/23/11) Palpitations Pneumonia due to COVID-19 virus Pulmonary embolism Ventricular tachycardia (01/10/14) Surgical History Anesthesia Implantable cardioverter-defibrillator (ICD) in situ Status post cholecystectomy Family & Social History Family History Brother Family history of diabetes mellitus (DM) Father Hypertension Sister No problems noted. Social History: household members significant other,other Prior Living Arrangements House Safety & Behavioral: Feels Safe in Current Yes Environment Been Physically Hurt or No Threatened By a Person Tobacco & Substance use: Smoking Status Never smoker alcohol intake frequency a few times a month Substance Use Type does not use Meds Home Medications and Allergies Home Medications Medication Instructions Recorded Confirmed Type multivitamin 1 tab PO DAILY ##0 02/13/12 06/26/22 History aspirin 81 mg tablet,delayed 81 mg PO DAILY ##0 07/23/12 06/26/22 History release gabapentin 300 mg capsule 300 mg PO BID ##0 02/23/16 06/26/22 History (Neurontin) alprazolam 0.25 mg tablet 0.25 mg PO TIDP PRN Anxiety ##0 11/22/16 06/26/22 History diclofenac sodium 1 % topical gel 1 john topical QID PRN pain ##0 11/22/16 04/23/22 History (Voltaren) sucralfate 1 gram tablet 1 gm PO ACHS #360 tabs 02/24/17 06/26/22 Rx amitriptyline 25 mg tablet 25 mg PO BEDTIME ##0 08/10/17 06/26/22 History clorazepate dipotassium 3.75 mg 3.75 mg PO BID #180 tabs 02/03/18 06/26/22 Rx tablet ibuprofen 600 mg tablet 600 mg PO QID PRN pain #20 tabs 02/22/18 06/26/22 Rx colchicine 0.6 mg capsule 0.6 mg PO BID 10/07/18 06/26/22 History fluoride (sodium) 1.1 % dental 1 applic dental DIRECTED 10/07/18 06/26/22 History cream hydroxychloroquine 200 mg tablet 200 mg PO BID 10/07/18 06/26/22 History tamsulosin 0.4 mg capsule (Flomax) 0.8 mg PO DAILY 10/07/18 06/26/22 History bupropion HCl 150 mg 24 hr tablet, 150 mg PO QAM #30 tabs 10/08/18 06/26/22 Rx extended release DISABLED PARKING PERMIT #1 ea 05/04/20 04/23/22 Rx nitroglycerin 0.4 mg sublingual 0.4 mg sublingual Q5-15M PRN chest 08/23/20 06/26/22 Rx tablet pain #30 tabs sildenafil 100 mg tablet (Viagra) See Rx Instructions PO .COMPLEX 05/08/21 06/26/22 Rx PRN erectile dysfunction #30 tabs tramadol 50 mg tablet 50 mg PO Q8H PRN pain #10 tabs 07/19/21 06/26/22 Rx sertraline 50 mg tablet 100 mg PO BEDTIME #180 tabs 10/15/21 06/26/22 Rx levothyroxine 50 mcg tablet 50 mcg PO DAILY #90 tabs 12/27/21 06/26/22 Rx (Synthroid) lisinopril 5 mg tablet 5 mg PO DAILY #90 tabs 12/27/21 06/26/22 Rx isosorbide mononitrate 60 mg 60 mg PO DAILY 01/18/22 06/26/22 History tablet,extended release 24 hr apixaban 5 mg tablet (Eliquis) 5 mg PO BID #180 tabs 02/06/22 06/26/22 Rx pantoprazole 40 mg tablet,delayed 40 mg PO BID #180 tabs 02/06/22 06/26/22 Rx release dexamethasone 2 mg tablet 2 mg PO TID #12 tabs 04/22/22 06/26/22 Rx diclofenac sodium 75 mg 75 mg PO BIDP PRN pain #180 tabs 06/27/22 06/26/22 Rx tablet,delayed release nabumetone 500 mg tablet 500 mg PO QDAY #90 tabs 06/27/22 06/26/22 Rx Allergies Allergy/AdvReac Type Severity Reaction Status Date / Time codeine Allergy Mild HIVES Verified 04/23/22 10:32 Review of Systems Review of Systems ROS: Yes All systems reviewed with the patient and are negative except as otherwise documented Exam Vital Signs (past 8 hours): - 06/27/22 00:50 06/27/22 06:00 Temperature 97.9 F 97.3 F L Pulse Rate 60 61 Respiratory Rate 16 17 Blood Pressure 120/57 L 148/78 H Pulse Oximetry 96 98 Oxygen Flow Rate 0 0 Oxygen Delivery Method Room Air Oxygen Flow Rate 0 Narrative Exam Narrative: Elderly black male in no obvious distress lying in his hospital bed HEENT-unremarkable, normocephalic atraumatic Neck-no lymphadenopathy no bruits Lungs-clear anteriorly and posteriorly no wheezes no crackles good breath sounds Heart-regular rate and rhythm, no murmur, rub, or gallop. normal S1-S2 Abdomen-positive bowel tones, soft, nontender, nondistended, no hepatosplenomegaly, no masses palpable Neuro-normal to screening exam, gait not tested Extremities-no cyanosis clubbing or edema Objective ECG Impression: 12 lead ECG unchanged from previous no evidence of ischemia, atrial paced rhythm as before Labs Result Diagrams: 06/26/22 17:42 06/26/22 17:42 Labs: Laboratory Results - last 24 hr 06/26/22 06/26/22 06/26/22 17:42 17:42 17:42 WBC 4.2 L RBC 3.36 L Hgb 10.4 L Hct 31.8 L MCV 94.9 MCH 31.1 MCHC 32.8 RDW 14.8 Plt Count 141 L Neut % (Auto) 45.7 L Lymph % (Auto) 36.9 [place] % (Auto) 11.1 Eos % (Auto) 5.0 H Baso % (Auto) 1.3 Neut # (Auto) 1900 Lymph # (Auto) 1500 [place] # (Auto) 500 Eos # (Auto) 200 Baso # (Auto) 100 PT 20.9 H INR 1.8 H APTT 31 Sodium 139 Potassium 4.6 Chloride 104 Carbon Dioxide 26 BUN 34 H Creatinine 1.86 H Estimated GFR 36 L BUN/Creatinine Ratio 18.3 Glucose 99 Calcium 9.2 Magnesium 2.1 Total Bilirubin 0.5 AST 35 ALT 25 Alkaline Phosphatase 76 Total Creatine Kinase 261 H CK-MB (CK-2) 1.47 CK-MB (CK-2) Rel Index 0.6 L Troponin I < 0.012 Total Protein 7.1 Albumin 4.1 Globulin 3.0 Albumin/Globulin Ratio 1.4 Lipase 113 SARS-CoV-2 (PCR) 06/26/22 06/27/22 20:30 01:25 WBC RBC Hgb Hct MCV MCH MCHC RDW Plt Count Neut % (Auto) Lymph % (Auto) [place] % (Auto) Eos % (Auto) Baso % (Auto) Neut # (Auto) Lymph # (Auto) [place] # (Auto) Eos # (Auto) Baso # (Auto) PT INR APTT Sodium Potassium Chloride Carbon Dioxide BUN Creatinine Estimated GFR BUN/Creatinine Ratio Glucose Calcium Magnesium Total Bilirubin AST ALT Alkaline Phosphatase Total Creatine Kinase CK-MB (CK-2) CK-MB (CK-2) Rel Index Troponin I < 0.012 Total Protein Albumin Globulin Albumin/Globulin Ratio Lipase SARS-CoV-2 (PCR) Negative Assessment & Plan Assessment & Plan narrative: 1. Chest pain-patient with chest pain which fits his usual pattern that has failed to demonstrate any evidence of cardiac source of his chest pain. Objective evidence including EKG and troponin have been normal. Therefore I do not believe this is a cardiac ischemic event or symptom. No need to make any changes in patient can likely be discharged later today In addition there is no evidence of any further complication. Patient does have a history of pulmonary emboli and was critically ill with COVID over a year ago and has had complaints of dyspnea ever sense that may well be a contributing factor here Patient also with very high levels of anxiety and multiple presentations to emergency department's over the years with chest pain which is resulted in the multiple cardiac evaluations referenced above. At this time there is no reason to believe his presentation is anything atypical for him or that there is any cardiac etiology behind it at this point. He has been monitored in the hospital he is had no recurrent symptoms etcetera 2. Chronic renal failure stage 3 a-patient's renal function is within his usual baseline and stable. No changes 3. Cardiomyopathy-felt to be idiopathic maybe a source of his ventricular rhythm disturbance for which he had an ICD placed. No activation of his ICD with his chest pain etcetera. Not an active issue at this time. Continue usual medications 4. Prostate cancer-patient with persistent prostate cancer causing some degree of fatigue and weakness. This has been more aggressive recently and I would believe this to be more likely source of his ongoing fatigue tiredness etcetera than any of his other factors 5. Anxiety-patient with high level of anxiety currently minimally symptomatic. I believe this played a role in his presentation Overall, patient has had no additional symptoms since he presented to the emergency department. His story is consistent with his prior presentations. No abnormalities were found on any of his ER evaluation imaging lab work EKG etcetera Therefore I think patient is stable for discharge home this morning. Patient tells me he has an appointment with his urologist in [place] later this morning and I would very much like him to keep that as it has been quite sometime since he has been seen and his prostate cancer is probably the most active disease process for him at this time. Therefore I am going to discharge him home COVID-19 COVID-19 status: Negative Result date/Date tested (Pos, Neg/Pending): 06/26/22
--- NOTE | 2022-06-27 08:27 | PC.NURSE ---
Day shift: Pt left unit at approx 0825. D/C orders per Dr Blackwell. Pt stated he had an important MD appointment in [place] and had to leave [facility]. Pt was told by this administrative underwriter that he did not get AM meds and he would have to take them when he leaves. He was OK with that. Paperwork signed and all questions answered. He did deny any chest pain just now. IV removed by COMMERCIAL INTELLIGENCE MANAGER. Pt walked to car that his Spouse is driving by this administrative underwriter.
== END 2022-06-27 08:32 | disposition home or self-care (01) ==
LOC: ED 18:24 → AC 18:47
PROVIDERS: Emergency Medicine; Admitting Provider Family Medicine; Emergency Provider Emergency Medicine; PCP Internal Medicine; Referring Provider Emergency Medicine; Visit Provider Internal Medicine
DX: R07.9 Chest pain, unspecified (principal); N18.31 Chronic kidney disease, stage 3a; I42.9 Cardiomyopathy, unspecified; C61 Malignant neoplasm of prostate; F41.9 Anxiety disorder, unspecified; Z20.822 Contact with and (suspected) exposure to COVID-19
CPT/HCPCS: 36415; 71045; 80053; 82550; 82553; 83690; 83735; 84484; 85025; 85610; 85730; 87635; 93005; 93010; 99234; 99284; C9803; G0378

== ENCOUNTER 2022-07-25 13:17 | Emergency (ER) | payer MEDICARE, OTHER, SELFPAY ==
[2022-06-26 21:49] VITALS: BMI 30.8
[2022-07-25 13:25] VITALS: BP 130/67; PULSE 73; RESP 17; TEMP 36.6; O2SAT 98; BMI 29.5
--- NOTE | 2022-07-25 13:37 | DI.RAD.S_ITS ---
PROCEDURE: XR CHEST 1V INDICATIONS: chest pain TECHNIQUE: One view of the chest was acquired. COMPARISON: [facility], CR, XR CHEST 1V, 06/26/2022, 17:46. FINDINGS: Surgical changes and devices: Left-sided dual-chamber pacemaker/defibrillator. Lungs and pleura: Lungs are clear. No pleural effusions or pneumothorax. Mediastinum: Mediastinal contours appear normal. Heart size is normal. Bones and chest wall: No suspicious bony lesions. Overlying soft tissues appear unremarkable. IMPRESSION: No acute cardiopulmonary findings Approved by: Jay Chavez M.D. on 07/25/2022 at 14:41
[2022-07-25] MEDS: ASPIRIN 81 MG CHEW TAB 243 MG PO (13:44)
[2022-07-25 13:46] LABS: Add Manual Diff / Slide Review NO; Basophils Absolute Auto 0 /uL (0-100); Basophils Percent Auto 0.7 % (0-2); Eosinophils Absolute Auto 200 /uL (0-450); Eosinophils Percent Auto 3.7 % (2-4); Hematocrit 31.3 % (41-53); Lymphocytes Absolute Auto 1100 /uL (1100-4500); Lymphocytes Percent Auto 25.9 % (25-40); Mean Corpuscular Hemoglobin 30.6 PG (26-34); Mean Corpuscular Volume 95.6 fL (80-100); Monocytes Absolute Auto 400 /uL (0-900); Neutrophils Absolute Auto 2500 /uL (1500-7000); Neutrophils Percent Auto 59.7 % (50-75); Platelet Count 132 X10^3/uL (150-400); Red Blood Cell Count 3.27 X10^6/uL (4.5-5.9); Red Cell Distribution Width 14.8 % (11.6-14.8); White Blood Cell Count 4.2 X10^3/uL (4.5-11.0)
[2022-07-25 13:57] LABS: INR 1.7 (0.9-1.3); Prothrombin Time 19.7 SECONDS (10.1-12.7)
[2022-07-25 14:00] LABS: PTT Partial Thromboplastin Tim 30 SECONDS (26-36)
[2022-07-25 14:04] LABS: Alanine Aminotransferase 27 IU/L (<50); Albumin 4.3 g/dL (3.5-5.0); Albumin Globulin Ratio 1.4 (1.0-2.8); Alkaline Phosphatase 64 U/L (38-126); Aspartate Aminotransferase 39 IU/L (17-59); BUN Creatinine Ratio 16.9 (6-22); Bilirubin Total 0.8 mg/dL (0.2-1.3); Blood Urea Nitrogen 35 mg/dL (9-20); Calcium 8.8 mg/dL (8.4-10.2); Carbon Dioxide 28 mmol/L (22-32); Chloride 101 mmol/L (98-107); Creatine Kinase 291 U/L (55-170); Estimated Glomerular Filt Rate 32 mL/min (>60); Glucose 104 mg/dL (80-110); Lipase 127 U/L (23-300); Magnesium 1.8 mg/dL (1.6-2.3); Potassium 5.3 mmol/L (3.4-5.1); Sodium 139 mmol/L (137-145); Total Protein 7.3 g/dL (6.3-8.2)
[2022-07-25 14:05] VITALS: PULSE 60; RESP 23; O2SAT 100
[2022-07-25 14:13] LABS: COVID19 -Nasal RAPID Negative (Negative)
[2022-07-25 14:16] LABS: Troponin I 0.016 ng/mL (0.01-0.034)
[2022-07-25 14:17] VITALS: BP 125/71; PULSE 60; RESP 25; O2SAT 99
[2022-07-25 14:20] LABS: CKMB % Relative Index 0.5 % (1.5-5.0); Creatine Kinase MB 1.44 ng/mL (<2.37)
[2022-07-25 14:21] LABS: HEMOLYSIS 68 (0-50)
[2022-07-25 14:30] VITALS: BP 123/69; PULSE 60; RESP 21; O2SAT 98
--- NOTE | 2022-07-25 14:45 | ED.CHESTPAIN ---
HPI - Chest Pain <Conner Gee PA-C - Last Filed: 07/25/22 16:13> General Chief Complaint: Chest Pain Stated Complaint: chest pains /heart PT Time Seen by Provider: 07/25/22 13:40 Source: patient Mode of arrival: Ambulatory History of Present Illness HPI narrative: This is a 77-year-old male presents to the emergency department due to a brief episode of left-sided chest pain 2 days ago she states has improved as the day after taking, ?a couple baby aspirin?. He states that he has a extended history of similar chest pains like this in the past. He has an appointment with his program manager rn next week. He has an implantable defibrillator in place. Denies any current symptoms but states that ?something is going on with my heart?. Denies any nausea, vomiting, abdominal pain, shortness breath, or any other concerning signs or symptoms. Related Data Home Medications Medication Instructions Recorded Confirmed multivitamin 1 tab PO DAILY ##0 02/13/12 06/26/22 aspirin 81 mg tablet,delayed 81 mg PO DAILY ##0 07/23/12 07/25/22 release gabapentin 300 mg capsule 300 mg PO BID ##0 02/23/16 06/26/22 (Neurontin) alprazolam 0.25 mg tablet 0.25 mg PO TIDP PRN Anxiety ##0 11/22/16 07/25/22 amitriptyline 25 mg tablet 25 mg PO BEDTIME ##0 08/10/17 07/25/22 colchicine 0.6 mg capsule 0.6 mg PO BID 10/07/18 07/25/22 fluoride (sodium) 1.1 % dental 1 applic dental DIRECTED 10/07/18 06/26/22 cream hydroxychloroquine 200 mg tablet 200 mg PO BID 10/07/18 06/26/22 tamsulosin 0.4 mg capsule (Flomax) 0.8 mg PO DAILY 10/07/18 06/26/22 isosorbide mononitrate 60 mg 60 mg PO DAILY 01/18/22 07/25/22 tablet,extended release 24 hr Previous Rx's Medication Instructions Recorded sucralfate 1 gram tablet 1 gm PO ACHS #360 tabs 02/24/17 clorazepate dipotassium 3.75 mg 3.75 mg PO BID #180 tabs 02/03/18 tablet ibuprofen 600 mg tablet 600 mg PO QID PRN pain #20 tabs 02/22/18 bupropion HCl 150 mg 24 hr tablet, 150 mg PO QAM #30 tabs 10/08/18 extended release DISABLED PARKING PERMIT #1 ea 05/04/20 nitroglycerin 0.4 mg sublingual 0.4 mg sublingual Q5-15M PRN chest 08/23/20 tablet pain #30 tabs sildenafil 100 mg tablet (Viagra) See Rx Instructions PO .COMPLEX 05/08/21 PRN erectile dysfunction #30 tabs tramadol 50 mg tablet 50 mg PO Q8H PRN pain #10 tabs 07/19/21 sertraline 50 mg tablet 100 mg PO BEDTIME #180 tabs 10/15/21 levothyroxine 50 mcg tablet 50 mcg PO DAILY #90 tabs 12/27/21 (Synthroid) lisinopril 5 mg tablet 5 mg PO DAILY #90 tabs 12/27/21 pantoprazole 40 mg tablet,delayed 40 mg PO BID #180 tabs 02/06/22 release nabumetone 500 mg tablet 500 mg PO QDAY #90 tabs 06/27/22 apixaban 5 mg tablet (Eliquis) 5 mg PO BID #180 tabs 07/15/22 nitroglycerin 0.4 mg sublingual 0.4 mg sublingual Q5-15M PRN chest 07/25/22 tablet pain #20 tabs Allergies Allergy/AdvReac Type Severity Reaction Status Date / Time codeine Allergy Mild HIVES Verified 07/25/22 13:37 Review of Systems <Conner Gee PA-C - Last Filed: 07/25/22 16:13> Review of Systems Narrative: GENERAL: Denies chills, fatigue, malaise, fever, sweats. HEENT: Denies sinus pain, ear pain, sore throat, difficulty swallowing, dizziness. RESPIRATORY: Denies dyspnea, cough, wheezing, hemoptysis, sputum. CARDIOVASCULAR: Reports an episode of chest pain 2 days ago, denies chest pain currently, denies palpitations, orthopnea, edema, GASTROINTESTINAL: Denies nausea, vomiting, abdominal pain, diarrhea, constipation, melena. : Denies dysuria, frequency, incontinence, hematuria, urinary retention. MUSCULOSKELETAL: denies weakness, joint pain, or bony pain SKIN: Denies rash, skin lesions, or other NEUROLOGIC: Denies weakness, headache, numbness, change in speech, confusion, seizures, incoordination. PSYCHIATRIC: No concerning psychosocial issues. 12 point review of systems is negative except for those stated above Patient History <Conner Gee PA-C - Last Filed: 07/25/22 16:13> Medical History Anxiety (10/25/13) Cancer Cardiomyopathy (07/24/15) Chest pain Chronic anemia (04/16/16) Chronic renal failure, stage 2 (mild) (07/24/15) Chronic renal failure, stage 3a COVID-19 Gastroesophageal reflux disease without esophagitis (01/23/11) History of hematuria Leukopenia (04/16/16) Lumbar radiculopathy Malignant neoplasm of prostate (07/11/14) Mixed hyperlipidemia (01/23/11) Palpitations Pneumonia due to COVID-19 virus Pulmonary embolism Ventricular tachycardia (01/10/14) Surgical History Anesthesia Implantable cardioverter-defibrillator (ICD) in situ Status post cholecystectomy Family History Brother Family history of diabetes mellitus (DM) Father Hypertension Sister No problems noted. Social History marital status: number of children: 6 household members: significant other and other Smoking Status: Never smoker Type(s) of exercise: other frequency: 3-4 times per week Smoking Status: Never smoker alcohol intake frequency: a few times a month Alcohol type: wine Substance Use Type: does not use Exam <Conner Gee PA-C - Last Filed: 07/25/22 16:13> Narrative Exam Narrative: GENERAL: Well-developed patient, in mild distress. HEAD: Atraumatic. Normocephalic. EYES: Pupils equal round and reactive. Extraocular motions intact. No scleral icterus. No injection or drainage. ENT: Nose without bleeding, purulent drainage. Throat without erythema, tonsillar hypertrophy or exudate. Airway patent. NECK: Trachea midline. Non tender CARDIOVASCULAR: Regular rate and rhythm without murmurs, gallops, or rubs. RESPIRATORY: Clear to auscultation. Breath sounds equal bilaterally. No wheezes, rales, or rhonchi. GASTROINTESTINAL: Abdomen soft, non-tender, nondistended. EXTREMITIES: No edema or joint tenderness. BACK: Nontender without deformity or crepitance. No flank tenderness. NEURO: AOx3. SKIN: No rash or erythema of visible areas Initial Vital Signs Initial Vital Signs: Vital Signs Temperature 98 F 07/25/22 13:25 Pulse Rate 73 07/25/22 13:25 Respiratory Rate 17 07/25/22 13:25 Blood Pressure 130/67 07/25/22 13:25 Pulse Oximetry 98 07/25/22 13:25 Oxygen Delivery Method 07/25/22 13:25 <Delmer Minaya MD - Last Filed: 07/31/22 09:17> Initial Vital Signs Initial Vital Signs: Vital Signs Temperature 98 F 07/25/22 13:25 Pulse Rate 73 07/25/22 13:25 Respiratory Rate 17 07/25/22 13:25 Blood Pressure 130/67 07/25/22 13:25 Pulse Oximetry 98 07/25/22 13:25 Oxygen Delivery Method 07/25/22 13:25 Course <Conner Gee PA-C - Last Filed: 07/25/22 16:13> Orders Ordered: Discontinued Medications Aspirin (Aspirin 81 Mg Chew Tab) 243 mg PO NOW ONE Stop: 07/25/22 13:38 Last Admin: 07/25/22 13:44 Dose: 243 mg Documented By: AMU Consultations Consultation #1: [id number] Spoke with patient's primary care provider, Dr. Blackwell, who recommended the patient be discharged to follow up with him in the next couple of weeks. Also agreed with the plan for the patient to follow up with his program manager rn next week as scheduled. Vital Signs Vital signs: Vital Signs - 8 hr 07/25/22 13:25 07/25/22 14:05 07/25/22 14:17 Temperature 98 F Pulse Rate 73 60 Respiratory Rate 17 23 Blood Pressure 130/67 125/71 Pulse Oximetry 98 100 Oxygen Delivery Method Room Air 07/25/22 14:17 07/25/22 14:30 07/25/22 14:30 Temperature Pulse Rate 60 60 Respiratory Rate 25 H 21 Blood Pressure 123/69 Pulse Oximetry 99 98 Oxygen Delivery Method Room Air 07/25/22 15:00 07/25/22 15:00 Temperature Pulse Rate 59 L Respiratory Rate 12 Blood Pressure 127/79 Pulse Oximetry 98 Oxygen Delivery Method <Delmer Minaya MD - Last Filed: 07/31/22 09:17> Orders Ordered: Discontinued Medications Aspirin (Aspirin 81 Mg Chew Tab) 243 mg PO NOW ONE Stop: 07/25/22 13:38 Last Admin: 07/25/22 13:44 Dose: 243 mg Documented By: AMU Vital Signs Vital signs: Vital Signs - 8 hr 07/25/22 13:25 07/25/22 14:05 07/25/22 14:17 Temperature 98 F Pulse Rate 73 60 Respiratory Rate 17 23 Blood Pressure 130/67 125/71 Pulse Oximetry 98 100 Oxygen Delivery Method Room Air 07/25/22 14:17 07/25/22 14:30 07/25/22 14:30 Temperature Pulse Rate 60 60 Respiratory Rate 25 H 21 Blood Pressure 123/69 Pulse Oximetry 99 98 Oxygen Delivery Method Room Air 07/25/22 15:00 07/25/22 15:00 Temperature Pulse Rate 59 L Respiratory Rate 12 Blood Pressure 127/79 Pulse Oximetry 98 Oxygen Delivery Method MDM - Chest Pain <Conner Gee PA-C - Last Filed: 07/25/22 16:13> Lab Data 07/25/22 13:40 07/25/22 13:40 Labs: Lab Results 07/25/22 07/25/22 07/25/22 Range/Units 13:40 13:40 13:40 WBC 4.2 L (4.5-11.0) X10^3/uL RBC 3.27 L (4.5-5.9) X10^6/uL Hgb 10.0 L (13.5-17.5) g/dL Hct 31.3 L (41-53) % MCV 95.6 (80-100) fL MCH 30.6 (26-34) PG MCHC 32.0 (30-36) % RDW 14.8 (11.6-14.8) % Plt Count 132 L (150-400) X10^3/uL Neut % (Auto) 59.7 (50-75) % Lymph % (Auto) 25.9 (25-40) % Troup % (Auto) 10.0 (3-14) % Eos % (Auto) 3.7 (2-4) % Baso % (Auto) 0.7 (0-2) % Neut # (Auto) 2500 (4419-9922) /uL Lymph # (Auto) 1100 (2608-0801) /uL Troup # (Auto) 400 (0-900) /uL Eos # (Auto) 200 (0-450) /uL Baso # (Auto) 0 (0-100) /uL PT 19.7 H (10.1-12.7) SECONDS INR 1.7 H (0.9-1.3) APTT 30 (26-36) SECONDS D-Dimer (<500) ng/ml Sodium 139 (137-145) mmol/L Potassium 5.3 H (3.4-5.1) mmol/L Chloride 101 (98-107) mmol/L Carbon Dioxide 28 (22-32) mmol/L BUN 35 H (9-20) mg/dL Creatinine 2.07 H (0.66-1.25) mg/dL Estimated GFR 32 L (>60) mL/min BUN/Creatinine Ratio 16.9 (6-22) Glucose 104 (80-110) mg/dL Calcium 8.8 (8.4-10.2) mg/dL Magnesium 1.8 (1.6-2.3) mg/dL Total Bilirubin 0.8 (0.2-1.3) mg/dL AST 39 (17-59) IU/L ALT 27 (<50) IU/L Alkaline Phosphatase 64 (38-126) U/L Total Creatine Kinase 291 H (55-170) U/L CK-MB (CK-2) 1.44 (<2.37) ng/mL CK-MB (CK-2) Rel Index 0.5 L (1.5-5.0) % Troponin I 0.016 (0.01-0.034) ng/mL Total Protein 7.3 (6.3-8.2) g/dL Albumin 4.3 (3.5-5.0) g/dL Globulin 3.0 (1.7-4.1) g/dL Albumin/Globulin Ratio 1.4 (1.0-2.8) Lipase 127 (23-300) U/L SARS-CoV-2 (PCR) (Negative) 07/25/22 07/25/22 Range/Units 13:45 13:48 WBC (4.5-11.0) X10^3/uL RBC (4.5-5.9) X10^6/uL Hgb (13.5-17.5) g/dL Hct (41-53) % MCV (80-100) fL MCH (26-34) PG MCHC (30-36) % RDW (11.6-14.8) % Plt Count (150-400) X10^3/uL Neut % (Auto) (50-75) % Lymph % (Auto) (25-40) % Troup % (Auto) (3-14) % Eos % (Auto) (2-4) % Baso % (Auto) (0-2) % Neut # (Auto) (3333-3431) /uL Lymph # (Auto) (0062-5486) /uL Troup # (Auto) (0-900) /uL Eos # (Auto) (0-450) /uL Baso # (Auto) (0-100) /uL PT (10.1-12.7) SECONDS INR (0.9-1.3) APTT (26-36) SECONDS D-Dimer 384 (<500) ng/ml Sodium (137-145) mmol/L Potassium (3.4-5.1) mmol/L Chloride (98-107) mmol/L Carbon Dioxide (22-32) mmol/L BUN (9-20) mg/dL Creatinine (0.66-1.25) mg/dL Estimated GFR (>60) mL/min BUN/Creatinine Ratio (6-22) Glucose (80-110) mg/dL Calcium (8.4-10.2) mg/dL Magnesium (1.6-2.3) mg/dL Total Bilirubin (0.2-1.3) mg/dL AST (17-59) IU/L ALT (<50) IU/L Alkaline Phosphatase (38-126) U/L Total Creatine Kinase (55-170) U/L CK-MB (CK-2) (<2.37) ng/mL CK-MB (CK-2) Rel Index (1.5-5.0) % Troponin I (0.01-0.034) ng/mL Total Protein (6.3-8.2) g/dL Albumin (3.5-5.0) g/dL Globulin (1.7-4.1) g/dL Albumin/Globulin Ratio (1.0-2.8) Lipase (23-300) U/L SARS-CoV-2 (PCR) Negative (Negative) Imaging Data Chest x-ray: Radiologist's Impression: [address] [address] XRay Report Signed Patient: Jorje Garay MR#: [id number] : 1945 Acct:[id number] Age/Sex: 77 / M Date of Service: 07/25/22 Loc: ED Accession Number: [id number] ?? Procedure: XR chest 1V Ordering Provider: Delmer Minaya MD PROCEDURE:? XR CHEST 1V ? INDICATIONS:? chest pain ? TECHNIQUE:? One view of the chest was acquired.? ? COMPARISON:? [facility], , XR CHEST 1V, 06/26/2022, 17:46. ? FINDINGS:? ? Surgical changes and devices:? Left-sided dual-chamber pacemaker/defibrillator. ? Lungs and pleura:? Lungs are clear.? No pleural effusions or pneumothorax.? ? Mediastinum:? Mediastinal contours appear normal.? Heart size is normal.? ? Bones and chest wall:? No suspicious bony lesions.? Overlying soft tissues appear unremarkable.? ? IMPRESSION:? No acute cardiopulmonary findings ? ? ? Approved by: Jay Chavez M.D. on 07/25/2022 at 14:41? ECG Data Interpretation: 1335 EKG is atrial paced rhythm rate 60 and free of any signs of ischemia or ectopy. No ST segmental elevation or depression. No T wave inversions MDM Narrative Medical decision making narrative: MDM * differential diagnosis includes but not limited to NSTEMI, STEMI, muscle strain, PE, pneumonia, unstable angina, * Prior records reviewed: Prior records reviewed which showed patient has been seen multiple times for cardiac rule out. Most recent hospitalization noted the multiple cardiac catheterizations without any abnormal findings. * My lab interpretation: Lab work unremarkable for any signs ACS. Troponin within normal limits. * My imgaing interpretation: Chest x-ray unremarkable * Clinical Decision Rules/Scores evaluated: Heart score of 4. * Independent discussions with: Dr. Blackwell, who is the patient's primary care provider as noted above ED Course: This is a 77-year-old male presents to the emergency department due to an episode of chest pain approximately 2 days ago which has improved as of this visit emergency department. Patient just want to get ?checked out just to be sure?. Patients lab work were unremarkable, troponin within normal limits, EKG showed no evidence of ACS. This patient was discussed with Dr. Blackwell, who is the patient's primary care provider who is very familiar with the patient. States that multiple cardiac catheterization have been performed which showed no evidence of any kind of cardiac abnormality. Patient was instructed follow-up with his established program manager rn, he has an appointment next week as well as Dr. Blackwell. D-dimer was also negative to rule out PE. Shared Decision Making: Plan for discharge discussed with the patient who is comfortable with this plan. Social Considerations: None Disposition: Discharged to home <Delmer Minaya MD - Last Filed: 07/31/22 09:17> Lab Data Labs: Lab Results 07/25/22 07/25/22 07/25/22 Range/Units 13:40 13:40 13:40 WBC 4.2 L (4.5-11.0) X10^3/uL RBC 3.27 L (4.5-5.9) X10^6/uL Hgb 10.0 L (13.5-17.5) g/dL Hct 31.3 L (41-53) % MCV 95.6 (80-100) fL MCH 30.6 (26-34) PG MCHC 32.0 (30-36) % RDW 14.8 (11.6-14.8) % Plt Count 132 L (150-400) X10^3/uL Neut % (Auto) 59.7 (50-75) % Lymph % (Auto) 25.9 (25-40) % Troup % (Auto) 10.0 (3-14) % Eos % (Auto) 3.7 (2-4) % Baso % (Auto) 0.7 (0-2) % Neut # (Auto) 2500 (8569-3701) /uL Lymph # (Auto) 1100 (2927-2954) /uL Troup # (Auto) 400 (0-900) /uL Eos # (Auto) 200 (0-450) /uL Baso # (Auto) 0 (0-100) /uL PT 19.7 H (10.1-12.7) SECONDS INR 1.7 H (0.9-1.3) APTT 30 (26-36) SECONDS D-Dimer (<500) ng/ml Sodium 139 (137-145) mmol/L Potassium 5.3 H (3.4-5.1) mmol/L Chloride 101 (98-107) mmol/L Carbon Dioxide 28 (22-32) mmol/L BUN 35 H (9-20) mg/dL Creatinine 2.07 H (0.66-1.25) mg/dL Estimated GFR 32 L (>60) mL/min BUN/Creatinine Ratio 16.9 (6-22) Glucose 104 (80-110) mg/dL Calcium 8.8 (8.4-10.2) mg/dL Magnesium 1.8 (1.6-2.3) mg/dL Total Bilirubin 0.8 (0.2-1.3) mg/dL AST 39 (17-59) IU/L ALT 27 (<50) IU/L Alkaline Phosphatase 64 (38-126) U/L Total Creatine Kinase 291 H (55-170) U/L CK-MB (CK-2) 1.44 (<2.37) ng/mL CK-MB (CK-2) Rel Index 0.5 L (1.5-5.0) % Troponin I 0.016 (0.01-0.034) ng/mL Total Protein 7.3 (6.3-8.2) g/dL Albumin 4.3 (3.5-5.0) g/dL Globulin 3.0 (1.7-4.1) g/dL Albumin/Globulin Ratio 1.4 (1.0-2.8) Lipase 127 (23-300) U/L SARS-CoV-2 (PCR) (Negative) 07/25/22 07/25/22 Range/Units 13:45 13:48 WBC (4.5-11.0) X10^3/uL RBC (4.5-5.9) X10^6/uL Hgb (13.5-17.5) g/dL Hct (41-53) % MCV (80-100) fL MCH (26-34) PG MCHC (30-36) % RDW (11.6-14.8) % Plt Count (150-400) X10^3/uL Neut % (Auto) (50-75) % Lymph % (Auto) (25-40) % Troup % (Auto) (3-14) % Eos % (Auto) (2-4) % Baso % (Auto) (0-2) % Neut # (Auto) (0742-9593) /uL Lymph # (Auto) (1939-5830) /uL Troup # (Auto) (0-900) /uL Eos # (Auto) (0-450) /uL Baso # (Auto) (0-100) /uL PT (10.1-12.7) SECONDS INR (0.9-1.3) APTT (26-36) SECONDS D-Dimer 384 (<500) ng/ml Sodium (137-145) mmol/L Potassium (3.4-5.1) mmol/L Chloride (98-107) mmol/L Carbon Dioxide (22-32) mmol/L BUN (9-20) mg/dL Creatinine (0.66-1.25) mg/dL Estimated GFR (>60) mL/min BUN/Creatinine Ratio (6-22) Glucose (80-110) mg/dL Calcium (8.4-10.2) mg/dL Magnesium (1.6-2.3) mg/dL Total Bilirubin (0.2-1.3) mg/dL AST (17-59) IU/L ALT (<50) IU/L Alkaline Phosphatase (38-126) U/L Total Creatine Kinase (55-170) U/L CK-MB (CK-2) (<2.37) ng/mL CK-MB (CK-2) Rel Index (1.5-5.0) % Troponin I (0.01-0.034) ng/mL Total Protein (6.3-8.2) g/dL Albumin (3.5-5.0) g/dL Globulin (1.7-4.1) g/dL Albumin/Globulin Ratio (1.0-2.8) Lipase (23-300) U/L SARS-CoV-2 (PCR) Negative (Negative) Discharge Plan Departure Patient Disposition: Home Clinical Impression: Atypical chest pain Instructions: DI for Angina, DI for Atypical Chest Pain Activity Restrictions/Additional Instructions: Thank you for coming to the [facility] Emergency Department today. Your cardiac workup today was non concerning. The lab work and EKG to check for heart attack showed no remarkable findings. I spoke with the primary care provider, Dr. Blackwell, who is comfortable having discharge and follow up with him in the next couple of weeks as well as your established program manager rn. Please do not take the nitroglycerin within 24 hours of taking any Viagra. I hope you feel better soon. Prescriptions: New nitroglycerin 0.4 mg tablet, sublingual 0.4 mg sublingual Q5-15M PRN (Reason: chest pain) Qty: 20 0RF Rx Instructions: do not exceed 3 doses per episode No Action multivitamin Tablet 1 tab PO DAILY Qty: 0 aspirin 81 mg Tablet,Delayed Release (Dr/Ec) 81 mg PO DAILY Qty: 0 gabapentin [Neurontin] 300 MG capsule 300 mg PO BID Qty: 0 alprazolam 0.25 MG tablet 0.25 mg PO TIDP PRN (Reason: Anxiety) Qty: 0 sucralfate 1 GM tablet 1 gm PO ACHS Qty: 360 3RF amitriptyline 25 MG tablet 25 mg PO BEDTIME Qty: 0 clorazepate dipotassium 3.75 mg tablet 3.75 mg PO BID Qty: 180 1RF (DME) DISABLED PARKING PERMIT Qty: 1 0RF Rx Instructions: I FIND THIS PATIENT TO BE MEDICALLY DISABLED AND QUALIFIED FOR DISABLE PARKING INDICATED, AND SIGNED ON THE ACCOMPANYING [employer] APPLICATION FOR INDIVIDUALS sildenafil [Viagra] 100 mg tablet See Rx Instructions PO .COMPLEX PRN (Reason: erectile dysfunction) Qty: 30 11RF Dose Instruction: 1/2 to 1 tab PO 1 hr prior to sexual activity PRN; Rx Instructions: 1/2 to 1 tab PO 1 hr prior to sexual activity PRN; sertraline 50 mg tablet 100 mg PO BEDTIME Qty: 180 3RF levothyroxine [Synthroid] 50 mcg tablet 50 mcg PO DAILY Qty: 90 3RF lisinopril 5 mg tablet 5 mg PO DAILY Qty: 90 3RF pantoprazole 40 mg tablet,delayed release (DR/EC) 40 mg PO BID Qty: 180 3RF Eliquis 5 mg tablet 5 mg PO BID Qty: 180 1RF bupropion HCl 150 mg tablet extended release 24 hr 150 mg PO QAM Qty: 30 3RF Hold Instructions: not sure helping isosorbide mononitrate 60 mg tablet extended release 24 hr 60 mg PO DAILY ibuprofen 600 mg tablet 600 mg PO QID PRN (Reason: pain) Qty: 20 0RF Rx Instructions: do not take with other NSAIDs nabumetone 500 MG tablet 500 mg PO QDAY Qty: 90 0RF Rx Instructions: Do not take with other NSAIDs (Ibuprofren/Diclofenac) hydroxychloroquine 200 mg tablet 200 mg PO BID fluoride (sodium) 1.1 % cream 1 applic Dental DIRECTED Label Comments: BRUSH ON TEETH ONCE A DAY SPIT OUT DO NOT RINSE colchicine 0.6 mg capsule 0.6 mg PO BID tamsulosin [Flomax] 0.4 MG capsule 0.8 mg PO DAILY nitroglycerin 0.4 mg tablet, sublingual 0.4 mg sublingual Q5-15M PRN (Reason: chest pain) Qty: 30 0RF Rx Instructions: do not exceed 3 doses per episode tramadol 50 mg tablet 50 mg PO Q8H PRN (Reason: pain) Qty: 10 0RF Referrals: Brayan Blackwell MD [Primary Care Provider] - Stand Alone Forms: Patient Portal/API <Delmer Minaya MD - Last Filed: 07/31/22 09:17> [facility] Attestation: I was immediately available in the department for consultation. ?This documentation has been reviewed and I agree with assessment and plan. Supervised by Delmer Minaya MD
[2022-07-25 14:56] LABS: D Dimer 384 ng/ml (<500)
[2022-07-25 15:00] VITALS: BP 127/79; PULSE 59; RESP 12; O2SAT 98
== END 2022-07-25 16:22 | disposition home or self-care (01) ==
PROVIDERS: Emergency Medicine; Emergency Provider Physician Assistant Medical; PCP Internal Medicine
DX: R07.89 Other chest pain (principal); Z20.822 Contact with and (suspected) exposure to COVID-19
CPT/HCPCS: 36415; 71045; 80053; 82550; 82553; 83690; 83735; 84484; 85025; 85379; 85610; 85730; 87635; 93005; 99284; C9803

== ENCOUNTER 2022-08-18 08:13 | Emergency (ER) | payer MEDICARE, OTHER, SELFPAY ==
[2022-06-26 21:49] VITALS: BMI 30.8
[2022-08-18 08:52] VITALS: BP 145/74; PULSE 65; RESP 18; TEMP 36.7; O2SAT 99; BMI 30.2
[2022-08-18 09:21] LABS: RBC Urine 1-5/HPF (0-5/HPF); Squamous Epithelial Cell Urine 1-5 /HPF (0-5/HPF); WBC Urine 1-5/HPF (0-5/HPF)
[2022-08-18 09:22] LABS: Bacteria Urine Few (2-10); Culture Indicated Urine Specimen Cultured; Mucus Urine 1+ (Negative)
--- NOTE | 2022-08-18 10:52 | ED_ITS ---
HPI - Male Genitourinary General Chief complaint: Urogenital-Male Stated complaint: not feeling well blood in urine Time Seen by Provider: 08/18/22 10:52 Source: patient Mode of arrival: Ambulatory History of Present Illness HPI Narrative: Patient is a 77-year-old male with coronary artery disease, CKD, pulmonary embolism on Eliquis, ICD, presenting today with hematuria. He reports that he was feeling okay yesterday this morning he woke up and urinated some pink tinged urine. He has no fever chills no painful frequent urination no back pain. He is frequently here for chest pain but today is adamant that he does not have any chest pain or shortness of breath. He is overall feeling okay. He reports that he has been to the restroom twice since he has been here and there is no further blood or hematuria. Related Data Home Medications Medication Instructions Recorded Confirmed multivitamin 1 tab PO DAILY ##0 02/13/12 06/26/22 aspirin 81 mg tablet,delayed 81 mg PO DAILY ##0 07/23/12 07/25/22 release gabapentin 300 mg capsule 300 mg PO BID ##0 02/23/16 06/26/22 (Neurontin) amitriptyline 25 mg tablet 25 mg PO BEDTIME ##0 08/10/17 07/25/22 colchicine 0.6 mg capsule 0.6 mg PO BID 10/07/18 07/25/22 fluoride (sodium) 1.1 % dental 1 applic dental DIRECTED 10/07/18 06/26/22 cream hydroxychloroquine 200 mg tablet 200 mg PO BID 10/07/18 06/26/22 tamsulosin 0.4 mg capsule (Flomax) 0.8 mg PO DAILY 10/07/18 06/26/22 isosorbide mononitrate 60 mg 60 mg PO DAILY 01/18/22 07/25/22 tablet,extended release 24 hr Previous Rx's Medication Instructions Recorded sucralfate 1 gram tablet 1 gm PO ACHS #360 tabs 02/24/17 ibuprofen 600 mg tablet 600 mg PO QID PRN pain #20 tabs 02/22/18 bupropion HCl 150 mg 24 hr tablet, 150 mg PO QAM #30 tabs 10/08/18 extended release DISABLED PARKING PERMIT #1 ea 05/04/20 nitroglycerin 0.4 mg sublingual 0.4 mg sublingual Q5-15M PRN chest 08/23/20 tablet pain #30 tabs sildenafil 100 mg tablet (Viagra) See Rx Instructions PO .COMPLEX 05/08/21 PRN erectile dysfunction #30 tabs tramadol 50 mg tablet 50 mg PO Q8H PRN pain #10 tabs 07/19/21 sertraline 50 mg tablet 100 mg PO BEDTIME #180 tabs 10/15/21 levothyroxine 50 mcg tablet 50 mcg PO DAILY #90 tabs 12/27/21 (Synthroid) lisinopril 5 mg tablet 5 mg PO DAILY #90 tabs 12/27/21 pantoprazole 40 mg tablet,delayed 40 mg PO BID #180 tabs 02/06/22 release nabumetone 500 mg tablet 500 mg PO QDAY #90 tabs 06/27/22 apixaban 5 mg tablet (Eliquis) 5 mg PO BID #180 tabs 07/15/22 nitroglycerin 0.4 mg sublingual 0.4 mg sublingual Q5-15M PRN chest 07/25/22 tablet pain #20 tabs alprazolam 0.25 mg tablet 0.25 - 0.5 mg PO TIDP PRN Anxiety 08/02/22 #60 tabs cephalexin 500 mg capsule 500 mg PO BID 7 days #14 caps 08/18/22 Allergies Allergy/AdvReac Type Severity Reaction Status Date / Time codeine Allergy Mild HIVES Verified 07/25/22 13:37 Review of Systems Review of Systems ROS Unobtainable: All systems reviewed & are unremarkable except as noted in HPI and below Patient History Medical History Anxiety (10/25/13) Cancer Cardiomyopathy (07/24/15) Chest pain Chronic anemia (04/16/16) Chronic renal failure, stage 2 (mild) (07/24/15) Chronic renal failure, stage 3a COVID-19 Gastroesophageal reflux disease without esophagitis (01/23/11) History of hematuria Leukopenia (04/16/16) Lumbar radiculopathy Malignant neoplasm of prostate (07/11/14) Mixed hyperlipidemia (01/23/11) Palpitations Pneumonia due to COVID-19 virus Pulmonary embolism Ventricular tachycardia (01/10/14) Surgical History Anesthesia Implantable cardioverter-defibrillator (ICD) in situ Status post cholecystectomy Family History Brother Family history of diabetes mellitus (DM) Father Hypertension Sister No problems noted. Social History marital status: number of children: 6 household members: significant other and other Smoking Status: Never smoker Type(s) of exercise: other frequency: 3-4 times per week Smoking Status: Never smoker alcohol intake frequency: a few times a month Alcohol type: wine Substance Use Type: does not use Exam Initial Vital Signs Initial Vital Signs: Vital Signs Temperature 98.1 F 08/18/22 08:52 Pulse Rate 65 08/18/22 08:52 Respiratory Rate 18 08/18/22 08:52 Blood Pressure 145/74 H 08/18/22 08:52 Pulse Oximetry 99 08/18/22 08:52 Oxygen Delivery Method Room Air 08/18/22 08:52 GENERAL: Alert pleasant 77-year-old male and in no acute distress. HEENT: Head atraumatic,EOMI, pupils reactive, face symmetric, moist mucous membranes CARDIOVASCULAR: Regular rate and rhythm without murmurs, rubs or gallops. RESPIRATORY: Breath sounds equal bilaterally, no wheezes rales or rhonchi. ABDOMEN: Soft, nontender. Normoactive bowel sounds all 4 quadrants. No guarding or rebound. : No CVA tenderness EXTREMITIES: Normal range of motion, no clubbing or edema. Neurovascularly intact NEUROLOGICAL: Alert and oriented x4. SKIN: Warm, dry, no laceration, no petechiae, no rashes or lesions. Course Orders Ordered: ED Orders 08/18/22 08:41 Urine Culture Stat Urine Microscopic Stat Vital Signs Vital signs: Vital Signs - 8 hr 08/18/22 08:52 Temperature 98.1 F Pulse Rate 65 Respiratory Rate 18 Blood Pressure 145/74 H Pulse Oximetry 99 Oxygen Delivery Method Room Air MDM - Male Genitourinary Lab Data Labs: Lab Results 08/18/22 Range/Units 08:41 Urine RBC 1-5/hpf D (0-5/HPF) Urine WBC 1-5/hpf (0-5/HPF) Ur Squamous Epith Cells 1-5 /hpf (0-5/HPF) Urine Bacteria Few (2-10) H (None) Urine Mucus 1+ H (Negative) Ur Culture Indicated? Specimen cultured Urine Dip Bedside Urine Glucose Negative Bedside Urine Bilirubin - Negative Bedside Urine Ketone - Negative Urine Specific [place] 1.025 Bedside Urine Occult Blood +/- Bedside Urine pH 6.0 Bedside Urine Protein - Negative Bedside Urine Urobilinogen - Negative Bedside Urine Nitrite - Negative Bedside Urine Leukocytes - Negative Esterase MDM Narrative Medical decision making narrative: Patient is presenting today with hematuria while on Eliquis. He is no fever hematuria he reports his cleared while in the emergency department. Urinalysis does show some bacteria without leukocytes or nitrates. He is afebrile vitals are stable I do not see need for blood work or further workup. However I will put him on antibiotics. We discussed when to return to the emergency department Discharge Plan Departure Patient Disposition: Home Clinical Impression: Hematuria, Acute UTI Instructions: DI for Urinary Tract Infection (UTI), DI for Hematuria Activity Restrictions/Additional Instructions: *You have been diagnosed with hematuria, UTI *What to do: At this time please monitor bleeding stay hydrated make sure they the urine stays clear. He may noticed some blood clots. If you are unable to urinate or if blood in urine is much darker return to the emergency department. You are at risk for bleeding secondary to being on Eliquis *Continue to take medications as directed Keflex 500 mg twice a day for 7 days --> SENT TO [facility] IN [place] *Follow up with your primary care provider in 2-3 days or call [phone] *Return to ER if you should have increasing bleeding inability to urinate or any new, worsening or concerning symptoms Prescriptions: New cephalexin 500 mg capsule 500 mg PO BID 7 Days Qty: 14 0RF No Action multivitamin Tablet 1 tab PO DAILY Qty: 0 aspirin 81 mg Tablet,Delayed Release (Dr/Ec) 81 mg PO DAILY Qty: 0 gabapentin [Neurontin] 300 MG capsule 300 mg PO BID Qty: 0 sucralfate 1 GM tablet 1 gm PO ACHS Qty: 360 3RF amitriptyline 25 MG tablet 25 mg PO BEDTIME Qty: 0 (DME) DISABLED PARKING PERMIT Qty: 1 0RF Rx Instructions: I FIND THIS PATIENT TO BE MEDICALLY DISABLED AND QUALIFIED FOR DISABLE PARKING INDICATED, AND SIGNED ON THE ACCOMPANYING [employer] APPLICATION FOR INDIVIDUALS sildenafil [Viagra] 100 mg tablet See Rx Instructions PO .COMPLEX PRN (Reason: erectile dysfunction) Qty: 30 11RF Dose Instruction: 1/2 to 1 tab PO 1 hr prior to sexual activity PRN; Rx Instructions: 1/2 to 1 tab PO 1 hr prior to sexual activity PRN; sertraline 50 mg tablet 100 mg PO BEDTIME Qty: 180 3RF levothyroxine [Synthroid] 50 mcg tablet 50 mcg PO DAILY Qty: 90 3RF lisinopril 5 mg tablet 5 mg PO DAILY Qty: 90 3RF pantoprazole 40 mg tablet,delayed release (DR/EC) 40 mg PO BID Qty: 180 3RF Eliquis 5 mg tablet 5 mg PO BID Qty: 180 1RF bupropion HCl 150 mg tablet extended release 24 hr 150 mg PO QAM Qty: 30 3RF Hold Instructions: not sure helping isosorbide mononitrate 60 mg tablet extended release 24 hr 60 mg PO DAILY alprazolam 0.25 mg tablet 0.25 - 0.5 mg PO TIDP PRN (Reason: Anxiety) Qty: 60 3RF ibuprofen 600 mg tablet 600 mg PO QID PRN (Reason: pain) Qty: 20 0RF Rx Instructions: do not take with other NSAIDs nabumetone 500 MG tablet 500 mg PO QDAY Qty: 90 0RF Rx Instructions: Do not take with other NSAIDs (Ibuprofren/Diclofenac) nitroglycerin 0.4 mg tablet, sublingual 0.4 mg sublingual Q5-15M PRN (Reason: chest pain) Qty: 20 0RF Rx Instructions: do not exceed 3 doses per episode hydroxychloroquine 200 mg tablet 200 mg PO BID fluoride (sodium) 1.1 % cream 1 applic Dental DIRECTED Patient Comments: BRUSH ON TEETH ONCE A DAY SPIT OUT DO NOT RINSE colchicine 0.6 mg capsule 0.6 mg PO BID tamsulosin [Flomax] 0.4 MG capsule 0.8 mg PO DAILY nitroglycerin 0.4 mg tablet, sublingual 0.4 mg sublingual Q5-15M PRN (Reason: chest pain) Qty: 30 0RF Rx Instructions: do not exceed 3 doses per episode tramadol 50 mg tablet 50 mg PO Q8H PRN (Reason: pain) Qty: 10 0RF Referrals: Brayan Blackwell MD [Primary Care Provider] - Stand Alone Forms: Patient Portal/API
[2022-08-18 11:09] VITALS: BP 148/85; PULSE 61; O2SAT 100
== END 2022-08-18 11:12 | disposition home or self-care (01) ==
PROVIDERS: Emergency Provider Emergency Medicine; PCP Internal Medicine
DX: N39.0 Urinary tract infection, site not specified (principal); R31.9 Hematuria, unspecified; Z79.01 Long term (current) use of anticoagulants
CPT/HCPCS: 81003; 81015; 87086; 99281; 99282

== ENCOUNTER 2022-08-28 10:29 | Emergency (ER) | payer MEDICARE, OTHER, SELFPAY ==
[2022-06-26 21:49] VITALS: BMI 30.8
[2022-08-28 10:40] VITALS: BP 129/77; PULSE 64; RESP 22; TEMP 36.6; O2SAT 100; BMI 30.8
[2022-08-28 11:47] LABS: Bacteria Urine None Seen; Culture Indicated Urine Cult Not Indicated; RBC Urine 30-100/HPF (0-5/HPF); WBC Urine None Seen (0-5/HPF)
--- NOTE | 2022-08-28 12:06 | ED.MALEGU ---
HPI - Male Genitourinary <Joan Abarca PA-C - Last Filed: 08/28/22 17:06> General Chief complaint: Urogenital-Male Stated complaint: urinating blood/weak/tired Time Seen by Provider: 08/28/22 12:03 Source: patient Mode of arrival: Family Vehicle History of Present Illness HPI Narrative: 77-year-old male with history of CKD, on Eliquis, GERD, anxiety and chronic anemia with history of hematuria presents with concern for hematuria. Patient states that a couple weeks ago he Peed and saw blood in his urine. This only happened 1 time but then again this morning he had another episode and this time his blood was more bright red. He says he has been feeling somewhat fatigued for the past week. He notes that when he was here last he was given medication and he took a couple days of the medication but then he had blood in his urine and decided he should stop taking it because he thought possibly the medication was causing the blood. Then yesterday he decided to take another 1 of the pills and this morning had blood in his urine. He is wondering and concerned of possibly taking this medication is causing the blood in his urine. He does state that he also feels like his low pelvis feels a little ?raw? he does not give his pain and number but notes that it feels uncomfortable and has been feeling that way on and off for the past week. He states he has been having normal bowel movements with soft bowel movement this morning. He denies any concern for sexually transmitted infections any rash in the groin or penis area and also denies pain with urination. He states he has been eating and drinking normally. He denies any flank pain, fevers, chills, chest pain, shortness of breath, persistent or severe abdominal pain, dizziness, lightheadedness, gross hematuria, medication change or any other symptoms. Related Data Home Medications Medication Instructions Recorded Confirmed multivitamin 1 tab PO DAILY ##0 02/13/12 06/26/22 aspirin 81 mg tablet,delayed 81 mg PO DAILY ##0 07/23/12 07/25/22 release gabapentin 300 mg capsule 300 mg PO BID ##0 02/23/16 06/26/22 (Neurontin) amitriptyline 25 mg tablet 25 mg PO BEDTIME ##0 08/10/17 07/25/22 colchicine 0.6 mg capsule 0.6 mg PO BID 10/07/18 07/25/22 fluoride (sodium) 1.1 % dental 1 applic dental DIRECTED 10/07/18 06/26/22 cream hydroxychloroquine 200 mg tablet 200 mg PO BID 10/07/18 06/26/22 tamsulosin 0.4 mg capsule (Flomax) 0.8 mg PO DAILY 10/07/18 06/26/22 isosorbide mononitrate 60 mg 60 mg PO DAILY 01/18/22 07/25/22 tablet,extended release 24 hr Previous Rx's Medication Instructions Recorded sucralfate 1 gram tablet 1 gm PO ACHS #360 tabs 02/24/17 ibuprofen 600 mg tablet 600 mg PO QID PRN pain #20 tabs 02/22/18 bupropion HCl 150 mg 24 hr tablet, 150 mg PO QAM #30 tabs 10/08/18 extended release DISABLED PARKING PERMIT #1 ea 05/04/20 nitroglycerin 0.4 mg sublingual 0.4 mg sublingual Q5-15M PRN chest 08/23/20 tablet pain #30 tabs sildenafil 100 mg tablet (Viagra) See Rx Instructions PO .COMPLEX 05/08/21 PRN erectile dysfunction #30 tabs tramadol 50 mg tablet 50 mg PO Q8H PRN pain #10 tabs 07/19/21 sertraline 50 mg tablet 100 mg PO BEDTIME #180 tabs 10/15/21 levothyroxine 50 mcg tablet 50 mcg PO DAILY #90 tabs 12/27/21 (Synthroid) lisinopril 5 mg tablet 5 mg PO DAILY #90 tabs 12/27/21 pantoprazole 40 mg tablet,delayed 40 mg PO BID #180 tabs 02/06/22 release nabumetone 500 mg tablet 500 mg PO QDAY #90 tabs 06/27/22 apixaban 5 mg tablet (Eliquis) 5 mg PO BID #180 tabs 07/15/22 nitroglycerin 0.4 mg sublingual 0.4 mg sublingual Q5-15M PRN chest 07/25/22 tablet pain #20 tabs alprazolam 0.25 mg tablet 0.25 - 0.5 mg PO TIDP PRN Anxiety 08/02/22 #60 tabs cefdinir 300 mg capsule 300 mg PO Q12H UTI 7 days #14 caps 08/28/22 Allergies Allergy/AdvReac Type Severity Reaction Status Date / Time codeine Allergy Mild HIVES Verified 08/28/22 10:40 Review of Systems <Joan Abarca PA-C - Last Filed: 08/28/22 17:06> Review of Systems Narrative: Unremarkable except as noted in the HPI Patient History <Joan Abarca PA-C - Last Filed: 08/28/22 17:06> Medical History Anxiety (10/25/13) Cancer Cardiomyopathy (07/24/15) Chest pain Chronic anemia (04/16/16) Chronic renal failure, stage 2 (mild) (07/24/15) Chronic renal failure, stage 3a COVID-19 Gastroesophageal reflux disease without esophagitis (01/23/11) History of hematuria Leukopenia (04/16/16) Lumbar radiculopathy Malignant neoplasm of prostate (07/11/14) Mixed hyperlipidemia (01/23/11) Palpitations Pneumonia due to COVID-19 virus Pulmonary embolism Ventricular tachycardia (01/10/14) Surgical History Anesthesia Implantable cardioverter-defibrillator (ICD) in situ Status post cholecystectomy Family History Brother Family history of diabetes mellitus (DM) Father Hypertension Sister No problems noted. Social History marital status: number of children: 6 household members: significant other and other Smoking Status: Never smoker Type(s) of exercise: other frequency: 3-4 times per week Smoking Status: Never smoker alcohol intake frequency: a few times a month Alcohol type: wine Substance Use Type: does not use Exam <Joan Abarac PA-C - Last Filed: 08/28/22 17:06> Narrative Exam Narrative: GENERAL: 77 year old patient appears stated age. Well-developed patient, in mild distress. HEAD: Atraumatic. Normocephalic. EYES: Pupils equal round and reactive. Extraocular motions intact. No scleral icterus. No injection or drainage. ENT: Nose without bleeding, purulent drainage. Airway patent. NECK: Trachea midline. Non tender CARDIOVASCULAR: Regular rate and rhythm without murmurs, gallops, or rubs. RESPIRATORY: Clear to auscultation. Breath sounds equal bilaterally. No wheezes, rales, or rhonchi. GASTROINTESTINAL: Abdomen soft, generally non-tender, nondistended, there is slight suprapubic tenderness, no CVA tenderness. EXTREMITIES: No edema or joint tenderness. BACK: Nontender without deformity or crepitance. No flank tenderness. NEURO: AOx3. SKIN: No rash or erythema of visible areas Initial Vital Signs Initial Vital Signs: Vital Signs Temperature 97.9 F 08/28/22 10:40 Pulse Rate 64 08/28/22 10:40 Respiratory Rate 22 08/28/22 10:40 Blood Pressure 129/77 08/28/22 10:40 Pulse Oximetry 100 08/28/22 10:40 Oxygen Delivery Method Room Air 08/28/22 10:40 <Sarah Padgett DO - Last Filed: 08/28/22 19:54> Initial Vital Signs Initial Vital Signs: Vital Signs Temperature 97.9 F 08/28/22 10:40 Pulse Rate 64 08/28/22 10:40 Respiratory Rate 22 08/28/22 10:40 Blood Pressure 129/77 08/28/22 10:40 Pulse Oximetry 100 08/28/22 10:40 Oxygen Delivery Method Room Air 08/28/22 10:40 Course <Joan Abarca PA-C - Last Filed: 08/28/22 17:06> Orders Ordered: ED Orders 08/28/22 11:38 Urine Microscopic Stat 08/28/22 13:15 CBC Auto Diff [Complete Blood Count AUTO DIFF] Stat CMP [Comprehensive Metabolic Panel] Stat 08/28/22 13:45 Urine Culture Stat 08/28/22 14:43 CT kidney ureter bladder (KUB) Stat Discontinued Medications Ondansetron HCl (Ondansetron 4 Mg Odt) 4 mg SL NOW PRN PRN Reason: Nausea And Vomiting Ondansetron HCl (Ondansetron 4 Mg/2 Ml Inj) 4 mg IV NOW PRN PRN Reason: Nausea And Vomiting Vital Signs Vital signs: Vital Signs - 8 hr 08/28/22 10:40 Temperature 97.9 F Pulse Rate 64 Respiratory Rate 22 Blood Pressure 129/77 Pulse Oximetry 100 Oxygen Delivery Method Room Air <Sarah Padgett DO - Last Filed: 08/28/22 19:54> Orders Ordered: ED Orders 08/28/22 11:38 Urine Microscopic Stat 08/28/22 13:15 CBC Auto Diff [Complete Blood Count AUTO DIFF] Stat CMP [Comprehensive Metabolic Panel] Stat 08/28/22 13:45 Urine Culture Stat 08/28/22 14:43 CT kidney ureter bladder (KUB) Stat Discontinued Medications Ondansetron HCl (Ondansetron 4 Mg Odt) 4 mg SL NOW PRN PRN Reason: Nausea And Vomiting Ondansetron HCl (Ondansetron 4 Mg/2 Ml Inj) 4 mg IV NOW PRN PRN Reason: Nausea And Vomiting Vital Signs Vital signs: Vital Signs - 8 hr 08/28/22 10:40 Temperature 97.9 F Pulse Rate 64 Respiratory Rate 22 Blood Pressure 129/77 Pulse Oximetry 100 Oxygen Delivery Method Room Air MDM - Male Genitourinary <Joan Abarca PA-C - Last Filed: 08/28/22 17:06> Differential Diagnosis Differential diagnosis: Likely urinary tract infection, urethritis, prostatitis and other (pyelonephritis, hematuria related to blood thinner) Medical Records Attestation: I reviewed the patient's medical records. Lab Data Lab results narrative: I reviewed the patient's lab results 08/28/22 13:15 08/28/22 13:15 Labs: Lab Results 08/28/22 08/28/22 08/28/22 Range/Units 11:38 13:15 13:15 WBC 4.8 (4.5-11.0) X10^3/uL RBC 3.51 L (4.5-5.9) X10^6/uL Hgb 10.8 L (13.5-17.5) g/dL Hct 33.5 L (41-53) % MCV 95.5 (80-100) fL MCH 30.8 (26-34) PG MCHC 32.2 (30-36) % RDW 14.4 (11.6-14.8) % Plt Count 157 (150-400) X10^3/uL Neut % (Auto) 51.8 (50-75) % Lymph % (Auto) 34.1 (25-40) % [place] % (Auto) 9.2 (3-14) % Eos % (Auto) 3.7 (2-4) % Baso % (Auto) 1.2 (0-2) % Neut # (Auto) 2500 (6936-7860) /uL Lymph # (Auto) 1600 (8376-7895) /uL [place] # (Auto) 400 (0-900) /uL Eos # (Auto) 200 (0-450) /uL Baso # (Auto) 100 (0-100) /uL Sodium 139 (137-145) mmol/L Potassium 5.1 (3.4-5.1) mmol/L Chloride 105 (98-107) mmol/L Carbon Dioxide 29 (22-32) mmol/L BUN 36 H (9-20) mg/dL Creatinine 2.01 H (0.66-1.25) mg/dL Estimated GFR 33 L (>60) mL/min BUN/Creatinine Ratio 17.9 (6-22) Glucose 85 (80-110) mg/dL Calcium 9.1 (8.4-10.2) mg/dL Total Bilirubin 0.6 (0.2-1.3) mg/dL AST 33 (17-59) IU/L ALT 28 (<50) IU/L Alkaline Phosphatase 80 (38-126) U/L Total Protein 7.7 (6.3-8.2) g/dL Albumin 4.5 (3.5-5.0) g/dL Globulin 3.2 (1.7-4.1) g/dL Albumin/Globulin Ratio 1.4 (1.0-2.8) Urine RBC 30-100/hpf H (0-5/HPF) Urine WBC None seen (0-5/HPF) Urine Bacteria None seen (None) Ur Culture Indicated? Cult not indicated Urine Dip Bedside Urine Glucose Negative Bedside Urine Bilirubin - Negative Bedside Urine Ketone - Negative Urine Specific [place] 1.030 Bedside Urine Occult Blood +++ Bedside Urine pH 5.5 Bedside Urine Protein + 30 Bedside Urine Urobilinogen - Negative Bedside Urine Nitrite - Negative Bedside Urine Leukocytes +/- [address] scan - abdomen/pelvis: Attestation: I personally reviewed and interpreted this imaging study as follows: My Impression: Agree with radiologist's interpretation Radiologist's Impression: [address] [address] [address] Scan Report Signed Patient: Jorje Garay MR#: [id number] : 1945 Acct:[id number] Age/Sex: 77 / M Date of Service: 08/28/22 Loc: ED Accession Number: [id number] ?? Procedure: CT kidney ureter bladder (KUB) Ordering Provider: Joan Abarca P.A-C PROCEDURE:? CT KIDNEY URETER BLADDER (KUB) ? INDICATIONS:? hematuria, pelvic discomfort ? TECHNIQUE:? Axial sections were acquired from the lung bases to the pubic symphysis.? Coronal and sagittal reformats were performed.? For radiation dose reduction, the following was used: ?automated exposure control, adjustment of mA and/or kV according to patient size.? ? COMPARISON:? [facility], US, US RENAL COMPLETE, 03/15/2022, 8:55.? [facility], CT, CT ABDOMEN PELVIS W CON, 07/19/2021, 7:45.? [facility], CT, CT KIDNEY URETER BLADDER (KUB), 01/04/2019, 4:08. ? FINDINGS:? Image quality:? Excellent.? ? Lung bases:? Unremarkable.? ? Heart:? Heart size is normal, no pericardial effusions.? Pacemaker leads are seen in right atrium and right ventricle. ? URINARY: Right Kidney:? No stones or hydronephrosis.? Nodular right renal contour is seen.? Patient's known solid masses in right kidney is less well seen on this study due to lack of IV contrast.? Likely right renal cysts are seen. Right Ureter:? No hydroureter. ? Left Kidney:? No stones or hydronephrosis. Left Ureter:? No hydroureter. ? Bladder:? Normal wall thickness. No stones. ? ABDOMEN: Liver:? Unremarkable.? ? Gallbladder:? Gallbladder is surgically absent. Biliary ducts:? Unremarkable.? ? Pancreas:? Unremarkable.? ? Spleen:? Unremarkable.? ? Adrenal Glands:? Unremarkable.? ? ? Stomach and Bowel:? There is a small hiatal hernia.? Fecal stasis throughout the colon is seen.? Stomach, small bowel loops, and colon are unremarkable.? Appendix is visualized and is within normal limits. Peritoneum:? No abnormal intraperitoneal fluid.? No free air.? ? Ventral Wall: ? No hernia.? Abdominal Nodes:? No enlarged retroperitoneal or mesenteric lymph nodes.? Vessels:? Aorta and inferior vena cava are normal in size.? ? PELVIS: Pelvic Organs:? Enlarged prostate gland is noted with mild mass effect on floor of urinary bladder.? Multiple metallic densities are seen scattered in prostate gland suggest clinical correlation..? ? Pelvic Nodes: Unremarkable. Miscellaneous: No inguinal hernias are seen. ? ? ? Bones:? No suspicious bony lesions.? No acute vertebral body compression fracture.? Degenerative disc disease throughout lumbar spine is seen. ? IMPRESSION: 1. No stones or hydronephrosis.? No hydroureter.? Normal appearing urinary bladder. ? 2. Nodular right renal contour.? Patient's known ultrasound proven right renal solid masses are not well seen on the current study due to lack of IV contrast. ? 3. Small hiatal hernia.? Mild constipation.? No bowel obstruction or abnormal bowel wall thickening.? Normal appendix.? No free fluid or free air.? Dictated by: Guevara Molina M.D. on 08/28/2022 at 15:45 ? ? Approved by: Guevara Molina M.D. on 08/28/2022 at 15:52?? MDM Narrative Medical decision making narrative: This is a generally well-appearing 77-year-old male who presents with concern for hematuria this morning with some bright red blood when he wiped after peeing as well as feeling generally somewhat fatigued for the past week. Labs obtained today are fairly unremarkable CBC and CMP, he does have 3+ blood in his urine dip. This is sent for culture. Notably the patient was seen in the emergency department for similar symptoms about 10 days ago started on cephalexin but did not actually take the full course. At that time he was noted to have bacteria in his urine. Suspect the patient has an incompletely treated UTI and being on blood thinners this may be the cause of his hematuria. However we did pursue CT KUB for further evaluation given some low abdominal pain and other potential causes for hematuria. Patient has known renal masses noted on CT again, also enlarged prostate noted on CT does have a history of malignant neoplasm of the prostate. Patient follows with urology and states he is going to be seeing Urology soon. Did advise the patient that he should do so particularly if he is continuing to have any symptoms. Also advise the patient to seek medical care or return to the emergency department feels feels he has new or worsening symptoms. Counseled the patient specifically regarding taking his antibiotics as prescribed and taking the full course. Cefdinir 7 day course prescribed today. Return precautions provided, follow-up plan discussed, all questions answered. <Sarah Padgett, DO - Last Filed: 08/28/22 19:54> Lab Data Labs: Lab Results 08/28/22 08/28/22 08/28/22 Range/Units 11:38 13:15 13:15 WBC 4.8 (4.5-11.0) X10^3/uL RBC 3.51 L (4.5-5.9) X10^6/uL Hgb 10.8 L (13.5-17.5) g/dL Hct 33.5 L (41-53) % MCV 95.5 (80-100) fL MCH 30.8 (26-34) PG MCHC 32.2 (30-36) % RDW 14.4 (11.6-14.8) % Plt Count 157 (150-400) X10^3/uL Neut % (Auto) 51.8 (50-75) % Lymph % (Auto) 34.1 (25-40) % [place] % (Auto) 9.2 (3-14) % Eos % (Auto) 3.7 (2-4) % Baso % (Auto) 1.2 (0-2) % Neut # (Auto) 2500 (2467-7480) /uL Lymph # (Auto) 1600 (1113-2747) /uL [place] # (Auto) 400 (0-900) /uL Eos # (Auto) 200 (0-450) /uL Baso # (Auto) 100 (0-100) /uL Sodium 139 (137-145) mmol/L Potassium 5.1 (3.4-5.1) mmol/L Chloride 105 (98-107) mmol/L Carbon Dioxide 29 (22-32) mmol/L BUN 36 H (9-20) mg/dL Creatinine 2.01 H (0.66-1.25) mg/dL Estimated GFR 33 L (>60) mL/min BUN/Creatinine Ratio 17.9 (6-22) Glucose 85 (80-110) mg/dL Calcium 9.1 (8.4-10.2) mg/dL Total Bilirubin 0.6 (0.2-1.3) mg/dL AST 33 (17-59) IU/L ALT 28 (<50) IU/L Alkaline Phosphatase 80 (38-126) U/L Total Protein 7.7 (6.3-8.2) g/dL Albumin 4.5 (3.5-5.0) g/dL Globulin 3.2 (1.7-4.1) g/dL Albumin/Globulin Ratio 1.4 (1.0-2.8) Urine RBC 30-100/hpf H (0-5/HPF) Urine WBC None seen (0-5/HPF) Urine Bacteria None seen (None) Ur Culture Indicated? Cult not indicated Urine Dip Bedside Urine Glucose Negative Bedside Urine Bilirubin - Negative Bedside Urine Ketone - Negative Urine Specific [place] 1.030 Bedside Urine Occult Blood +++ Bedside Urine pH 5.5 Bedside Urine Protein + 30 Bedside Urine Urobilinogen - Negative Bedside Urine Nitrite - Negative Bedside Urine Leukocytes +/- 15 Esterase Discharge Plan Departure Patient Disposition: Home Clinical Impression: Hematuria, Acute UTI Instructions: DI for Urinary Tract Infection (UTI) Activity Restrictions/Additional Instructions: Thank you for letting us be part of your care in the emergency department. You came in today with concern for some blood in your urine this morning after having another episode in the last week or 2. You also had some concern for slight low abdominal discomfort. I suspect that you have an incompletely treated urinary tract infection. When you were seen in the emergency department about 10 days ago you were prescribed antibiotics but it sounds like you did not take these consistently. If you have any these left please do not take them in addition to the ones I am prescribing today. I am starting with a new course of antibiotics I would like you to take the full course of antibiotics until all of the pills are gone this is a twice a day medication. You stated that you have an appointment to see your urologist soon I do recommend you follow-up with them as planned. Of course if you have new or worsening symptoms do not hesitate to be re-evaluated or needed come back to the emergency department. It is possible that the presence of blood in your urine may have been related to the fact that you are on blood thinner medications and or a urinary tract infection or combination of both. They are also other reasons you can have blood in your urine and would be good to follow up with your urologist for recheck. There is no evidence of an emergent or life threatening illness at this time, but follow up with your doctor in 1-2 days is recommended nonetheless to continue to rule out serious underlying causes of your symptoms. Please call the office for an appointment. Please return to the Emergency Department for any worsening or persistent symptoms. Please take medications as directed. Prescriptions: New cefdinir 300 mg capsule 300 mg PO Q12H 7 Days Qty: 14 0RF No Action multivitamin Tablet 1 tab PO DAILY Qty: 0 aspirin 81 mg Tablet,Delayed Release (Dr/Ec) 81 mg PO DAILY Qty: 0 gabapentin [Neurontin] 300 MG capsule 300 mg PO BID Qty: 0 sucralfate 1 GM tablet 1 gm PO ACHS Qty: 360 3RF amitriptyline 25 MG tablet 25 mg PO BEDTIME Qty: 0 (DME) DISABLED PARKING PERMIT Qty: 1 0RF Rx Instructions: I FIND THIS PATIENT TO BE MEDICALLY DISABLED AND QUALIFIED FOR DISABLE PARKING INDICATED, AND SIGNED ON THE ACCOMPANYING GL 2ours APPLICATION FOR INDIVIDUALS sildenafil [Viagra] 100 mg tablet See Rx Instructions PO .COMPLEX PRN (Reason: erectile dysfunction) Qty: 30 11RF Dose Instruction: 1/2 to 1 tab PO 1 hr prior to sexual activity PRN; Rx Instructions: 1/2 to 1 tab PO 1 hr prior to sexual activity PRN; sertraline 50 mg tablet 100 mg PO BEDTIME Qty: 180 3RF levothyroxine [Synthroid] 50 mcg tablet 50 mcg PO DAILY Qty: 90 3RF lisinopril 5 mg tablet 5 mg PO DAILY Qty: 90 3RF pantoprazole 40 mg tablet,delayed release (DR/EC) 40 mg PO BID Qty: 180 3RF Eliquis 5 mg tablet 5 mg PO BID Qty: 180 1RF bupropion HCl 150 mg tablet extended release 24 hr 150 mg PO QAM Qty: 30 3RF Hold Instructions: not sure helping isosorbide mononitrate 60 mg tablet extended release 24 hr 60 mg PO DAILY alprazolam 0.25 mg tablet 0.25 - 0.5 mg PO TIDP PRN (Reason: Anxiety) Qty: 60 3RF ibuprofen 600 mg tablet 600 mg PO QID PRN (Reason: pain) Qty: 20 0RF Rx Instructions: do not take with other NSAIDs nabumetone 500 MG tablet 500 mg PO QDAY Qty: 90 0RF Rx Instructions: Do not take with other NSAIDs (Ibuprofren/Diclofenac) nitroglycerin 0.4 mg tablet, sublingual 0.4 mg sublingual Q5-15M PRN (Reason: chest pain) Qty: 20 0RF Rx Instructions: do not exceed 3 doses per episode hydroxychloroquine 200 mg tablet 200 mg PO BID fluoride (sodium) 1.1 % cream 1 applic Dental DIRECTED Patient Comments: BRUSH ON TEETH ONCE A DAY SPIT OUT DO NOT RINSE colchicine 0.6 mg capsule 0.6 mg PO BID tamsulosin [Flomax] 0.4 MG capsule 0.8 mg PO DAILY nitroglycerin 0.4 mg tablet, sublingual 0.4 mg sublingual Q5-15M PRN (Reason: chest pain) Qty: 30 0RF Rx Instructions: do not exceed 3 doses per episode tramadol 50 mg tablet 50 mg PO Q8H PRN (Reason: pain) Qty: 10 0RF Referrals: Brayan Blackwell MD [Primary Care Provider] - Stand Alone Forms: Patient Portal/API <Sarah Padgett DO - Last Filed: 08/28/22 19:54> Cosign ED Attending Abramature Attestation: I was immediately available in the department for consultation. Documentation has been reviewed.
[2022-08-28 13:26] LABS: Add Manual Diff / Slide Review NO; Basophils Absolute Auto 100 /uL (0-100); Basophils Percent Auto 1.2 % (0-2); Eosinophils Absolute Auto 200 /uL (0-450); Eosinophils Percent Auto 3.7 % (2-4); Hematocrit 33.5 % (41-53); Hemoglobin 10.8 g/dL (13.5-17.5); Lymphocytes Absolute Auto 1600 /uL (1100-4500); Lymphocytes Percent Auto 34.1 % (25-40); Mean Corpuscular HGB Conc 32.2 % (30-36); Mean Corpuscular Hemoglobin 30.8 PG (26-34); Mean Corpuscular Volume 95.5 fL (80-100); Monocytes Absolute Auto 400 /uL (0-900); Monocytes Percent Auto 9.2 % (3-14); Neutrophils Absolute Auto 2500 /uL (1500-7000); Neutrophils Percent Auto 51.8 % (50-75); Platelet Count 157 X10^3/uL (150-400); Red Blood Cell Count 3.51 X10^6/uL (4.5-5.9); Red Cell Distribution Width 14.4 % (11.6-14.8); White Blood Cell Count 4.8 X10^3/uL (4.5-11.0)
[2022-08-28 13:43] LABS: Alanine Aminotransferase 28 IU/L (<50); Albumin 4.5 g/dL (3.5-5.0); Albumin Globulin Ratio 1.4 (1.0-2.8); Alkaline Phosphatase 80 U/L (38-126); Aspartate Aminotransferase 33 IU/L (17-59); BUN Creatinine Ratio 17.9 (6-22); Bilirubin Total 0.6 mg/dL (0.2-1.3); Blood Urea Nitrogen 36 mg/dL (9-20); Calcium 9.1 mg/dL (8.4-10.2); Carbon Dioxide 29 mmol/L (22-32); Chloride 105 mmol/L (98-107); Estimated Glomerular Filt Rate 33 mL/min (>60); Globulin 3.2 g/dL (1.7-4.1); Glucose 85 mg/dL (80-110); HEMOLYSIS < 15 (0-50); Potassium 5.1 mmol/L (3.4-5.1); Sodium 139 mmol/L (137-145); Total Protein 7.7 g/dL (6.3-8.2)
--- NOTE | 2022-08-28 14:43 | DI.CT.S_ITS ---
PROCEDURE: CT KIDNEY URETER BLADDER (KUB) INDICATIONS: hematuria, pelvic discomfort TECHNIQUE: Axial sections were acquired from the lung bases to the pubic symphysis. Coronal and sagittal reformats were performed. For radiation dose reduction, the following was used: automated exposure control, adjustment of mA and/or kV according to patient size. COMPARISON: [facility], US, US RENAL COMPLETE, 03/15/2022, 8:55. [facility], CT, CT ABDOMEN PELVIS W CON, 07/19/2021, 7:45. [facility], CT, CT KIDNEY URETER BLADDER (KUB), 01/04/2019, 4:08. FINDINGS: Image quality: Excellent. Lung bases: Unremarkable. Heart: Heart size is normal, no pericardial effusions. Pacemaker leads are seen in right atrium and right ventricle. URINARY: Right Kidney: No stones or hydronephrosis. Nodular right renal contour is seen. Patient's known solid masses in right kidney is less well seen on this study due to lack of IV contrast. Likely right renal cysts are seen. Right Ureter: No hydroureter. Left Kidney: No stones or hydronephrosis. Left Ureter: No hydroureter. Bladder: Normal wall thickness. No stones. ABDOMEN: Liver: Unremarkable. Gallbladder: Gallbladder is surgically absent. Biliary ducts: Unremarkable. Pancreas: Unremarkable. Spleen: Unremarkable. Adrenal Glands: Unremarkable. Stomach and Bowel: There is a small hiatal hernia. Fecal stasis throughout the colon is seen. Stomach, small bowel loops, and colon are unremarkable. Appendix is visualized and is within normal limits. Peritoneum: No abnormal intraperitoneal fluid. No free air. Ventral Wall: No hernia. Abdominal Nodes: No enlarged retroperitoneal or mesenteric lymph nodes. Vessels: Aorta and inferior vena cava are normal in size. PELVIS: Pelvic Organs: Enlarged prostate gland is noted with mild mass effect on floor of urinary bladder. Multiple metallic densities are seen scattered in prostate gland suggest clinical correlation.. Pelvic Nodes: Unremarkable. Miscellaneous: No inguinal hernias are seen. Bones: No suspicious bony lesions. No acute vertebral body compression fracture. Degenerative disc disease throughout lumbar spine is seen. IMPRESSION: 1. No stones or hydronephrosis. No hydroureter. Normal appearing urinary bladder. 2. Nodular right renal contour. Patient's known ultrasound proven right renal solid masses are not well seen on the current study due to lack of IV contrast. 3. Small hiatal hernia. Mild constipation. No bowel obstruction or abnormal bowel wall thickening. Normal appendix. No free fluid or free air. Dictated by: Guevara Molina M.D. on 08/28/2022 at 15:45 Approved by: Guevara Molina M.D. on 08/28/2022 at 15:52
--- NOTE | 2022-08-28 14:53 | PC.NURSE ---
Pt was seen on the in ER. given antibiotics for probably UTI. pt states he took two days of it then noticed blood in his urine with his morning urination. and he stopped the medicine. he then started having symptoms again and took the antibiotics yesterday and woke up again today with blood in his urine. blood is only visible in am. pt has also started having the pain in his pelvic region, states it just feels raw. pt endorses taking Eliquis.
== END 2022-08-28 17:22 | disposition home or self-care (01) ==
PROVIDERS: Emergency Medicine; Emergency Provider Student in an Organized Health Care Education/Training Program; PCP Internal Medicine
DX: N39.0 Urinary tract infection, site not specified (principal); R31.9 Hematuria, unspecified; Z79.01 Long term (current) use of anticoagulants; Z79.899 Other long term (current) drug therapy
CPT/HCPCS: 36415; 74176; 80053; 81003; 81015; 85025; 87086; 99283; 99284

== ENCOUNTER → 2023-03-20 12:15 | Outpatient (CLI) | payer MEDICARE, OTHER, SELFPAY ==
[2022-06-26 21:49] VITALS: BMI 30.8
--- NOTE | 2023-03-20 12:16 | DI.US.S_ITS ---
PROCEDURE: US RENAL COMPLETE INDICATIONS: HISTORY OF RENAL MASS TECHNIQUE: Real-time scanning was performed of the kidneys and bladder, with image documentation. COMPARISON: CT, CT ABDOMEN PELVIS W CON, 07/19/2021, 7:45. [facility], CT, CT KIDNEY URETER BLADDER (KUB), 08/28/2022, 14:50. [facility], US, US RENAL COMPLETE, 03/15/2022, 8:55. FINDINGS: Kidneys: Kidneys are normal in size. Right kidney measures 9.2 cm long; left kidney measures 9.5 cm long. Right renal cortical thickness is 2.2 cm; left renal cortical thickness is 1.9 cm. Renal cortical echotexture is normal. No hydronephrosis or nephrolithiasis. Solid right renal masses redemonstrated with the superior mass measuring up to 1.5 cm in maximal diameter which appears similar prior examination and the inferior solid renal mass measuring up to 1.6 cm which appears similar in size to prior examinations in which the masses measured up to 1.4 cm. Bilateral renal cyst redemonstrated. Bladder: Pre-void bladder volume is 42 mL. Post-void residual is not evaluated. Pre-void images demonstrate no intraluminal masses or stones. On pre-void images, left ureteral jets are noted with color Doppler interrogation. (Of note, ureteral jets may not be detectable in up to 25% of cases due to insufficient differences in specific gravity between ureteral and bladder urine). Miscellaneous: No free pelvic fluid. IMPRESSION: 1. No significant interval change in the 2 right renal solid masses compared to prior examination. Indolent renal cell carcinoma cannot be excluded and if indicated, renal protocol CT or MRI could be performed for further characterization. Dictated by: Ashish DONOVAN Interpreted: Fernando Barros MD on 03/20/2023 at 13:20 Transcribed by: SANTOS on 03/20/2023 at 13:28 Approved by: Fernando Barros M.D. on 04/21/2023 at 7:52
== END ==
PROVIDERS: PCP Internal Medicine; Referring Provider Internal Medicine; Visit Provider Internal Medicine
DX: N28.89 Other specified disorders of kidney and ureter (principal)
CPT/HCPCS: 76770

== ENCOUNTER 2023-05-07 19:33 | Emergency (ER) | payer MEDICARE, OTHER, SELFPAY ==
[2022-06-26 21:49] VITALS: BMI 30.8
[2023-05-07] VITALS (14 sets, daily range): BP systolic 116–158; BP diastolic 62–80; PULSE 60–66; RESP 13–50; TEMP 36.8; O2SAT 95–99; BMI 30.2
--- NOTE | 2023-05-07 19:43 | DI.RAD.S_ITS ---
PROCEDURE: XR CHEST 1V INDICATIONS: chest pain TECHNIQUE: One view of the chest was acquired. COMPARISON: [facility], CR, XR CHEST 1V, 07/25/2022, 14:04. FINDINGS: Surgical changes and devices: Pacemaker. Lungs and pleura: Lungs are clear. No pleural effusions or pneumothorax. Mediastinum: Mediastinal contours appear normal. Heart size is normal. Bones and chest wall: No suspicious bony lesions. Overlying soft tissues appear unremarkable. IMPRESSION: No acute cardiopulmonary abnormality is seen. Dictated by: Zena Martinez M.D. on 05/07/2023 at 20:10 Approved by: Zena Martinez M.D. on 05/07/2023 at 20:10
--- NOTE | 2023-05-07 19:53 | ED_ITS ---
HPI - General Adult General Chief complaint: Weakness Stated complaint: Tired, run down, dizzy, light headed Time Seen by Provider: 05/07/23 19:39 Source: patient Mode of arrival: Ambulatory History of Present Illness HPI narrative: 78-year-old male with history of coronary artery disease, AICD placement on eliquis, chronic kidney disease, remote hx of prostate ca (in remission) presents by private vehicle from home for fatigue, lightheadedness that began abruptly several hours prior to arrival. Patient states he felt almost ?out of it? and the last time he felt like this he was hospitalized for 29 days with COVID-19. Also reported a vague ?fluttering? in his chest that seemed to get better with sublingual nitroglycerin. Currently pain-free. States that since he is arrived in the emergency department he has felt ?back to normal?. Related Data Home Medications Medication Instructions Recorded Confirmed multivitamin 1 tab PO DAILY ##0 02/13/12 04/15/23 aspirin 81 mg tablet,delayed 81 mg PO DAILY ##0 07/23/12 04/15/23 release gabapentin 300 mg capsule 300 mg PO BID ##0 02/23/16 04/15/23 (Neurontin) amitriptyline 25 mg tablet 25 mg PO BEDTIME ##0 08/10/17 04/15/23 colchicine 0.6 mg capsule 0.6 mg PO BID 10/07/18 04/15/23 fluoride (sodium) 1.1 % dental 1 applic dental DIRECTED 10/07/18 04/15/23 cream hydroxychloroquine 200 mg tablet 200 mg PO BID 10/07/18 04/15/23 tamsulosin 0.4 mg capsule (Flomax) 0.8 mg PO DAILY 10/07/18 04/15/23 isosorbide mononitrate 60 mg 60 mg PO DAILY 01/18/22 04/15/23 tablet,extended release 24 hr Previous Rx's Medication Instructions Recorded sucralfate 1 gram tablet 1 gm PO ACHS #360 tabs 02/24/17 ibuprofen 600 mg tablet 600 mg PO QID PRN pain #20 tabs 02/22/18 DISABLED PARKING PERMIT #1 ea 05/04/20 nitroglycerin 0.4 mg sublingual 0.4 mg sublingual Q5-15M PRN chest 08/23/20 tablet pain #30 tabs sildenafil 100 mg tablet (Viagra) See Rx Instructions PO .COMPLEX 05/08/21 PRN erectile dysfunction #30 tabs tramadol 50 mg tablet 50 mg PO Q8H PRN pain #10 tabs 07/19/21 nitroglycerin 0.4 mg sublingual 0.4 mg sublingual Q5-15M PRN chest 07/25/22 tablet pain #20 tabs alprazolam 0.25 mg tablet 0.25 - 0.5 mg (1 - 2 x 0.25 mg) PO 08/02/22 TIDP PRN Anxiety #60 tabs sertraline 50 mg tablet 100 mg (2 x 50 mg) PO BEDTIME #180 10/16/22 tabs pantoprazole 40 mg tablet,delayed 40 mg PO BID #180 tabs 11/20/22 release levothyroxine 50 mcg tablet 50 mcg PO DAILY #90 tabs 12/23/22 (Synthroid) lisinopril 5 mg tablet 5 mg PO DAILY #90 tabs 12/23/22 apixaban 5 mg tablet (Eliquis) 5 mg PO BID #180 tabs 01/09/23 bupropion HCl 300 mg 24 hr tablet, 300 mg PO QAM #90 tabs 03/14/23 extended release Allergies Allergy/AdvReac Type Severity Reaction Status Date / Time codeine Allergy Mild HIVES Verified 04/15/23 13:50 Review of Systems Review of Systems Narrative: Negative except as noted above Patient History Medical History (Updated 05/07/23 @ 22:58 by Sarah Hassan MD) Depression Lumbar radiculopathy Cancer Chronic renal failure, stage 3a COVID-19 Pulmonary embolism Pneumonia due to COVID-19 virus Leukopenia (04/16/16) Chronic anemia (04/16/16) Chronic renal failure, stage 2 (mild) (07/24/15) Cardiomyopathy (07/24/15) Malignant neoplasm of prostate (07/11/14) Ventricular tachycardia (01/10/14) Anxiety (10/25/13) Mixed hyperlipidemia (01/23/11) Gastroesophageal reflux disease without esophagitis (01/23/11) History of hematuria Chest pain Palpitations Surgical History Anesthesia Implantable cardioverter-defibrillator (ICD) in situ Status post cholecystectomy Family History Brother Family history of diabetes mellitus (DM) Father Hypertension Sister No problems noted. Social History marital status: number of children: 6 household members: significant other and other Smoking Status: Never smoker Type(s) of exercise: other frequency: 3-4 times per week Smoking Status: Never smoker alcohol intake frequency: a few times a month Alcohol type: wine Substance Use Type: does not use Exam Initial Vital Signs Initial Vital Signs: Vital Signs Temperature 98.3 F 05/07/23 19:35 Pulse Rate 65 05/07/23 19:35 Respiratory Rate 14 05/07/23 19:35 Blood Pressure 158/80 H 05/07/23 19:35 Pulse Oximetry 95 05/07/23 19:35 Oxygen Delivery Method Room Air 05/07/23 19:35 Const: Awake, alert, no acute distress, nontoxic appearing Eyes: PERRL, EOMI, conjunctiva normal ENT: Atraumatic, dentition normal, mucous membranes moist Cardiac: regular rate, regular rhythm, L sided midaxillary tenderness to deep palpation RESP: unlabored, clear bilaterally, no wheezing GI: Atraumatic, soft, nontender, nondistended, no rebound, no guarding MSK: Atraumatic, full range of motion, pulses equal Skin: Warm, Dry, intact, no rashes Neuro: AO x3, CN II-XII grossly intact, moves all extremities Psych: affect normal, mood normal, not suicidal, not homicidal Course Orders Ordered: ED Orders 05/07/23 19:43 XR chest 1V Stat EKG-12 Lead Stat 05/07/23 20:04 Complete Blood Count AUTO DIFF Stat Comprehensive Metabolic Panel Stat Covid-19 + FLU A/B + RSV - PCR Stat Lipase Stat Magnesium Stat PTT Partial Thromboplastin Ar Stat Prothrombin Time INR Stat Troponin & CK Cardiac Panel Stat Vital Signs Vital signs: Vital Signs - 8 hr 05/07/23 19:35 05/07/23 19:40 05/07/23 19:41 Temperature 98.3 F Pulse Rate 65 65 Respiratory Rate 14 Blood Pressure 158/80 H 152/66 H Pulse Oximetry 95 98 Oxygen Delivery Method Room Air 05/07/23 19:42 05/07/23 19:42 05/07/23 20:00 Temperature Pulse Rate 65 66 Respiratory Rate 27 H Blood Pressure 158/80 H Pulse Oximetry 99 Oxygen Delivery Method 05/07/23 20:01 05/07/23 20:01 05/07/23 20:30 Temperature Pulse Rate 64 61 Respiratory Rate 26 H 13 Blood Pressure 149/76 H Pulse Oximetry 99 96 Oxygen Delivery Method 05/07/23 20:31 05/07/23 20:31 05/07/23 21:00 Temperature Pulse Rate 61 60 Respiratory Rate 13 35 H Blood Pressure 123/62 Pulse Oximetry 96 99 Oxygen Delivery Method 05/07/23 21:02 05/07/23 21:02 05/07/23 21:30 Temperature Pulse Rate 60 60 Respiratory Rate 25 H 28 H Blood Pressure 150/66 H Pulse Oximetry 98 98 Oxygen Delivery Method 05/07/23 21:31 05/07/23 21:31 05/07/23 22:00 Temperature Pulse Rate 60 Respiratory Rate 50 H Blood Pressure 127/62 116/75 Pulse Oximetry 98 Oxygen Delivery Method 05/07/23 22:00 05/07/23 22:30 05/07/23 22:30 Temperature Pulse Rate 60 60 Respiratory Rate 19 Blood Pressure 127/68 Pulse Oximetry 98 97 Oxygen Delivery Method Medical Decision Making Lab Data 05/07/23 20:04 05/07/23 20:04 Labs: Lab Results 05/07/23 Range/Units 20:04 WBC 4.5 (4.5-11.0) X10^3/uL RBC 3.21 L (4.5-5.9) X10^6/uL Hgb 10.1 L (13.5-17.5) g/dL Hct 30.4 L (41-53) % MCV 94.7 (80-100) fL MCH 31.5 (26-34) PG MCHC 33.3 (30-36) % RDW 14.8 (11.6-14.8) % Plt Count 130 L (150-400) X10^3/uL Neut % (Auto) 46.5 L (50-75) % Lymph % (Auto) 36.1 (25-40) % [place] % (Auto) 13.0 (3-14) % Eos % (Auto) 3.7 (2-4) % Baso % (Auto) 0.7 (0-2) % Neut # (Auto) 2100 (5429-9977) /uL Lymph # (Auto) 1600 (6977-3804) /uL [place] # (Auto) 600 (0-900) /uL Eos # (Auto) 200 (0-450) /uL Baso # (Auto) 0 (0-100) /uL PT 15.1 H (9.4-12.5) SECONDS INR 1.3 (0.9-1.3) APTT 25 L (25.1-36.5) SECONDS Sodium 138 (137-145) mmol/L Potassium 4.9 (3.4-5.1) mmol/L Chloride 106 (98-107) mmol/L Carbon Dioxide 26 (22-32) mmol/L BUN 40 H (9-20) mg/dL Creatinine 2.56 H (0.66-1.25) mg/dL Estimated GFR 25 L (>60) mL/min BUN/Creatinine Ratio 15.6 (6-22) Glucose 101 (80-110) mg/dL Calcium 9.7 (8.4-10.2) mg/dL Magnesium 2.1 (1.6-2.3) mg/dL Total Bilirubin 0.4 (0.2-1.3) mg/dL AST 30 (17-59) IU/L ALT 23 (<50) IU/L Alkaline Phosphatase 58 (38-126) U/L Total Creatine Kinase 201 H (55-170) U/L Troponin I < 0.012 (0.01-0.034) ng/mL Total Protein 7.0 (6.3-8.2) g/dL Albumin 4.1 (3.5-5.0) g/dL Globulin 2.9 (1.7-4.1) g/dL Albumin/Globulin Ratio 1.4 (1.0-2.8) Lipase 154 (23-300) U/L SARS-CoV-2 (PCR) Negative (Negative) Influenza A (RT-PCR) Flu a negative (NEGATIVE) Influenza B (RT-PCR) Flu b negative (NEGATIVE) RSV (PCR) Negative (Negative) ECG Data Interpretation: Normal sinus rhythm rate of 62 beats per minute normal axis, no ST T wave changes, no STEMI MDM Narrative Medical decision making narrative: This is a well-appearing patient with vague fatigue and lightheaded symptoms that have since resolved since coming to the emergency department. Patient states his primary concern is that he may have COVID-19. The fluttering sensation that patient described in his left chest is reproducible to palpation, atypical sounding for coronary disease, however since the patient does have previous heart disease history we will obtain troponins. EKG is normal sinus rhythm without concerning findings. Laboratory work is reviewed, mild increase in patient's creatinine from previous, however no other acute findings identified. Chest x-ray is negative for acute process. Patient unable to provide a urine sample despite being in the emergency department for several hours. He states that he is not want to wait to provide a urine sample, he will follow up with his primary care physician, who he sees in 1.5 weeks. Patient has remained asymptomatic since arriving to the emergency department. He is happy to know that he does not have COVID-19 and that his chest x-ray is normal. ED return precautions discussed at bedside. Patient expressed understanding of the plan and is in agreement at this time. All questions answered at the time of discharge. Discharge Plan Departure Patient Disposition: Home Clinical Impression: Fatigue Instructions: Chronic Kidney Disease Prescriptions: No Action multivitamin Tablet 1 tab PO DAILY Qty: 0 aspirin 81 mg Tablet,Delayed Release (Dr/Ec) 81 mg PO DAILY Qty: 0 gabapentin [Neurontin] 300 MG capsule 300 mg PO BID Qty: 0 sucralfate 1 GM tablet 1 gm PO ACHS Qty: 360 3RF amitriptyline 25 MG tablet 25 mg PO BEDTIME Qty: 0 (DME) DISABLED PARKING PERMIT Qty: 1 0RF Rx Instructions: I FIND THIS PATIENT TO BE MEDICALLY DISABLED AND QUALIFIED FOR DISABLE PARKING INDICATED, AND SIGNED ON THE ACCOMPANYING [employer] APPLICATION FOR INDIVIDUALS sildenafil [Viagra] 100 mg tablet See Rx Instructions PO .COMPLEX PRN (Reason: erectile dysfunction) Qty: 30 11RF Dose Instruction: 1/2 to 1 tab PO 1 hr prior to sexual activity PRN; Rx Instructions: 1/2 to 1 tab PO 1 hr prior to sexual activity PRN; sertraline 50 mg tablet 100 mg PO BEDTIME Qty: 180 3RF pantoprazole 40 mg tablet,delayed release (DR/EC) 40 mg PO BID Qty: 180 2RF levothyroxine [Synthroid] 50 mcg tablet 50 mcg PO DAILY Qty: 90 3RF lisinopril 5 mg tablet 5 mg PO DAILY Qty: 90 3RF Eliquis 5 mg tablet 5 mg PO BID Qty: 180 1RF bupropion HCl 300 mg tablet extended release 24 hr 300 mg PO QAM Qty: 90 3RF isosorbide mononitrate 60 mg tablet extended release 24 hr 60 mg PO DAILY alprazolam 0.25 mg tablet 0.25 - 0.5 mg PO TIDP PRN (Reason: Anxiety) Qty: 60 3RF ibuprofen 600 mg tablet 600 mg PO QID PRN (Reason: pain) Qty: 20 0RF Rx Instructions: do not take with other NSAIDs nitroglycerin 0.4 mg tablet, sublingual 0.4 mg sublingual Q5-15M PRN (Reason: chest pain) Qty: 20 0RF Rx Instructions: do not exceed 3 doses per episode hydroxychloroquine 200 mg tablet 200 mg PO BID fluoride (sodium) 1.1 % cream 1 applic Dental DIRECTED Patient Comments: BRUSH ON TEETH ONCE A DAY SPIT OUT DO NOT RINSE colchicine 0.6 mg capsule 0.6 mg PO BID tamsulosin [Flomax] 0.4 MG capsule 0.8 mg PO DAILY nitroglycerin 0.4 mg tablet, sublingual 0.4 mg sublingual Q5-15M PRN (Reason: chest pain) Qty: 30 0RF Rx Instructions: do not exceed 3 doses per episode tramadol 50 mg tablet 50 mg PO Q8H PRN (Reason: pain) Qty: 10 0RF Referrals: Brayan Blackwell MD [Primary Care Provider] - Stand Alone Forms: Patient Portal/API
[2023-05-07 20:20] LABS: Add Manual Diff / Slide Review NO; Basophils Absolute Auto 0 /uL (0-100); Basophils Percent Auto 0.7 % (0-2); Eosinophils Absolute Auto 200 /uL (0-450); Eosinophils Percent Auto 3.7 % (2-4); Hematocrit 30.4 % (41-53); Hemoglobin 10.1 g/dL (13.5-17.5); Lymphocytes Absolute Auto 1600 /uL (1100-4500); Lymphocytes Percent Auto 36.1 % (25-40); Mean Corpuscular HGB Conc 33.3 % (30-36); Mean Corpuscular Hemoglobin 31.5 PG (26-34); Mean Corpuscular Volume 94.7 fL (80-100); Monocytes Absolute Auto 600 /uL (0-900); Neutrophils Absolute Auto 2100 /uL (1500-7000); Neutrophils Percent Auto 46.5 % (50-75); Platelet Count 130 X10^3/uL (150-400); Red Blood Cell Count 3.21 X10^6/uL (4.5-5.9); Red Cell Distribution Width 14.8 % (11.6-14.8); White Blood Cell Count 4.5 X10^3/uL (4.5-11.0)
[2023-05-07 20:26] LABS: INR 1.3 (0.9-1.3); Prothrombin Time 15.1 SECONDS (9.4-12.5)
[2023-05-07 20:28] LABS: PTT Partial Thromboplastin Tim 25 SECONDS (25.1-36.5)
[2023-05-07 20:31] LABS: Alanine Aminotransferase 23 IU/L (<50); Albumin 4.1 g/dL (3.5-5.0); Albumin Globulin Ratio 1.4 (1.0-2.8); Alkaline Phosphatase 58 U/L (38-126); Aspartate Aminotransferase 30 IU/L (17-59); BUN Creatinine Ratio 15.6 (6-22); Bilirubin Total 0.4 mg/dL (0.2-1.3); Blood Urea Nitrogen 40 mg/dL (9-20); Calcium 9.7 mg/dL (8.4-10.2); Carbon Dioxide 26 mmol/L (22-32); Chloride 106 mmol/L (98-107); Creatine Kinase 201 U/L (55-170); Estimated Glomerular Filt Rate 25 mL/min (>60); Globulin 2.9 g/dL (1.7-4.1); Glucose 101 mg/dL (80-110); HEMOLYSIS < 15 (0-50); Lipase 154 U/L (23-300); Magnesium 2.1 mg/dL (1.6-2.3); Potassium 4.9 mmol/L (3.4-5.1); Sodium 138 mmol/L (137-145)
[2023-05-07 20:42] LABS: Troponin I < 0.012 ng/mL (0.01-0.034)
[2023-05-07 20:55] LABS: Influenza A - CEPHEID Flu A NEGATIVE (NEGATIVE); Influenza B - CEPHEID Flu B NEGATIVE (NEGATIVE); Respiratory Syncytial Virus Negative (Negative)
[2023-05-07 20:59] LABS: COVID-19 CEPHEID 4-PLEX PCR Negative (Negative)
== END 2023-05-07 23:00 | disposition home or self-care (01) ==
PROVIDERS: Emergency Provider Emergency Medicine; PCP Internal Medicine
DX: R53.83 Other fatigue (principal); I25.10 Atherosclerotic heart disease of native coronary artery without angina pectoris; Z95.810 Presence of automatic (implantable) cardiac defibrillator; Z79.01 Long term (current) use of anticoagulants; Z79.82 Long term (current) use of aspirin; Z79.899 Other long term (current) drug therapy; Z86.711 Personal history of pulmonary embolism
CPT/HCPCS: 0241U; 36415; 71045; 80053; 82550; 83690; 83735; 84484; 85025; 85610; 85730; 93005; 93010; 99283; 99284

== ENCOUNTER 2023-11-03 18:30 | Emergency (ER) | payer MEDICARE, OTHER, SELFPAY ==
[2022-06-26 21:49] VITALS: BMI 30.8
[2023-11-03] VITALS (10 sets, daily range): BP systolic 132–180; BP diastolic 56–87; PULSE 59–64; RESP 12–28; TEMP 36.9; O2SAT 97–100; BMI 29.5
--- NOTE | 2023-11-03 18:36 | DI.RAD.S_ITS ---
PROCEDURE: XR CHEST 1V INDICATIONS: chest pain TECHNIQUE: One view of the chest was acquired. COMPARISON: [facility], CR, XR CHEST 1V, 05/07/2023, 19:59. FINDINGS: Surgical changes and devices: Pacemaker. Lungs and pleura: Lungs are clear. No pleural effusions or pneumothorax. Mediastinum: Mediastinal contours appear normal. Heart size enlarged. Bones and chest wall: No suspicious bony lesions. Overlying soft tissues appear unremarkable. IMPRESSION: No acute pulmonary process. Dictated by: Zena Martinez M.D. on 11/03/2023 at 19:11 Approved by: Zena Martinez M.D. on 11/03/2023 at 19:12
--- NOTE | 2023-11-03 18:38 | ED.CHESTPAIN ---
HPI - Chest Pain General Chief Complaint: Chest Pain Stated Complaint: chest pain Time Seen by Provider: 11/03/23 18:38 Source: patient Mode of arrival: Ambulatory History of Present Illness HPI narrative: 78-year-old male with history of cardiomyopathy, status post AICD placement years ago with revision, not recall his ejection fraction, last echocardiogram proximally a year ago, followed by a composite technician Dr. Keen in [place], complains of chest discomfort left lateral dullness aching sensation, proximally 1 hour prior to arrival, acute onset at rest after eating dinner. Not worse with inspiration or movement. No radiation to arm or back or neck. No associated nausea or vomiting, no associated diaphoresis. Symptoms improved and now are resolved without specific treatment. No known prior coronary vessel interventions, last stress test he thinks was 2 or 3 years ago. Related Data Home Medications Medication Instructions Recorded Confirmed multivitamin 1 tab PO DAILY ##0 02/13/12 04/15/23 aspirin 81 mg tablet,delayed 81 mg PO DAILY ##0 07/23/12 04/15/23 release gabapentin 300 mg capsule 300 mg PO BID ##0 02/23/16 04/15/23 (Neurontin) amitriptyline 25 mg tablet 25 mg PO BEDTIME ##0 08/10/17 04/15/23 colchicine 0.6 mg capsule 0.6 mg PO BID 10/07/18 04/15/23 fluoride (sodium) 1.1 % dental 1 applic dental DIRECTED 10/07/18 04/15/23 cream hydroxychloroquine 200 mg tablet 200 mg PO BID 10/07/18 04/15/23 tamsulosin 0.4 mg capsule (Flomax) 0.8 mg PO DAILY 10/07/18 04/15/23 isosorbide mononitrate 60 mg 60 mg PO DAILY 01/18/22 04/15/23 tablet,extended release 24 hr Previous Rx's Medication Instructions Recorded sucralfate 1 gram tablet 1 gm PO ACHS #360 tabs 02/24/17 ibuprofen 600 mg tablet 600 mg PO QID PRN pain #20 tabs 02/22/18 DISABLED PARKING PERMIT #1 ea 05/04/20 nitroglycerin 0.4 mg sublingual 0.4 mg sublingual Q5-15M PRN chest 08/23/20 tablet pain #30 tabs sildenafil 100 mg tablet (Viagra) See Rx Instructions PO .COMPLEX 05/08/21 PRN erectile dysfunction #30 tabs tramadol 50 mg tablet 50 mg PO Q8H PRN pain #10 tabs 07/19/21 nitroglycerin 0.4 mg sublingual 0.4 mg sublingual Q5-15M PRN chest 07/25/22 tablet pain #20 tabs alprazolam 0.25 mg tablet 0.25 - 0.5 mg (1 - 2 x 0.25 mg) PO 08/02/22 TIDP PRN Anxiety #60 tabs pantoprazole 40 mg tablet,delayed 40 mg PO BID #180 tabs 11/20/22 release levothyroxine 50 mcg tablet 50 mcg PO DAILY #90 tabs 12/23/22 (Synthroid) lisinopril 5 mg tablet 5 mg PO DAILY #90 tabs 12/23/22 apixaban 5 mg tablet (Eliquis) 5 mg PO BID #180 tabs 01/09/23 bupropion HCl 300 mg 24 hr tablet, 300 mg PO QAM #90 tabs 03/14/23 extended release sertraline 50 mg tablet 100 mg (2 x 50 mg) PO BEDTIME #180 07/14/23 tabs Allergies Allergy/AdvReac Type Severity Reaction Status Date / Time codeine Allergy Mild HIVES Verified 11/03/23 18:36 Patient History Medical History (Updated 11/03/23 @ 21:38 by Bruno Torres MD) Depression Lumbar radiculopathy Cancer Chronic renal failure, stage 3a COVID-19 Pulmonary embolism Pneumonia due to COVID-19 virus Leukopenia (04/16/16) Chronic anemia (04/16/16) Chronic renal failure, stage 2 (mild) (07/24/15) Cardiomyopathy (07/24/15) Malignant neoplasm of prostate (07/11/14) Ventricular tachycardia (01/10/14) Anxiety (10/25/13) Mixed hyperlipidemia (01/23/11) Gastroesophageal reflux disease without esophagitis (01/23/11) History of hematuria Chest pain Palpitations Surgical History Anesthesia Implantable cardioverter-defibrillator (ICD) in situ Status post cholecystectomy Family History Brother Family history of diabetes mellitus (DM) Father Hypertension Sister No problems noted. Social History marital status: number of children: 6 household members: significant other and other Smoking Status: Never smoker Type(s) of exercise: other frequency: 3-4 times per week Smoking Status: Never smoker alcohol intake frequency: a few times a month Alcohol type: wine Substance Use Type: does not use Exam Narrative Exam Narrative: GENERAL: Well-developed patient, in no distress. HEAD: Atraumatic. Normocephalic. EYES: Pupils equal round and reactive. Extraocular motions intact. No scleral icterus. No injection or drainage. ENT: Nose without bleeding, purulent drainage. Throat without erythema, tonsillar hypertrophy or exudate. Airway patent. NECK: Trachea midline. Non tender CARDIOVASCULAR: Regular rate and rhythm without murmurs, gallops, or rubs. Left upper chest with AICD site, no redness or fluctuance, nontender non crepitant. RESPIRATORY: Clear to auscultation. Breath sounds equal bilaterally. No wheezes, rales, or rhonchi. GASTROINTESTINAL: Abdomen soft, non-tender, nondistended. EXTREMITIES: No edema or joint tenderness. BACK: Nontender without deformity or crepitance. No flank tenderness. NEURO: AOx3. SKIN: No rash or erythema of visible areas Initial Vital Signs Initial Vital Signs: Vital Signs Temperature 98.4 F 11/03/23 18:36 Pulse Rate 64 11/03/23 18:36 Respiratory Rate 17 11/03/23 18:36 Blood Pressure 180/87 H 11/03/23 18:36 Pulse Oximetry 100 11/03/23 18:36 Oxygen Delivery Method Room Air 11/03/23 18:36 Course Orders Ordered: ED Orders 11/03/23 18:36 XR chest 1V Stat EKG-12 Lead Stat 11/03/23 18:40 Complete Blood Count AUTO DIFF Stat Comprehensive Metabolic Panel Stat D Dimer Stat Lipase Stat Magnesium Stat PTT Partial Thromboplastin Ar Stat Prothrombin Time INR Stat Troponin & CK Cardiac Panel Stat Discontinued Medications Aspirin (Aspirin 81 Mg Chew Tab) 324 mg PO NOW ONE Stop: 11/03/23 18:37 Last Admin: 11/03/23 18:44 Dose: 324 mg Documented By: TE Vital Signs Vital signs: Vital Signs - 8 hr 11/03/23 19:30 11/03/23 19:44 11/03/23 19:44 Pulse Rate 60 59 L Respiratory Rate 20 18 Blood Pressure 132/56 L Pulse Oximetry 97 11/03/23 20:00 11/03/23 20:07 11/03/23 20:07 Pulse Rate 60 60 Respiratory Rate 28 H 17 Blood Pressure 160/73 H Pulse Oximetry 98 99 11/03/23 20:30 11/03/23 20:30 11/03/23 21:00 Pulse Rate 59 L Respiratory Rate 13 Blood Pressure 135/68 148/74 H Pulse Oximetry 99 11/03/23 21:00 11/03/23 21:30 11/03/23 21:31 Pulse Rate 60 62 60 Respiratory Rate 14 22 24 Blood Pressure Pulse Oximetry 97 98 98 11/03/23 21:31 Pulse Rate Respiratory Rate Blood Pressure 162/67 H Pulse Oximetry MDM - Chest Pain Lab Data 11/03/23 18:40 11/03/23 18:40 Labs: Lab Results 11/03/23 Range/Units 18:40 WBC 4.6 (4.5-11.0) X10^3/uL RBC 3.33 L (4.5-5.9) X10^6/uL Hgb 10.5 L (13.5-17.5) g/dL Hct 31.9 L (41-53) % MCV 95.5 (80-100) fL MCH 31.5 (26-34) PG MCHC 33.0 (30-36) % RDW 14.7 (11.6-14.8) % Plt Count 123 L (150-400) X10^3/uL Neut % (Auto) 48.4 L (50-75) % Lymph % (Auto) 35.3 (25-40) % Clinton % (Auto) 10.0 (3-14) % Eos % (Auto) 5.6 H (2-4) % Baso % (Auto) 0.7 (0-2) % Neut # (Auto) 2200 (8714-8190) /uL Lymph # (Auto) 1600 (7689-4008) /uL Clinton # (Auto) 500 (0-900) /uL Eos # (Auto) 300 (0-450) /uL Baso # (Auto) 0 (0-100) /uL PT 15.7 H (9.4-12.5) SECONDS INR 1.4 H (0.9-1.3) APTT 33 (25.1-36.5) SECONDS D-Dimer 584 H (<500) ng/ml Sodium 140 (137-145) mmol/L Potassium 4.5 (3.4-5.1) mmol/L Chloride 108 H (98-107) mmol/L Carbon Dioxide 27 (22-32) mmol/L BUN 36 H (9-20) mg/dL Creatinine 2.02 H (0.66-1.25) mg/dL Estimated GFR 33 L (>60) mL/min BUN/Creatinine Ratio 17.8 (6-22) Glucose 91 (80-110) mg/dL Calcium 9.4 (8.4-10.2) mg/dL Magnesium 1.9 (1.6-2.3) mg/dL Total Bilirubin 0.5 (0.2-1.3) mg/dL AST 36 (17-59) IU/L ALT 27 (<50) IU/L Alkaline Phosphatase 72 (38-126) U/L Total Creatine Kinase 308 H (55-170) U/L Troponin I < 0.012 (0.01-0.034) ng/mL Total Protein 7.4 (6.3-8.2) g/dL Albumin 4.4 (3.5-5.0) g/dL Globulin 3.0 (1.7-4.1) g/dL Albumin/Globulin Ratio 1.5 (1.0-2.8) Lipase 128 (23-300) U/L Imaging Data Chest x-ray: Radiologist's Impression: [address] [address] XRay Report Signed Patient: Jorje Garay MR#: [id number] : 1945 Acct:[id number] Age/Sex: 78 / M Date of Service: 11/03/23 Loc: ED Accession Number: [id number] Procedure: XR chest 1V Ordering Provider: Bruno Torres MD PROCEDURE: XR CHEST 1V INDICATIONS: chest pain TECHNIQUE: One view of the chest was acquired. COMPARISON: [facility], CR, XR CHEST 1V, 05/07/2023, 19:59. FINDINGS: Surgical changes and devices: Pacemaker. Lungs and pleura: Lungs are clear. No pleural effusions or pneumothorax. Mediastinum: Mediastinal contours appear normal. Heart size enlarged. Bones and chest wall: No suspicious bony lesions. Overlying soft tissues appear unremarkable. IMPRESSION: No acute pulmonary process. Dictated by: Zena Martinez M.D. on 11/03/2023 at 19:11 Approved by: Zena Martinez M.D. on 11/03/2023 at 19:12 ECG Data Attestation: I personally reviewed and interpreted this ECG as follows: Interpretation: Normal sinus rhythm with rate of 62, no obvious ST segment elevation or depression changes. T-waves fairly flat in lead 3 but upright in lead F and 2 other contiguous inferior leads. No significant change from comparison 10/30/2016. First-degree AV block with MA interval 248 noted, QRS 90, QTC 381. MDM Narrative Medical decision making narrative: 78-year-old male with history of cardiomyopathy, AICD, had 1 hour duration left lateral chest discomfort that is now resolved, given aspirin here, EKG with no obvious acute changes, chest x-ray negative. Initial troponin negative. We will hold for 2nd troponin. D-dimer positive, however creatinine 2.0 elevated, similar range recent couple of years, we will hold CTA chest study now, repeat interval 3 hour troponin. On monitor patient had nonsustained wide complex tachycardia, associated chest pain or syncope or presyncope, no shocking by his AICD, we will interrogate AICD We were awaiting 2nd troponin, and perhaps calling his composite technician, he does not want to stay for any further evaluation. He was made aware he had fast rhythm, no shocking known from his AICD. Elevated D-dimer but elevated creatinine, we did not do an angiogram to look for blood clots to lungs. He does not want to have any further evaluation. He is aware that he could have some cardiac cardiopulmonary emergency event, could collapse, injure himself, have loss of independence, even . He persists nonetheless in his desire to be discharged now, wants to follow up with his composite technician as an outpatient, advised that he is encouraged to return for any problems beforehand. He seems competent to make such decision, good insight, expressed understanding of consequences or his refusal to have further observation and testing now. He left the emergency department against medical advice Discharge Plan Departure Patient Disposition: Left Against Medical Advice Clinical Impression: Chest pain, Tachycardia, Chronic kidney disease, Elevated d-dimer Activity Restrictions/Additional Instructions: Resolved chest pain, unclear etiology, no obvious heart attack by initial EKG and initial blood test troponin. Our plan was to repeat the troponin a few hours. While we were waiting your monitor showed a fast heart rhythm for a few beats that went away by itself, you did not feel that your AICD shocked you. Unclear cause. D-dimer was elevated, could consider CT angiogram of the chest but your kidney function is not so good, the IV contrast could cause some kidney injury. You decide that you did not want to stay for any further testing or evaluation, did not want any have any attempt to call your composite technician, stated that you would call your composite technician in see your composite technician and [place] as an outpatient. Urine encouraged to follow up with your composite technician. Your advised to have further testing, left against medical advice. We discussed risks of this that might include worsening of condition, injury, loss of independence, even . You nonetheless decided that he would want to go and left against medical advice. Prescriptions: No Action multivitamin Tablet 1 tab PO DAILY Qty: 0 aspirin 81 mg Tablet,Delayed Release (Dr/Ec) 81 mg PO DAILY Qty: 0 gabapentin [Neurontin] 300 MG capsule 300 mg PO BID Qty: 0 sucralfate 1 GM tablet 1 gm PO ACHS Qty: 360 3RF amitriptyline 25 MG tablet 25 mg PO BEDTIME Qty: 0 (DME) DISABLED PARKING PERMIT Qty: 1 0RF Rx Instructions: I FIND THIS PATIENT TO BE MEDICALLY DISABLED AND QUALIFIED FOR DISABLE PARKING INDICATED, AND SIGNED ON THE ACCOMPANYING [employer] APPLICATION FOR INDIVIDUALS sildenafil [Viagra] 100 mg tablet See Rx Instructions PO .COMPLEX PRN (Reason: erectile dysfunction) Qty: 30 11RF Dose Instruction: 1/2 to 1 tab PO 1 hr prior to sexual activity PRN; Rx Instructions: 1/2 to 1 tab PO 1 hr prior to sexual activity PRN; pantoprazole 40 mg tablet,delayed release (DR/EC) 40 mg PO BID Qty: 180 2RF levothyroxine [Synthroid] 50 mcg tablet 50 mcg PO DAILY Qty: 90 3RF lisinopril 5 mg tablet 5 mg PO DAILY Qty: 90 3RF Eliquis 5 mg tablet 5 mg PO BID Qty: 180 1RF sertraline 50 mg tablet 100 mg PO BEDTIME Qty: 180 0RF Rx Instructions: APPT DUE WITH PCP PRIOR TO END OF RX/FUTURE FILLS. PLEASE CALL TO SCHEDULE FUTURE APPT. THANKS 07/14/23. bupropion HCl 300 mg tablet extended release 24 hr 300 mg PO QAM Qty: 90 3RF isosorbide mononitrate 60 mg tablet extended release 24 hr 60 mg PO DAILY alprazolam 0.25 mg tablet 0.25 - 0.5 mg PO TIDP PRN (Reason: Anxiety) Qty: 60 3RF ibuprofen 600 mg tablet 600 mg PO QID PRN (Reason: pain) Qty: 20 0RF Rx Instructions: do not take with other NSAIDs nitroglycerin 0.4 mg tablet, sublingual 0.4 mg sublingual Q5-15M PRN (Reason: chest pain) Qty: 20 0RF Rx Instructions: do not exceed 3 doses per episode hydroxychloroquine 200 mg tablet 200 mg PO BID fluoride (sodium) 1.1 % cream 1 applic Dental DIRECTED Patient Comments: BRUSH ON TEETH ONCE A DAY SPIT OUT DO NOT RINSE colchicine 0.6 mg capsule 0.6 mg PO BID tamsulosin [Flomax] 0.4 MG capsule 0.8 mg PO DAILY nitroglycerin 0.4 mg tablet, sublingual 0.4 mg sublingual Q5-15M PRN (Reason: chest pain) Qty: 30 0RF Rx Instructions: do not exceed 3 doses per episode tramadol 50 mg tablet 50 mg PO Q8H PRN (Reason: pain) Qty: 10 0RF Referrals: Brayan Blackwell MD [Primary Care Provider] - Stand Alone Forms: Patient Portal/API, Against Medical Advice
[2023-11-03] MEDS: ASPIRIN 81 MG CHEW TAB 324 MG PO (18:44)
[2023-11-03 18:48] LABS: Add Manual Diff / Slide Review NO; Basophils Absolute Auto 0 /uL (0-100); Basophils Percent Auto 0.7 % (0-2); Eosinophils Absolute Auto 300 /uL (0-450); Eosinophils Percent Auto 5.6 % (2-4); Hematocrit 31.9 % (41-53); Hemoglobin 10.5 g/dL (13.5-17.5); Lymphocytes Absolute Auto 1600 /uL (1100-4500); Lymphocytes Percent Auto 35.3 % (25-40); Mean Corpuscular Hemoglobin 31.5 PG (26-34); Mean Corpuscular Volume 95.5 fL (80-100); Monocytes Absolute Auto 500 /uL (0-900); Neutrophils Absolute Auto 2200 /uL (1500-7000); Neutrophils Percent Auto 48.4 % (50-75); Platelet Count 123 X10^3/uL (150-400); Red Blood Cell Count 3.33 X10^6/uL (4.5-5.9); Red Cell Distribution Width 14.7 % (11.6-14.8); White Blood Cell Count 4.6 X10^3/uL (4.5-11.0)
[2023-11-03 18:55] LABS: INR 1.4 (0.9-1.3); Prothrombin Time 15.7 SECONDS (9.4-12.5)
[2023-11-03 18:57] LABS: PTT Partial Thromboplastin Tim 33 SECONDS (25.1-36.5)
[2023-11-03 18:59] LABS: Alanine Aminotransferase 27 IU/L (<50); Albumin 4.4 g/dL (3.5-5.0); Albumin Globulin Ratio 1.5 (1.0-2.8); Alkaline Phosphatase 72 U/L (38-126); Aspartate Aminotransferase 36 IU/L (17-59); BUN Creatinine Ratio 17.8 (6-22); Bilirubin Total 0.5 mg/dL (0.2-1.3); Blood Urea Nitrogen 36 mg/dL (9-20); Calcium 9.4 mg/dL (8.4-10.2); Carbon Dioxide 27 mmol/L (22-32); Chloride 108 mmol/L (98-107); Creatine Kinase 308 U/L (55-170); Estimated Glomerular Filt Rate 33 mL/min (>60); Glucose 91 mg/dL (80-110); HEMOLYSIS < 15 (0-50); Lipase 128 U/L (23-300); Magnesium 1.9 mg/dL (1.6-2.3); Potassium 4.5 mmol/L (3.4-5.1); Sodium 140 mmol/L (137-145); Total Protein 7.4 g/dL (6.3-8.2)
[2023-11-03 19:11] LABS: Troponin I < 0.012 ng/mL (0.01-0.034)
[2023-11-03 19:30] LABS: D Dimer 584 ng/ml (<500)
--- NOTE | 2023-11-03 21:41 | PC.NURSE ---
2027 [employer] pacemaker interrogation completed at this time.
--- NOTE | 2023-11-03 21:41 | PC.NURSE ---
Patient refuses repeat troponin and states I want to go home. Dr. Torres at bedside informing patient of risks of leaving at this time.patient signed AMA paperwork and left Er with steady gait.
== END 2023-11-03 21:43 | disposition left against medical advice (07) ==
PROVIDERS: Emergency Provider Emergency Medicine; PCP Internal Medicine
DX: R07.9 Chest pain, unspecified (principal); R00.0 Tachycardia, unspecified; N18.9 Chronic kidney disease, unspecified; R79.89 Other specified abnormal findings of blood chemistry; Z95.810 Presence of automatic (implantable) cardiac defibrillator; Z53.29 Procedure and treatment not carried out because of patient's decision for other reasons
CPT/HCPCS: 36415; 71045; 80053; 82550; 83690; 83735; 84484; 85025; 85379; 85610; 85730; 93005; 99284

== ENCOUNTER 2024-01-16 15:00 | Emergency (ER) | payer OTHER, SELFPAY ==
[2022-06-26 21:49] VITALS: BMI 30.8
[2024-01-16 15:03] VITALS: BP 177/73; PULSE 61; RESP 16; TEMP 36.6; O2SAT 100; BMI 26.9
[2024-01-16 16:11] VITALS: BP 187/88; PULSE 62; RESP 16; O2SAT 100
--- NOTE | 2024-01-16 16:15 | ED_ITS ---
HPI - Skin/Abscess/Foreign Bdy <Joan Abarca PA-C - Last Filed: 01/23/24 11:11> General Chief complaint: Skin/Abscess/Foreign Body Stated complaint: multiple bee stings Time Seen by Provider: 01/16/24 15:13 History of Present Illness HPI narrative: This is an 78-year-old male who presents initially stating he is concerned he may have been stung by bees. He was doing a lot of yard work outside Today and at around 11:00 a.m. this morning he says he ended up feeling like he was somewhat swarmed and had 5 or 6 bees circling around him. He initially did not think that they stung him at all. And he said he ran into his garage to escape them. He continued to work for few hours and did work in the backyard as well. But he says about 10 or 20 minutes after the bees were around him he noticed he was having an uncomfortable pain sensation that felt a little bit like burning in his skin on his left leg on the outside as well as on his right thigh on the inside and also on the top of his left hand. Patient also states that he just feels a little ?off? although he can not describe this in any more detail. Originally he says he took a shower shortly after the these were circling around him, but later he states that he actually continued to work for a few hours and then took a shower because he did not feel right and his skin was bothering him. Patient states ?whenever I do not feel right I just go in to get seen?. Over the course of 10 minute interview he does repeat the same phrases multiple times almost verbatim in describing the event. He denies falling, hitting his head recently, any injuries or any other complaints or concerns and states that prior to this morning he has been in his usual state of health he does state that he lives with his ?son. Related Data Home Medications Medication Instructions Recorded Confirmed multivitamin 1 tab PO DAILY ##0 02/13/12 11/11/23 aspirin 81 mg tablet,delayed 81 mg PO DAILY ##0 07/23/12 11/11/23 release gabapentin 300 mg capsule 300 mg PO BID ##0 02/23/16 11/11/23 (Neurontin) amitriptyline 25 mg tablet 25 mg PO BEDTIME ##0 08/10/17 11/11/23 colchicine 0.6 mg capsule 0.6 mg PO BID 10/07/18 11/11/23 fluoride (sodium) 1.1 % dental 1 applic dental DIRECTED 10/07/18 11/11/23 cream hydroxychloroquine 200 mg tablet 200 mg PO BID 10/07/18 11/11/23 tamsulosin 0.4 mg capsule (Flomax) 0.8 mg PO DAILY 10/07/18 11/11/23 isosorbide mononitrate 60 mg 60 mg PO DAILY 01/18/22 11/11/23 tablet,extended release 24 hr Previous Rx's Medication Instructions Recorded sucralfate 1 gram tablet 1 gm PO ACHS #360 tabs 02/24/17 ibuprofen 600 mg tablet 600 mg PO QID PRN pain #20 tabs 02/22/18 DISABLED PARKING PERMIT #1 ea 05/04/20 nitroglycerin 0.4 mg sublingual 0.4 mg sublingual Q5-15M PRN chest 08/23/20 tablet pain #30 tabs sildenafil 100 mg tablet (Viagra) See Rx Instructions PO .COMPLEX 05/08/21 PRN erectile dysfunction #30 tabs tramadol 50 mg tablet 50 mg PO Q8H PRN pain #10 tabs 07/19/21 nitroglycerin 0.4 mg sublingual 0.4 mg sublingual Q5-15M PRN chest 07/25/22 tablet pain #20 tabs alprazolam 0.25 mg tablet 0.25 - 0.5 mg (1 - 2 x 0.25 mg) PO 08/02/22 TIDP PRN Anxiety #60 tabs pantoprazole 40 mg tablet,delayed 40 mg PO BID #180 tabs 11/20/22 release levothyroxine 50 mcg tablet 50 mcg PO DAILY #90 tabs 12/23/22 (Synthroid) lisinopril 5 mg tablet 5 mg PO DAILY #90 tabs 12/23/22 apixaban 5 mg tablet (Eliquis) 5 mg PO BID #180 tabs 01/09/23 bupropion HCl 300 mg 24 hr tablet, 300 mg PO QAM #90 tabs 03/14/23 extended release sertraline 50 mg tablet 100 mg (2 x 50 mg) PO BEDTIME #180 07/14/23 tabs Allergies Allergy/AdvReac Type Severity Reaction Status Date / Time codeine Allergy Mild HIVES Verified 11/11/23 10:11 Review of Systems <Joan Abarca PA-C - Last Filed: 01/23/24 11:11> Review of Systems Narrative: See HPI Patient History <Joan Abarca PA-C - Last Filed: 01/23/24 11:11> Medical History Depression Lumbar radiculopathy Cancer Chronic renal failure, stage 3a COVID-19 Pulmonary embolism Pneumonia due to COVID-19 virus Leukopenia (04/16/16) Chronic anemia (04/16/16) Chronic renal failure, stage 2 (mild) (07/24/15) Cardiomyopathy (07/24/15) Malignant neoplasm of prostate (07/11/14) Ventricular tachycardia (01/10/14) Anxiety (10/25/13) Mixed hyperlipidemia (01/23/11) Gastroesophageal reflux disease without esophagitis (01/23/11) History of hematuria Chest pain Palpitations Surgical History Anesthesia Implantable cardioverter-defibrillator (ICD) in situ Status post cholecystectomy Family History Brother Family history of diabetes mellitus (DM) Father Hypertension Sister No problems noted. Social History marital status: number of children: 6 household members: significant other and other Smoking Status: Never smoker Type(s) of exercise: other frequency: 3-4 times per week Smoking Status: Never smoker alcohol intake frequency: a few times a month Alcohol type: wine Substance Use Type: does not use Exam <Joan Abarca PA-C - Last Filed: 01/23/24 11:11> Narrative Exam Narrative: GENERAL: [78] year old patient appears stated age. Well-developed patient, in mild distress. HEAD: Atraumatic. Normocephalic. EYES: Pupils equal round and reactive. Extraocular motions intact. No scleral icterus. No injection or drainage. ENT: Nose without bleeding, purulent drainage. Throat without erythema, tonsillar hypertrophy or exudate. No angioedema. Airway patent. NECK: Trachea midline. Non tender CARDIOVASCULAR: Regular rate and rhythm without murmurs, gallops, or rubs. RESPIRATORY: Clear to auscultation. Breath sounds equal bilaterally. No wheezes, rales, or rhonchi. GASTROINTESTINAL: Abdomen nondistended. EXTREMITIES: There is subtle erythema and possibly subtle swelling over the dorsum of the left hand an approximately 3 cm area but no central raised area consistent with insect sting. There is also mild subtle erythema on the medial aspect of the right thigh. There is no bite rupali or sting from an insect visible anywhere on his skin in the areas where he complains of burning/pain/sensation. No edema or joint tenderness. BACK: Nontender without deformity or crepitance. No flank tenderness. NEURO: AOx3. SKIN: No rash or erythema of visible areas Initial Vital Signs Initial Vital Signs: Vital Signs Temperature 97.8 F 01/16/24 15:03 Pulse Rate 61 01/16/24 15:03 Respiratory Rate 16 01/16/24 15:03 Blood Pressure 177/73 H 01/16/24 15:03 Pulse Oximetry 100 01/16/24 15:03 Oxygen Delivery Method Room Air 01/16/24 15:03 <Linh Mcmahan DO - Last Filed: 01/25/24 07:04> Initial Vital Signs Initial Vital Signs: Vital Signs Temperature 97.8 F 01/16/24 15:03 Pulse Rate 61 01/16/24 15:03 Respiratory Rate 16 01/16/24 15:03 Blood Pressure 177/73 H 01/16/24 15:03 Pulse Oximetry 100 01/16/24 15:03 Oxygen Delivery Method Room Air 01/16/24 15:03 Course <Joan Abarca PA-C - Last Filed: 01/23/24 11:11> Course Course Narrative: Spoke with the patient's daughter on the phone regarding her father as he did seem to be repeating himself somewhat and had difficulty knowing the year and thought it was December not January. Given his age seems most appropriate to discuss with family, she does state he has been having a lot of memory issues and this is basically his baseline at this point she states hit his memory issues have been progressing fairly rapidly over the last few months and will prioritize getting him in to see his primary care provider to talk about next options and further evaluation of this. 1600 Vital Signs Vital signs: Vital Signs - 8 hr 01/16/24 15:03 01/16/24 16:11 Temperature 97.8 F Pulse Rate 61 62 Respiratory Rate 16 16 Blood Pressure 177/73 H 187/88 H Pulse Oximetry 100 100 Oxygen Delivery Method Room Air Room Air <Linh Mcmahan DO - Last Filed: 01/25/24 07:04> Vital Signs Vital signs: Vital Signs - 8 hr 01/16/24 15:03 01/16/24 16:11 Temperature 97.8 F Pulse Rate 61 62 Respiratory Rate 16 16 Blood Pressure 177/73 H 187/88 H Pulse Oximetry 100 100 Oxygen Delivery Method Room Air Room Air MDM - Skin/Abscess/Foreign Bdy <Joan Abarca PA-C - Last Filed: 01/23/24 11:11> Differential Diagnosis Differential diagnosis: Likely insect bites, contact dermatitis and other (Insect stings, progressive dementia, memory loss) Treatment and disposition Shared decision making:: Shared decision-making with the patient and his daughter spoken to on the phone was used in determining plan for evaluation today in the emergency department and plan for outpatient follow up. [facility] Narrative Medical decision making narrative: This is an 78-year-old male with a history of radiculopathy, stage III renal failure, cardiomyopathy, rheumatoid arthritis GERD hyperlipidemia and anxiety who presented to the emergency department with concern for possible multiple stings from bees. Patient's story is not completely consistent today as he initially states he showered shortly after he was swarmed by bees but later states he continued to work in his yd for a few hours before doing so. He does repeat himself multiple times throughout the patient interview but has a completely unremarkable neurologic exam today and no findings that suggest CVA. Because of his repetition and no definite site with evidence of stings, do call the patient's daughter and discussed the patient with her. She advises that her father has had increasing problems with memory and it was not uncommon for him to repeat himself or have difficulty remembering events. She also states that he has a low threshold to just go in to get seen if he has anything that seems abnormal to him or that he is concerned about. She agrees she does not feel we need to pursue labs or imaging today, based on patient's exam and history I do not feel this is indicated. She is driving North from her work and will be in the area to visit her dad and staying with him tonight. She also noted that the ?son that he lives with? is actually the son of a friend of her dad's who passed that does live in his home with him and has been helpful but is not his biological son. She is working to get her father in to see his primary care provider although notes he has missed some visits recently. As she is concerned that his memory is worsening. Did consider consulting social work after speaking with the patient's daughter however patient is anxious to leave and daughter has a clear plan to get him in to be seen by his PCP states they actually have an appointment next week. Patient was advised he can try topical Benadryl over the areas of irritation on his skin. Exam was not consistent with cellulitis, possibly though unlikely consistent with insect stings/bee stings. Patient had no evidence of allergic reaction warranting further evaluation or medication. He was somewhat hypertensive today in the emergency department but asymptomatic from this. Return precautions provided, follow-up plan discussed, all questions answered. Discharge Plan Departure Patient Disposition: Home Clinical Impression: Burning sensation of skin Activity Restrictions/Additional Instructions: *You have been diagnosed with [ Burning sensation of skin] *What to do: *Please continue to take your regular medications as directed. [ ] New medication prescriptions sent to your pharmacy: [ ] [ ] New medication written as a paper prescription [X ] No new medications given *Please follow up with your primary care provider in 2-3 days, call for an appointment. Let them know you were seen in the Emergency Department and that we ask that you be seen in follow up. We will electronically transmit a record of today's note if your PCP is in our system. you came to the ER concerned that you possibly had a reaction from bee stings as you had be surrounding you at 1 point today when you were working outside in her yd. We are not finding any definite evidence of bee stings or swelling that would indicate this although there certainly a possibility that this happened. You also mentioned you have been feeling a little bit more fatigued today but have been outside and being pretty active recently. It is possible that the burning symptoms you are having or related to muscle overuse or nerve pain pain. We also noted that he seemed to have some difficulty with remembering some things, this may be a normal part of aging, we did check in with your family, and talked to her daughter and it sounds like this is fairly normal for you recently. It is extremely important thatSyd jcaobson get into see your primary care provider for further assessment of this. And of course if you have any new or worsening symptoms you should seek re-evaluation. In the meantime just in case you did get stung and your sensation that you are experiencing in a few spots in her legs and on your left hand is from a bee sting you may want to try [id number] allergy medicine such as Zyrtec you can also try topical Benadryl. I hope you feel better soon. *If you do not have a primary care provider please contact the [facility] Resource line at [phone]. They will ask some questions about your medical history and help get you set up with a doctor in the community. *Return to Emergency Department if you should have any new, worsening or celine rning symptoms, such as [fever greater than 101 F, shaking chills, worsening pain, persistent vomiting or other bothersome symptoms] Prescriptions: No Action multivitamin Tablet 1 tab PO DAILY Qty: 0 aspirin 81 mg Tablet,Delayed Release (Dr/Ec) 81 mg PO DAILY Qty: 0 gabapentin [Neurontin] 300 MG capsule 300 mg PO BID Qty: 0 sucralfate 1 GM tablet 1 gm PO ACHS Qty: 360 3RF amitriptyline 25 MG tablet 25 mg PO BEDTIME Qty: 0 (DME) DISABLED PARKING PERMIT Qty: 1 0RF Rx Instructions: I FIND THIS PATIENT TO BE MEDICALLY DISABLED AND QUALIFIED FOR DISABLE PARKING INDICATED, AND SIGNED ON THE ACCOMPANYING [employer] APPLICATION FOR INDIVIDUALS sildenafil [Viagra] 100 mg tablet See Rx Instructions PO .COMPLEX PRN (Reason: erectile dysfunction) Qty: 30 11RF Dose Instruction: 1/2 to 1 tab PO 1 hr prior to sexual activity PRN; Rx Instructions: 1/2 to 1 tab PO 1 hr prior to sexual activity PRN; pantoprazole 40 mg tablet,delayed release (DR/EC) 40 mg PO BID Qty: 180 2RF levothyroxine [Synthroid] 50 mcg tablet 50 mcg PO DAILY Qty: 90 3RF lisinopril 5 mg tablet 5 mg PO DAILY Qty: 90 3RF Eliquis 5 mg tablet 5 mg PO BID Qty: 180 1RF sertraline 50 mg tablet 100 mg PO BEDTIME Qty: 180 0RF Rx Instructions: APPT DUE WITH PCP PRIOR TO END OF RX/FUTURE FILLS. PLEASE CALL TO SCHEDULE FUTURE APPT. THANKS 07/14/23. bupropion HCl 300 mg tablet extended release 24 hr 300 mg PO QAM Qty: 90 3RF isosorbide mononitrate 60 mg tablet extended release 24 hr 60 mg PO DAILY alprazolam 0.25 mg tablet 0.25 - 0.5 mg PO TIDP PRN (Reason: Anxiety) Qty: 60 3RF ibuprofen 600 mg tablet 600 mg PO QID PRN (Reason: pain) Qty: 20 0RF Rx Instructions: do not take with other NSAIDs nitroglycerin 0.4 mg tablet, sublingual 0.4 mg sublingual Q5-15M PRN (Reason: chest pain) Qty: 20 0RF Rx Instructions: do not exceed 3 doses per episode hydroxychloroquine 200 mg tablet 200 mg PO BID fluoride (sodium) 1.1 % cream 1 applic Dental DIRECTED Patient Comments: BRUSH ON TEETH ONCE A DAY SPIT OUT DO NOT RINSE colchicine 0.6 mg capsule 0.6 mg PO BID tamsulosin [Flomax] 0.4 MG capsule 0.8 mg PO DAILY nitroglycerin 0.4 mg tablet, sublingual 0.4 mg sublingual Q5-15M PRN (Reason: chest pain) Qty: 30 0RF Rx Instructions: do not exceed 3 doses per episode tramadol 50 mg tablet 50 mg PO Q8H PRN (Reason: pain) Qty: 10 0RF Referrals: Brayan Blackwell MD [Primary Care Provider] - Stand Alone Forms: Patient Portal/API ED Sign-out <Linh Mcmahan DO - Last Filed: 01/25/24 07:04> Cosign ED Attending Kayode Attestation: I was available for consultation.
== END 2024-01-16 16:18 | disposition home or self-care (01) ==
PROVIDERS: Emergency Provider Student in an Organized Health Care Education/Training Program; PCP Internal Medicine
DX: R20.8 Other disturbances of skin sensation (principal); Z79.899 Other long term (current) drug therapy
CPT/HCPCS: 99281

== ENCOUNTER 2024-06-05 21:43 | Emergency (ER) | payer OTHER, SELFPAY ==
[2022-06-26 21:49] VITALS: BMI 30.8
[2024-06-05] VITALS (12 sets, daily range): BP systolic 138–171; BP diastolic 67–81; PULSE 61–69; RESP 16–26; TEMP 36.7; O2SAT 97–100; BMI 30.2
--- NOTE | 2024-06-05 21:49 | EKG_ITS ---
[address] [address] [address] [address] Test Date: 2024-06-05 Pat Name: Jorje Garay Department: Room: Gender: Male Command And Control: MARKIE RENEE : 1945 Requested By: Order Number: [id number] Reading MD: Timmy Sepulveda Measurements Intervals Dale Rate: 69 P: NC: QRS: -10 QRSD: 92 T: 3 QT: 354 QTc: 379 Interpretive Statements Accelerated Junctional rhythm Nonspecific T wave abnormality Electronically Signed On 06-07-2024 11:14:11 PST by Timmy Sepulveda
--- NOTE | 2024-06-05 21:50 | DI.RAD.S_ITS ---
PROCEDURE: XR CHEST 1V INDICATIONS: chest pain TECHNIQUE: One view of the chest was acquired. COMPARISON: [facility], CR, XR CHEST 1V, 11/03/2023, 18:56. [facility], CR, XR CHEST 1V, 05/07/2023, 19:59. FINDINGS: Surgical changes and devices: Left chest wall pulse generator with electrode leads. Lungs and pleura: Low lung volumes. Possible mild opacity at the left lung base. No pleural effusions. Mediastinum: Heart size is at the upper limit of normal, unchanged Bones and chest wall: Degenerative changes IMPRESSION: Possible mild opacity of left lung base representing early airspace disease versus atelectasis. Consider future imaging surveillance to assess for resolution. Low lung volumes. Limited single view study. Dictated by: Jayme Larios M.D. on 06/05/2024 at 22:24 Approved by: Jayme Larios M.D. on 06/05/2024 at 22:24
[2024-06-05] MEDS: ASPIRIN 81 MG CHEW TAB 324 MG PO (22:09)
[2024-06-05 22:18] LABS: Add Manual Diff / Slide Review NO; Basophils Absolute Auto 0 /uL (0-100); Basophils Percent Auto 0.7 % (0-2); Eosinophils Absolute Auto 200 /uL (0-450); Eosinophils Percent Auto 3.4 % (2-4); Hematocrit 34.2 % (41-53); Hemoglobin 11.3 g/dL (13.5-17.5); Lymphocytes Absolute Auto 2100 /uL (1100-4500); Lymphocytes Percent Auto 44.6 % (25-40); Mean Corpuscular HGB Conc 32.9 % (30-36); Mean Corpuscular Hemoglobin 31.6 PG (26-34); Mean Corpuscular Volume 96.2 fL (80-100); Monocytes Absolute Auto 600 /uL (0-900); Monocytes Percent Auto 12.6 % (3-14); Neutrophils Absolute Auto 1800 /uL (1500-7000); Neutrophils Percent Auto 38.7 % (50-75); Platelet Count 156 X10^3/uL (150-400); Red Blood Cell Count 3.56 X10^6/uL (4.5-5.9); Red Cell Distribution Width 14.4 % (11.6-14.8); White Blood Cell Count 4.6 X10^3/uL (4.5-11.0)
[2024-06-05 22:20] LABS: INR 1.3 (0.9-1.3); Prothrombin Time 14.8 SECONDS (9.4-12.5)
[2024-06-05 22:23] LABS: PTT Partial Thromboplastin Tim 31 SECONDS (25.1-36.5)
[2024-06-05 22:31] LABS: Alanine Aminotransferase 29 IU/L (<50); Albumin 4.3 g/dL (3.5-5.0); Albumin Globulin Ratio 1.2 (1.0-2.8); Alkaline Phosphatase 57 U/L (38-126); Aspartate Aminotransferase 38 IU/L (17-59); BUN Creatinine Ratio 17.4 (6-22); Bilirubin Total 0.6 mg/dL (0.2-1.3); Blood Urea Nitrogen 28 mg/dL (9-20); Calcium 9.8 mg/dL (8.4-10.2); Carbon Dioxide 27 mmol/L (22-32); Chloride 105 mmol/L (98-107); Creatine Kinase 236 U/L (55-170); Estimated Glomerular Filt Rate 43 mL/min (>60); Globulin 3.5 g/dL (1.7-4.1); Glucose 103 mg/dL (80-110); HEMOLYSIS < 15 (0-50); Lipase 111 U/L (23-300); Magnesium 1.9 mg/dL (1.6-2.3); Potassium 3.7 mmol/L (3.4-5.1); Sodium 136 mmol/L (137-145); Total Protein 7.8 g/dL (6.3-8.2)
[2024-06-05 22:43] LABS: NT-proBNP (BNP-Adult 18+) 122 pg/mL (<450); Troponin I < 0.012 ng/mL (0.01-0.034)
--- NOTE | 2024-06-05 23:26 | ED.CHESTPAIN ---
HPI - Chest Pain General Chief Complaint: Chest Pain Stated Complaint: chest px Time Seen by Provider: 06/05/24 23:26 Source: patient Mode of arrival: Ambulatory Limitations: no limitations History of Present Illness HPI narrative: Patient is a 79-year-old male history of cardiomyopathy status post AICD placement with revision followed by cardiology Dr. Keen in [place] presenting today with chest pain. He says it is gone now he has been in the ED for 2 hours. It is nonradiating denies any shortness of breath. He says he gets this sometimes but he has not had in a long time. He was last seen in the ED in October. He was seen by his primary care provider after that visit. But he reports he has not been followed by his chef assistant. PCP no thinks that it maybe anxiety. He denies having any known coronary artery disease no cardiac stents. Related Data Home Medications Medication Instructions Recorded Confirmed multivitamin 1 tab PO DAILY ##0 02/13/12 02/09/24 aspirin 81 mg tablet,delayed 81 mg PO DAILY ##0 07/23/12 02/09/24 release gabapentin 300 mg capsule 300 mg PO BID ##0 02/23/16 02/09/24 (Neurontin) amitriptyline 25 mg tablet 25 mg PO BEDTIME ##0 08/10/17 02/09/24 colchicine 0.6 mg capsule 0.6 mg PO BID 10/07/18 02/09/24 fluoride (sodium) 1.1 % dental 1 applic dental DIRECTED 10/07/18 02/09/24 cream hydroxychloroquine 200 mg tablet 200 mg PO BID 10/07/18 02/09/24 tamsulosin 0.4 mg capsule (Flomax) 0.8 mg PO DAILY 10/07/18 02/09/24 isosorbide mononitrate 60 mg 60 mg PO DAILY 01/18/22 02/09/24 tablet,extended release 24 hr Previous Rx's Medication Instructions Recorded sucralfate 1 gram tablet 1 gm PO ACHS #360 tabs 02/24/17 ibuprofen 600 mg tablet 600 mg PO QID PRN pain #20 tabs 02/22/18 DISABLED PARKING PERMIT #1 ea 05/04/20 nitroglycerin 0.4 mg sublingual 0.4 mg sublingual Q5-15M PRN chest 08/23/20 tablet pain #30 tabs sildenafil 100 mg tablet (Viagra) See Rx Instructions PO .COMPLEX 05/08/21 PRN erectile dysfunction #30 tabs tramadol 50 mg tablet 50 mg PO Q8H PRN pain #10 tabs 07/19/21 nitroglycerin 0.4 mg sublingual 0.4 mg sublingual Q5-15M PRN chest 07/25/22 tablet pain #20 tabs alprazolam 0.25 mg tablet 0.25 - 0.5 mg (1 - 2 x 0.25 mg) PO 08/02/22 TIDP PRN Anxiety #60 tabs pantoprazole 40 mg tablet,delayed 40 mg PO BID #180 tabs 11/20/22 release levothyroxine 50 mcg tablet 50 mcg PO DAILY #90 tabs 12/23/22 (Synthroid) lisinopril 5 mg tablet 5 mg PO DAILY #90 tabs 12/23/22 apixaban 5 mg tablet (Eliquis) 5 mg PO BID #180 tabs 01/09/23 bupropion HCl 300 mg 24 hr tablet, 300 mg PO QAM #90 tabs 03/14/23 extended release sertraline 50 mg tablet 100 mg (2 x 50 mg) PO BEDTIME #180 07/14/23 tabs Allergies Allergy/AdvReac Type Severity Reaction Status Date / Time codeine Allergy Mild HIVES Verified 02/09/24 11:17 Patient History Medical History Depression Lumbar radiculopathy Cancer Chronic renal failure, stage 3a COVID-19 Pulmonary embolism Pneumonia due to COVID-19 virus Leukopenia (04/16/16) Chronic anemia (04/16/16) Chronic renal failure, stage 2 (mild) (07/24/15) Cardiomyopathy (07/24/15) Malignant neoplasm of prostate (07/11/14) Ventricular tachycardia (01/10/14) Anxiety (10/25/13) Mixed hyperlipidemia (01/23/11) Gastroesophageal reflux disease without esophagitis (01/23/11) History of hematuria Chest pain Palpitations Surgical History Anesthesia Implantable cardioverter-defibrillator (ICD) in situ Status post cholecystectomy Family History Brother Family history of diabetes mellitus (DM) Father Hypertension Sister No problems noted. Social History marital status: number of children: 6 household members: significant other and other Smoking Status: Never smoker Type(s) of exercise: other frequency: 3-4 times per week Smoking Status: Never smoker alcohol intake frequency: a few times a month Alcohol type: wine Exam Initial Vital Signs Initial Vital Signs: Vital Signs Temperature 98.1 F 06/05/24 21:45 Pulse Rate 69 06/05/24 21:45 Respiratory Rate 18 06/05/24 21:45 Blood Pressure 162/81 H 06/05/24 21:45 Pulse Oximetry 100 06/05/24 21:45 Oxygen Delivery Method Room Air 06/05/24 21:45 GENERAL: Well-appearing, well-nourished and in no acute distress. CARDIOVASCULAR: peripheral pulses in tact, cap refill <2 sec chest pain not reproducible with palpation and movement RESPIRATORY: No respiratory distress, speaks in full sentences without difficulty EXTREMITIES: Normal range of motion, no clubbing or edema. Neurovascularly intact NEUROLOGICAL: Cranial nerves II through XII grossly intact. Normal gait and speech. SKIN: Warm, dry, no petechiae, no rashes or lesions. Course Orders Ordered: ED Orders 06/05/24 21:45 EKG-12 Lead Stat 06/05/24 21:50 XR chest 1V Stat 06/05/24 22:05 Complete Blood Count AUTO DIFF Stat Comprehensive Metabolic Panel Stat Lipase Stat Magnesium Stat NT-proBNP (BNP-Adult 18+) Stat PTT Partial Thromboplastin Ar Stat Prothrombin Time INR Stat Troponin & CK Cardiac Panel Stat Discontinued Medications Aspirin (Aspirin 81 Mg Chew Tab) 324 mg PO NOW ONE Stop: 06/05/24 21:51 Last Admin: 06/05/24 22:09 Dose: 324 mg Documented By: DEIRDRE Vital Signs Vital signs: Vital Signs - 8 hr 06/05/24 22:30 06/05/24 22:31 06/05/24 22:31 Pulse Rate 68 69 Respiratory Rate Blood Pressure 163/77 H Pulse Oximetry 97 97 06/05/24 23:00 06/05/24 23:01 06/05/24 23:01 Pulse Rate 63 63 Respiratory Rate 26 H 18 Blood Pressure 138/67 Pulse Oximetry 99 100 06/05/24 23:30 06/05/24 23:31 06/05/24 23:38 Pulse Rate 62 61 62 Respiratory Rate 20 Blood Pressure Pulse Oximetry 100 99 99 06/05/24 23:40 Pulse Rate Respiratory Rate Blood Pressure 171/76 H Pulse Oximetry MDM - Chest Pain Lab Data 06/05/24 22:05 06/05/24 22:05 Labs: Lab Results 06/05/24 Range/Units 22:05 WBC 4.6 (4.5-11.0) X10^3/uL RBC 3.56 L (4.5-5.9) X10^6/uL Hgb 11.3 L (13.5-17.5) g/dL Hct 34.2 L (41-53) % MCV 96.2 (80-100) fL MCH 31.6 (26-34) PG MCHC 32.9 (30-36) % RDW 14.4 (11.6-14.8) % Plt Count 156 (150-400) X10^3/uL Neut % (Auto) 38.7 L (50-75) % Lymph % (Auto) 44.6 H (25-40) % [place] % (Auto) 12.6 (3-14) % Eos % (Auto) 3.4 (2-4) % Baso % (Auto) 0.7 (0-2) % Neut # (Auto) 1800 (8482-5052) /uL Lymph # (Auto) 2100 (5186-6624) /uL [place] # (Auto) 600 (0-900) /uL Eos # (Auto) 200 (0-450) /uL Baso # (Auto) 0 (0-100) /uL PT 14.8 H (9.4-12.5) SECONDS INR 1.3 (0.9-1.3) APTT 31 (25.1-36.5) SECONDS Sodium 136 L (137-145) mmol/L Potassium 3.7 (3.4-5.1) mmol/L Chloride 105 (98-107) mmol/L Carbon Dioxide 27 (22-32) mmol/L BUN 28 H (9-20) mg/dL Creatinine 1.61 H (0.66-1.25) mg/dL Estimated GFR 43 L (>60) mL/min BUN/Creatinine Ratio 17.4 (6-22) Glucose 103 (80-110) mg/dL Calcium 9.8 (8.4-10.2) mg/dL Magnesium 1.9 (1.6-2.3) mg/dL Total Bilirubin 0.6 (0.2-1.3) mg/dL AST 38 (17-59) IU/L ALT 29 (<50) IU/L Alkaline Phosphatase 57 (38-126) U/L Total Creatine Kinase 236 H (55-170) U/L Troponin I < 0.012 (0.01-0.034) ng/mL NT-Pro-B Natriuret Pep 122 (<450) pg/mL Total Protein 7.8 (6.3-8.2) g/dL Albumin 4.3 (3.5-5.0) g/dL Globulin 3.5 (1.7-4.1) g/dL Albumin/Globulin Ratio 1.2 (1.0-2.8) Lipase 111 (23-300) U/L Imaging Data Chest x-ray: Radiologist's Impression: PROCEDURE: XR CHEST 1V INDICATIONS: chest pain TECHNIQUE: One view of the chest was acquired. COMPARISON: [facility], , XR CHEST 1V, 11/03/2023, 18:56. [facility], , XR CHEST 1V, 05/07/2023, 19:59. FINDINGS: Surgical changes and devices: Left chest wall pulse generator with electrode leads. Lungs and pleura: Low lung volumes. Possible mild opacity at the left lung base. No pleural effusions. Mediastinum: Heart size is at the upper limit of normal, unchanged Bones and chest wall: Degenerative changes IMPRESSION: Possible mild opacity of left lung base representing early airspace disease versus atelectasis. Consider future imaging surveillance to assess for resolution. Low lung volumes. Limited single view study. Dictated by: Jayme Larios M.D. on 06/05/2024 at 22:24 Approved by: Jayme Larios M.D. on 06/05/2024 at 22:24 ECG Data Attestation: I personally reviewed and interpreted this ECG as follows: Prior ECG tracings: available for review Interpretation: Normal sinus rhythm rate [address] changes I do see P waves so I think there is an accelerated junctional rhythm although P waves are hard to 5 similar to prior MDM Narrative Medical decision making narrative: MDM CC: Chest pain Complicating co-morbidities: Cardiomyopathy with AICD Medical records reviewed: ED visit PCP, left Against Medical Advice Differential considered: Acute coronary syndrome, CHF, arrhythmia, pericarditis Exam documented above, pertinent findings include: Alert well-appearing 79-year-old male no peripheral edema speaks in sentences Lab Test results independently reviewed as above. Pertinent findings: Troponin negative creatinine improved today is 1.61 previously 2.0 WBC 4.6 hemoglobin 11.3 hematocrit 34.2 platelets 156 Sodium 136 but seemed 3.7 chloride 105 carbon dioxide creatinine 1.6 Independently reviewed EKG as above No new ischemic changes similar to prior Imaging studies independently reviewed: Chest x-ray no acute cardiopulmonary process Consultations: None Treatments: None Re-evaluations: After 2 hours avoiding patient getting very anxious and wanting to leave. Reports that he has young children at home that he needs to attend to. He has not having any further pain. He is offered repeat troponin declines. Also offered to call his chef assistant but he did not want to wait. He understands I can not fully rule out Discussion: Patient 79-year-old male with history of cardiomyopathy AICD presenting today with chest pain. Chest pain resolved in the ED. He has a negative troponin no obvious EKGs changes. Due to his severe cardiomyopathy I do recommend that he have a repeat troponin. However patient is wanting to leave. Work today is overall improving. He has an improved creatinine at 1.6 previously 2.0 no leukocytosis or anemia. BNP and troponin are negative. 2340 long discussion with patient about repeat troponin further workup. He has not seen his chef assistant since the last time he was in the ED and left Against Medical Advice. He was going to make some phone calls. He has not having any further chest pain. Recommended he stay for at least a repeat troponin but he does not want to do that either. He is worried about his 13-year-old and 7-year-old children at home. He does have someone to check on them but would prefer to just go home. He knows we can't fully rule out heart attack. The patient is clinically sober, free from distracting injury, appears to have intact insight, judgment and reason. Does not meet criteria for involuntary hospitalization. Patient has the capacity to make decisions. The patient is also not under any duress to leave the hospital. In this scenario, it would be battery to subject the patient to treatment against his/her will. I have voiced my concerns for the patient's health given that a full evaluation and treatment had not occurred. I have discussed the need for continued evaluation to determine if there symptoms are caused by a condition that present risk of or morbidity. Risk including but not limited to , permanent disability, prolonged hospitalization, prolonged illness, were discussed. I tried offering alternative options in hopes that the patient might be amenable to partial evaluation and treatment which would be medically beneficial to the patient, though the patient declined my options and insisted on leaving. Because I have been unable to convince the patient to stay I answered all of their questions about the condition and ask them to return to the ED as soon as possible to complete their evaluation, especially if their symptoms worsen or do not improve. I emphasized that leaving against medical advice did not preclude returning here for further evaluation. I asked the patient to return if they change their mind about the further evaluation and treatment. I strongly encouraged the patient to return to this emergency department or any emergency department at any time, particularly with worsening symptoms. Discharge Plan Departure Patient Disposition: Left Against Medical Advice Clinical Impression: Chest pain Instructions: DI for Chest Pain Activity Restrictions/Additional Instructions: At this time you are leaving against medical advice Blood work so far is overall reassuring. We recommended repeat troponin. I do recommend that you call your chef assistant on Friday to schedule follow-up appointment. You are welcome to return to the emergency department at any time. I do recommend that you call 911 when coming to the emergency department with chest pain Please return to the ED if you should have any new or worsening chest pain shortness of breath any new or worsening symptoms Prescriptions: No Action multivitamin Tablet 1 tab PO DAILY Qty: 0 aspirin 81 mg Tablet,Delayed Release (Dr/Ec) 81 mg PO DAILY Qty: 0 gabapentin [Neurontin] 300 MG capsule 300 mg PO BID Qty: 0 sucralfate 1 GM tablet 1 gm PO ACHS Qty: 360 3RF amitriptyline 25 MG tablet 25 mg PO BEDTIME Qty: 0 (DME) DISABLED PARKING PERMIT Qty: 1 0RF Rx Instructions: I FIND THIS PATIENT TO BE MEDICALLY DISABLED AND QUALIFIED FOR DISABLE PARKING INDICATED, AND SIGNED ON THE ACCOMPANYING [employer] APPLICATION FOR INDIVIDUALS sildenafil [Viagra] 100 mg tablet See Rx Instructions PO .COMPLEX PRN (Reason: erectile dysfunction) Qty: 30 11RF Dose Instruction: 1/2 to 1 tab PO 1 hr prior to sexual activity PRN; Rx Instructions: 1/2 to 1 tab PO 1 hr prior to sexual activity PRN; pantoprazole 40 mg tablet,delayed release (DR/EC) 40 mg PO BID Qty: 180 2RF levothyroxine [Synthroid] 50 mcg tablet 50 mcg PO DAILY Qty: 90 3RF lisinopril 5 mg tablet 5 mg PO DAILY Qty: 90 3RF Eliquis 5 mg tablet 5 mg PO BID Qty: 180 1RF sertraline 50 mg tablet 100 mg PO BEDTIME Qty: 180 0RF Rx Instructions: APPT DUE WITH PCP PRIOR TO END OF RX/FUTURE FILLS. PLEASE CALL TO SCHEDULE FUTURE APPT. THANKS 07/14/23. bupropion HCl 300 mg tablet extended release 24 hr 300 mg PO QAM Qty: 90 3RF isosorbide mononitrate 60 mg tablet extended release 24 hr 60 mg PO DAILY alprazolam 0.25 mg tablet 0.25 - 0.5 mg PO TIDP PRN (Reason: Anxiety) Qty: 60 3RF ibuprofen 600 mg tablet 600 mg PO QID PRN (Reason: pain) Qty: 20 0RF Rx Instructions: do not take with other NSAIDs nitroglycerin 0.4 mg tablet, sublingual 0.4 mg sublingual Q5-15M PRN (Reason: chest pain) Qty: 20 0RF Rx Instructions: do not exceed 3 doses per episode hydroxychloroquine 200 mg tablet 200 mg PO BID fluoride (sodium) 1.1 % cream 1 applic Dental DIRECTED Patient Comments: BRUSH ON TEETH ONCE A DAY SPIT OUT DO NOT RINSE colchicine 0.6 mg capsule 0.6 mg PO BID tamsulosin [Flomax] 0.4 MG capsule 0.8 mg PO DAILY nitroglycerin 0.4 mg tablet, sublingual 0.4 mg sublingual Q5-15M PRN (Reason: chest pain) Qty: 30 0RF Rx Instructions: do not exceed 3 doses per episode tramadol 50 mg tablet 50 mg PO Q8H PRN (Reason: pain) Qty: 10 0RF Referrals: Brayan Blackwell MD [Primary Care Provider] - Stand Alone Forms: Patient Portal/API, Against Medical Advice
== END 2024-06-05 23:45 | disposition left against medical advice (07) ==
PROVIDERS: Emergency Provider Emergency Medicine; PCP Internal Medicine
DX: R07.9 Chest pain, unspecified (principal); I42.9 Cardiomyopathy, unspecified; Z53.29 Procedure and treatment not carried out because of patient's decision for other reasons; Z95.810 Presence of automatic (implantable) cardiac defibrillator
CPT/HCPCS: 36415; 71045; 80053; 82550; 83690; 83735; 83880; 84484; 85025; 85610; 85730; 93005; 99284

== ENCOUNTER → 2024-10-28 16:36 | Outpatient (CLI) | payer OTHER, SELFPAY ==
[2022-06-26 21:49] VITALS: BMI 30.8
[2024-10-28 16:54] LABS: Add Manual Diff / Slide Review NO; Basophils Absolute Auto 0 /uL (0-100); Basophils Percent Auto 0.6 % (0-2); Eosinophils Absolute Auto 200 /uL (0-450); Eosinophils Percent Auto 4.7 % (2-4); Hematocrit 32.1 % (41-53); Hemoglobin 10.3 g/dL (13.5-17.5); Lymphocytes Absolute Auto 1500 /uL (1100-4500); Lymphocytes Percent Auto 35.3 % (25-40); Mean Corpuscular HGB Conc 31.9 % (30-36); Mean Corpuscular Hemoglobin 30.9 PG (26-34); Mean Corpuscular Volume 96.8 fL (80-100); Monocytes Absolute Auto 400 /uL (0-900); Monocytes Percent Auto 8.2 % (3-14); Neutrophils Absolute Auto 2200 /uL (1500-7000); Neutrophils Percent Auto 51.2 % (50-75); Platelet Count 112 X10^3/uL (150-400); Red Blood Cell Count 3.32 X10^6/uL (4.5-5.9); Red Cell Distribution Width 14.9 % (11.6-14.8); White Blood Cell Count 4.3 X10^3/uL (4.5-11.0)
[2024-10-28 17:13] LABS: Alanine Aminotransferase 30 IU/L (<50); Albumin 4.3 g/dL (3.5-5.0); Albumin Globulin Ratio 1.4 (1.0-2.8); Alkaline Phosphatase 56 U/L (38-126); Aspartate Aminotransferase 54 IU/L (17-59); BUN Creatinine Ratio 16.9 (6-22); Bilirubin Total 0.5 mg/dL (0.2-1.3); Blood Urea Nitrogen 23 mg/dL (9-20); Calcium 9.5 mg/dL (8.4-10.2); Carbon Dioxide 28 mmol/L (22-32); Chloride 107 mmol/L (98-107); Estimated Glomerular Filt Rate 52 mL/min (>60); Globulin 3.1 g/dL (1.7-4.1); Glucose 130 mg/dL (70-99); HEMOLYSIS < 15 (0-50); Sodium 142 mmol/L (137-145); Total Protein 7.4 g/dL (6.3-8.2)
[2024-10-28 17:29] LABS: Free T3, Triiodothyronine Free 3.03 pg/mL (2.77-5.27); Free T4, Direct Thyroxine 0.86 ng/dL (0.78-2.19)
[2024-10-28 17:42] LABS: Thyroid Stimulating Hormone 2.39 uIU/mL (0.47-4.68)
[2024-10-28 18:01] LABS: Vitamin B12 691 pg/mL (239-931)
[2024-10-30 14:08] LABS: Arsenic 10 ug/L (0-9); Lead, Blood < 1.0 ug/dL (0.0-3.4); Mercury, Blood 1.6 ug/L (0.0-14.9)
== END ==
PROVIDERS: PCP Internal Medicine; Referring Provider Internal Medicine; Visit Provider Internal Medicine
DX: R41.3 Other amnesia (principal)
CPT/HCPCS: 36415; 80053; 82175; 82607; 83655; 83825; 84439; 84443; 84481; 85025

== ENCOUNTER → 2025-01-21 11:23 | Outpatient (CLI) | payer OTHER, SELFPAY ==
[2022-06-26 21:49] VITALS: BMI 30.8
[2025-01-21 12:17] LABS: Add Manual Diff / Slide Review NO; Hematocrit 30.9 % (41-53); Hemoglobin 10.2 g/dL (13.5-17.5); Lymphocytes Absolute Auto 1500 /uL (1100-4500); Mean Corpuscular HGB Conc 33.0 % (30-36); Mean Corpuscular Hemoglobin 31.6 PG (26-34); Mean Corpuscular Volume 95.6 fL (80-100); Platelet Count 118 X10^3/uL (150-400)
[2025-01-21 14:29] LABS: Alanine Aminotransferase 15 IU/L (<50); Albumin 4.1 g/dL (3.5-5.0); Albumin Globulin Ratio 1.2 (1.0-2.8); Alkaline Phosphatase 59 U/L (38-126); Blood Urea Nitrogen 35 mg/dL (9-20); Calcium 8.9 mg/dL (8.4-10.2); Carbon Dioxide 27 mmol/L (22-32); Chloride 107 mmol/L (98-107); Estimated Glomerular Filt Rate 39 mL/min (>60); Globulin 3.3 g/dL (1.7-4.1); Glucose 96 mg/dL (70-99); HEMOLYSIS < 15 (0-50); Potassium 4.7 mmol/L (3.4-5.1); Sodium 140 mmol/L (137-145); Total Protein 7.4 g/dL (6.3-8.2)
[2025-01-21 19:09] LABS: Thyroid Stimulating Hormone 1.90 uIU/mL (0.47-4.68)
[2025-01-22 02:26] LABS: Free T4, Direct Thyroxine 1.00 ng/dL (0.78-2.19)
== END ==
PROVIDERS: PCP Internal Medicine; Referring Provider Internal Medicine; Visit Provider Internal Medicine
DX: E03.9 Hypothyroidism, unspecified (principal); N18.31 Chronic kidney disease, stage 3a; E78.2 Mixed hyperlipidemia; F33.0 Major depressive disorder, recurrent, mild; D64.9 Anemia, unspecified
CPT/HCPCS: 36415; 80053; 84439; 84443; 85025

== ENCOUNTER 2025-04-05 15:04 | Emergency (ER) | payer OTHER, SELFPAY ==
[2022-06-26 21:49] VITALS: BMI 30.8
[2025-04-05] VITALS (9 sets, daily range): BP systolic 144–172; BP diastolic 68–86; PULSE 65–70; RESP 13–23; TEMP 36.8; O2SAT 97–100; BMI 28.4
--- NOTE | 2025-04-05 15:23 | EKG_ITS ---
[address] [id number] [place] [address] Test Date: 2025-04-05 Pat Name: Jorje Garay Department: [facility] Room: Gender: Male Floor Runner: FRANSICO : 1945 Requested By: Order Number: [id number] Reading MD: Brayan Blackwell MD Measurements Intervals [place] Rate: 61 P: 29 [place]: 216 QRS: 17 QRSD: 88 T: 36 QT: 366 QTc: 368 Interpretive Statements Sinus rhythm with 1st degree AV block Nonspecific T wave abnormality NO SIGNIFICANT CHANGE FROM PRIOR TRACING Electronically Signed On 04-05-2025 16:45:00 PDT by Brayan Blackwell MD
--- NOTE | 2025-04-05 15:25 | DI.RAD.S_ITS ---
PROCEDURE: XR CHEST 1V INDICATIONS: Chest Pain TECHNIQUE: One view of the chest was acquired. COMPARISON: [facility], CR, XR CHEST 1V, 06/05/2024, 21:56. [facility], CR, XR CHEST 1V, 11/03/2023, 18:56. FINDINGS: Surgical changes and devices: Left chest wall pacemaker. Lungs and pleura: Lungs are clear. No pleural effusions or pneumothorax. Mediastinum: Mediastinal contours appear normal. Heart size is normal. Bones and chest wall: No suspicious bony lesions. Overlying soft tissues appear unremarkable. IMPRESSION: No acute cardiopulmonary abnormality is seen. Dictated by: Tomas Jaime M.D. on 04/05/2025 at 16:35 Approved by: Tomas Jaime M.D. on 04/05/2025 at 16:37
--- NOTE | 2025-04-05 15:29 | ED.WEAKNESS ---
HPI - Weakness General Chief complaint: Weakness Stated complaint: Generalized weakness x 3 days, malaise Time Seen by Provider: 04/05/25 15:28 Source: patient, EMS, RN notes reviewed and old records reviewed Mode of arrival: EMS Limitations: no limitations History of Present Illness HPI Narrative: 80-year-old male history of prior cardiac arrhythmia with AICD in place, hypothyroidism CKD, dyslipidemia dementia presents with complaint of increasing weakness and generally feeling unwell over the past several days. Patient presents with a his family. Report of possible fall in the last several days. Patient has no dementia family notes long-term memory seems to be intact but short term memory he is quite repetitive, he lives independently. They called family today to say he was not feeling well they came and evaluated him called EMS. They state that patient walked and met them at the door and let them in the house. They state he is moving slower than he normally does. They state his mentation is about at baseline maybe slightly worse. No reports of headache, neck or back pain, no chest pain or shortness of breath. No nausea or vomiting. No fevers. No diarrhea or constipation or urination changes. No new numbness tingling or weakness of extremities appreciated but patient notes a generalized weakness and feeling ?like crap.Patient notes he has had a prior AICD placed. Family and patient note that used to be on a lot of medications but these were weaned down as they felt side effects were causing more problems than helping and patient does not take any daily medications currently. Occasionally takes an aspirin but states that he has probably run out of this. Report of allergy with codeine. No tobacco use, no alcohol, no recreational drugs. Patient lives independently. Related Data Home Medications ?Medication ?Instructions ?Recorded ?Confirmed aspirin 81 mg tablet,delayed 81 mg PO DAILY ##0 07/23/12 01/21/25 release Previous Rx's ?Medication ?Instructions ?Recorded ibuprofen 600 mg tablet 600 mg PO QID PRN pain #20 tabs 02/22/18 Allergies Allergy/AdvReac Type Severity Reaction Status Date / Time codeine Allergy Mild HIVES Verified 01/21/25 10:37 Review of Systems Review of Systems ROS Unobtainable: All systems reviewed & are unremarkable except as noted in HPI and below Patient History Medical History Acquired hypothyroidism Depression Lumbar radiculopathy Cancer Chronic renal failure, stage 3a COVID-19 Pulmonary embolism Pneumonia due to COVID-19 virus Leukopenia (04/16/16) Chronic anemia (04/16/16) Chronic renal failure, stage 2 (mild) (07/24/15) Cardiomyopathy (07/24/15) Malignant neoplasm of prostate (07/11/14) Ventricular tachycardia (01/10/14) Anxiety (10/25/13) Mixed hyperlipidemia (01/23/11) Gastroesophageal reflux disease without esophagitis (01/23/11) History of hematuria Chest pain Palpitations Surgical History Anesthesia Implantable cardioverter-defibrillator (ICD) in situ Status post cholecystectomy Family History Brother Family history of diabetes mellitus (DM) Father Hypertension Sister No problems noted. Social History marital status: number of children: 6 household members: significant other and other Smoking Status: Never smoker Type(s) of exercise: other frequency: 3-4 times per week Smoking Status: Never smoker alcohol intake frequency: a few times a month Alcohol type: wine Exam Narrative Exam Narrative: GEN: well nourished, well appearing male, alert and oriented to self and location, patient appears to be in mild distress. HEENT: Atraumatic, pupils are equal round reactive to light, extraocular movements are intact, nares are clear, there is no conjunctival pallor. Throat is clear without any exudates, erythema, tonsillar enlargement or uvular deviation HEART: Regular rate and rhythm without murmur, clicks, rubs. Pulses are equal in upper and lower extremities. No edema bilateral lower extremities. LUNGS:Lungs clear to auscultation, no wheezes, rales, crackles, chest moves symmetrically, no tachypnea accessory muscle use. ABD:bowel sounds normal, soft, non-tender, no guarding, rebound, rigidity, no masses noted, no hepatosplenomegaly :No CVA tenderness BACK: No cervical, thoracic or lumbar vertebral point tenderness. Patient has normal range of motion. MSCL: Non-tender, no muscle atrophy, muscles strength 5/5 upper and lower extremities, full range of motion. NEURO:CN 2-12 intact, sensation normal, reflexes 2/4 upper and lower extremities. finger nose finger test normal, heel vasquez test normal. SKIN: No rash, erythema or other skin changes noted. Initial Vital Signs Initial Vital Signs: Vital Signs Temperature 98.3 F 04/05/25 15:17 Pulse Rate 66 04/05/25 15:17 Respiratory Rate 18 04/05/25 15:17 Blood Pressure 158/78 H 04/05/25 15:17 Pulse Oximetry 100 04/05/25 15:17 Oxygen Delivery Method Room Air 04/05/25 15:17 Course Orders Ordered: ED Orders 04/05/25 15:13 Complete Blood Count AUTO DIFF Stat Comprehensive Metabolic Panel Stat Lactate (Lactic Acid) Stat Lipase Stat Magnesium Stat NT-proBNP (BNP-Adult 18+) Stat PTT Partial Thromboplastin Ar Stat Prothrombin Time INR Stat Troponin & CK Cardiac Panel Stat 04/05/25 15:23 EKG-12 Lead Stat 04/05/25 15:25 XR chest 1V Stat 04/05/25 15:42 CT head/brain wo con Stat 04/05/25 16:03 UA Complete [Urinalysis and Microscopic] Stat 04/05/25 16:06 Covid-19 + FLU A/B + RSV - PCR Stat 04/05/25 17:29 Consult to OIL DEVELOPER - Drum [employer]er Stat Vital Signs Vital signs: Vital Signs - 8 hr 04/05/25 15:59 04/05/25 15:59 04/05/25 16:00 Pulse Rate 66 Respiratory Rate 17 Blood Pressure 159/74 H 172/86 H Pulse Oximetry 98 04/05/25 16:00 04/05/25 16:30 04/05/25 16:31 Pulse Rate 66 66 68 Respiratory Rate 13 19 21 Blood Pressure Pulse Oximetry 98 99 98 04/05/25 16:31 04/05/25 17:00 04/05/25 17:00 Pulse Rate 65 Respiratory Rate 21 Blood Pressure 144/68 H 155/84 H Pulse Oximetry 97 04/05/25 17:30 04/05/25 17:30 Pulse Rate 65 Respiratory Rate 18 Blood Pressure 162/79 H Pulse Oximetry 99 MDM - Weakness Lab Data 04/05/25 15:13 04/05/25 15:13 Labs: Lab Results 10/04/05/25 04/05/25 Range/Units 15:13 16:03 16:06 WBC 5.0 (4.5-11.0) X10^3/uL RBC 3.47 L (4.5-5.9) X10^6/uL Hgb 10.6 L (13.5-17.5) g/dL Hct 32.1 L (41-53) % MCV 92.4 (80-100) fL MCH 30.4 (26-34) PG MCHC 32.9 (30-36) % RDW 13.9 (11.6-14.8) % Plt Count 176 (150-400) X10^3/uL Neut % (Auto) 48.6 L (50-75) % Lymph % (Auto) 40.6 H (25-40) % [place] % (Auto) 8.3 (3-14) % Eos % (Auto) 1.5 L (2-4) % Baso % (Auto) 1.0 (0-2) % Neut # (Auto) 2400 (1582-1231) /uL Lymph # (Auto) 2000 (9846-9872) /uL [place] # (Auto) 400 (0-900) /uL Eos # (Auto) 100 (0-450) /uL Baso # (Auto) 100 (0-100) /uL PT 18.0 H (9.4-12.5) SECONDS INR 1.6 H (0.9-1.3) APTT 27 (25.1-36.5) SECONDS Sodium 135 L (137-145) mmol/L Potassium 3.7 (3.4-5.1) mmol/L Chloride 101 (98-107) mmol/L Carbon Dioxide 28 (22-32) mmol/L BUN 29 H (9-20) mg/dL Creatinine 1.39 H (0.66-1.25) mg/dL Estimated GFR 51 L (>60) mL/min BUN/Creatinine Ratio 20.9 (6-22) Glucose 138 H (70-99) mg/dL Lactate 1.9 (0.7-2.1) mmol/L Calcium 9.8 (8.4-10.2) mg/dL Magnesium 2.1 (1.6-2.3) mg/dL Total Bilirubin 0.6 (0.2-1.3) mg/dL AST 39 (17-59) IU/L ALT 47 (<50) IU/L Alkaline Phosphatase 63 (38-126) U/L Total Creatine Kinase 76 (55-170) U/L Troponin I < 0.012 (0.01-0.034) ng/mL NT-Pro-B Natriuret Pep 123 (<450) pg/mL Total Protein 7.8 (6.3-8.2) g/dL Albumin 4.0 (3.5-5.0) g/dL Globulin 3.8 (1.7-4.1) g/dL Albumin/Globulin Ratio 1.1 (1.0-2.8) Lipase 125 (23-300) U/L Urine Color Yellow Urine Appearance Clear Urine pH 5.5 (4.5-8.0) Ur Specific [place] 1.020 (1.000-1.035) Urine Protein Trace H (Negative) Urine Glucose (UA) Negative (Negative) g/dL Urine Ketones Trace H (NEGATIVE) Urine Occult Blood Negative (Negative) Urine Nitrate Negative (Negative) Urine Bilirubin Negative (NEGATIVE) Urine Urobilinogen 1.0 (0.2) E.U./dL Ur Leukocyte Esterase Negative (NEGATIVE) Urine RBC None seen (0-5/HPF) Urine WBC 0-1/hpf (0-5/HPF) Ur Squamous Epith Cells None seen (0-5/HPF) Amorphous Sediment 1+ Urine Bacteria None seen (None) Hyaline Casts 1-5/lpf (None) Ur Culture Indicated? Cult not indicated Vol Urine Centrifuged 10ml (spun) SARS-CoV-2 (PCR) Negative (Negative) Influenza A (RT-PCR) Flu a negative (NEGATIVE) Influenza B (RT-PCR) Flu b negative (NEGATIVE) RSV (PCR) Negative (Negative) ECG Data Attestation: I personally reviewed and interpreted this ECG as follows: Prior ECG tracings: available for review Interpretation: Sinus rhythm first-degree AV block nonspecific ST change rate of 61 AK 216 QRS 88 QTC of 368. No acute ST changes compared to prior. From 06/05/2024 [facility] Narrative Medical decision making narrative: Labs show white count of 5 hemoglobin of 10.6 consistent with priors through 2022 platelets are 176 today. INR is 1.6 with a PTT of 27. Chemistries show creatinine of 1.39 was 1.7 in January of 2025 with a BUN of 29 glucose is 139 lactate 1.9 LFTs are normal lipase is 125. Troponin less than 0.012 with a BNP of 123. Sodium is 135 potassium 3.[address] shows no acute intracranial pathology Chest x-ray shows no acute cardiopulmonary abnormality. EKG sinus rhythm first-degree AV block Urine shows some trace protein trace ketones, no signs of infection. COVID/influenza/RSV is negative AICD was interrogated. Last shock was from July of 2021, had 14 events longest was on February 17 with a rate of 87 that lasted 10 seconds, fast a straight was 176 for 6 seconds appears to still have battery. Patient is slightly hypertensive but otherwise appropriate vitals was ambulatory at home. Discussed with family no acute changes appreciated today they feel comfortable with the patient returning but we would like to meet with OIL [facility]ELOPER for home health resources. Discharge Plan Departure Patient Disposition: Home Clinical Impression: Weakness Activity Restrictions/Additional Instructions: Your workup today did show he had a little bit of ketones who maybe slightly dehydrated but no other major changes to your labs or imaging or urine. Please return if you have fevers, sudden changes to mentation, new chest pain or shortness of breath or other new or concerning changes. Prescriptions: No Action aspirin 81 mg Tablet,Delayed Release (Dr/Ec) 81 mg PO DAILY Qty: 0 ibuprofen 600 mg tablet 600 mg PO QID PRN (Reason: pain) Qty: 20 0RF Rx Instructions: do not take with other NSAIDs Referrals: Brayan Blackwell MD [Primary Care Provider, Internal Medicine] Stand Alone Forms: Patient Portal/API
[2025-04-05 15:32] LABS: Add Manual Diff / Slide Review NO; Hematocrit 32.1 % (41-53); Hemoglobin 10.6 g/dL (13.5-17.5); Lymphocytes Absolute Auto 2000 /uL (1100-4500); Mean Corpuscular HGB Conc 32.9 % (30-36); Mean Corpuscular Hemoglobin 30.4 PG (26-34); Mean Corpuscular Volume 92.4 fL (80-100); Platelet Count 176 X10^3/uL (150-400)
[2025-04-05 15:34] LABS: INR 1.6 (0.9-1.3); Prothrombin Time 18.0 SECONDS (9.4-12.5)
[2025-04-05 15:37] LABS: PTT Partial Thromboplastin Tim 27 SECONDS (25.1-36.5)
[2025-04-05 15:40] LABS: Lactate (Lactic Acid) 1.9 mmol/L (0.7-2.1)
[2025-04-05 15:41] LABS: Alanine Aminotransferase 47 IU/L (<50); Albumin 4.0 g/dL (3.5-5.0); Albumin Globulin Ratio 1.1 (1.0-2.8); Alkaline Phosphatase 63 U/L (38-126); Blood Urea Nitrogen 29 mg/dL (9-20); Calcium 9.8 mg/dL (8.4-10.2); Carbon Dioxide 28 mmol/L (22-32); Creatine Kinase 76 U/L (55-170); Estimated Glomerular Filt Rate 51 mL/min (>60); Globulin 3.8 g/dL (1.7-4.1); Glucose 138 mg/dL (70-99); HEMOLYSIS < 15 (0-50); Lipase 125 U/L (23-300); Magnesium 2.1 mg/dL (1.6-2.3); Total Protein 7.8 g/dL (6.3-8.2)
--- NOTE | 2025-04-05 15:42 | DI.CT.S_ITS ---
PROCEDURE: CT HEAD/BRAIN WO CON INDICATIONS: weakness TECHNIQUE: Noncontrast 4.5 mm thick angled axial sections acquired from the foramen magnum to the vertex, with coronal and sagittal reformats. For radiation dose reduction, the following was used: automated exposure control, adjustment of mA and/or kV according to patient size. COMPARISON: None. FINDINGS: Image quality: Diagnostic. CSF spaces: Basal cisterns are patent. No extra-axial fluid collections. The ventricles are symmetric in size and shape. Brain: No intracranial bleeds or mass effect. There is cerebral volume loss, with resultant ventricular and sulcal prominence. There are periventricular and deep white matter chronic small vessel ischemic changes. There is intracranial internal carotid artery atherosclerosis. Skull and face: Calvarium and visualized facial bones appear intact, without suspicious lesions. Sinuses: Visualized sinuses and mastoids are clear. IMPRESSION: No acute intracranial pathology. Dictated by: Tomas Jaime M.D. on 04/05/2025 at 16:10 Approved by: Tomas Jaime M.D. on 04/05/2025 at 16:11
[2025-04-05 15:53] LABS: NT-proBNP (BNP-Adult 18+) 123 pg/mL (<450); Troponin I < 0.012 ng/mL (0.01-0.034)
[2025-04-05 16:02] LABS: Chloride 101 mmol/L (98-107); Potassium 3.7 mmol/L (3.4-5.1); Sodium 135 mmol/L (137-145)
[2025-04-05 16:21] LABS: Appearance Urine UA CLEAR; Bilirubin Urine UA NEGATIVE (NEGATIVE); Color Urine UA YELLOW; Glucose Urine UA NEGATIVE (Negative); Ketones Urine UA TRACE (NEGATIVE); Leukocyte Esterase Urine UA NEGATIVE (NEGATIVE); Nitrite Urine UA NEGATIVE (Negative); Occult Blood Urine UA NEGATIVE (Negative); Protein Urine UA TRACE (Negative); Specific Gravity Urine UA 1.020 (1.000-1.035); Urobilinogen Urine UA 1.0 E.U./dL (0.2); pH Urine UA 5.5 (4.5-8.0)
[2025-04-05 16:41] LABS: Culture Indicated Urine Cult Not Indicated
[2025-04-05 17:01] LABS: Influenza A - CEPHEID Flu A NEGATIVE (NEGATIVE); Influenza B - CEPHEID Flu B NEGATIVE (NEGATIVE)
[2025-04-05 17:07] LABS: COVID-19 CEPHEID 4-PLEX PCR Negative (Negative)
--- NOTE | 2025-04-05 18:03 | CM.SWNOTE ---
ED DIRECTOR FUNERAL Note Patient is 80 y/o male who presents to ED via EMS due to concern for increased weakness and fatigue. Patient's family also endorse concerns for patient's cognitive and short term memory decline. Patient's SLUMS score in October 2024 was 14/30, no formal diagnosis of Dementia but concern for Cognitive impairment. Patient's PCP is Dr. Blackwell, Patient has [employer]age and for Life. DIRECTOR FUNERAL enters room to meet with patient, present in room is patient's two daughters, son in law and granddaughter. Patient reports that he has been feeling lousy. Patient resides alone in [place] with his dog. Patient endorses independent with ADLs and states he drives. Patient has several family members that live close by and check on him regularly. Patient denies any need for DME. DIRECTOR FUNERAL speaks with patient's daughter's privately, it is reported that patient loses his phone regularly, patient typically dresses well everyday and today he was not his most hygienic well dressed self, it is reported that rotten food was found in the house and patient took a part his kitchen sink. Patient's daughters endorse they want to honor patient's dignity and independence but are very concerned about his cognitive decline and his decline in managing ADLs. They have concerns about obtaining a formal diagnosis for patient, DIRECTOR FUNERAL encourages them to discuss Neurology referral at next appt. Patient and family agree to PCP f/u, DIRECTOR FUNERAL contacts patient's PCP clinic and requests TCM team to assist with scheduling ED f/u appt and reaching out to patient's daughter Savanah who verbally reports she is DPOA. DIRECTOR FUNERAL recommends to family to check in on patient regularly and support him as needed to identify needs and look into hiring a caregiver as needed. DIRECTOR FUNERAL provides family with senior resource guide, [place] resources, Dementia support group resources, lists of private pay caregivers and caregiver agencies. Patient's family plans to drive patient home and spend time with him this evening. Plan: patient to d/c to home upon medical clearance with family, patient and family to f/u with PCP and resources provided for hirer level of care. Nilam Parikh, ENTRY LEVEL FINANCIAL ANALYST
== END 2025-04-05 17:57 | disposition home or self-care (01) ==
PROVIDERS: Emergency Provider Emergency Medicine; PCP Internal Medicine
DX: R53.1 Weakness (principal)
CPT/HCPCS: 36415; 70450; 71045; 80053; 81001; 82550; 83605; 83690; 83735; 83880; 84484; 85025; 85610; 85730; 87637; 93005; 93010; 99283; 99284

== ENCOUNTER 2025-04-07 13:14 | Emergency (ER) | payer OTHER, SELFPAY ==
[2022-06-26 21:49] VITALS: BMI 30.8
[2025-04-07 13:15] VITALS: BP 144/77; PULSE 63; RESP 17; TEMP 36.9; O2SAT 100; BMI 32.1
--- NOTE | 2025-04-07 13:42 | ED.WEAKNESS ---
HPI - Weakness General Chief complaint: Weakness Stated complaint: soreness,weakness,lethargic Time Seen by Provider: 04/07/25 13:28 Mode of arrival: Ambulatory History of Present Illness HPI Narrative: Patient here for general malaise fatigue tiredness. Denies any chest pain abdominal pain back pain headache. No nausea or vomiting no shortness of breath. No fall or injury. Patient just seen here 2 days ago for the same complaint. Had reassuring CT head chest x-ray EKG, pacemaker interrogation urinalysis. He did feel better yesterday but then again today he started feeling sluggish and tired and no energy. He has not seen his primary care Dr. Blackwell for this problem. He states he will call the office to make an appointment. Patient states he stays busy. He cooks for himself. He does paperwork at his desk. He does yd work. He continues to drive. Patient is awake alert oriented x4. Related Data Home Medications ?Medication ?Instructions ?Recorded ?Confirmed aspirin 81 mg tablet,delayed 81 mg PO DAILY ##0 07/23/12 01/21/25 release Previous Rx's ?Medication ?Instructions ?Recorded ibuprofen 600 mg tablet 600 mg PO QID PRN pain #20 tabs 02/22/18 Allergies Allergy/AdvReac Type Severity Reaction Status Date / Time codeine Allergy Mild HIVES Verified 04/07/25 13:36 Review of Systems Review of Systems Narrative: GENERAL: Negative chills, positive fatigue, malaise, negative fever, sweats. HEENT: Negative sinus pain, ear pain, sore throat RESPIRATORY: Negative dyspnea, cough CARDIOVASCULAR: Negative chest pain, palpitations GASTROINTESTINAL: Negative vomiting, nausea, abdominal pain : Negative dysuria, frequency, hematuria MUSCULOSKELETAL: Negative muscle or bony pain SKIN: Negative rash, skin lesions NEUROLOGIC: Negative weakness, numbness ROS Unobtainable: All systems reviewed & are unremarkable except as noted in HPI and below Patient History Medical History Acquired hypothyroidism Depression Lumbar radiculopathy Cancer Chronic renal failure, stage 3a COVID-19 Pulmonary embolism Pneumonia due to COVID-19 virus Leukopenia (04/16/16) Chronic anemia (04/16/16) Chronic renal failure, stage 2 (mild) (07/24/15) Cardiomyopathy (07/24/15) Malignant neoplasm of prostate (07/11/14) Ventricular tachycardia (01/10/14) Anxiety (10/25/13) Mixed hyperlipidemia (01/23/11) Gastroesophageal reflux disease without esophagitis (01/23/11) History of hematuria Chest pain Palpitations Surgical History Anesthesia Implantable cardioverter-defibrillator (ICD) in situ Status post cholecystectomy Family History Brother Family history of diabetes mellitus (DM) Father Hypertension Sister No problems noted. Social History marital status: number of children: 6 household members: significant other and other Type(s) of exercise: other frequency: 3-4 times per week alcohol intake frequency: a few times a month Alcohol type: wine Exam Narrative Exam Narrative: GENERAL: in no distress, not toxic not dyspneic HEAD: Normocephalic. EYES: Pupils equal round ENT: Mucous membranes moist. NECK: Trachea midline. CARDIOVASCULAR: Regular rate and rhythm RESPIRATORY: Clear to auscultation. Breath sounds equal bilaterally. No wheezes, rales, or rhonchi. GASTROINTESTINAL: Abdomen soft, non-tender BACK: No flank tenderness. EXTREMITIES: No gross deformities. NEURO: AOx4. Clear speech SKIN: Warm and dry PSYCH: Not anxious, is cooperative Initial Vital Signs Initial Vital Signs: Vital Signs Temperature 98.4 F 04/07/25 13:15 Pulse Rate 63 04/07/25 13:15 Respiratory Rate 17 04/07/25 13:15 Blood Pressure 144/77 H 04/07/25 13:15 Pulse Oximetry 100 04/07/25 13:15 Oxygen Delivery Method Room Air 04/07/25 13:15 Course Orders Ordered: ED Orders 04/07/25 13:22 Respiratory Panel (Film Array) Stat 04/07/25 13:58 B12 [Vitamin B12] Stat C-Reactive Protein Quant Stat Complete Blood Count AUTO DIFF Stat Comprehensive Metabolic Panel Stat ESR [Erythrocyte Sedimentation Rate] Stat TSH [Thyroid Stimulating Hormone] Stat Testosterone Stat Troponin I Stat Vital Signs Vital signs: Vital Signs - 8 hr 04/07/25 13:15 04/07/25 13:51 04/07/25 13:53 Temperature 98.4 F Pulse Rate 63 61 60 Respiratory Rate 17 18 Blood Pressure 144/77 H Pulse Oximetry 100 100 Oxygen Delivery Method Room Air 04/07/25 13:53 04/07/25 14:00 04/07/25 14:01 Temperature Pulse Rate 62 62 Respiratory Rate 23 Blood Pressure 131/87 Pulse Oximetry 95 Oxygen Delivery Method 04/07/25 14:01 04/07/25 14:30 04/07/25 14:30 Temperature Pulse Rate 60 Respiratory Rate 23 Blood Pressure 133/67 148/93 H Pulse Oximetry 97 Oxygen Delivery Method Room Air MDM - Weakness Lab Data 04/07/25 13:58 04/07/25 13:58 Labs: Lab Results 04/07/25 04/07/25 Range/Units 13:22 13:58 WBC 3.6 L (4.5-11.0) X10^3/uL RBC 3.49 L (4.5-5.9) X10^6/uL Hgb 10.5 L (13.5-17.5) g/dL Hct 32.3 L (41-53) % MCV 92.6 (80-100) fL MCH 30.2 (26-34) PG MCHC 32.6 (30-36) % RDW 13.8 (11.6-14.8) % Plt Count 178 (150-400) X10^3/uL Neut % (Auto) 46.7 L (50-75) % Lymph % (Auto) 39.2 (25-40) % [place] % (Auto) 9.0 (3-14) % Eos % (Auto) 4.0 (2-4) % Baso % (Auto) 1.1 (0-2) % Neut # (Auto) 1700 (1920-6528) /uL Lymph # (Auto) 1400 (5978-4760) /uL [place] # (Auto) 300 (0-900) /uL Eos # (Auto) 100 (0-450) /uL Baso # (Auto) 0 (0-100) /uL ESR 70 H (0-15) MM/HR Sodium 135 L (137-145) mmol/L Potassium 4.3 (3.4-5.1) mmol/L Chloride 103 (98-107) mmol/L Carbon Dioxide 24 (22-32) mmol/L BUN 25 H (9-20) mg/dL Creatinine 1.70 H (0.66-1.25) mg/dL Estimated GFR 40 L (>60) mL/min BUN/Creatinine Ratio 14.7 (6-22) Glucose 130 H (70-99) mg/dL Calcium 9.6 (8.4-10.2) mg/dL Total Bilirubin 0.4 (0.2-1.3) mg/dL AST 34 (17-59) IU/L ALT 35 (<50) IU/L Alkaline Phosphatase 63 (38-126) U/L Troponin I < 0.012 (0.01-0.034) ng/mL C-Reactive Protein 0.9 (<1.0) mg/dL Total Protein 8.1 (6.3-8.2) g/dL Albumin 4.3 (3.5-5.0) g/dL Globulin 3.8 (1.7-4.1) g/dL Albumin/Globulin Ratio 1.1 (1.0-2.8) Vitamin B12 796 (239-931) pg/mL TSH 1.47 (0.47-4.68) uIU/mL Testosterone Level 239 (71.8-623) ng/dL Chlamy pneumoniae PCR Not detected (Not Detect) Adenovirus (PCR) Not detected (Not Detect) B. pertussis DNA (PCR) Not detected (Not Detect) B.parapertussis DNA PCR Not detected (Not Detecte) Coronavirus OC43 (PCR) Not detected (Not Detect) Coronavirus HKU1 (PCR) Not detected (Not Detect) Coronavirus 229E (PCR) Not detected (Not Detect) SARS-CoV-2 (PCR) Not detected (Not Detecte) Coronavirus NL63 (PCR) Not detected (Not Detect) Human Metapneumovir PCR Not detected (Not Detect) Influenza Type A (PCR) Not detected (Not Detect) Influenza Type B (PCR) Not detected (Not Detect) M. pneumoniae (PCR) Not detected (Not Detect) Parainfluenza 1 (PCR) Not detected (Not Detect) Parainfluenza 2 (PCR) Not detected (Not Detect) Parainfluenza 3 (PCR) Not detected (Not Detect) Parainfluenza 4 (PCR) Not detected (Not Detect) RSV (PCR) Not detected (Not Detect) Entero/Rhino (PCR) Not detected (Not Detect) MDM Narrative Medical decision making narrative: Patient here for general malaise fatigue tiredness. Denies any chest pain abdominal pain back pain headache. No nausea or vomiting no shortness of breath. No fall or injury. Patient just seen here 2 days ago for the same complaint. Had reassuring CT head chest x-ray EKG, pacemaker interrogation urinalysis. He did feel better yesterday but then again today he started feeling sluggish and tired and no energy. He has not seen his primary care Dr. Blackwell for this problem. He states he will call the office to make an appointment. Patient states he stays busy. He cooks for himself. He does paperwork at his desk. He does [employer] work. He continues to drive. Patient is awake alert oriented x4. MDM After history and exam, exam is reassuring. Patient has had extensive workup 48 hours ago here., today CBC CMP TSH EKG troponin respiratory panel will be added. Differential considered: Includes but not limited to fatigue, dehydration, hypothyroidism Medical records reviewed: ER visit here cat scan imaging x-ray laboratory studies done here 2 days ago. Lab Test results independently reviewed as above. Pertinent findings: WBC 3.6 hemoglobin 10.5 sodium 135 potassium 4.3 BUN 25 creatinine 1.7, appears to be baseline renal function. Glucose 130 Independently reviewed EKG patient declined Imaging studies independently reviewed: None indicated at this time Consultations: 1:47 p.m. but I spoke with primary care Dr. Blackwell, who will add blood work to patient's blood work here today. He will see patient in the office in next week for follow up. Re-evaluations: 2:34 p.m.. Patient has decided to leave. Laboratory studies are not completed/resulted. EKG has not been done. He does not want any further studies. He is going to contact Dr. Blackwell for appointment time. I did inform him that Dr. Blackwell was contacted today and has added laboratory studies. His office will be reaching out to him for appointment time. Discussion: Appropriate for discharge home. Patient declines to wait for any results of his laboratory studies. Return precautions reviewed. He desires discharge home Diagnosis: Fatigue Discharge Plan Departure Patient Disposition: Home Clinical Impression: Weakness Instructions: DI for Fatigue Activity Restrictions/Additional Instructions: Please do see your family doctor as planned. He was contacted today for follow up appointment. Continue home medications. Return if worse if any questions or concerns Prescriptions: No Action aspirin 81 mg Tablet,Delayed Release (Dr/Ec) 81 mg PO DAILY Qty: 0 ibuprofen 600 mg tablet 600 mg PO QID PRN (Reason: pain) Qty: 20 0RF Rx Instructions: do not take with other NSAIDs Referrals: Brayan Blackwell MD [Primary Care Provider, Internal Medicine] Stand Alone Forms: Patient Portal/API
[2025-04-07 13:51] VITALS: PULSE 61
[2025-04-07 13:53] VITALS: BP 131/87; PULSE 60; RESP 18; O2SAT 100
[2025-04-07 14:00] VITALS: PULSE 62; RESP 23; O2SAT 95
[2025-04-07 14:01] VITALS: BP 133/67; PULSE 62
[2025-04-07 14:14] LABS: Add Manual Diff / Slide Review NO; Hematocrit 32.3 % (41-53); Hemoglobin 10.5 g/dL (13.5-17.5); Lymphocytes Absolute Auto 1400 /uL (1100-4500); Mean Corpuscular HGB Conc 32.6 % (30-36); Mean Corpuscular Hemoglobin 30.2 PG (26-34); Mean Corpuscular Volume 92.6 fL (80-100); Platelet Count 178 X10^3/uL (150-400)
[2025-04-07 14:27] LABS: Alanine Aminotransferase 35 IU/L (<50); Albumin 4.3 g/dL (3.5-5.0); Albumin Globulin Ratio 1.1 (1.0-2.8); Alkaline Phosphatase 63 U/L (38-126); Blood Urea Nitrogen 25 mg/dL (9-20); Calcium 9.6 mg/dL (8.4-10.2); Carbon Dioxide 24 mmol/L (22-32); Chloride 103 mmol/L (98-107); Estimated Glomerular Filt Rate 40 mL/min (>60); Globulin 3.8 g/dL (1.7-4.1); Glucose 130 mg/dL (70-99); HEMOLYSIS < 15 (0-50); Potassium 4.3 mmol/L (3.4-5.1); Sodium 135 mmol/L (137-145); Total Protein 8.1 g/dL (6.3-8.2)
[2025-04-07 14:30] VITALS: BP 148/93; PULSE 60; RESP 23; O2SAT 97
[2025-04-07 14:37] LABS: Coronavirus NL 63 Not Detected (Not Detect); SARS- CoV-2 Not Detected (Not Detecte)
[2025-04-07 14:40] LABS: Troponin I < 0.012 ng/mL (0.01-0.034)
[2025-04-07 15:03] LABS: Thyroid Stimulating Hormone 1.47 uIU/mL (0.47-4.68)
[2025-04-07 15:18] LABS: Vitamin B12 796 pg/mL (239-931)
== END 2025-04-07 14:48 | disposition home or self-care (01) ==
PROVIDERS: Emergency Provider Emergency Medicine; PCP Internal Medicine
DX: R53.1 Weakness (principal)
CPT/HCPCS: 36415; 80053; 82607; 84403; 84443; 84484; 85025; 85651; 86140; 87633; 99282; 99283

== ENCOUNTER 2025-04-09 15:14 | Emergency (ER) | payer OTHER, SELFPAY ==
[2022-06-26 21:49] VITALS: BMI 30.8
--- NOTE | 2025-04-09 | DI.CT.S_ITS ---
PROCEDURE: CT ANGIO HEAD AND NECK INDICATIONS: CODE STROKE TECHNIQUE: After the administration of intravenous contrast, 1 mm thick sections acquired from the aortic arch through the [place] of [place]. 3-dimensional epdnhcf-ejimbdhoa-dsmedhrdwe (MIP) and/or volume rendering reformats were acquired of the central intracranial vasculature and neck separately. For radiation dose reduction, the following was used: automated exposure control, adjustment of mA and/or kV according to patient size. COMPARISON: [facility], CT, CT STROKE, 04/09/2025, 15:36. [facility], CT, CT HEAD/BRAIN WO CON, 04/05/2025, 15:50. FINDINGS: Image quality: Limited by bolus timing, with venous contamination. Cerebral CT Angiogram: Internal carotid arteries: No acute findings. Intracranial ICA are patent with no significant stenosis. No occlusion. No aneurysm. Anterior cerebral arteries: Unremarkable. No significant stenosis. No occlusion. No aneurysm. Middle cerebral arteries: Unremarkable. No significant stenosis. No occlusion. No aneurysm. Posterior cerebral arteries: There is a prominent left posterior communicating artery seen, with an accompanying diminutive left P1 segment. This is attributed to a type origin of the right posterior cerebral artery, which is considered to be a normal developmental variant of typically no clinical consequence. The flow within the posterior cerebral arteries is normal and symmetric. No aneurysms are seen. Basilar artery: Unremarkable. No significant stenosis. No occlusion. No aneurysm. Vertebral arteries: Unremarkable as visualized. Dural venous sinuses: Unremarkable given phase of enhancement. Other: Arterial phase appearance of the brain parenchyma is unremarkable. Neck CT Angiogram: Internal carotid arteries: Unremarkable. No significant stenosis. No dissection or occlusion. Common carotid arteries: Unremarkable. No significant stenosis. No dissection or occlusion. External carotid arteries: Unremarkable. No occlusion. Vertebral arteries: There is 50% narrowing seen involving the origin of the left vertebral artery. No significant stenosis can be seen at the origin of the right vertebral artery. The more distal vertebral arteries demonstrate normal caliber. Aortic Arch and Mediastinum: Partially visualized aortic arch unremarkable without evidence of aneurysm. Origins of the great vessels unremarkable. Other: Arterial phase soft tissues of the neck and chest are unremarkable. Moderate cervical spine degenerative change is seen. A left-sided pacer device is seen. Mild emphysematous changes can be seen at the lung apices. IMPRESSION: No significant intracranial arterial abnormality is seen. No significant carotid abnormality is seen. 50% narrowing can be seen involving the origin of the left vertebral artery. Additional findings: Qrnqpl-my-Pmawzc developmental anomalies. Moderate cervical spine degenerative change Left-sided pacer device Any quantitative measurements of stenosis were performed using NASCET criteria. Dictated by: Lior Pierson M.D. on 04/09/2025 at 15:02 Approved by: Lior Pierson M.D. on 04/09/2025 at 15:04
--- NOTE | 2025-04-09 | DI.CT.S_ITS ---
PROCEDURE: CT STROKE INDICATIONS: CODE STROKE TECHNIQUE: Noncontrast 4.5 mm thick angled axial sections acquired from the foramen magnum to the vertex, with coronal reformats. For radiation dose reduction, the following was used: automated exposure control, adjustment of mA and/or kV according to patient size. COMPARISON: [facility], CT, CT HEAD/BRAIN WO CON, 04/05/2025, 15:50. FINDINGS: Image quality: Diagnostic. CSF spaces: Basal cisterns are patent. No extra-axial fluid collections. The ventricles are symmetric in size and shape. Brain: No intracranial bleeds or mass effect. There is cerebral volume loss, with resultant ventricular and sulcal prominence. There are periventricular and deep white matter chronic small vessel ischemic changes. There is intracranial internal carotid artery atherosclerosis. Skull and face: Calvarium and visualized facial bones appear intact, without suspicious lesions. Sinuses: Visualized sinuses and mastoids are clear. IMPRESSION: No acute intracranial pathology. No acute intracranial hemorrhage is seen. If there is strong clinical suspicion for an acute stroke, please consider a brain MRI for further evaluation, as it is more sensitive (assuming that there is no contraindication to MRI). Note: Case discussed by telephone with Dr. Mcmahan at 3:42 p.m. [place] time on April 09, 2025. This study fulfills neurological imaging criteria for inclusion or exclusion of acute stroke therapies based on available published neurological guidelines. Dictated by: Lior Pierson M.D. on 04/09/2025 at 14:41 Approved by: Lior Pierson M.D. on 04/09/2025 at 14:42
[2025-04-09 15:23] VITALS: BP 166/85; RESP 16; TEMP 36.6; O2SAT 97; BMI 29.5
--- NOTE | 2025-04-09 15:27 | PC.NURSE ---
Code stroke called at 15:18.
--- NOTE | 2025-04-09 15:30 | DI.RAD.S_ITS ---
PROCEDURE: XR CHEST 1V INDICATIONS: Possible stroke TECHNIQUE: One view of the chest was acquired. COMPARISON: [facility], CT, CT ANGIO HEAD AND NECK, 04/09/2025, 15:36. [facility], CT, CT STROKE, 04/09/2025, 15:36. [facility], CR, XR CHEST 1V, 04/05/2025, 16:08. FINDINGS: Surgical changes and devices: An AICD is seen. The leads are seen in stable positions. Lungs and pleura: Lungs are clear. No pleural effusions or pneumothorax. Mediastinum: The cardiac contours are within normal limits. The aorta demonstrates calcification and tortuosity. Bones and chest wall: No suspicious bony lesions. Age-appropriate bony degenerative changes are seen. Overlying soft tissues appear unremarkable. IMPRESSION: Clear lungs. Postoperative and degenerative changes are seen. Dictated by: Lior Pierson M.D. on 04/09/2025 at 15:01 Approved by: Lior Pierson M.D. on 04/09/2025 at 15:01
[2025-04-09 15:44] LABS: INR 1.4 (0.9-1.3); Prothrombin Time 15.6 SECONDS (9.4-12.5)
[2025-04-09 15:45] LABS: Add Manual Diff / Slide Review NO; Hematocrit 31.6 % (41-53); Hemoglobin 10.3 g/dL (13.5-17.5); Lymphocytes Absolute Auto 2100 /uL (1100-4500); Mean Corpuscular HGB Conc 32.6 % (30-36); Mean Corpuscular Hemoglobin 30.3 PG (26-34); Mean Corpuscular Volume 92.9 fL (80-100); Platelet Count 193 X10^3/uL (150-400)
[2025-04-09 15:47] LABS: PTT Partial Thromboplastin Tim 23 SECONDS (25.1-36.5)
[2025-04-09 15:48] LABS: Alanine Aminotransferase 27 IU/L (<50); Albumin 4.4 g/dL (3.5-5.0); Albumin Globulin Ratio 1.1 (1.0-2.8); Alkaline Phosphatase 66 U/L (38-126); Blood Urea Nitrogen 23 mg/dL (9-20); Calcium 9.6 mg/dL (8.4-10.2); Carbon Dioxide 25 mmol/L (22-32); Chloride 101 mmol/L (98-107); Creatine Kinase 86 U/L (55-170); Estimated Glomerular Filt Rate 32 mL/min (>60); Globulin 4.0 g/dL (1.7-4.1); Glucose 120 mg/dL (70-99); HEMOLYSIS < 15 (0-50); Potassium 4.0 mmol/L (3.4-5.1); Sodium 136 mmol/L (137-145); Total Protein 8.4 g/dL (6.3-8.2)
[2025-04-09 15:59] LABS: Troponin I < 0.012 ng/mL (0.01-0.034)
[2025-04-09 16:00] VITALS: PULSE 60; RESP 19; O2SAT 99
--- NOTE | 2025-04-09 16:16 | EKG_ITS ---
[address] [address] [place] [address] Test Date: 2025-04-09 Pat Name: Jorje Garay Department: [facility] Room: Gender: Male Hr Coordinator: FRANSICO : 1945 Requested By: Order Number: [id number] Reading MD: Brayan Blackwell MD Measurements Intervals [place] Rate: 60 P: 18 [place]: 316 QRS: 9 QRSD: 90 T: 45 QT: 370 QTc: 370 Interpretive Statements Atrial-paced rhythm with prolonged AV conduction Electronically Signed On 04-10-2025 7:56:41 PDT by Brayan Blackwell MD
[2025-04-09 16:30] VITALS: PULSE 60; RESP 18; O2SAT 99
[2025-04-09 17:00] VITALS: PULSE 60; RESP 16; O2SAT 99
[2025-04-09 17:30] VITALS: BP 149/78; PULSE 61; RESP 18; O2SAT 100
--- NOTE | 2025-04-09 18:28 | ED.NEUROSD ---
HPI - Neuro Symptoms/Deficit General Chief Complaint: Neuro Symptoms/Deficit Stated Complaint: lft eye blurry weakness Time Seen by Provider: 04/09/25 15:25 Mode of arrival: Ambulatory History of Present Illness HPI Narrative: 80-year-old male history of prior cardiac arrhythmia with AICD in place, hypothyroidism CKD, dyslipidemia dementia presents with complaint of left blurry vision. Unclear exactly when it started he has no weakness no numbness no chest pain or shortness of breath. This is actually his 3rd visit since April 05. He was seen here on that day for increasing weakness and generally not feeling well. There is no history or official diagnosis of dementia but family and notes note that long-term memory seems to be intact but short term memory he is quite repetitive. Today he is not having any other symptoms and no family members are present. Attempt to call Savanah but daughter but left a voicemail. On Anticoagulants: No Related Data Home Medications ?Medication ?Instructions ?Recorded ?Confirmed aspirin 81 mg tablet,delayed 81 mg PO DAILY ##0 07/23/12 01/21/25 release Previous Rx's ?Medication ?Instructions ?Recorded ibuprofen 600 mg tablet 600 mg PO QID PRN pain #20 tabs 02/22/18 Allergies Allergy/AdvReac Type Severity Reaction Status Date / Time codeine Allergy Mild HIVES Verified 04/07/25 13:36 Review of Systems Hematologic/Lymphatic On Anticoagulants: No Patient History Medical History Acquired hypothyroidism Depression Lumbar radiculopathy Cancer Chronic renal failure, stage 3a COVID-19 Pulmonary embolism Pneumonia due to COVID-19 virus Leukopenia (04/16/16) Chronic anemia (04/16/16) Chronic renal failure, stage 2 (mild) (07/24/15) Cardiomyopathy (07/24/15) Malignant neoplasm of prostate (07/11/14) Ventricular tachycardia (01/10/14) Anxiety (10/25/13) Mixed hyperlipidemia (01/23/11) Gastroesophageal reflux disease without esophagitis (01/23/11) History of hematuria Chest pain Palpitations Surgical History Anesthesia Implantable cardioverter-defibrillator (ICD) in situ Status post cholecystectomy Family History Brother Family history of diabetes mellitus (DM) Father Hypertension Sister No problems noted. Social History marital status: number of children: 6 household members: significant other and other Type(s) of exercise: other frequency: 3-4 times per week alcohol intake frequency: a few times a month Alcohol type: wine Exam Initial Vital Signs Initial Vital Signs: Vital Signs Temperature 97.8 F 04/09/25 15:23 Respiratory Rate 16 04/09/25 15:23 Blood Pressure 166/85 H 04/09/25 15:23 Pulse Oximetry 97 04/09/25 15:23 Oxygen Delivery Method Room Air 04/09/25 15:23 GENERAL: Alert pleasantly confused 80-year-old male HEENT: Head atraumatic,EOMI, pupils reactive, face symmetric, moist mucous membranes CARDIOVASCULAR: Regular rate and rhythm without murmurs, rubs or gallops. RESPIRATORY: Breath sounds equal bilaterally, no wheezes rales or rhonchi. ABDOMEN: Soft, nontender. Normoactive bowel sounds all 4 quadrants. No guarding or rebound. EXTREMITIES: Normal range of motion, no clubbing or edema. Neurovascularly intact NEUROLOGICAL: Alert and oriented x2.Normal gait and speech. Cranial nerves II through XII grossly intact. Good tluaru-yj-sxex, good dtfv-bc-fzot, strength equal bilaterally, no dysarthria or aphasia, sensation in tact to soft touch bilaterally, no visual changes, no facial droop SKIN: Warm, dry, no laceration, no petechiae, no rashes or lesions. Scores NIH Stroke Scale Level of Conciousness: Alert, keenly responsive Ask month/age: Answers one question correctly, intubated follow commands Open/close eyes, close hand: Performs both tasks correctly Best gaze horizontal: Normal Visual jones: No visual loss Facial palsy: Normal symetrical movement Left arm drift: No drift for full 10 sec Right arm drift: No drift for full 10 sec Left leg drift: No drift for full 5 sec Right leg drift: No drift for full 5 sec Limb ataxia: Absent Sensory on face/arms/legs: Normal, no sensory loss Best language: No aphasia, normal Dysarthria: Normal Extinction or inattention: No abnormality Total NIH Stroke scale score: 1 Course Orders Ordered: ED Orders 04/09/25 15:25 Complete Blood Count AUTO DIFF Stat Comprehensive Metabolic Panel Stat PTT Partial Thromboplastin Ar Stat Prothrombin Time INR Stat Troponin & CK Cardiac Panel Stat 04/09/25 15:30 XR chest 1V Stat EKG-12 Lead Stat Discontinued Medications Sodium Chloride (Normal Saline 0.9%) 500 mls @ 1,000 mls/hr IV BOLUS ONE Stop: 04/09/25 19:05 Ondansetron HCl (Ondansetron 4 Mg/2 Ml Inj) 4 mg IV NOW PRN PRN Reason: Nausea And Vomiting Ondansetron HCl (Ondansetron 4 Mg Odt) 4 mg PO NOW PRN PRN Reason: Nausea And Vomiting Vital Signs Vital signs: Vital Signs - 8 hr 04/09/25 15:23 04/09/25 16:00 04/09/25 16:30 Temperature 97.8 F Pulse Rate 60 60 Respiratory Rate 16 19 18 Blood Pressure 166/85 H Pulse Oximetry 97 99 99 Oxygen Delivery Method Room Air Room Air Room Air 04/09/25 17:00 04/09/25 17:30 Temperature Pulse Rate 60 61 Respiratory Rate 16 18 Blood Pressure 149/78 H Pulse Oximetry 99 100 Oxygen Delivery Method Room Air Room Air MDM - Neuro Symptoms/Deficit Lab Data 04/09/25 15:25 04/09/25 15:25 Labs: Lab Results 04/09/25 Range/Units 15:25 WBC 5.6 (4.5-11.0) X10^3/uL RBC 3.40 L (4.5-5.9) X10^6/uL Hgb 10.3 L (13.5-17.5) g/dL Hct 31.6 L (41-53) % MCV 92.9 (80-100) fL MCH 30.3 (26-34) PG MCHC 32.6 (30-36) % RDW 14.0 (11.6-14.8) % Plt Count 193 (150-400) X10^3/uL Neut % (Auto) 54.3 (50-75) % Lymph % (Auto) 36.3 (25-40) % [place] % (Auto) 6.8 (3-14) % Eos % (Auto) 1.9 L (2-4) % Baso % (Auto) 0.7 (0-2) % Neut # (Auto) 3100 (6008-5124) /uL Lymph # (Auto) 2100 (9686-0534) /uL [place] # (Auto) 400 (0-900) /uL Eos # (Auto) 100 (0-450) /uL Baso # (Auto) 0 (0-100) /uL PT 15.6 H (9.4-12.5) SECONDS INR 1.4 H (0.9-1.3) APTT 23 L (25.1-36.5) SECONDS Sodium 136 L (137-145) mmol/L Potassium 4.0 (3.4-5.1) mmol/L Chloride 101 (98-107) mmol/L Carbon Dioxide 25 (22-32) mmol/L BUN 23 H (9-20) mg/dL Creatinine 2.04 H (0.66-1.25) mg/dL Estimated GFR 32 L (>60) mL/min BUN/Creatinine Ratio 11.3 (6-22) Glucose 120 H (70-99) mg/dL Calcium 9.6 (8.4-10.2) mg/dL Total Bilirubin 0.3 (0.2-1.3) mg/dL AST 28 (17-59) IU/L ALT 27 (<50) IU/L Alkaline Phosphatase 66 (38-126) U/L Total Creatine Kinase 86 (55-170) U/L Troponin I < 0.012 (0.01-0.034) ng/mL Total Protein 8.4 H (6.3-8.2) g/dL Albumin 4.4 (3.5-5.0) g/dL Globulin 4.0 (1.7-4.1) g/dL Albumin/Globulin Ratio 1.1 (1.0-2.8) Point of Care Testing Glucose POC [address] scan - head: Radiologist's Impression: PROCEDURE: CT STROKE INDICATIONS: CODE STROKE TECHNIQUE: Noncontrast 4.5 mm thick angled axial sections acquired from the foramen magnum to the vertex, with coronal reformats. For radiation dose reduction, the following was used: automated exposure control, adjustment of mA and/or kV according to patient size. COMPARISON: [facility], CT, CT HEAD/BRAIN WO CON, 04/05/2025, 15:50. FINDINGS: Image quality: Diagnostic. CSF spaces: Basal cisterns are patent. No extra-axial fluid collections. The ventricles are symmetric in size and shape. Brain: No intracranial bleeds or mass effect. There is cerebral volume loss, with resultant ventricular and sulcal prominence. There are periventricular and deep white matter chronic small vessel ischemic changes. There is intracranial internal carotid artery atherosclerosis. Skull and face: Calvarium and visualized facial bones appear intact, without suspicious lesions. Sinuses: Visualized sinuses and mastoids are clear. IMPRESSION: No acute intracranial pathology. No acute intracranial hemorrhage is seen. If there is strong clinical suspicion for an acute stroke, please consider a brain MRI for further evaluation, as it is more sensitive (assuming that there is no contraindication to MRI). Note: Case discussed by telephone with Dr. Mcmahan at 3:42 p.m. [place] time on April 09, 2025. This study fulfills neurological imaging criteria for inclusion or exclusion of acute stroke therapies based on available published neurological guidelines. Dictated by: Lior Pierson M.D. on 04/09/2025 at 14:41 CTA - brain/neck: Radiologist's Impression: PROCEDURE: CT ANGIO HEAD AND NECK INDICATIONS: CODE STROKE TECHNIQUE: After the administration of intravenous contrast, 1 mm thick sections acquired from the aortic arch through the [place] of [place]. 3-dimensional lgscsca-adkiiznow-darflkheay (MIP) and/or volume rendering reformats were acquired of the central intracranial vasculature and neck separately. For radiation dose reduction, the following was used: automated exposure control, adjustment of mA and/or kV according to patient size. COMPARISON: [facility], CT, CT STROKE, 04/09/2025, 15:36. [facility], CT, CT HEAD/BRAIN WO CON, 04/05/2025, 15:50. FINDINGS: Image quality: Limited by bolus timing, with venous contamination. Cerebral CT Angiogram: Internal carotid arteries: No acute findings. Intracranial ICA are patent with no significant stenosis. No occlusion. No aneurysm. Anterior cerebral arteries: Unremarkable. No significant stenosis. No occlusion. No aneurysm. Middle cerebral arteries: Unremarkable. No significant stenosis. No occlusion. No aneurysm. Posterior cerebral arteries: There is a prominent left posterior communicating artery seen, with an accompanying diminutive left P1 segment. This is attributed to a type origin of the right posterior cerebral artery, which is considered to be a normal developmental variant of typically no clinical consequence. The flow within the posterior cerebral arteries is normal and symmetric. No aneurysms are seen. Basilar artery: Unremarkable. No significant stenosis. No occlusion. No aneurysm. Vertebral arteries: Unremarkable as visualized. Dural venous sinuses: Unremarkable given phase of enhancement. Other: Arterial phase appearance of the brain parenchyma is unremarkable. Neck CT Angiogram: Internal carotid arteries: Unremarkable. No significant stenosis. No dissection or occlusion. Common carotid arteries: Unremarkable. No significant stenosis. No dissection or occlusion. External carotid arteries: Unremarkable. No occlusion. Vertebral arteries: There is 50% narrowing seen involving the origin of the left vertebral artery. No significant stenosis can be seen at the origin of the right vertebral artery. The more distal vertebral arteries demonstrate normal caliber. Aortic Arch and Mediastinum: Partially visualized aortic arch unremarkable without evidence of aneurysm. Origins of the great vessels unremarkable. Other: Arterial phase soft tissues of the neck and chest are unremarkable. Moderate cervical spine degenerative change is seen. A left-sided pacer device is seen. Mild emphysematous changes can be seen at the lung apices. IMPRESSION: No significant intracranial arterial abnormality is seen. No significant carotid abnormality is seen. 50% narrowing can be seen involving the origin of the left vertebral artery. Additional findings: Xjeaam-jv-Gkfmrs developmental anomalies. Moderate cervical spine degenerative change Left-sided pacer device Any quantitative measurements of stenosis were performed using NASCET criteria. Dictated by: Lior Pierson M.D. on 04/09/2025 at 15:02 Chest x-ray: Radiologist's Impression: PROCEDURE: XR CHEST 1V INDICATIONS: Possible stroke TECHNIQUE: One view of the chest was acquired. COMPARISON: [facility], CT, CT ANGIO HEAD AND NECK, 04/09/2025, 15:36. [facility], CT, CT STROKE, 04/09/2025, 15:36. [facility], CR, XR CHEST 1V, 04/05/2025, 16:08. FINDINGS: Surgical changes and devices: An AICD is seen. The leads are seen in stable positions. Lungs and pleura: Lungs are clear. No pleural effusions or pneumothorax. Mediastinum: The cardiac contours are within normal limits. The aorta demonstrates calcification and tortuosity. Bones and chest wall: No suspicious bony lesions. Age-appropriate bony degenerative changes are seen. Overlying soft tissues appear unremarkable. IMPRESSION: Clear lungs. Postoperative and degenerative changes are seen. Dictated by: Lior Pierson M.D. on 04/09/2025 at 15:01 ECG Data Attestation: I personally reviewed and interpreted this ECG as follows: Prior ECG tracings: available for review Interpretation: Paced Sinus rhythm rate 60 NE interval 116 QRS 90 QTC [address] changes similar to previous EKGs MDM Narrative Medical decision making narrative: Patient 80-year-old male presenting today with possible blurry vision. Code stroke was activated however he has no weakness. He has multiple repetitive conversations does not remember why he is here. This is his 3rd visit to the ED this week. Blood work has been reviewed CBC no leukocytosis no anemia CMP no electrolyte abnormality creatinine is slightly elevated at 2.0 baseline is 1.7 Bilirubin liver enzymes within normal limits Troponin negative Imaging reviewed Head CT no intracranial hemorrhage CT angio no large vessel occlusion Chest x-ray no acute cardiopulmonary process EKGs reviewed stable similar to prior paced rhythm Attempted to call Savanah the daughter left voicemail Patient becoming more agitated wanting to leave. At this time I have low concern for CVA, I think he is more confused. No evidence of infection. He does have repetitive questioning can not remember why he is here this seems to be baseline based on previous ED records. 1900 I spoke on the phone with the daughter Savanah who reports that his memory is really deteriorating. She was up at his house this week she does not actually live with him he has an appointment with his primary care provider but not until next Friday. Patient actually lives alone. I discussed with daughter that he will likely need caregivers, or placement. Offered to call a [employer] [facility] for the patient to go home however daughter says that she will not get in it. They will have another sibling checked to make sure he made it home okay. Discharge Plan Departure Patient Disposition: Home Clinical Impression: ASHISH (acute kidney injury), Dementia Activity Restrictions/Additional Instructions: *You have been diagnosed with acute kidney injury *What to do: At this time your kidney function is a little worse than usual. Strongly recommend caregivers may need memory placement *Continue to take medications as directed *Follow up with your primary care provider in 2-3 days or call [phone] *Return to ER if you should have increased confusion weakness or any new, worsening or concerning symptoms Prescriptions: No Action aspirin 81 mg Tablet,Delayed Release (Dr/Ec) 81 mg PO DAILY Qty: 0 ibuprofen 600 mg tablet 600 mg PO QID PRN (Reason: pain) Qty: 20 0RF Rx Instructions: do not take with other NSAIDs Referrals: Brayan Blackwell MD [Primary Care Provider, Internal Medicine] Stand Alone Forms: Patient Portal/API
== END 2025-04-09 19:13 | disposition home or self-care (01) ==
PROVIDERS: Emergency Provider Emergency Medicine; PCP Internal Medicine
DX: N17.9 Acute kidney failure, unspecified (principal); F03.90 Unspecified dementia, unspecified severity, without behavioral disturbance, psychotic disturbance, mood disturbance, and anxiety; Z95.810 Presence of automatic (implantable) cardiac defibrillator
CPT/HCPCS: 36415; 70450; 70496; 70498; 71045; 80053; 82550; 82962; 84484; 85025; 85610; 85730; 93005; 93010; 99284; Q9967